=== PATIENT | female | born 1945 | race Caucasian/White ===

== ENCOUNTER 2024-04-15 13:39 | Inpatient (IN) ==
[2024-04-15] MEDS: OPTIRAY 320 125ml IV ONE (13:54)
--- NOTE | 2024-04-15 14:00 | Emergency Department Note ---
Impression & Plan Expressive aphasia, Anemia, High serum chloride ED Provider Note NAME: SALLY PHILIP AGE: 78 SEX: F : 1945 ARRIVES VIA: Walk-In INFORMANT: Patient ED PROVIDER(S): Alf Reis DO CHIEF COMPLAINT: Trouble talking HPI: Patient is an 78-year-old female who presents ER for trouble getting her words out. She was brought in for confusion. Daughter who is present at bedside provides the majority of the history and notes that she was normal this morning when she woke up and the father saw her. She became confused somewhere around 11:00 today. She was found sitting on the toilet confused for a protracted period of time. It was noted at that time that she was talking not making sense.. She denies any headache or chest pain. No belly pain. No nausea, vomiting, or diarrhea. No dysuria, urgency, or frequency. ADDITIONAL HISTORY OBTAINED: Per HPI Chronic Medical/Social Conditions Affecting Care: Per HPI PAST MEDICAL HISTORY:See Below PAST SURGICAL HISTORY:See Below FAMILY HISTORY:See Below SOCIAL HISTORY:See Below HOME MEDICATIONS:See Below ALLERGIES:See Below VITALS:See Below PHYSICAL EXAMINATION: GENERAL: Sitting up in bed, alert, well appearing, well nourished, no distress, non-toxic EYE EXAM: normal conjunctiva. PERRL and EOM's grossly intact. OROPHARYNX: no exudate, no erythema, lips, buccal mucosa, and tongue normal and mucous membranes are moist NECK: supple, no nuchal rigidity, no adenopathy, non-tender LUNGS: Clear to auscultation. Normal chest wall mechanics HEART: no murmurs, S1 normal and S2 normal ABDOMEN: abdomen soft, non-tender, normo-active bowel sounds, no masses, no rebound or guarding. BACK: Back is symmetrical on inspection and there is no deformity, no midline tenderness, no CVA tenderness. SKIN: no rashes and no bruising UPPER EXTREMITIES: upper extremities are grossly normal. LOWER EXTREMITIES: No pitting edema. NEURO EXAM: Oriented to person but not place or time, cranial nerves II-XII intact, normal speech, no weakness of arms, no weakness of legs. No drift. Finger to nose intact. Gross sensation intact. MEDICAL DECISION MAKING: Patient is an 78-year-old female who presents ER for above-stated complaint. IV was established and blood work was obtained. Labs show no significant leukocytosis. Mild anemia 10.8. INR unremarkable. BMP with a creatinine 1.27. LFTs bilirubin were unremarkable. Mag 2.0. Troponin negative. CT angios of the head and neck were obtained and showed no acute pathology. Patient has been taking her Eliquis. Not a TNK candidate. Discussed the presentation and workup with neurology and they did evaluate her via telestroke. No additional changes and they recommended admission. They will place a note. Patient was given IV Rocephin as I favor that this was likely a UTI but UA was pending and eventually resulted and was unremarkable. Discussed the case with the hospitalist for further evaluation management treatment. Consults/Care Managements Discussions: Per [facility] Triage Nursing notes reviewed. Limited review of prior medical records performed Vital Signs: reviewed and remarkable for HTN Differential diagnosis: Differential Diagnosis includes but is not limited to ischemic Stroke, hemorrhagic stroke, bells palsy, mass, neoplasm, migraine headache, seizure, subarachnoid hemorrhage, TIA, and transient global amnesia. ER treatment provided: See below Diagnostics interpreted by me include EKG and cardiac monitoring as listed below: -Cardiac Monitoring: An order was placed for continuous cardiac monitoring. The monitor shows a rate of 92 with sinus rhythm. -ECG: Sinus rhythm rate 82 Normal axis No PVCs Poor baseline in the lateral leads QTc 450 -Laboratory studies:Interpreted by me as stated above in MDM and shown below. Imaging studies: Xrays: As interpreted by me: Portable AP upright 1 view of the chest shows no focal infiltrate CTs show: CT angios of the head and neck showed no acute pathology Procedures:none Critical Care: None Past Med/Surg History Problem List (Updated 04/15/24 @ 19:47 by Alf Reis DO) High serum chloride (Acute) Anemia (Acute) Expressive aphasia (Acute) Medical History (Updated 04/15/24 @ 19:47 by Alf Reis DO) Benign essential tremor Chronic anemia CKD (chronic kidney disease) stage 3, GFR 30-59 ml/min IBS (irritable bowel syndrome) Barretts esophagus Chronic heart failure with preserved ejection fraction (HFpEF) Hx TIA/stroke 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 Noted on MRI Chronic seasonal allergic rhinitis Hypothyroidism HLD (hyperlipidemia) HTN (hypertension) Surgical History (Updated 04/15/24 @ 16:11 by Destini Bailey PA-C) Hx of tonsillectomy Hx of cholecystectomy Hx of tubal ligation S/P repair of paraesophageal hernia Family History (Updated 04/15/24 @ 16:11 by Destini Bailey PA-C) Other Cancer Coronary heart disease Social History (Updated 04/15/24 @ 16:11 by Destini Bailey PA-C) Smoking Status: Never smoker Second Hand Exposure: No; Do You Dip or Chew Tobacco: No; Tobacco Cessation Education Requested by Patient: No Hx Alcohol Use: No Hx Substance Use: No Preferred Language: Armenian Communication Ability: Effective Fight Manager Required: No Beliefs That Will Affect Care: None marital status: Current Living Situation: Spouse Other Information That Helps Us Care for You: No Feels Safe at Home: Yes Safety Concerns: Feels Safe At This Time Assistive Devices: Walker Allergies Allergies Allergy/AdvReac Type Severity Reaction Status Date / Time latex Allergy Severe RASH,SWELLING,EDEMA Verified 04/15/24 16:08 TO FACE/LIPS/TONGUE NSAIDS (Non-Steroidal Allergy Severe Swelling Verified 04/15/24 16:08 Anti-Inflamma of Lip/Tongue/Throat oxybutynin Allergy Severe Swelling Verified 04/15/24 16:08 of Lip/Tongue/Throat soy Allergy Severe Swelling Verified 04/15/24 16:08 of Lip/Tongue/Throat tolmetin Allergy Severe Swelling Verified 04/15/24 16:08 of Lip/Tongue/Throat cefuroxime Allergy Intermediate Anaphylaxis Verified 04/15/24 16:08 azithromycin Allergy NUMBNESS Verified 04/15/24 16:08 IN MOUTH Cephalosporins Allergy Unknown Verified 04/15/24 16:09 ibuprofen Allergy Swelling Verified 04/15/24 16:08 of Lip/Tongue/Throat naproxen Allergy Swelling Verified 04/15/24 16:08 of the Eye Penicillins Allergy Hives Verified 04/15/24 16:09 Sulfa (Sulfonamide Allergy Unknown Verified 04/15/24 16:09 Antibiotics) atorvastatin AdvReac Intermediate MUSCLE Verified 04/15/24 16:08 PAIN,MIALGIA erythromycin base AdvReac Gastrointestinal Verified 04/15/24 16:08 Upset meperidine [From Demerol] AdvReac GI UPSET Verified 04/15/24 16:08 AND DIZZINESS AVACADO Allergy Severe Swelling Uncoded 04/15/24 16:08 of Lip/Tongue/Throat Home Meds Home Medications Medication Instructions Recorded Confirmed acetaminophen 325 mg tablet 325 mg PO HS PRN Pain 04/15/24 04/15/24 apixaban 2.5 mg tablet (Eliquis) 2.5 mg PO AMHS 04/15/24 04/15/24 cholecalciferol (vitamin D3) 50 50 mcg PO DAILY 04/15/24 04/15/24 mcg (2,000 unit) capsule (Vitamin D3) conjugated estrogens 0.625 mg/gram 1 applic vaginal 2XWK 04/15/24 04/15/24 vaginal cream (Premarin) fluticasone propionate 50 2 spray intranasal DAILY 04/15/24 04/15/24 mcg/actuation nasal spray,suspension levothyroxine 50 mcg tablet 50 mcg PO QAM 04/15/24 04/15/24 pantoprazole 40 mg tablet,delayed 40 mg PO DAILYBB 04/15/24 04/15/24 release rosuvastatin 20 mg tablet 20 mg PO HS 04/15/24 04/15/24 spironolactone 25 mg tablet 25 mg PO QAM 04/15/24 04/15/24 Results & Data (ED) Vital Signs Vital Signs - 24 hr 04/15/24 13:40 04/15/24 13:43 04/15/24 14:48 Temperature 36.0 C L Temperature Source Temporal Artery Scan Pulse Rate 90 74 Pulse Rate [Apical] Respiratory Rate 18 Respiratory Effort / Characteristics Non-Labored Spontaneous Respiratory Depth Normal Respiratory Pattern Regular Blood Pressure 184/81 H Blood Pressure [Right Arm] Blood Pressure Mean 115 Blood Pressure Mean [Right Arm] Pulse Oximetry 97 Oxygen Delivery Method Room Air Sepsis Recent Fever Within 48 Hours No Sepsis New/Unexplained Change in Mental Status N/A Sepsis Action Taken by Nursing No Action Required 04/15/24 14:56 Temperature Temperature Source Pulse Rate Pulse Rate [Apical] 69 Respiratory Rate 19 Respiratory Effort / Characteristics Non-Labored Spontaneous Respiratory Depth Normal Respiratory Pattern Regular Blood Pressure Blood Pressure [Right Arm] 166/86 H Blood Pressure Mean Blood Pressure Mean [Right Arm] 112 Pulse Oximetry 97 Oxygen Delivery Method Room Air Sepsis Recent Fever Within 48 Hours Sepsis New/Unexplained Change in Mental Status Sepsis Action Taken by Nursing Laboratory Data 04/15/24 13:55 04/15/24 13:55 Lab Results 12/12/24 12/12/24 12/12/24 Range/Units 13:55 14:04 14:50 WBC 5.57 (4.8-10.8) K/ul RBC 3.59 L (4.20-5.40) M/uL Hgb 10.8 L (12.0-16.0) g/dl POC Hgb 10.5 L (12.0-16.0) g/dl Hct 33.1 L (37.0-47.0) % POC Hct 31 L (37-47) % MCV 92.2 (80.0-100.0) fL MCH 30.1 (25.0-34.0) pg MCHC 32.6 (32.0-36.0) g/dL RDW Std Deviation 45.7 (36.4-46.3) fL RDW Coeff of Kelly 13.5 (11.5-14.5) % Plt Count 185 (130-400) K/uL MPV 11.1 (9.4-12.4) fL PT 10.9 (9.0-12.0) Seconds INR 1.0 (0.9-1.1) APTT 28 (21-31) Seconds PTT Ratio 1.0 POC Sodium 140 (135-144) mmol/L Sodium 141 (136-145) mmol/L POC Potassium 4.5 (3.3-5.0) mmol/L Potassium 4.6 (3.5-5.1) mmol/L POC Chloride 107 (101-112) mmol/L Chloride 108 H (98-107) mmol/L Carbon Dioxide 27 (21-32) mmol/L POC Total CO2 23 L (24-31) mmol/L Anion Gap 6 (3-11) POC Anion Gap 16.0 (16-25) mmol/L POC BUN 24 H (7-18) mg/dl BUN 24 H (6-23) mg/dl Creatinine 1.27 H (0.6-1.2) mg/dl POC Creatinine 1.4 H (0.6-1.3) mg/dl Est Cr Clr Drug Dosing 34.2 ml/min eGFR 42.75 BUN/Creatinine Ratio 18.9 (10-20) Glucose 101 H (70-99(Fasting)) mg/dl POC Glucose (other) 99 (70-99) mg/dl Calcium 9.7 (8.6-10.3) mg/dl POC Ioniz Calcium Eduarda 1.28 (1.12-1.32) mmol/l Magnesium 2.0 (1.7-2.4) mg/dl Total Bilirubin 0.5 (0.2-1.0) mg/dl AST 15 (13-39) U/L ALT 7 (7-52) U/L Alkaline Phosphatase 84 (34-104) U/L Troponin I High Sens 8.0 (0-14) pg/ml Total Protein 7.0 (6.0-8.3) gm/dl Albumin 4.3 (3.4-5.0) gm/dl Globulin 2.7 (2.5-4.0) gm/dl Albumin/Globulin Ratio 1.6 (0.9-2) Urine Color Yellow Urine Appearance Clear (Clear) Urine pH 6.5 (4.5-7.5) Ur Specific [place] 1.019 (1.000-1.030) Urine Protein Negative (Negative) Urine Glucose (UA) Negative (Negative) Urine Ketones Negative (Negative) Urine Blood Negative (Negative) Urine Nitrite Negative (Negative) Urine Bilirubin Negative (Negative) Urine Urobilinogen Negative (Negative) Ur Leukocyte Esterase Negative (Negative) Administered Medications Acetaminophen (Acetaminophen 325 Mg Tab) 650 mg PO Q4H PRN PRN Reason: Pain or Fever Stop: 05/15/24 17:49 Last Admin: 04/15/24 18:19 Dose: 650 mg Documented By: CLINTON Discontinued Medications Ceftriaxone Sodium (Rocephin) 2,000 mg in 50 mls @ 100 mls/hr IV NOW STA Stop: 04/15/24 15:12 Last Admin: 04/15/24 16:20 Dose: Not Given Documented By: CLAUDETTE Sodium Chloride (Nss) 500 mls @ 80 mls/hr IV .Q6H15M MEME Stop: 04/15/24 22:59 Last Admin: 04/15/24 18:19 Dose: 80 mls/hr Documented By: DENISE Ioversol (Optiray 320 125ml) 120 ml IV ONCE ONE Stop: 04/15/24 14:01 Last Admin: 04/15/24 13:54 Dose: 120 ml Documented By: RED Imaging Data Radiologist's Impression: Chest X-Ray 04/15/24 13:49 XR chest 1V portable HISTORY: 78 years-old Female stroke alert COMPARISON: CTA neck of same day TECHNIQUE: AP view the chest FINDINGS: Cardiomediastinal and hilar silhouettes are within normal limits. Atherosclerosis of the aorta. No pneumothorax or pleural effusion. Bones appear grossly intact. IMPRESSION: No acute process. ACT 112: Negative or not required by law. The above report was generated using voice recognition software. It may contain grammatical, syntax or spelling errors. Electronically signed by: Deven Rivas M.D. 04/15/2024 2:[address] 04/15/24 13:49 CT head/brain wo con CLINICAL HISTORY: 78 years-old Female with Neuro deficit, acute, stroke suspected. Acute stroke like symptoms TECHNIQUE: Multiple axial CT images of the head were obtained without contrast. A dose lowering technique was utilized adhering to the principles of ALARA. CT DOSE: 919.61 mGy.cm COMPARISON: CTA head and neck of same day FINDINGS: No acute intracranial hemorrhage, midline shift, intracranial mass, hydrocephalus, territorial ischemia or abnormal extra-axial collection. Involutional changes with white matter hypodensities suggestive of chronic microvascular ischemic disease. Ventriculomegaly, likely on an ex vacuo basis. Focus of encephalomalacia within the right frontal lobe on image 19 series 2. Chronic appearing lacunar infarcts of the left cerebellum. The calvarium is intact. The paranasal sinuses, mastoid air cells, and middle ear cavities are clear. IMPRESSION: 1. No acute intracranial abnormality identified. 2. Involutional changes with chronic microvascular ischemic disease. 3. Ventriculomegaly is likely on an ex vacuo basis. Normal pressure hydrocephalus could appear similarly. 4. Encephalomalacia of the right frontal lobe, likely from a chronic infarct. ACT 112: Negative or not required by law. The above report was generated using voice recognition software. It may contain grammatical, syntax or spelling errors. Electronically signed by: Deven Rivas M.D. 04/15/2024 2:17 PM Head CTA 04/15/24 13:51 CT angio head w con CLINICAL HISTORY: stroke alert TECHNIQUE: CT angiography of the head was performed following intravenous administration of iodinated contrast. Coronal and sagittal MIPS were obtained from the axial data set and were submitted for review. Automated dose lowering techniques and/or adjustment according to patient size were utilized for this examination. All measurements were calculated based on NASCET criteria. Comparison: None available at the time of this dictation. FINDINGS: CTA Head: The anterior and posterior cerebral circulations are patent. origin of the right posterior cerebral artery is seen. IMPRESSION: No occlusion, hemodynamically significant stenosis, aneurysm, dissection, or arteriovenous malformation in the major intracranial arteries. Assessment of stenosis of the internal carotid arteries is based on NASCET criteria. ACT 112: Negative or not required by law. Electronically signed by: Noel Malin M.D. 04/15/2024 2:11 PM Neck CTA 04/15/24 13:51 CT angio neck with con CLINICAL HISTORY: 78 years-old Female with stroke alert. Acute stroke like symptoms COMPARISON STUDY: CTA head of same day TECHNIQUE: Following the IV administration of 120 mL of Optiray, CT angiogram of the neck was performed from the aortic arch to the skull base. Images are reviewed in the axial, sagittal, and coronal planes. 3-D MIPS images are created and assessed. IV contrast was administered without complication. All measurements were calculated based on NASCET criteria. A dose lowering technique was utilized adhering to the principles of ALARA. FINDINGS: Three-vessel morphology of the thoracic aortic arch. Common and internal carotid arteries are patent. Atherosclerosis of the right carotid bulb without high- grade stenosis. There is mild fusiform dilation of the ophthalmic branch left ICA measuring 5 mm compared to a normal 4 mm on the right. Dominant right vertebral artery. The bilateral vertebral arteries are patent. Patent basilar artery. origin of the right posterior cerebral artery. Lung apices are clear without pneumothorax. Unremarkable soft tissues. Degenerative changes of the cervical spine. No acute fracture identified. IMPRESSION: 1. Atherosclerosis without dissection, high-grade stenosis or arterial occlusion. 2. Mild fusiform dilation of the ophthalmic segment left ICA measuring 5 mm. ACT 112: Negative or not required by law. The above report was generated using voice recognition software. It may contain grammatical, syntax or spelling errors. Electronically signed by: Deven Rivas M.D. 04/15/2024 2:17 PM Discharge Plan Visit Data Chief Complaint: TIA Symptoms Stated Complaint: TIA SYMPTOMS, CONFUSED, WEAK ED Provider: Alf Reis Discharge Problem: Expressive aphasia, Anemia, High serum chloride Patient Disposition: Admitted As Inpatient Discharge Instructions Interventions: ED Discharge Assessment Last Done: 04/15/24 17:00
--- NOTE | 2024-04-15 14:13 | CT Scan Report ---
CT angio head w con CLINICAL HISTORY: stroke alert TECHNIQUE: CT angiography of the head was performed following intravenous administration of iodinate d contrast. Coronal and sagittal MIPS were obtained from the axial data set and were submitted for re view. Automated dose lowering techniques and/or adjustment according to patient size were utilized f or this examination. All measurements were calculated based on NASCET criteria. Comparison: None available at the time of this dictation. FINDINGS: CTA Head: The anterior and posterior cerebral circulations are patent. origin of the right pos terior cerebral artery is seen. IMPRESSION: No occlusion, hemodynamically significant stenosis, aneurysm, dissection, or arteriovenous malformati on in the major intracranial arteries. Assessment of stenosis of the internal carotid arteries is based on NASCET criteria. ACT 112: Negative or not required by law. Electronically signed by: Noel Malin M.D. 04/15/2024 2:11 PM
[2024-04-15 14:16] LABS: iSTAT Creatinine 1.4 mg/dl (0.6-1.3); iSTAT Hemoglobin 10.5 g/dl (12.0-16.0); iSTAT Ionized Calcium 1.28 mmol/l (1.12-1.32); iSTAT Potassium 4.5 mmol/L (3.3-5.0)
[2024-04-15 14:18] LABS: Hematocrit (blood only) 33.1 % (37.0-47.0); Hemoglobin 10.8 g/dl (12.0-16.0); Mean Corpuscular Hemoglobin 30.1 pg (25.0-34.0); Mean Corpuscular Hgb Conc 32.6 g/dL (32.0-36.0); Mean Corpuscular Volume 92.2 fL (80.0-100.0); Mean Platelet Volume 11.1 fL (9.4-12.4); Platelet Count 185 K/uL (130-400); RDW Coefficient of Variation 13.5 % (11.5-14.5); RDW Standard Deviation 45.7 fL (36.4-46.3); Red Blood Count 3.59 M/uL (4.20-5.40); White Blood Count 5.57 K/ul (4.8-10.8)
--- NOTE | 2024-04-15 14:18 | CT Scan Report ---
CT angio neck with con CLINICAL HISTORY: 78 years-old Female with stroke alert. Acute stroke like symptoms COMPARISON STUDY: CTA head of same day TECHNIQUE: Following the IV administration of 120 mL of Optiray, CT angiogram of the neck was perform ed from the aortic arch to the skull base. Images are reviewed in the axial, sagittal, and coronal pl anes. 3-D MIPS images are created and assessed. IV contrast was administered without complication. Al l measurements were calculated based on NASCET criteria. A dose lowering technique was utilized adhe ring to the principles of ALARA. FINDINGS: Three-vessel morphology of the thoracic aortic arch. Common and internal carotid arteries are patent. Atherosclerosis of the right carotid bulb without high-grade stenosis. There is mild fusiform dilati on of the ophthalmic branch left ICA measuring 5 mm compared to a normal 4 mm on the right. Dominant right vertebral artery. The bilateral vertebral arteries are patent. Patent basilar artery. grace gin of the right posterior cerebral artery. Lung apices are clear without pneumothorax. Unremarkable soft tissues. Degenerative changes of the ce rvical spine. No acute fracture identified. IMPRESSION: 1. Atherosclerosis without dissection, high-grade stenosis or arterial occlusion. 2. Mild fusiform dilation of the ophthalmic segment left ICA measuring 5 mm. ACT 112: Negative or not required by law. The above report was generated using voice recognition software. It may contain grammatical, syntax o r spelling errors. Electronically signed by: Deven Rivas M.D. 04/15/2024 2:17 PM
--- NOTE | 2024-04-15 14:18 | CT Scan Report ---
CT head/brain wo con CLINICAL HISTORY: 78 years-old Female with Neuro deficit, acute, stroke suspected. Acute stroke like symptoms TECHNIQUE: Multiple axial CT images of the head were obtained without contrast. A dose lowering tech nique was utilized adhering to the principles of ALARA. CT DOSE: 919.61 mGy.cm COMPARISON: CTA head and neck of same day FINDINGS: No acute intracranial hemorrhage, midline shift, intracranial mass, hydrocephalus, territorial ischem ia or abnormal extra-axial collection. Involutional changes with white matter hypodensities suggestiv e of chronic microvascular ischemic disease. Ventriculomegaly, likely on an ex vacuo basis. Focus of encephalomalacia within the right frontal lobe on image 19 series 2. Chronic appearing lacunar infarc ts of the left cerebellum. The calvarium is intact. The paranasal sinuses, mastoid air cells, and middle ear cavities are clear . IMPRESSION: 1. No acute intracranial abnormality identified. 2. Involutional changes with chronic microvascular ischemic disease. 3. Ventriculomegaly is likely on an ex vacuo basis. Normal pressure hydrocephalus could appear simila rly. 4. Encephalomalacia of the right frontal lobe, likely from a chronic infarct. ACT 112: Negative or not required by law. The above report was generated using voice recognition software. It may contain grammatical, syntax o r spelling errors. Electronically signed by: Deven Rivas M.D. 04/15/2024 2:17 PM
[2024-04-15 14:41] LABS: Albumin Globulin Ratio 1.6 (0.9-2); Albumin Level 4.3 gm/dl (3.4-5.0); BUN Creatinine Ratio 18.9 (10-20); Bilirubin,Total 0.5 mg/dl (0.2-1.0); Calcium 9.7 mg/dl (8.6-10.3); Creatinine Clr Calc Pharmacy 34.2 ml/min; Globulin 2.7 gm/dl (2.5-4.0); Potassium 4.6 mmol/L (3.5-5.1)
[2024-04-15 14:42] LABS: Partial Thromboplastin Time 28 Seconds (21-31); Prothrombin Time 10.9 Seconds (9.0-12.0)
--- NOTE | 2024-04-15 14:58 | XRay Report ---
XR chest 1V portable HISTORY: 78 years-old Female stroke alert COMPARISON: CTA neck of same day TECHNIQUE: AP view the chest FINDINGS: Cardiomediastinal and hilar silhouettes are within normal limits. Atherosclerosis of the aorta. No pn eumothorax or pleural effusion. Bones appear grossly intact. IMPRESSION: No acute process. ACT 112: Negative or not required by law. The above report was generated using voice recognition software. It may contain grammatical, syntax o r spelling errors. Electronically signed by: Deven Rivas M.D. 04/15/2024 2:57 PM
--- NOTE | 2024-04-15 15:07 | Electrocardiogram Report ---
Test Reason : Blood Pressure : */* mmHG Vent. Rate : 82 BPM Atrial Rate : 82 BPM P-R Int : 142 ms QRS Dur : 70 ms QT Int : 386 ms P-R-T Axes : 57 20 58 degrees QTcB Int : 450 ms Poor data quality, interpretation may be adversely affected Sinus rhythm with Premature supraventricular complexes Abnormal ECG No previous ECGs available Confirmed by Adryan Herndon ([id number]) on 04/15/2024 3:07:44 PM Referred By: REFERRED SELF Confirmed By: Adryan Herndon
--- NOTE | 2024-04-15 15:09 | History & Physical Report ---
Date of Service April 15, 2024 Assessment & Plan (1) Expressive aphasia: (2) Chronic heart failure with preserved ejection fraction (HFpEF): (3) HTN (hypertension): (4) HLD (hyperlipidemia): (5) Hypothyroidism: (6) CKD (chronic kidney disease) stage 3, GFR 30-59 ml/min: (7) Chronic anemia: Plan This is an 78-year-old female who has significant past medical history of HTN, HLD, hypothyroidism, chronic diastolic CHF, GERD with esophagitis, history of Espinoza's, IBS, CKD stage III, anemia of chronic disease with a baseline hemoglobin of 10, osteoarthritis, osteopenia, benign essential tremor, chronic fatigue syndrome, peripheral polyneuropathy, history of TIA, history of paraesophageal hernia repair who presents to ED after experiencing aphasia since 1145a.m. Expressive Aphasia Admit to PCU for stroke work up --Head CT Involutional changes with chronic microvascular ischemic disease.3. Ventriculomegaly is likely on an ex vacuo basis. Normal pressure hydrocephalus could appear similarly.4. Encephalomalacia of the right frontal lobe, likely from a chronic infarct. --Head CTA: unremarkable --Neck CTA: Mild fusiform dilation of the ophthalmic segment left ICA measuring 5 mm. seen by [facility] Tele neurology - recommend admission for stroke work up infectious w/u unremarkable, UA WNL MRI Brain, Echo, PT/OT/ST, A1C, lipid panel in a.m. continue high intensity statin and eliquis for now, will give ASA 81mg x 1 now consult [facility] neuro hold aldactone, allow for permissive HTN Chronic HFpEF/HTN/HLD: continue statin, hold aldactone for 24hrs, daily weights, I and OS, heart healthy diet Gerd with esophagitis/Barretts: PPI Chronic Anemia: follows hematology, baseline 10.0 CKD-3 - baseline cr 1.3, will given 500ml of IVF given dye load, chronic and stable Hx of DVT: july 2023, now on low dose apixaban due to venous insuff, severity of clot and immobility due to recent Parkinson dx - per last hematology note DVT ppx: eliquis FULL CODE PCP: Madalyn Pandya Dispo: admit to tele, lives at home with walker, ambulates with a walker at baseline Pt was seen and examined in collaboration with Dr. Pierre, please see addendum I spent a total of 76 minutes reviewing notes, outpatient records, labs, medication, coordinating, documenting and providing care for this patient excluding time spent in the performance of separately billed services. History of Present Illness Chief Complaint: Difficulty speaking starting at 1145 a.m. Primary Care Provider: Madalyn Pandya MD This is an 78-year-old female who has significant past medical history of HTN, HLD, hypothyroidism, chronic diastolic CHF, GERD with esophagitis, history of Espinoza's, IBS, CKD stage III, anemia of chronic disease with a baseline hemoglobin of 10, osteoarthritis, osteopenia, benign essential tremor, chronic fatigue syndrome, peripheral polyneuropathy, history of TIA, history of paraesophageal hernia repair who presents to ED after experiencing aphasia since 1145a.m. Patient lives with her . At baseline she ambulates with a walker. Daughter is at bedside who also helps elicit history. Reports new onset difficulty speaking. Currently daughter feels her speech is significantly improved from this morning, but still not back to normal. Daughter states that she sent a text message out at approximately 10 AM saying "hello and that the sun was shining." This is a normal greeting she receives from her mother on a daily basis. She received a phone call from her father at approximately 11:45 AM asking her to come to the house as he felt there was something wrong with his . Daughter reports at the house she noticed patient had significant difficulty speaking. She also was not making any sense. Pt denies any focal weakness or facial droop. Daughter reports L eye being, "droopy," but this was chronic her her. Pt denies any f/c/s, chest pain, sob, n/v/d, abd pain, dysuria, hematuria, increased urg/freq with urination. Pt has hx of freq UTIs. She previously had a pessary in place, but was taken out in January. Since then she hasn't had a UTI since January. She is R hand dominant. Allergies Allergy/AdvReac Type Severity Reaction Status Date / Time latex Allergy Severe RASH,SWELLING,EDEMA Verified 04/15/24 16:08 TO FACE/LIPS/TONGUE NSAIDS (Non-Steroidal Allergy Severe Swelling Verified 04/15/24 16:08 Anti-Inflamma of Lip/Tongue/Throat oxybutynin Allergy Severe Swelling Verified 04/15/24 16:08 of Lip/Tongue/Throat soy Allergy Severe Swelling Verified 04/15/24 16:08 of Lip/Tongue/Throat tolmetin Allergy Severe Swelling Verified 04/15/24 16:08 of Lip/Tongue/Throat cefuroxime Allergy Intermediate Anaphylaxis Verified 04/15/24 16:08 azithromycin Allergy NUMBNESS Verified 04/15/24 16:08 IN MOUTH Cephalosporins Allergy Unknown Verified 04/15/24 16:09 ibuprofen Allergy Swelling Verified 04/15/24 16:08 of Lip/Tongue/Throat naproxen Allergy Swelling Verified 04/15/24 16:08 of the Eye Penicillins Allergy Hives Verified 04/15/24 16:09 Sulfa (Sulfonamide Allergy Unknown Verified 04/15/24 16:09 Antibiotics) atorvastatin AdvReac Intermediate MUSCLE Verified 04/15/24 16:08 PAIN,MIALGIA erythromycin base AdvReac Gastrointestinal Verified 04/15/24 16:08 Upset meperidine [From Demerol] AdvReac GI UPSET Verified 04/15/24 16:08 AND DIZZINESS AVACADO Allergy Severe Swelling Uncoded 04/15/24 16:08 of Lip/Tongue/Throat Home Medications Medication Instructions Recorded Confirmed Type acetaminophen 325 mg tablet 325 mg PO HS PRN Pain 04/15/24 04/15/24 History apixaban 2.5 mg tablet (Eliquis) 2.5 mg PO AMHS 04/15/24 04/15/24 History cholecalciferol (vitamin D3) 50 50 mcg PO DAILY 04/15/24 04/15/24 History mcg (2,000 unit) capsule (Vitamin D3) conjugated estrogens 0.625 mg/gram 1 applic vaginal 2XWK 04/15/24 04/15/24 History vaginal cream (Premarin) fluticasone propionate 50 2 spray intranasal DAILY 04/15/24 04/15/24 History mcg/actuation nasal spray,suspension levothyroxine 50 mcg tablet 50 mcg PO QAM 04/15/24 04/15/24 History pantoprazole 40 mg tablet,delayed 40 mg PO DAILYBB 04/15/24 04/15/24 History release rosuvastatin 20 mg tablet 20 mg PO HS 04/15/24 04/15/24 History spironolactone 25 mg tablet 25 mg PO QAM 04/15/24 04/15/24 History Past Med/Surg History Problem List (Updated 04/15/24 @ 19:23 by Alf Reis DO) Anemia (Acute) Expressive aphasia (Acute) Medical History (Updated 04/15/24 @ 19:23 by Alf Reis DO) Benign essential tremor Chronic anemia CKD (chronic kidney disease) stage 3, GFR 30-59 ml/min IBS (irritable bowel syndrome) Barretts esophagus Chronic heart failure with preserved ejection fraction (HFpEF) Hx TIA/stroke w/o resid Noted on MRI Chronic seasonal allergic rhinitis Hypothyroidism HLD (hyperlipidemia) HTN (hypertension) Surgical History (Updated 04/15/24 @ 16:11 by Destini Bailey PA-C) Hx of tonsillectomy Hx of cholecystectomy Hx of tubal ligation S/P repair of paraesophageal hernia Family History (Updated 04/15/24 @ 16:11 by Destini Bailey PA-C) Other Cancer Coronary heart disease Social History (Updated 04/15/24 @ 16:11 by Destini Bailey PA-C) Smoking Status: Never smoker Second Hand Exposure: No; Do You Dip or Chew Tobacco: No; Tobacco Cessation Education Requested by Patient: No Hx Alcohol Use: No Hx Substance Use: No Preferred Language: Pakistani Communication Ability: Effective Bench Carpenter Required: No Beliefs That Will Affect Care: None marital status: Current Living Situation: Spouse Other Information That Helps Us Care for You: No Feels Safe at Home: Yes Safety Concerns: Feels Safe At This Time Assistive Devices: Neville Review of Systems Review of Systems: All systems reviewed & are unremarkable except as noted in HPI & below Physical Exam Physical Exam: please refer to DR. pierre addendum for physical exam findings. Results & Data Results & Data Vital Signs (Past 12 Hours) Vital Signs Temp Pulse Resp BP Pulse Ox O2 Del Method 04/15/24 14:48 74 04/15/24 13:43 36.0 C L 90 18 184/81 H 97 04/15/24 13:40 Room Air Laboratory Results I have independently reviewed and interpreted patient's admitting labs including CBC, CMP, UA Diagnostic Findings Chest X-Ray 04/15/24 13:49 XR chest 1V portable HISTORY: 78 years-old Female stroke alert COMPARISON: CTA neck of same day TECHNIQUE: AP view the chest FINDINGS: Cardiomediastinal and hilar silhouettes are within normal limits. Atherosclerosis of the aorta. No pneumothorax or pleural effusion. Bones appear grossly intact. IMPRESSION: No acute process. ACT 112: Negative or not required by law. The above report was generated using voice recognition software. It may contain grammatical, syntax or spelling errors. Electronically signed by: Deven Rivas M.D. 04/15/2024 2:[address] 04/15/24 13:49 CT head/brain wo con CLINICAL HISTORY: 78 years-old Female with Neuro deficit, acute, stroke suspected. Acute stroke like symptoms TECHNIQUE: Multiple axial CT images of the head were obtained without contrast. A dose lowering technique was utilized adhering to the principles of ALARA. CT DOSE: 919.61 mGy.cm COMPARISON: CTA head and neck of same day FINDINGS: No acute intracranial hemorrhage, midline shift, intracranial mass, hydrocephalus, territorial ischemia or abnormal extra-axial collection. Involutional changes with white matter hypodensities suggestive of chronic microvascular ischemic disease. Ventriculomegaly, likely on an ex vacuo basis. Focus of encephalomalacia within the right frontal lobe on image 19 series 2. Chronic appearing lacunar infarcts of the left cerebellum. The calvarium is intact. The paranasal sinuses, mastoid air cells, and middle ear cavities are clear. IMPRESSION: 1. No acute intracranial abnormality identified. 2. Involutional changes with chronic microvascular ischemic disease. 3. Ventriculomegaly is likely on an ex vacuo basis. Normal pressure hydrocephalus could appear similarly. 4. Encephalomalacia of the right frontal lobe, likely from a chronic infarct. ACT 112: Negative or not required by law. The above report was generated using voice recognition software. It may contain grammatical, syntax or spelling errors. Electronically signed by: Deven Rivas M.D. 04/15/2024 2:17 PM Head CTA 04/15/24 13:51 CT angio head w con CLINICAL HISTORY: stroke alert TECHNIQUE: CT angiography of the head was performed following intravenous administration of iodinated contrast. Coronal and sagittal MIPS were obtained from the axial data set and were submitted for review. Automated dose lowering techniques and/or adjustment according to patient size were utilized for this ex amination. All measurements were calculated based on NASCET criteria. Comparison: None available at the time of this dictation. FINDINGS: CTA Head: The anterior and posterior cerebral circulations are patent. origin of the right posterior cerebral artery is seen. IMPRESSION: No occlusion, hemodynamically significant stenosis, aneurysm, dissection, or arteriovenous malformation in the major intracranial arteries. Assessment of stenosis of the internal carotid arteries is based on NASCET criteria. ACT 112: Negative or not required by law. Electronically signed by: Noel Malin M.D. 04/15/2024 2:11 PM Neck CTA 04/15/24 13:51 CT angio neck with con CLINICAL HISTORY: 78 years-old Female with stroke alert. Acute stroke like symptoms COMPARISON STUDY: CTA head of same day TECHNIQUE: Following the IV administration of 120 mL of Optiray, CT angiogram of the neck was performed from the aortic arch to the skull base. Images are r eviewed in the axial, sagittal, and coronal planes. 3-D MIPS images are created and assessed. IV contrast was administered without complication. All measurements were calculated based on NASCET criteria. A dose lowering technique was utilized adhering to the principles of ALARA. FINDINGS: Three-vessel morphology of the thoracic aortic arch. Common and internal carotid arteries are patent. Atherosclerosis of the right carotid bulb without high- grade stenosis. There is mild fusiform dilation of the ophthalmic branch left ICA measuring 5 mm compared to a normal 4 mm on the right. Dominant right vertebral artery. The bilateral vertebral arteries are patent. Patent basilar artery. origin of the right posterior cerebral artery. Lung apices are clear without pneumothorax. Unremarkable soft tissues. Degenerative changes of the cervical spine. No acute fracture identified. IMPRESSION: 1. Atherosclerosis without dissection, high-grade stenosis or arterial occlusion. 2. Mild fusiform dilation of the ophthalmic segment left ICA measuring 5 mm. ACT 112: Negative or not required by law. The above report was generated using voice recognition software. It may contain grammatical, syntax or spelling errors. Electronically signed by: Deven Rivas M.D. 04/15/2024 2:17 PM Medications Administered Medication List Discontinued Medications Ioversol (Optiray 320 125ml) 120 ml IV ONCE ONE Stop: 04/15/24 14:01 Last Admin: 04/15/24 13:54 Dose: 120 ml Documented By: RED ECG Additional Comments: I have independently reviewed and interpreted patient's admitting EKG which revealed: 82 bpm, NSR COVID-19 Results Results COVID-19 Adm Lab Results: RBC 3.59 M/uL (4.20-5.40) L 04/15/24 WBC 5.57 K/ul (4.8-10.8) 04/15/24 Hgb 10.8 g/dl (12.0-16.0) L 04/15/24 Hct 33.1 % (37.0-47.0) L 04/15/24 Plt Count 185 K/uL (130-400) 04/15/24 Na 141 mmol/L (136-145) 04/15/24 K 4.6 mmol/L (3.5-5.1) 04/15/24 Cl 108 mmol/L (98-107) H 04/15/24 CO2 27 mmol/L (21-32) 04/15/24 Anion Gap 6 (3-11) 04/15/24 BUN 24 mg/dl (6-23) H 04/15/24 Creatinine 1.27 mg/dl (0.6-1.2) H 04/15/24 BUN/Creatinine Ratio 18.9 (10-20) 04/15/24 Glucose Level 101 mg/dl (70-99(Fasting)) H 04/15/24 Ca 9.7 mg/dl (8.6-10.3) 04/15/24 Total Bilirubin 0.5 mg/dl (0.2-1.0) 04/15/24 AST/SGOT 15 U/L (13-39) 04/15/24 ALT/SGPT 7 U/L (7-52) 04/15/24 Alkaline Phosphatase 84 U/L (34-104) 04/15/24 Total Protein 7.0 gm/dl (6.0-8.3) 04/15/24 Albumin 4.3 gm/dl (3.4-5.0) 04/15/24 Globulin 2.7 gm/dl (2.5-4.0) 04/15/24 Albumin/Globulin Ratio 1.6 (0.9-2) 04/15/24 PTT 28 Seconds (21-31) 04/15/24 INR 1.0 (0.9-1.1) 04/15/24 Chest X-Ray 04/15/24 Code Status & VTE Plan Code Status FULL CODE VTE Prophylaxis Plan VTE Prophylaxis will be ordered: No Reason for no VTE drug order: Treatment not indicated Supervising Physician Co-Signing Physician Notes Patient is an 78-year-old female with history of hypertension, hyperlipidemia, diastolic heart failure, GERD, TIA, DVT on Eliquis and other medical problems presents with history of expressive aphasia which started at around 11:45 AM this morning. Most of the history is obtained from patient's daughter at bedside. As per the family, patient's speech is significantly improved but not back to baseline while in ED. Patient denies any chest pain, shortness of breath, dizziness, nausea, vomiting, abdominal pain, focal weakness. Daughter believes that she had difficulty moving her lower extremities during the episode this morning. Also states left eye chronically droopy. Patient also denies any change in vision, dysuria, hematuria, fever, chills. Please review HPI for co mplete details of presentation. I personally reviewed blood work and imaging studies. Urinalysis within normal limits.CT head suggestive of encephalomalacia of the right lower lobe likely chronic infarct, ventriculomegaly and involutional changes with chronic microvascular ischemic disease. CTA neck showed mild fusiform dilatation of the ophthalmic segment of left internal carotid artery measuring 5 mm. MRI brain currently pending. EKG showed sinus rhythm with premature ventricular complexes. Physical Exam: Vitals signs as noted above General Appearance:Moderately built and nourished, no apparent distress Head: normocephalic, Atraumatic Eyes: normal inspection, EOMI Neck: supple, Trachea midline Respiratory/Chest: Normal breath sounds, CTA, No accessory muscle use Cardiovascular: S1, S2, No murmur Abdomen/GI:Soft, Non tender, Bowel sounds present Extremities/Musculoskeletal:normal inspection, 1+ edema Neurologic/Psych:AAOX2, grossly no focal neurological deficits, + expressive aphasia Skin: normal color, warm Expressive aphasia Rule out CVA Not a candidate for tPA on Eliquis Admit in Tele Stroke work up including lipid panel, A1C, MRI Brain, ECHO Speech and swallow eval Start aspirin--- history of NSAID allergy. If tolerates, will start aspirin 81 mg daily tomorrow Continue rosuvastatin Neuro checks, Neurology consult PT/OT Allow permissive HTN in setting of acute CVA I personally interviewed and examined at bedside. Patient's care is coordinated with Destini Bailey PA-C. I have reviewed the advanced practitioner's documentation, and I agree with plan of care. Please refer to the documentation above for details of patient's presentation and for discussion of other issues. I spent a total [id number] coordinating, documenting, and providing care for this patient excluding time spent in the performance of separately billed services.
[2024-04-15 15:22] LABS: Appearance Urine Clear (Clear); Bilirubin Urine Negative (Negative); Blood Urine Negative (Negative); Color Urine Yellow; Glucose Urine UA Negative (Negative); Ketones Urine Negative (Negative); Leukocyte Esterase Urine Negative (Negative); Nitrite Urine Negative (Negative); Protein Urine Negative (Negative); Specific Gravity Urine 1.019 (1.000-1.030); Urobilinogen Urine Negative (Negative); pH Urine 6.5 (4.5-7.5)
[2024-04-15] MEDS: cefTRIAXone SODIUM 2,000 MG/50 ML BAG IV STA (16:20)
[2024-04-15] MEDS ORDERED: PHARMACIST DISCHARGE MED REC CONSULT PRN (17:50)
[2024-04-15] MEDS ORDERED: ONDANSETRON INJ 2 MG/ML 2 ML VIAL IV PRN (17:50)
[2024-04-15] MEDS ORDERED: POLYETHYLENE (MIRALAX) 17 GM PACK PO PRN (17:50)
[2024-04-15] MEDS: SODIUM CHLORIDE 0.9% 500 ML IV SCH (18:19)
[2024-04-15] MEDS: ACETAMINOPHEN 325 MG TAB PO PRN (18:19)
[2024-04-15] MEDS ORDERED: MELATONIN 3 MG TAB PO PRN (21:00)
[2024-04-15] MEDS: ASPIRIN 81 MG ECTAB PO ONE (21:04)
[2024-04-15] MEDS: APIXABAN 2.5 MG TAB PO SCH (21:04)
[2024-04-15] MEDS: ROSUVASTATIN CALCIUM 20 MG TAB PO SCH (21:05)
[2024-04-16] MEDS: PANTOprazole 40 MG TAB PO SCH (05:43)
[2024-04-16] MEDS: LEVOTHYROXINE SODIUM 50 MCG TABLET PO SCH (05:44)
[2024-04-16 07:01] VITALS: RESP 19
[2024-04-16 08:05] LABS: Basophils # (auto) 0.02 K/uL (0.00-0.20); Basophils % (auto) 0.5 %; Eosinophils # (auto) 0.07 K/uL (0.00-0.50); Eosinophils % (auto) 1.8 %; Hematocrit (blood only) 30.3 % (37.0-47.0); Immature Granulocytes # (auto) 0.01 K/uL (0.01-0.20); Immature Granulocytes % (auto) 0.3 %; Lymphocytes % (auto) 25.5 %; Mean Corpuscular Hemoglobin 29.9 pg (25.0-34.0); Mean Corpuscular Volume 90.7 fL (80.0-100.0); Mean Platelet Volume 10.8 fL (9.4-12.4); Monocytes # (auto) 0.36 K/uL (0.11-0.59); Monocytes % (auto) 9.2 %; Neutrophils # (auto) 2.46 K/uL (1.40-6.50); Neutrophils % (auto) 62.7 %; Platelet Count 151 K/uL (130-400); RDW Coefficient of Variation 13.5 % (11.5-14.5); RDW Standard Deviation 44.6 fL (36.4-46.3); Red Blood Count 3.34 M/uL (4.20-5.40); White Blood Count 3.92 K/ul (4.8-10.8)
[2024-04-16 08:47] LABS: Estimated Average Glucose 111 mg/dl; Hemoglobin A1C 5.5 % (4.5-5.6)
[2024-04-16] MEDS: CHOLECALCIFEROL 25 MCG (1000 UNITS) TAB PO SCH (08:47)
[2024-04-16 08:53] LABS: Albumin Globulin Ratio 1.5 (0.9-2); Albumin Level 3.7 gm/dl (3.4-5.0); Bilirubin,Total 0.5 mg/dl (0.2-1.0); Calcium 9.3 mg/dl (8.6-10.3); Chol HDL Ratio 2.8 (0-5); Creatinine Clr Calc Pharmacy 31.2 ml/min; Globulin 2.4 gm/dl (2.5-4.0); Potassium 4.1 mmol/L (3.5-5.1); Total Protein 6.1 gm/dl (6.0-8.3)
[2024-04-16 10:51] VITALS: BP 144/78; PULSE 66; TEMP 97.9; O2SAT 97
--- NOTE | 2024-04-16 11:22 | Neurology Consultation ---
Date of Consultation April 16, 2024 Assessment & Plan (1) Stroke-like symptoms: Reported symptoms of aphasia now resolved -suspect IA vs Stroke Recommend continued work up to include the following: MRI brain without contrast Echocardiogram as part of complete stroke workup Continue frequent neurological assessments Obtain stat CT brain without contrast for any acute neurological decline Continue to monitor/control blood pressure & blood glucose Continue to monitor telemetry closely Recommend ZioPatch at DC if no evidence of arrhythmia during inpatient monitoring Continue to monitor renal and hepatic function, keep euvolemic Metabolic workup should include hgbA1c, fasting lipids, homocysteine, TSH, D Dimer, RPR, urinalysis Recommend continue Eliquis May benefit from addition of antiplatelet noting calcified ICAD as well as extracranial atherosclerosis Recommend high dose statin therapy indefinitely if tolerated Ok from neurology perspective for VTE prophylaxis PT/OT/SLT to eval and treat Recommend eval for RIGO and consider outpatient polysomnography Recommend continued outpatient follow up with neurology Telehealth Consultation Telehealth Information Telehealth Information: I performed this visit using a real-time telehealth connection between my location and the patients location ([facility]). After connecting through interactive tele-video, patient was identified by name and date of and/or wristband check.Patient (or authorized healthcare patient services representative) was informed that this was a telemedicine visit and it was being conducted confidentially over secure lines. My office door was closed and no one else was present in the room with me.Patient (or authorized healthcare patient services representative) provided consent to proceed with the visit, expressed an under standing of privacy and security of the telemedicine visit, and gave permission to have a hospital patient services representative in the room in order to assist with the visit and to conduct portions of the visit, as needed. I informed the patient (or authorized healthcare patient services representative) that I reviewed their record and presented the opportunity for them to ask any questions regarding the visit today. The patient agreed to participate. History of Present Illness Reason for Consultation: Aphasia concern for Stroke Requesting Physician: Dr. Silva Attending Physician: Jose A Silva DO History of Present Illness 78yo right handed female with significant past medical hx of HTN, hyperlipidemia, HF, CKD hypothyroid presented with reported symptoms of aphasia. Per documentation review, found her having difficulty speaking and not making sense. He called Daughter and when daughter arrived she found the same but noted improvement upon arrival to ER. She has undergone stroke imaging including CT brain without contrast, personally reviewed, revealing no overt evidence of hemorrhage. CT angiographic studies of head and neck, also personally reviewed, reveal no overt evidence of large vessel occlusion or significant/flow limiting stenosis. Noted fusiform dilation of left ICA ophthalmic segment. She is pending MRI brain. I have performed televideo consultation. She is alert & oriented; able to answer all questions appropriately, name objects on televideo monitor, repeat phrases and perform complex/embedded commands without deficit. Neurological exam is non later alizing/nonfocal in terms of motor strength and coordination. Patient reports difficulty remembering events but denies loss of consciousness. She states she thinks she had a stroke. She is able to say she was also slurring her speech for most of yesterday and feels her speech is back to baseline at this time. She is fully anticoagulated with twice daily apixaban. Allergies Allergy/AdvReac Type Severity Reaction Status Date / Time latex Allergy Severe RASH,SWELLING,EDEMA Verified 04/15/24 16:08 TO FACE/LIPS/TONGUE NSAIDS (Non-Steroidal Allergy Severe Swelling Verified 04/15/24 16:08 Anti-Inflamma of Lip/Tongue/Throat oxybutynin Allergy Severe Swelling Verified 04/15/24 16:08 of Lip/Tongue/Throat soy Allergy Severe Swelling Verified 04/15/24 16:08 of Lip/Tongue/Throat tolmetin Allergy Severe Swelling Verified 04/15/24 16:08 of Lip/Tongue/Throat cefuroxime Allergy Intermediate Anaphylaxis Verified 04/15/24 16:08 azithromycin Allergy NUMBNESS Verified 04/15/24 16:08 IN MOUTH Cephalosporins Allergy Unknown Verified 04/15/24 16:09 ibuprofen Allergy Swelling Verified 04/15/24 16:08 of Lip/Tongue/Throat naproxen Allergy Swelling Verified 04/15/24 16:08 of the Eye Penicillins Allergy Hives Verified 04/15/24 16:09 Sulfa (Sulfonamide Allergy Unknown Verified 04/15/24 16:09 Antibiotics) atorvastatin AdvReac Intermediate MUSCLE Verified 04/15/24 16:08 PAIN,MIALGIA erythromycin base AdvReac Gastrointestinal Verified 04/15/24 16:08 Upset meperidine [From Demerol] AdvReac GI UPSET Verified 04/15/24 16:08 AND DIZZINESS AVACADO Allergy Severe Swelling Uncoded 04/15/24 16:08 of Lip/Tongue/Throat Home Medications Medication Instructions Recorded Confirmed Type acetaminophen 325 mg tablet 325 mg PO HS PRN Pain 04/15/24 04/15/24 History apixaban 2.5 mg tablet (Eliquis) 2.5 mg PO AMHS 04/15/24 04/15/24 History cholecalciferol (vitamin D3) 50 50 mcg PO DAILY 04/15/24 04/15/24 History mcg (2,000 unit) capsule (Vitamin D3) conjugated estrogens 0.625 mg/gram 1 applic vaginal 2XWK 04/15/24 04/15/24 History vaginal cream (Premarin) fluticasone propionate 50 2 spray intranasal DAILY 04/15/24 04/15/24 History mcg/actuation nasal spray,suspension levothyroxine 50 mcg tablet 50 mcg PO QAM 04/15/24 04/15/24 History pantoprazole 40 mg tablet,delayed 40 mg PO DAILYBB 04/15/24 04/15/24 History release rosuvastatin 20 mg tablet 20 mg PO HS 04/15/24 04/15/24 History spironolactone 25 mg tablet 25 mg PO QAM 04/15/24 04/15/24 History Patient History Medical History (Updated 04/16/24 @ 11:25 by Adryan Kyle DO) Benign essential tremor Chronic anemia CKD (chronic kidney disease) stage 3, GFR 30-59 ml/min IBS (irritable bowel syndrome) Barretts esophagus Chronic heart failure with preserved ejection fraction (HFpEF) Hx TIA/stroke w/o resid Noted on MRI Chronic seasonal allergic rhinitis Hypothyroidism HLD (hyperlipidemia) HTN (hypertension) Surgical History (Updated 04/15/24 @ 16:11 by Destini Bailey PA-C) Hx of tonsillectomy Hx of cholecystectomy Hx of tubal ligation S/P repair of paraesophageal hernia Family History (Updated 04/15/24 @ 16:11 by Destini Bailey PA-C) Other Cancer Coronary heart disease Social History (Updated 04/15/24 @ 16:11 by Destini Bailey PA-C) Smoking Status: Never smoker Second Hand Exposure: No; Do You Dip or Chew Tobacco: No; Tobacco Cessation Education Requested by Patient: No Hx Alcohol Use: No Hx Substance Use: No Preferred Language: Grenadian Communication Ability: Effective Post Manager Required: No Beliefs That Will Affect Care: None marital status: Current Living Situation: Spouse Other Information That Helps Us Care for You: No Feels Safe at Home: Yes Safety Concerns: Feels Safe At This Time Assistive Devices: Walker Physical Exam Neurological Examination: Mental Status: Awake and alert. Oriented to person, place, and time. Fluency naming repetition and comprehension appear grossly intact. Affect remains appropriate. CN testing: I: Denies changes in ability to smell II:Reports no changes in visual acuity III/IV/: No evidence of gaze preference, hippus, nystagmus or roving eye movements V: Facial sensation reportedly grossly intact to light touch bilaterally VII: Facial movements appear without evidence of asymmetry VIII: Hearing appears grossly intact to loud voice bilaterally IX/X: Palate appears to elevate symmetrically XI: Shoulder shrug appears symmetric/ grossly intact bilaterally XII: Tongue protrudes midline without evidence of biting Motor exam: Strength appears grossly intact/symmetric in all extremities Sensory: Sensation is reportedly grossly intact throughout Coordination: Finger to nose and heel to aguilar were intact. No apparent evidence of dysmetria or dysdiadochokinesia Reflexes: Deferred Gait: Deferred Results & Data Vital Signs (Past 12 Hours) Vital Signs Temp Pulse Pulse Resp BP Pulse Ox O2 Del Method 04/16/24 10:50 36.6 C 66 19 144/78 H 97 Room Air 04/16/24 07:15 70 04/16/24 07:01 36.3 C L 60 19 151/83 H 96 Room Air 04/16/24 02:35 36.8 C 60 16 130/81 97 Room Air Laboratory Results Abnormal lab results 04/15/24 04/15/24 04/16/24 Range/Units 13:55 14:04 07:50 WBC 3.92 L (4.8-10.8) K/ul RBC 3.59 L 3.34 L (4.20-5.40) M/uL Hgb 10.8 L 10.0 L (12.0-16.0) g/dl POC Hgb 10.5 L (12.0-16.0) g/dl Hct 33.1 L 30.3 L (37.0-47.0) % POC Hct 31 L (37-47) % Lymph # (Auto) 1.00 L (1.20-3.40) K/uL Chloride 108 H (98-107) mmol/L POC Total CO2 23 L (24-31) mmol/L POC BUN 24 H (7-18) mg/dl BUN 24 H (6-23) mg/dl Creatinine 1.27 H 1.31 H (0.6-1.2) mg/dl POC Creatinine 1.4 H (0.6-1.3) mg/dl Glucose 101 H (70-99(Fasting)) mg/dl ALT 6 L (7-52) U/L Globulin 2.4 L (2.5-4.0) gm/dl Diagnostic Findings Chest X-Ray 04/15/24 13:49 XR chest 1V portable HISTORY: 78 years-old Female stroke alert COMPARISON: CTA neck of same day TECHNIQUE: AP view the chest FINDINGS: Cardiomediastinal and hilar silhouettes are within normal limits. Atherosclerosis of the aorta. No pneumothorax or pleural effusion. Bones appear grossly intact. IMPRESSION: No acute process. ACT 112: Negative or not required by law. The above report was generated using voice recognition software. It may contain grammatical, syntax or spelling errors. Electronically signed by: Deven Rivas M.D. 04/15/2024 2:[address] 04/15/24 13:49 CT head/brain wo con CLINICAL HISTORY: 78 years-old Female with Neuro deficit, acute, stroke suspected. Acute stroke like symptoms TECHNIQUE: Multiple axial CT images of the head were obtained without contrast. A dose lowering technique was utilized adhering to the principles of ALARA. CT DOSE: 919.61 mGy.cm COMPARISON: CTA head and neck of same day FINDINGS: No acute intracranial hemorrhage, midline shift, intracranial mass, hydrocephalus, territorial ischemia or abnormal extra-axial collection. Involutional changes with white matter hypodensities suggestive of chronic microvascular ischemic disease. Ventriculomegaly, likely on an ex vacuo basis. Focus of encephalomalacia within the right frontal lobe on image 19 series 2. Chronic appearing lacunar infarcts of the left cerebellum. The calvarium is intact. The paranasal sinuses, mastoid air cells, and middle ear cavities are clear. IMPRESSION: 1. No acute intracranial abnormality identified. 2. Involutional changes with chronic microvascular ischemic disease. 3. Ventriculomegaly is likely on an ex vacuo basis. Normal pressure hydrocephalus could appear similarly. 4. Encephalomalacia of the right frontal lobe, likely from a chronic infarct. ACT 112: Negative or not required by law. The above report was generated using voice recognition software. It may contain grammatical, syntax or spelling errors. Electronically signed by: Deven Rivas M.D. 04/15/2024 2:17 PM Head CTA 04/15/24 13:51 CT angio head w con CLINICAL HISTORY: stroke alert TECHNIQUE: CT angiography of the head was performed following intravenous administration of iodinated contrast. Coronal and sagittal MIPS were obtained from the axial data set and were submitted for review. Automated dose lowering techniques and/or adjustment according to patient size were utilized for this examination. All measurements were calculated based on NASCET criteria. Comparison: None available at the time of this dictation. FINDINGS: CTA Head: The anterior and posterior cerebral circulations are patent. origin of the right posterior cerebral artery is seen. IMPRESSION: No occlusion, hemodynamically significant stenosis, aneurysm, dissection, or arteriovenous malformation in the major intracranial arteries. Assessment of stenosis of the internal carotid arteries is based on NASCET criteria. ACT 112: Negative or not required by law. Electronically signed by: Noel Malin M.D. 04/15/2024 2:11 PM Neck CTA 04/15/24 13:51 CT angio neck with con CLINICAL HISTORY: 78 years-old Female with stroke alert. Acute stroke like symptoms COMPARISON STUDY: CTA head of same day TECHNIQUE: Following the IV administration of 120 mL of Optiray, CT angiogram of the neck was performed from the aortic arch to the skull base. Images are reviewed in the axial, sagittal, and coronal planes. 3-D MIPS images are created and assessed. IV contrast was administered without complication. All measurements were calculated based on NASCET criteria. A dose lowering technique was utilized adhering to the principles of ALARA. FINDINGS: Three-vessel morphology of the thoracic aortic arch. Common and internal carotid arteries are patent. Atherosclerosis of the right carotid bulb without high- grade stenosis. There is mild fusiform dilation of the ophthalmic branch left ICA measuring 5 mm compared to a normal 4 mm on the right. Dominant right verteb ral artery. The bilateral vertebral arteries are patent. Patent basilar artery. origin of the right posterior cerebral artery. Lung apices are clear without pneumothorax. Unremarkable soft tissues. Degenerative changes of the cervical spine. No acute fracture identified. IMPRESSION: 1. Atherosclerosis without dissection, high-grade stenosis or arterial occlusion. 2. Mild fusiform dilation of the ophthalmic segment left ICA measuring 5 mm. ACT 112: Negative or not required by law. The above report was generated using voice recognition software. It may contain grammatical, syntax or spelling errors. Electronically signed by: Deven Rivas M.D. 04/15/2024 2:17 PM Medications Administered Home Medications Medication Instructions Recorded Confirmed Last Taken acetaminophen 325 mg tablet 325 mg PO HS PRN Pain 04/15/24 04/15/24 Unknown apixaban 2.5 mg tablet (Eliquis) 2.5 mg PO AMHS 04/15/24 04/15/24 Unknown cholecalciferol (vitamin D3) 50 50 mcg PO DAILY 04/15/24 04/15/24 Unknown mcg (2,000 unit) capsule (Vitamin D3) conjugated estrogens 0.625 mg/gram 1 applic vaginal 2XWK 04/15/24 04/15/24 Unknown vaginal cream (Premarin) fluticasone propionate 50 2 spray intranasal DAILY 04/15/24 04/15/24 Unknown mcg/actuation nasal spray,suspension levothyroxine 50 mcg tablet 50 mcg PO QAM 04/15/24 04/15/24 Unknown pantoprazole 40 mg tablet,delayed 40 mg PO DAILYBB 04/15/24 04/15/24 Unknown release rosuvastatin 20 mg tablet 20 mg PO HS 04/15/24 04/15/24 Unknown spironolactone 25 mg tablet 25 mg PO QAM 04/15/24 04/15/24 04/15/24 Active Medications Generic Name Dose Route Start Last Admin Trade Name Freq PRN Reason Stop Dose Admin Acetaminophen 650 mg 04/15/24 17:50 04/15/24 18:19 Acetaminophen 325 Mg Tab PO 05/15/24 17:49 650 mg Q4H PRN Administration Pain or Fever Apixaban 2.5 mg 04/15/24 21:00 04/16/24 08:48 Apixaban 2.5 Mg Tab PO 05/15/24 20:59 2.5 mg AMHS MEME Administration Levothyroxine Sodium 50 mcg 04/16/24 06:30 04/16/24 05:44 Levothyroxine Sodium 50 Mcg Tablet PO 05/16/24 06:29 50 mcg DAILYBB MEME Administration Pantoprazole Sodium 40 mg 04/16/24 06:30 04/16/24 05:43 Pantoprazole 40 Mg Tab PO 05/16/24 06:29 40 mg DAILYBB MEME Administration Rosuvastatin Calcium 20 mg 04/15/24 21:00 04/15/24 21:05 Rosuvastatin Calcium 20 Mg Tab PO 05/15/24 20:59 20 mg HS MEME Administration Vitamin D 50 mcg 04/16/24 09:00 04/16/24 08:47 Cholecalciferol 25 Mcg (1000 Units) Tab PO 05/16/24 08:59 50 mcg DAILY MEME Administration
--- NOTE | 2024-04-16 12:03 | Magnetic Resonance Report ---
EXAM: MR brain wo con CLINICAL HISTORY: Stroke alert in ED today, difficulty speaking this morning, Hx TIA, takes Eliquis, propellers ran to help with motion. TECHNIQUE: Multiplanar and multiecho MRI of the brain was performed without contrast administration. COMPARISON: if available. No previous studies are available for comparison. FINDINGS: Brain Parenchyma: Evidence of old insult in the right frontal lobe (encephalomalacia focus with gliosis). Periventricular hyperintensity on T2W and FLAIR images; differential diagnosis includes small vessel disease or minimal transependymal edema. There is no evidence of acute infarction or hemorrhage. Normal tran-white matter differentiation. Thinning of the corpus callosum. Ventricles and Sulci: Capacious cerebrospinal fluid spaces appearance with ventriculomegaly causing corpus callosum thinning. No sulcal effacement or acute callosal angle. Posterior Fossa: Cerebellum and brainstem appear normal without evidence of mass lesions or signal abnormalities. Vessels: Preserved signal voids of the major blood vessels. Orbits and Skull Base: Orbits and skull base structures are normal without evidence of abnormalities. IMPRESSION: 1. No acute intracranial abnormality identified. 2. Evidence of old ischemic insult in the right frontal lobe (encephalomalacia focus with gliosis). 3. Periventricular hyperintensity on T2W and FLAIR images; differential diagnosis includes small vessel disease or minimal transependymal edema. 4. Capacious cerebrospinal fluid spaces appearance with ventriculomegaly causing corpus callosum thinning. No sulcal effacement or acute callosal angle. Electronically signed by Yudy Larsen 04-16-2024 12:03 PM
[2024-04-16] MEDS ORDERED: STROKE PATIENT DISCHARGE STA (12:46)
--- NOTE | 2024-04-16 12:53 | Discharge Summary ---
Discharge Summary Date of Service April 16, 2024 Principal Dx & Hospital Course #1 = Principal Diagnosis (1) TIA (transient ischemic attack): (2) Cerebrovascular disease, arteriosclerotic, post-stroke: (3) History of stroke: (4) Expressive aphasia: (5) Chronic heart failure with preserved ejection fraction (HFpEF): (6) HTN (hypertension): (7) HLD (hyperlipidemia): (8) Hypothyroidism: (9) CKD (chronic kidney disease) stage 3, GFR 30-59 ml/min: (10) Chronic anemia: Plan Patient is an 78-year-old female who presented to the emergency room with acute expressive aphasia. Telestroke consultation current in the emergency room. Not a candidate for thrombolytics. Patient was referred for further monitoring. Patient was cared for in the hospital. There was no significant arrhythmias noted on telemetry monitoring. Her expressive aphasia completely resolved within 24 hours. Echocardiogram showed normal ejection fraction, no significant valvular dysfunction. MRI of the brain did not show any evidence of acute infarction, however did show evidence of old infarctions and encephalomalacia. Also shows some significant white matter disease as well as some cortical atrophy with subsequent enlargement of the ventricles. Patient is on chronic anticoagulation due to a history of VTE. That will be continued. However should not been on any antiplatelets. Neurology consultation was performed on the day of discharge recommended antiplatelet therapy in the setting of her cerebrovascular disease in addition to the Eliquis. Blood pressure here in the hospital overall has been increased. Will start amlodipine for some better blood pressure control. Otherwise her vital signs are stable. Her speech is back to her baseline. Daughters at the bedside understands plan for discharge and outpatient follow-up did discuss ongoing blood pressure control with her PCP. Consider outpatient sleep study as well as outpatient Zio patch monitoring which she will discuss with her outpatient providers. Notes For Next Care Provider Consider outpatient sleep study Consider outpatient ZIO monitor Continue to monitor blood pressure and adjust meds as needed Medication Changes From Visit Plavix added to medical regimen Amlodipine added to medical regimen Admission HPI Per Admitting Provider This is an 78-year-old female who has significant past medical history of HTN, HLD, hypothyroidism, chronic diastolic CHF, GERD with esophagitis, history of Sepinoza's, IBS, CKD stage III, anemia of chronic disease with a baseline hemoglobin of 10, osteoarthritis, osteopenia, benign essential tremor, chronic fatigue syndrome, peripheral polyneuropathy, history of TIA, history of paraesophageal hernia repair who presents to ED after experiencing aphasia since 1145a.m. Patient lives with her . At baseline she ambulates with a walker. Daughter is at bedside who also helps elicit history. Reports new onset difficulty speaking. Currently daughter feels her speech is significantly improved from this morning, but still not back to normal. Daughter states that she sent a text message out at approximately 10 AM saying "hello and that the sun was shining." This is a normal greeting she receives from her mother on a daily basis. She received a phone call from her father at approximately 11:45 AM asking her to come to the house as he felt there was something wrong with his . Daughter reports at the house she noticed patient had significant difficulty speaking. She also was not making any sense. Pt denies any focal weakness or facial droop. Daughter reports L eye being, "droopy," but this was chronic her her. Pt denies any f/c/s, chest pain, sob, n/v/d, abd pain, dysuria, hematuria, increased urg/freq with urination. Pt has hx of freq UTIs. She previously had a pessary in place, but was taken out in January. Since then she hasn't had a UTI since January. She is R hand dominant. Admission Exam Per Admitting Provider See H&P Discharge Exam Constitutional: Alert HEENT: Mucous membranes moist. Lungs: Clear to auscultation, decreased, no wheezes rales or rhonchi CV: S1-S2, regular Abdomen: Soft, nontender, nondistended Extremities: No significant edema Neuro: No focal deficits, NIH stroke score equals 0 Psych: Cooperative, normal mood Updated Medication List Medication Instructions Recorded Confirmed Type acetaminophen 325 mg tablet 325 mg PO HS PRN Pain 04/15/24 04/15/24 History apixaban 2.5 mg tablet (Eliquis) 2.5 mg PO AMHS 04/15/24 04/15/24 History cholecalciferol (vitamin D3) 50 50 mcg PO DAILY 04/15/24 04/15/24 History mcg (2,000 unit) capsule (Vitamin D3) conjugated estrogens 0.625 mg/gram 1 applic vaginal 2XWK 04/15/24 04/15/24 History vaginal cream (Premarin) fluticasone propionate 50 2 spray intranasal DAILY 04/15/24 04/15/24 History mcg/actuation nasal spray,suspension levothyroxine 50 mcg tablet 50 mcg PO QAM 04/15/24 04/15/24 History pantoprazole 40 mg tablet,delayed 40 mg PO DAILYBB 04/15/24 04/15/24 History release rosuvastatin 20 mg tablet 20 mg PO HS 04/15/24 04/15/24 History spironolactone 25 mg tablet 25 mg PO QAM 04/15/24 04/15/24 History amlodipine 5 mg tablet (Norvasc) 5 mg PO DAILY #30 tabs 04/16/24 Rx clopidogrel 75 mg tablet (Plavix) 75 mg PO DAILY #30 tabs 04/16/24 Rx Hospital Stay Data Consultations 04/15/24 14:57 ED Decision to Admit Stat 04/15/24 17:50 Consult Neurology Routine Diagnostic Imagining Performed 04/15/24 13:49 CT head/brain wo con Stat 04/15/24 13:51 CT angio head w con Stat CT angio neck with con Stat 04/15/24 15:43 MR brain wo con Routine Reviewed imaging, laboratory and diagnostic studies. Pertinent findings as below. MRI of the brain shows no acute abnormalities. Evidence of old ischemic injury in the right frontal lobe with encephalomalacia. Significant cerebral white matter disease. CTA of the head and neck showed no large vessel occlusion Echocardiogram shows ejection fraction of 55 to 60%, no significant wall motion abnormalities, no significant valvular dysfunction, no evidence of ASD or PFO. I refer to the full report for details Urinalysis negative BMP electrolytes stable Creatinine 1.31 CBC stable with hemoglobin 10.0, WBCs 3.9, platelets 151 Pending Results Patient Have Any Pending Studies at Discharge: No Discharge Instructions Given to Patient (Per Discharging Provider) Discuss with your PCP possible outpatient sleep studies Discuss with your PCP outpatient Zio patch monitoring Your blood pressure was a little elevated here in the hospital. I added amlodipine to your medical regimen to better control your blood pressure. Follow-up with your PCP for ongoing blood pressure management. This is important to control risk factors for recurrent TIA Total Time Total Time Spent Total Time Spent (In Minutes): 40
--- NOTE | 2024-04-17 11:24 | Coding Query ---
CODING QUERY To promote full compliance with coding requirements relating to patient care, provider participation is requested in all cases of marketing support assistant uncertainty. Please assist us with the question(s) below: Coding Question(s): Documentation in the medical record indicated that the patient admitted for Expressive aphasia, MRI of the brain did not show any evidence of acute infarction, however did show evidence of old infarctions and encephalomalacia. Also shows some significant white matter disease as well as some cortical atrophy with subsequent enlargement of the ventricles. Neurology consultation was performed on the day of discharge recommended antiplatelet therapy in the setting of her cerebrovascular disease in addition to the Eliquis. Physician's Response(s): ___Expressive Aphasia d/t previous stroke ___Aphasia __x_Aphasia due to TIA ___Unable to determine Thank you Vonda JUSTICE
--- OUTSIDE RECORDS SUMMARY | 2024-04-17 12:42 | External Medical Summary | Summary of Care ---
Author Name Unknown Organization [facility] Address [address] [place] [address] Phone [phone] Care Team Providers Care Work Measurement Engineer Name Role Phone Vikas Rhodes MD Primary Care Provider [phone] Reason for Visit * Reason Onset Date Comments Medication Refill 03/11/2024 Encounter Details Date Type Department Care Team (Late st Contact Info) Description 03/11/2024 Refill [facility] [address] [place] [address] Vikas Rhodes MD [address] [place] [address] Encounter for long-term (current) use of medications*; Stage 3a chronic kidney disease (HCC); Hypothyroidism, unspecified type; Cerebrovascular disease, arteriosclerotic, post-stroke; Anemia in stage 3a chronic kidney disease (HCC) Allergies Active Allergy Reactions Criticality Noted Date Comments Atorvastatin Muscle pain Medium 05/19/2015 Other reaction(s): Myalgia Other reaction(s): Muscle pain Other reaction(s): Muscle pain Azithromycin 09/15/2009 Other reaction(s): Other: See Comments Numbness in mouth Numbness in mouth Cefuroxime Anaphylaxis High 06/18/2011 Other reaction(s): Edema face/lips/tongue Other reaction(s): Edema face/lips/tongue Cefuroxime Axetil Edema face/lips/tongue High 06/18/2011 Demerol 09/15/2009 "sick" Erythromycin 01/25/2014 Other reaction(s): GI Upset Other reaction(s): GI upset Food (See Comments) Edema face/lips/tongue High 07/02/2012 AVACADO, Soy Ibuprofen 01/25/2014 Other reaction(s): Swelling Other reaction(s): Mouth and tongue swelling Latex Edema face/lips/tongue High 09/15/2009 Rash Latex Rash High 09/15/2009 Other reaction(s): Swelling Rash Other reaction(s): rash Other reaction(s): Edema face/lips/tongue Rash Rash Meperidine 09/15/2009 Other reaction(s): GI Upset "sick" Other reaction(s): Dizzy "sick" "sick" Naproxen 01/25/2014 Other reaction(s): Swelling Other reaction(s): Tongue swelling Nsaids Edema face/lips/tongue High 09/21/2012 Oxybutynin Edema face/lips/tongue High 04/15/2017 Other reaction(s): Swelling Other reaction(s): Edema face/lips/tongue Other reaction(s): Edema face/lips/tongue Penicillins Rash,Hives 06/14/2011 Other reaction(s): unknown Sulfacetamide Sodium 09/15/2009 Nausea Tolmetin High 09/21/2012 Other reaction(s): Swelling Other reaction(s): Edema face/lips/tongue Azithromycin Dihydrate 09/15/2009 Numbness in mouth documented as of this encounter (statuses as of 03/12/2024) Medications VITAMIN D 2000 UNIT PO TABS one tablet by mouth daily Active Acetaminophen 325 MG Oral Capsule Take 1 Cap by mouth at bedtime as needed for Pain. Active Fluticasone Propionate 50 MCG/ACT Nasal Suspension (Flonase)Indica tions:Seasonal allergic rhinitis due to pollen instill 2 sprays into each nostril once daily 16 g 11 3 Active Pantoprazole Sodium 40 MG Oral Tablet Delayed Release (Protonix)Indic ations:Espinoza esophagus take 1 tablet by mouth 30 MINUTES PRIOR TO THE FIRST MEAL OF THE DAY. 90 Tablet 5 3 Active Estradiol 0.1 MG/GM Vaginal Cream (Estrace) Apply a pea sized amount (0.5g) vaginally twice a week as directed 42.5 g 3 4 Active Apixaban 2.5 MG Oral Tablet (Eliquis)Indica tions:Chronic deep vein thrombosis (DVT) of proximal vein of lower extremity, unspecified laterality ([facility]) Take 1 Tablet by mouth in the morning and 1 Tablet before bedtime. 180 Tablet 1 4 Active Rosuvastatin Calcium 20 MG Oral Tablet (Crestor)Indica tions:Kidney disease, chronic, stage III (GFR 30-59 ml/min) ([facility]),Cerebrova scular disease, arterioscleroti c, post-stroke,Dys lipidemia, goal LDL below 70,Cerebellar infarct ([facility]) take 1 tablet by mouth at bedtime 90 Tablet 3 4 Active Spironolactone 25 MG Oral Tablet (Aldactone) take 1 tablet by mouth every morning 30 Tablet 5 4 Active Levothyroxine Sodium 50 MCG Oral Tablet (Levoxyl)Indica tions:Stage 3a chronic kidney disease (HCC),Hypothyro idism, unspecified type,Cerebrovas cular disease, arterioscleroti c, post-stroke,Ane juan in stage 3a chronic kidney disease (HCC) Take 1 Tablet by mouth in the morning. 90 Tablet 4 Active Levothyroxine Sodium 50 MCG Oral Tablet (Levoxyl)Indica tions:Stage 3a chronic kidney disease (HCC),Hypothyro idism, unspecified type,Cerebrovas cular disease, arterioscleroti c, post-stroke,Ane juan in stage 3a chronic kidney disease (HCC) Take 1 Tablet by mouth in the morning. 90 Tablet 3 3 03/11/20 24 Discontinu ed(Refill) documented as of this encounter (statuses as of 03/12/2024) Active Problems Problem Noted Date Diagnosed Date Diastolic congestive heart failure 09/01/2023 Intracervical pessary 05/20/2023 Urinary urgency 01/21/2023 Hypothyroidism 03/19/2021 Benign hypertension with CKD (chronic kidney disease) stage III 09/27/2020 Hypertension goal BP (blood pressure) < 140/90 0 05/25/2019 S/P repair of paraesophageal hernia 05/25/2019 Overview (05/25/2019): 06/03/18 Personal history of transient ischemic attack Osteopenia of multiple sites 04/15/2017 Anemia in stage 3 chronic kidney disease 017 Chronic seasonal allergic rhinitis due to pollen 04/15/2017 Peripheral polyneuropathy 04/15/2017 Generalized osteoarthritis 10/14/2016 Espinoza's esophagus without dysplasia 09/18/2015 Irritable bowel syndrome without diarrhea 2015 Intrinsic eczema 09/18/2015 Gastroesophageal reflux disease with esophagitis 01/17/2015 Cerebrovascular disease, arteriosclerotic, post- stroke 01/17/2015 Dyslipidemia, goal LDL below 70 01/17/2015 Kidney disease, chronic, stage III (GFR 30-59 ml /min) 07/18/2014 Overview (11/17/2018): Per CKD protocol #1 Chronic fatigue syndrome 11/18/2013 Benign essential tremor 01/20/2013 Vitamin D deficiency 04/16/2011 documented as of this encounter (statuses as of 03/12/2024) Resolved Problems Problem Noted Date Diagnosed Date Resolved Date MDD (major depressive disord er), recurrent episode, mild 05/20/2023 05/20/2023 Edema of lower extremity 01/21/2023 Seborrheic dermatitis 08/23/20212023 Overview (08/23/2021): Of ear canals. Superficial phlebitis 05/17/20212021 Overview (05/17/2021): Left ankle area Generalized edema 05/07/2021 05/20/2023 Trochanteric bursitis of left hip 09/27/2020 05/20/2023 Encounter for screening mamm ogram for breast cancer 11/25/2019 11/25/2019 Cerebellar infarct 05/25/2019 3 Contusion of foot or heel 11/17/2018 Cerebellar infarct 09/15/2018 9 Paraesophageal hernia 05/12/20182018 Hiatal hernia 03/10/2018 05/12/2018 Dyslipidemia 10/31/2017 05/12/2018 Post herpetic neuralgia 08/14/201712/2018 Overview (08/14/2017): C8 nerve root on left. Herpes zoster without complication 08/14/2017 10/31/2017 Overview (08/14/2017): C8 nerve root on left. 07/20 Seasonal allergic rhinitis due to pollen 04/24/2016 04/15/2017 Cerebellar infarct 01/22/2016 8 Overview (01/22/2016): Noted on MRI Gait disorder 01/22/2016 05/20/2023 Carotid artery disease 11/27/201505/20 Acute otitis externa of left ear 10/27/2015 01/22/2016 Urge incontinence of urine 10/11/2015 0 09/15/2018 Balance problem 10/11/2015 10/31/2017 Otogenic vertigo 09/18/2015 10/11/2015 Anemia in chronic renal disease 01/17/2015 04/15/2017 Allergic rhinitis due to pollen 01/17/2015 04/24/2016 Dyslipidemia, goal LDL below 70 01/17/2015 10/31/2017 Kidney disease, chronic, sta ge III (GFR 30-59 ml/min) 07/18/2014 08/15/2017 Overview: Per CKD protocol #1 Fatigue 10/11/2013 02/22/2014 Dyslipidemia, goal LDL below 130 05/21/2013 01/17/2015 Overview (05/21/2013): Good HDL Trigger finger 05/21/2013 04/15/2017 Overview (05/21/2013): Left thumb Dyslipidemia, goal LDL below 100 01/20/2013 10/11/2013 Allergic rhinitis 01/20/2013 01/17/2015 Eczema 01/20/2013 09/18/2015 Osteopenia 09/18/2012 04/15/2017 History of abnormal cervical Pap smear 07/02/2012 01/20/2013 Diffuse cystic mastopathy 07/02/2012 Espinoza esophagus 06/07/2011 09/18/2015 TSH elevation 04/16/2011 01/20/2013 Dizziness 04/16/2011 01/20/2013 Essential and other specified forms of tremor 04/16/20 11 01/20/2013 Esophageal reflux 04/16/2011 01/17/2015 Overview (04/16/2011): Espinoza's, hiatal hernia FAMILY HX, ISCHEMIC HEART [id number] 12/04/2010 01/20/2013 Dyslipidemia, goal LDL below 130 08/24/2010 01/20/2013 Anxiety state 11/14/2009 01/20/2013 Irritable bowel syndrome 11/14/2009 Esophageal reflux 11/14/2009 04/16/2011 Overview (11/14/2009): hiatal hernia, EGD 03/13 Barretts Palpitations 11/14/2009 01/20/2013 Overview (11/14/2009): 10/05 ANEMIA NOS-neg eval 11/11 Overview (11/14/2009): neg. follow-up 1989 Other allergic rhinitis 01/03 Overview (02/25/2017): ICD-10 update of inactive term documented as of this encounter (statuses as of 03/12/2024) Immunizations Name Administration Dates Next Due COVID-19 mRNA, LNP-s, No Pre serve, 2-Dose Series ([employer]) 03/20/2021,07/22/2020,07/01/2020 PPD 10/05/1992 Pneumococcal Conjugate Vacc, 13 Valent (Prevnar) 01/17/2015 Pneumococcal Polysaccharide PPV23 (Pneumovax) 04/07/2013 Season Influenza, Quad, PF, Adjuvanted, 65+ Yrs, IM (FLUAD) 02/25/2020 Seasonal Influenza Vac., MDV , IM, 0.5 mL (Fluzone) 01/17/2015,01/20/2014,04/07/2013 Seasonal Influenza, High Dos e, Trivalent, PF, IM (Fluzone HD) 02/18/2024,03/11/2017 Seasonal Influenza, PF, 6 M & above, IM , (FluLaval or Fluzone) 04/23/2018 Seasonal Influenza, Quadriva lent Hd (Fluzone Hd) 04/11/2023,03/21/2022,04/05/2021 Seasonal Influenza, Quadriva lent, No Preserve, IM 01/22/2016 Seasonal Influenza, Trivalen t, Adjuvanted, 65+ YRS, PF, (Fluad) 02/23/2019 TDAP (age 10 and older)(Boostrix) 01/20/2014 Varicella Zoster Vaccine (Adult) 12/18/2014 documented as of this encounter Social History Tobacco Use Types Packs/Day Years Used Date Smoking Tobacco: Never Passive Smoke Exposure: Past Smokeless Tobacco: Never Alcohol Use Standard Drinks/Week Comments Not Currently 0 (1 standard drink = 0.6 oz pur e alcohol) rarely- couple times a year PHQ-2 Answer Date Recorded PHQ Adult Total Score 1 05/20/2023 Hunger Vital Sign Answer Date Recorded Within the past 12 months, y ou worried that your food would run out before you got the money to buy more. Never true 08/17/19 24 Within the past 12 months, t he food you bought just didn't last and you didn't have money to get more. Never true 08/17/2023 Childcare Answer Date Recorded Do you feel overwhelmed with taking care of a child, family member or friend? No 08/17/2023 Does your family need help f inding childcare? (Household - for ages 0-17 years) Not on file 08/17/2023 Clothing Answer Date Recorded Have you been unable to get clothing when it was really needed? No 08/17/2023 Is your family able to get c lothes or diapers when needed? (Household - for ages 0-17 years) Not on file 08/17/2023 Personal Safety Answer Date Recorded Do you feel unsafe or have concerns for your saf ety? No 08/17/2023 Do you have concerns for you r family's safety? (Household - for ages 0-17 years) Not on file 08/17/2023 Utilities Answer Date Recorded Do you have trouble paying y our heating, water, or electric bill? No 08/17/2023 Is your family able to pay t he heat, water, or electric bill? (Household - for ages 0-17 years) Not on file 08/17/2023 Does your family have access to good internet? (Household - for ages 0-17 years) Not on file 08/17/2023 Employment Status Answer Date Recorded Are you unemployed or without regular income? No 08/17/2023 Does the household have a re gular source of income? (Household - for ages 0-17 years) Not on file 08/17/2023 Social Connections Answer Date Recorded How often do you feel lonely or isolated from those around you? Sometimes 08/17/2023 Financial Resource Strain Answer Date R ecorded Do you have any trouble payi ng for your medications, or do you think you might in the future? No 08/17/2023 Does your family have troubl e paying for medicine? (Household - for ages 0-17 years) Not on file 08/17/2023 Transportation Needs Answer Date Record ed READ ONLY Do you have troubl e getting a ride to medical visits or work? Never True 08/17/2023 Does your family have a hard time getting a ride to doctors visits? (Household - for ages 0-17 years) Not on file 08/17/2023 Has lack of transportation k ept you from medical appointments, meetings, work, or from getting things needed for daily living? Check all that apply. (Adult - for ages 18 years and over) Not on file 08/17/2023 Do you (or your family) have trouble finding or paying for a ride (transportation)? (Household - for ages 0-17 years) Not on file 08/17/2023 Housing Stability Answer Date Recorded Do you currently live in a s helter or have no steady place to sleep at night? No 08/17/2023 READ ONLY Do you think you a re at risk of becoming homeless? No 08/17/2023 Does your family worry about paying for your home or becoming homeless? (Household - for ages 0-17 years) Not on file 0 08/17/2023 Are you homeless or worried that you might be in the future? (Adult - for ages 18 years and over) Not on file Are you (or your family) roldan eless or worried that you might be in the future? (Household - for ages 0-17 years) Not on file Food Insecurity Answer Date Recorded Do you need food for this week? No 08/17/2023 Are you able to get enough f ood for your family? (Household - for ages 0-17 years) Not on file 08/17/2023 Does your family need food t his week? (Household - for ages 0-17 years) Not on file 08/17/2023 Do you always have enough fo od for your family? (Household - for ages 0-17 years) Not on file 08/17/2023 Comments No Sex and Gender Information Value Date Recorded Sex Assigned at Female 04/12/2023 4:54 PM EST Legal Sex Female 6:46 AM EST Gender Identity Female 04/12/2023 4:54 PM EST Sexual Orientation Straight 08/17/2023 6: 14 PM EDT documented as of this encounter Functional Status * Are you deaf or do you have serious difficulty hearing? Answer Date of Assessment Author No 06/03/2018 6:44 PM Salma Bradley RN * Are you blind or do you have serious difficulty seeing, even when wearing glasses? Answer Date of Assessment Author No 06/03/2018 6:44 PM Salma Bradley RN * Do you have serious difficulty walking or climbing stairs? (5 years old or older) Answer Date of Assessment Author No 06/03/2018 6:44 PM Salma Bradley RN * Do you have difficulty dressing or bathing? (5 years old or older) Answer Date of Assessment Author No 06/03/2018 6:44 PM Salma Bradley RN * Because of a physical, mental, or emotional condition, do you have difficulty doing errands alone such as visiting a doctors office or shopping? (15 years old or older) Answer Date of Assessment Author No 06/03/2018 6:44 PM Salma Bradley RN documented as of this encounter Mental Status * Because of a physical, mental, or emotional condition, do you have serious difficulty concentrating, remembering, or making decisions? (5 years old or older) Answer Entry Date Author No 06/03/2018 6:44 PM Salma Bradley RN documented in this encounter Miscellaneous Notes * Telephone Encounter - Gianni Wan RPh - 03/12/2024 3:33 PM ESTSigned Prescriptions: Disp Refills Levothyroxine Sodium 50 MCG Oral Tablet (L*90 Tab*0 Sig: Take 1 Tablet by mouth in the morning.Authorizing Provider: VIKAS RHODES User: GINANI WAN---- * Telephone Encounter - Gianni Wan RPh - 03/12/2024 3:32 PM EST RX authorized. Zero refills given until upcoming lab appt 04/26. Gianni Beal PharmD Clinical Pharmacist [facility] [phone] 03/12/2024, 3:32 PM documented in this encounter Plan of Treatment Upcoming Encounters Date Type Department Care Team (Late st Contact Info) Description 04/26/2024 10:00 AM EST Laboratory Laboratory [facility] [place] [address] [place] [id number] [facility] [address] [place] [address] 06/01/2024 2:55 PM EST Office Visit Urogynecology Elis Santos [address] [place] [address] Bala Knox MD [address] [place] [address] Nurse Shawn Santos [address] [place] [address] 07/07/2024 2:00 PM EST Office Visit [facility] [address] [place] [address] Vikas Rhodes MD [address] [place] [address] 07/26/2024 2:00 PM EDT [facility] [place] [address] [facility] [place] [address] Constanza Castañeda [facility]NP [address] [facility] [facility] [place] [address] Scheduled Orders Name Type Priority Associated Diagnoses Orde r Schedule TSH WITH FREE T4 IF INDICATED Lab Routine Hypothyroidism, unspecified type Encounter for long-term (current) use of medications Expected: 03/19/2024 (Approximate), Expires: 03/12/2025 Health Maintenance Due Date Last Done Comments Espinoza's Esophagus Surveilance 1945 Zoster Vaccines (2 of 3) 02/12/2015 12/18/2014 Adult Wellness Visit 12/21/2021 12/21/2020 COVID-19 Vaccine ( season) 2024 03/20/2021, 07/22/2020, 07/01/2020 DTap/Tdap Vaccines (2 - Td or Tdap) 01/21/2024 01/20/2014 CKD PHOS USE SMARTSET 37315 04/02/202403/06, 09/14/2021, 03/12/2021, Additional history exists Depression Screening 05/20/2024 05/20/2023 TSH 05/20/2024 05/20/2023, 05/05, 04/02/2023, Additional history exists GFR 07/05/2024 01/06/2024, 06/0 07/2023, 10/06/2023, Additional history exists CKD HGB USE SMARTSET 77225 01/05/202501/05, 01/06/2024, 05/20/2023, Additional history exists Albumin/Creatinine Ratio 01/18/2025 024, 04/04/2023, 03/13/2022, Additional history exists DXA Scan 01/21/2030 01/21/2023, 0510/2020, 11/27/2015, Additional history exists Pneumococcal Vaccine: 65+ Years Completed 01/17/2015, 04/07/2013 Influenza Vaccine (FLU shot) Completed , 04/11/2023, 03/21/2022, Additional history exists HPV (Gardasil) Vaccine Aged Out No lo nger eligible based on patient's age to complete this topic Hepatitis B Vaccine Aged Out No longe r eligible based on patient's age to complete this topic MENINGOCOCCAL (MENACTRA/MENVEO) Aged Out No longer eligible based on patient's age to complete this topic documented as of this encounter Medical Devices Implanted Type Area Data Analytics Specialist Device Identifier Shelf Expiration Date Model / Serial / Lot [place] Ptfe 1x1 [id number] - [id number] Implanted:Qty: 5 on 06/03/2018 by Jaxon Vega MD at OR [facility] N/A: Abdomen CR BARD : PERIPHERAL VASCULAR 11/29/2021 [id number] / / [id number] Description:para-esophageal hernia Allomax Mesh 5 X 8 [id number] - [id number] - [id number] Implanted:Qty: 1 on 06/03/2018 by Jaxon Vega MD at OR [facility] N/A: Abdomen CR BARD : DAVOL 05/04/2020 [id number] / [id number] / [id number] Description:PARA ESOPHAGEAL HERNIA documented as of this encounter Visit Diagnoses Diagnosis Encounter for long-term (current) use of medications- Primary Encounter for long-term (current) use of other medications Stage 3a chronic kidney disease (HCC) Hypothyroidism, unspecified type Cerebrovascular disease, arteriosclerotic, post-stroke Cerebral atherosclerosis Anemia in stage 3a chronic kidney disease (HCC) documented in this encounter Advance Directives * Full Code (Latest Code Status on File) Date Activated Date Inactivated Comments 06/03/2018 4:58 PM 06/05/2018 7:48 PM Question Answer Comments Discussion of Advance Directives occurred with: Not Discussed Does the patient have a Living Will? No Does the patient have Health Care Power of Attor jose luis? No Care Teams Work Measurement Engineer Relationship Specialty Start Date End Date Vikas Rhdoes MD [address] [place] [address] PCP - General Family Medicine 06/11/23 documented as of this encounter
--- OUTSIDE RECORDS SUMMARY | 2024-04-17 12:42 | External Medical Summary | Summary of Care ---
Author Name Unknown Organization [facility] Address [address] [address] Phone [phone] Care Team Providers Care Dental Treatment Coordinator Name Role Phone Madalyn Pandya MD Primary Care Provider Encounter Details Date Type Department Care Team (Late st Contact Info) Description 03/29/[address] [facility] [address] [place] [address] Benjy Pruett DO [address] [place] [address] Allergies Active Allergy Reactions Criticality Noted Date [...] as of this encounter (statuses as of 04/06/2024) Medications VITAMIN D 2000 UNIT PO TABS one tablet by mouth daily Active Acetaminophen 325 MG Oral Capsule Take 1 Cap by mouth at bedtime as needed for Pain. Active Fluticasone Propionate 50 MCG/ACT Nasal Suspension (Flonase)Indicat ions:Seasonal allergic rhinitis due to pollen instill 2 sprays into each nostril once daily 16 g 11 3 Active Pantoprazole Sodium 40 MG Oral Tablet Delayed Release (Protonix)Indica tions:Espinoza esophagus take 1 tablet by mouth 30 MINUTES PRIOR TO THE FIRST MEAL OF THE DAY. 90 Tablet 5 3 Active Estradiol 0.1 MG/GM Vaginal Cream (Estrace) Apply a pea sized amount (0.5g) vaginally twice a week as directed 42.5 g 3 4 Active Apixaban 2.5 MG Oral Tablet (Eliquis)Indicat ions:Chronic deep vein thrombosis (DVT) of proximal vein of lower extremity, unspecified laterality (HCC) Take 1 Tablet by mouth in the morning and 1 Tablet before bedtime. 180 Tablet 1 4 Active Rosuvastatin Calcium 20 MG Oral Tablet (Crestor)Indicat ions:Kidney disease, chronic, stage III (GFR 30-59 ml/min) (HCC),Cerebrovas cular disease, arteriosclerotic , post-stroke,Dysl ipidemia, goal LDL below 70,Cerebellar infarct (HCC) take 1 tablet by mouth at bedtime 90 Tablet 3 4 Active Spironolactone 25 MG Oral Tablet (Aldactone) take 1 tablet by mouth every morning 30 Tablet 5 4 Active Levothyroxine Sodium 50 MCG Oral Tablet (Levoxyl)Indicat ions:Stage 3a chronic kidney disease (HCC),Hypothyroi dism, unspecified type,Cerebrovasc ular disease, arteriosclerotic , post-stroke,Anem ia in stage 3a chronic kidney disease (HCC) Take 1 Tablet by mouth in the morning. 90 Tablet 4 Active documented as of this encounter (statuses as of 04/06/2024) Active Problems Problem Noted Date Diagnosed Date [...] as of this encounter (statuses as of 04/06/2024) Resolved Problems Problem Noted Date Diagnosed Date [...] Espinoza's, hiatal hernia FAMILY HX, ISCHEMIC HEART [id number] 12/04/2010 01/20/2013 Dyslipidemia, goal LDL below 130 08/24/2010 01/20/2013 Anxiety state 11/14/2009 01/20/2013 Irritable bowel syndrome 11/14/2009 Esophageal reflux 11/14/2009 04/16/2011 Overview (11/14/2009): hiatal hernia, EGD 03/13 Barretts Palpitations 11/14/2009 01/20/2013 Overview (11/14/2009): 10/05 ANEMIA NOS-neg eval 11/11 Overview (11/14/2009): neg. follow-up 1989 Other allergic rhinitis 01/03 Overview (02/25/2017): ICD-10 update of inactive term documented as of this encounter (statuses as of 04/06/2024) Immunizations Name Administration Dates Next Due COVID-19 mRNA, LNP-s, No Pre serve, 2-Dose Series (Pfizer) 03/20/2021,07/22/2020,07/01/2020 PPD 10/05/1992 Pneumococcal Conjugate Vacc, 13 [...] of Assessment Author No 06/03/2018 6:44 PM EST Salma Knight RN * Are you blind or do [...] encounter Miscellaneous Notes * Telephone Encounter - Vannessa Larson CCMA - 03/29/2024 3:23 PM EST T/C to fay pt daughter - relayed below message. Fay verbalizes understandings. States pt does notseem to be having any symptoms at this time. * Telephone Encounter - Benjy Pruett DO - 03/29/2024 3:00 PM EST Covering for PCP. UA did not have nitrites or blood, does not suggest UTI. Please inform the patient. documented in this encounter Plan of Treatment Upcoming Encounters Date Type Department Care Team (Late st Contact Info) Description 04/26/2024 10:00 AM EST Laboratory Laboratory [facility] [address] [place] [phone] Violeta Mcdonald [facility] [address] [facility] [place] [address] 06/01/2024 2:55 PM EST Office Visit Urogynecology Elsi Santos [address] [facility] [place] [address] Bala Knox MD [address] [place] [address] Nurse Shawn Santos [address] [place] [address] 07/07/2024 2:00 PM EST Office Visit Family [facility] [address] [place] [address] Madalyn Pandya MD [address] [place] [phone] 07/26/2024 2:00 PM EDT Office Visit Hematology/Oncology [facility] [address] [place] [phone] Constanza Castañeda CRNP [address] [facility] [place] [phone] Health Maintenance Due Date Last Done Comments Espinoza's Esophagus Surveilance 1943 Zoster Vaccines (2 of 3) 02/12/2015 12/18/2014 Adult Wellness Visit 12/21/2021 12/21/2020 COVID-19 Vaccine ( season) 2024 03/20/2021, 07/22/2020, 07/01/2020 DTap/Tdap Vaccines (2 - Td or Tdap) 01/21/2024 01/20/2014 CKD PHOS USE SMARTSET 94999 04/02/202403/06, 09/14/2021, 03/12/2021, Additional history exists Depression Screening 05/20/2024 05/20/2023 TSH 05/20/2024 05/20/2023, 05/05, 04/02/2023, Additional history exists GFR 07/05/2024 01/06/2024, 06/0 07/2023, 10/06/2023, Additional history exists CKD HGB USE SMARTSET 47901 01/05/202501/05, 01/06/2024, 05/20/2023, Additional history exists Albumin/Creatinine Ratio 01/18/2025 024, 04/04/2023, 03/13/2022, Additional history exists DXA Scan 01/21/2030 01/21/2023, 09/03, 11/27/2015, Additional history exists Pneumococcal Vaccine: 65+ [...] this encounter Medical Devices Implanted Type Area Thermodynamics Teacher Device Identifier Shelf Expiration Date Model / Serial / Lot [place] Ptfe 1x1 [id number] - [id number] Implanted:Qty: 5 on 06/03/2018 by Jaxon Vega MD at OR [facility] N/A: Abdomen CR BARD : PERIPHERAL VASCULAR 11/29/2021 [id number] / / [id number] Description:para-esophageal hernia Allomax Mesh 5 X 8 [id number] - [id number] - [id number] Implanted:Qty: 1 on 06/03/2018 by Jaxon Vega MD at OR [facility] N/A: Abdomen CR BARD : DAVOL 05/04/2020 [id number] / [id number] / [id number] Description:PARA ESOPHAGEAL HERNIA documented as of this encounter Advance Directives * Full Code (Latest Code Status on File) Date Activated Date Inactivated Comments 06/03/2018 4:58 PM 06/05/2018 7:48 PM Question Answer Comments Discussion of Advance Directives occurred with: Not Discussed Does the patient have a Living Will? No Does the patient have Health Care Power of Attor jose luis? No Care Teams Dental Treatment Coordinator Relationship Specialty Start Date End Date Madalyn Pandya MD [address] [place] [phone] PCP - General Family Medicine 06/11/23 documented as of this encounter
--- OUTSIDE RECORDS SUMMARY | 2024-04-17 12:42 | External Medical Summary | Summary of Care ---
Author Name Unknown Organization [facility] Address [address] [facility] [place] [address] Phone [phone] Care Team Providers Care Medical Sales Associate Name Role Phone Madalyn Pandya MD Primary Care Provider Encounter Details Date Type Department Care Team (Late st Contact Info) Description 03/16/2024 Orders Only PATIENT PORTAL DO NOT DELETE THIS DEPT USED BY [place] [phone] Allergies Active Allergy Reactions Criticality Noted Date [...] as of this encounter (statuses as of 03/16/2024) Medications VITAMIN D 2000 UNIT PO TABS [...] as of this encounter (statuses as of 03/16/2024) Active Problems Problem Noted Date Diagnosed Date [...] as of this encounter (statuses as of 03/16/2024) Resolved Problems Problem Noted Date Diagnosed Date [...] Espinoza's, hiatal hernia FAMILY HX, ISCHEMIC HEART [id number] 12/04/2010 01/20/2013 Dyslipidemia, goal LDL below 130 08/24/2010 01/20/2013 Anxiety state 11/14/2009 01/20/2013 Irritable bowel syndrome 11/14/2009 Esophageal reflux 11/14/2009 04/16/2011 Overview (11/14/2009): hiatal hernia, EGD 03/13 Barretts Palpitations 11/14/2009 01/20/2013 Overview (11/14/2009): 10/05 ANEMIA NOS-neg eval 11/11 Overview (11/14/2009): neg. follow-up 1989 Other allergic rhinitis 01/03 Overview (02/25/2017): ICD-10 update of inactive term documented as of this encounter (statuses as of 03/16/2024) Immunizations Name Administration Dates Next Due COVID-19 [...] 08/17/2023 Does the household have a re lar source of income? (Household - for ages [...] Salma Bradley RN documented in this encounter Plan of Treatment Upcoming Encounters Date Type Department Care Team (Late st Contact Info) Description 04/26/2024 10:00 AM EST Laboratory Laboratory [facility] [address] [place] [phone] [facility] [address] [place] [address] 06/01/2024 2:55 PM EST Office Visit Urogynecology Elsi Santos [address] [place] [address] Bala Knox MD [address] [place] [address] Nurse Shawn Santos [address] [place] [address] 07/07/2024 2:00 PM EST Office Visit [facility] [address] [place] [address] Madalyn Pandya MD [address] [place] [address] 07/26/2024 2:00 PM EDT Office [facility] [place] [address] [facility] [place] [address] Constanza Castañeda CRNP [address] [facility] [place] [address] Health Maintenance Due Date Last Done Comments Espinoza's Esophagus Surveilance 1945 Zoster Vaccines (2 of 3) 02/12/2015 12/18/2014 Adult Wellness Visit 12/21/2021 12/21/2020 COVID-19 Vaccine ( season) 2024 03/20/2021, 07/22/2020, 07/01/2020 DTap/Tdap Vaccines (2 - Td or Tdap) 01/21/2024 01/20/2014 CKD PHOS USE SMARTSET 04023 04/02/202403/06, 09/14/2021, 03/12/2021, Additional history exists Depression Screening 05/20/2024 05/20/2023 TSH 05/20/2024 05/20/2023, 05/05, 04/02/2023, Additional history exists GFR 07/05/2024 01/06/2024, 06/0 07/2023, 10/06/2023, Additional history exists CKD HGB USE SMARTSET 81128 01/05/202501/05, 01/06/2024, 05/20/2023, Additional history exists Albumin/Creatinine [...] this encounter Medical Devices Implanted Type Area Baggage Handler Device Identifier Shelf Expiration Date Model / Serial / Lot [place] Ptfe 1x1 [id number] - [id number] Implanted:Qty: 5 on 06/03/2018 by Jaxon Vega MD at OR [facility] N/A: Abdomen CR BARD : PERIPHERAL VASCULAR 11/29/2021 [id number] / / [id number] Description:para-esophageal hernia Allomax Mesh 5 X 8 [id number] - [id number] - [id number] Implanted:Qty: 1 on 06/03/2018 by Jaxon Vega MD at OR [facility] N/A: Abdomen CR BARD : DAVOL 05/04/2020 [id number] / [id number] / [id number] Description:PARA ESOPHAGEAL HERNIA documented as of this encounter Advance Directives * Full Code (Latest Code Status on File) Date Activated Date Inactivated Comments 06/03/2018 4:58 PM 06/05/2018 7:48 PM Question Answer Comments Discussion of Advance Directives occurred with: Not Discussed Does the patient have a Living Will? No Does the patient have Health Care Power of Attor jose luis? No Care Teams Medical Sales Associate Relationship Specialty Start Date End Date Madalyn Pandya MD [address] [place] [address] PCP - General Family Medicine 06/11/23 documented as of this encounter
--- OUTSIDE RECORDS SUMMARY | 2024-04-17 12:42 | External Medical Summary | Summary of Care ---
Author Name Unknown Organization [facility] Address [address] [place] [address] Phone [phone] Care Team Providers Care Washing Machine Repairer Name Role Phone Madalyn Pandya MD Primary Care Provider Reason for Visit * Reason Comments Outpatient Testing Encounter Details Date Type Department Care Team (Late st Contact Info) Description 03/26/2024 2:40 PM EST Laboratory Laboratory [address], [place] [address] [facility] [place] [phone] Aleksandra Lab [facility] [address] [place] [address] Urinary urgency Allergies Active Allergy Reactions Criticality Noted Date [...] as of this encounter (statuses as of 03/26/2024) Medications VITAMIN D 2000 UNIT PO TABS [...] disease, chronic, stage III (GFR 30-59 ml/min) ([facility]),Cerebrovas cular disease, arteriosclerotic , post-stroke,Dysl ipidemia, goal [...] as of this encounter (statuses as of 03/26/2024) Active Problems Problem Noted Date Diagnosed Date [...] as of this encounter (statuses as of 03/26/2024) Resolved Problems Problem Noted Date Diagnosed Date [...] Espinoza's, hiatal hernia FAMILY HX, ISCHEMIC HEART [id number] 12/04/2010 01/20/2013 Dyslipidemia, goal LDL below 130 08/24/2010 01/20/2013 Anxiety state 11/14/2009 01/20/2013 Irritable bowel syndrome 11/14/2009 Esophageal reflux 11/14/2009 04/16/2011 Overview (11/14/2009): hiatal hernia, EGD 03/13 Barretts Palpitations 11/14/2009 01/20/2013 Overview (11/14/2009): 10/05 ANEMIA NOS-neg eval 11/11 Overview (11/14/2009): neg. follow-up 1988 Other allergic rhinitis 01/03 Overview (02/25/2017): ICD-10 update of inactive term documented as of this encounter (statuses as of 03/26/2024) Immunizations Name Administration Dates Next Due COVID-19 [...] Assessment Author No 06/03/2018 6:44 PM Salma Braldey RN * Do you have serious difficulty [...] Description 04/26/2024 10:00 AM EST Laboratory Laboratory [address] [place] [address] [place] [address] [address] [place] [address] 06/01/2024 2:55 PM EST Office Visit Urogynecology [facility] [address] [place] [address] Bala Knox MD [address] [place] [address] Nurse Shawn Santos [address] [place] [address] 07/07/2024 2:00 PM EST Office Visit [facility] [address] [place] [phone] Madalyn Pandya MD [address] [place] [phone] 07/26/2024 2:00 PM EDT Office Visit Hematology/Oncology [facility] [address] [facility] [address] Constanza Castañeda CRNP [address] [facility] [place] [phone] Pending Results Name Type Priority Associated Diagnoses Date /Time URINALYSIS, REFLEX TO CULTURE (NOT FOR NEUTROPENIC PATIENTS) Lab Routine Urinary urgency 03/26/2024 2:44 PM EST URINALYSIS, REFLEX TO CULTURE (CUP ONLY) Lab Routine Urinary urgency 03/26/2024 2:44 PM EST URINALYSIS, REFLEX TO CULTURE Lab Routine Urinary urgency 03/26/2024 2:44 PM EST Health Maintenance Due Date Last Done Comments Espinoza's Esophagus Surveilance 1945 Zoster Vaccines (2 of 3) 02/12/2015 12/18/2014 Adult Wellness Visit 12/21/2021 12/21/2020 COVID-19 Vaccine ( season) 2024 03/20/2021, 07/22/2020, 07/01/2020 DTap/Tdap Vaccines (2 - Td or Tdap) 01/21/2024 01/20/2014 CKD PHOS USE SMARTSET 33358 04/02/202403/06, 09/14/2021, 03/12/2021, Additional history exists Depression Screening 05/20/2024 05/20/2023 TSH 05/20/2024 05/20/2023, 05/05, 04/02/2023, Additional history exists GFR 07/05/2024 01/06/2024, 06/0 07/2023, 10/06/2023, Additional history exists CKD HGB USE SMARTSET 62028 01/05/202501/05, 01/06/2024, 05/20/2023, Additional history exists Albumin/Creatinine [...] this encounter Medical Devices Implanted Type Area Microsoft Office Instructor Device Identifier Shelf Expiration Date Model / Serial / Lot [place] Ptfe 1x1 [id number] - [id number] Implanted:Qty: 5 on 06/03/2018 by Jaxon Vega MD at OR [facility] N/A: Abdomen CR BARD : PERIPHERAL VASCULAR 11/29/2021 [id number] / / [id number] Description:para-esophageal hernia Allomax Mesh 5 X 8 [id number] - [id number] - [id number] Implanted:Qty: 1 on 06/03/2018 by Jaxon Vega MD at OR [facility] N/A: Abdomen CR BARD : DAVOL 05/04/2020 [id number] / [id number] / [id number] Description:PARA ESOPHAGEAL HERNIA documented as of this encounter Visit Diagnoses Diagnosis Urinary urgency Urgency of urination documented in this encounter Advance Directives * Full Code (Latest Code Status on File) Date Activated Date Inactivated Comments 06/03/2018 4:58 PM 06/05/2018 7:48 PM Question Answer Comments Discussion of Advance Directives occurred with: Not Discussed Does the patient have a Living Will? No Does the patient have Health Care Power of Attor jose luis? No Care Teams Washing Machine Repairer Relationship Specialty Start Date End Date Madalyn Pandya MD [address] [place] [address] PCP - General Family Medicine 06/11/23 documented as of this encounter
--- OUTSIDE RECORDS SUMMARY | 2024-04-17 12:42 | External Medical Summary ---
Author Name Unknown Address Unknown Organization K01:[facility] - [address] [facility] [place] [address] Laboratory Report Ordering Provider Test Date Status CARMELO BEAN 03/26/2024 14:44:00 Final Observation Date Value Abnormality Reference (Units ) Status Color of Urine by Auto 03/26/2024 14:44:00 Light Yellow Colorless, Light Yellow, Yellow, Dark Yellow Final Clarity, Urine 03/26/2024 14:44:00 Clear Clear Final Glucose [Mass/volume] in Urine by Automated test strip 03/26/2024 14:44:00 Negative Negative (mg/dL) Final Bilirubin.total [Presence] in Urine by Automated test strip 03/26/2024 14:44:00 Negative Negative Final Ketones [Mass/volume] in Urine by Automated test strip 03/26/2024 14:44:00 Negative Negative (mg/dL) Final Specific gravity, Urine 03/26/2024 14:44:00 1.018 1.003-1.030 Final Hemoglobin [Presence] in Urine by Automated test strip 03/26/2024 14:44:00 Negative Negative Final pH, Urine 03/26/2024 14:44:00 6.0 5.0-7.5 (Units) Final Protein [Mass/volume] in Urine by Automated test strip 03/26/2024 14:44:00 Negative Negative (mg/dL) Final Urobilinogen [Mass/volume] in Urine by Automated test strip 03/26/2024 14:44:00 Normal Normal (mg/dL) Final Nitrite [Presence] in Urine by Automated test strip 03/26/2024 14:44:00 Negative Negative Final Leukocyte esterase [Presence] in Urine by Automated test strip 03/26/2024 14:44:00 Moderate Abnormal Negative Final RBC, Urine 03/26/2024 14:44:00 0-2 0-2 (/HPF) Final WBC, Urine 03/26/2024 14:44:00 6-9 Abnormal 0-2 (/HPF) Final Bacteria [#/area] in Urine sediment by Microscopy high power field 03/26/2024 14:44:00 0-25 0-25 (/HPF) Final CULTURE, URINE - [facility] 03/26/2024 14:44:00 Final Culture not indicated by uri nalysis results\[id number]\ Performing Location [facility] - [facility] [address] [facility] [place] [address]
--- OUTSIDE RECORDS SUMMARY | 2024-04-17 12:43 | External Medical Summary | Summary of Care ---
Author Name Unknown Organization [facility] Address [address] [place] [facility] [place] [address] Phone [phone] Care Team Providers Care Solution Developer Name Role Phone Vikas Pandya MD Primary Care Provider Reason for Visit * Reason Comments eRx-Medication Refill Encounter Details Date Type Department Care Team (Late st Contact Info) Description 02/10/2024 Refill [facility] [place] Aleksandra Trimble [address] [place] [address] Vikas Pandya MD [address] [place] [phone] Kidney disease, chronic, stage III (GFR 30-59 ml/min) ([facility]); Cerebrovascular disease, arteriosclerotic, post-stroke; Dyslipidemia, goal LDL below 70; Cerebellar infarct ([facility]) Allergies Active Allergy Reactions Criticality Noted Date [...] as of this encounter (statuses as of 02/12/2024) Medications Medication Sig Dispensed Refills Start Date End Date Status VITAMIN D 2000 UNIT PO TABS one tablet by mouth daily Active Acetaminophen 325 MG Oral Capsule Take 1 Cap by mouth at bedtime as needed for Pain. Active Fluticasone Propionate 50 MCG/ACT Nasal Suspension (Flonase)Indicat ions:Seasonal allergic rhinitis due to pollen instill 2 sprays into each nostril once daily 16 g 11 05/30/2022 Active Levothyroxine Sodium 50 MCG Oral Tablet (Levoxyl)Indicat ions:Stage 3a chronic kidney disease (HCC),Hypothyroi dism, unspecified type,Cerebrovasc ular disease, arteriosclerotic , post-stroke,Anem ia in stage 3a chronic kidney disease (HCC) Take 1 Tablet by mouth in the morning. 90 Tablet 3 04/11/2023 Active Pantoprazole Sodium 40 MG Oral Tablet Delayed Release (Protonix)Indica tions:Espinoza esophagus take 1 tablet by mouth 30 MINUTES PRIOR TO THE FIRST MEAL OF THE DAY. 90 Tablet 5 04/11/2023 Active Estradiol 0.1 MG/GM Vaginal Cream (Estrace) Apply a pea sized amount (0.5g) vaginally twice a week as directed 42.5 g 3 09/26/2023 Active Methenamine Hippurate 1 GM Oral Tablet (Hiprex) Take 1 Tablet by mouth in the morning and 1 Tablet before bedtime. 30 Tablet 1 12/10/2023 Active Additional Information Patient not taking.Reported on 01/22/2024 Apixaban 2.5 MG Oral Tablet (Eliquis)Indicat ions:Chronic deep vein thrombosis (DVT) of proximal vein of lower extremity, unspecified laterality (HCC) Take 1 Tablet by mouth in the morning and 1 Tablet before bedtime. 180 Tablet 1 12/29/2023 Active Spironolactone 25 MG Oral Tablet (Aldactone) Take 1 Tablet by mouth in the morning. In the morning.. 30 Tablet 1 01/01/2024 Active Rosuvastatin Calcium 20 MG Oral Tablet (Crestor)Indicat ions:Kidney disease, chronic, stage III (GFR 30-59 ml/min) (HCC),Cerebrovas cular disease, arteriosclerotic , post-stroke,Dysl ipidemia, goal LDL below 70,Cerebellar infarct (HCC) take 1 tablet by mouth at bedtime 90 Tablet 3 02/12/2024 Active Rosuvastatin Calcium 20 MG Oral Tablet (Crestor)Indicat ions:Kidney disease, chronic, stage III (GFR 30-59 ml/min) (HCC),Cerebrovas cular disease, arteriosclerotic , post-stroke,Dysl ipidemia, goal LDL below 70,Cerebellar infarct (HCC) take 1 tablet by mouth at bedtime 90 Tablet 1 08/18/2023 4 Discontinued documented as of this encounter (statuses as of 02/12/2024) Active Problems Problem Noted Date Diagnosed Date Diastolic congestive heart failure 09/01/2023 Intracervical pessary 05/20/2023 Urinary urgency 01/21/2023 Hypothyroidism 03/19/2021 Benign hypertension with CKD (chronic kidney disease) stage III 09/27/2020 Hypertension goal BP (blood pressure) < 140/90 0 05/25/2019 S/P repair of paraesophageal hernia 05/25/2019 Overview: 06/03/18 Personal history of transient ischemic attack [...] stage III (GFR 30-59 ml /min) 07/18/2014 Overview: Per CKD protocol #1 Chronic fatigue syndrome 11/18/2013 Benign essential tremor 01/20/2013 Vitamin D deficiency 04/16/2011 documented as of this encounter (statuses as of 02/12/2024) Resolved Problems Problem Noted Date Diagnosed Date Resolved Date MDD (major depressive disord er), recurrent episode, mild 05/20/2023 05/20/2023 Edema of lower extremity 01/21/2023 Seborrheic dermatitis 08/23/20212023 Overview: Of ear canals. Superficial phlebitis 05/17/20212021 Overview: Left ankle area Generalized edema 05/07/2021 05/20/2023 Trochanteric bursitis of left hip 09/27/2020 05/20/2023 Encounter for screening mamm ogram for breast cancer 11/25/2019 11/25/2019 Cerebellar infarct 05/25/2019 3 Contusion of foot or heel 11/17/2018 Cerebellar infarct 09/15/2018 9 Paraesophageal hernia 05/12/20182018 Hiatal hernia 03/10/2018 05/12/2018 Dyslipidemia 10/31/2017 05/12/2018 Post herpetic neuralgia 08/14/2017 01/0 12/2018 Overview: C8 nerve root on left. Herpes zoster without complication 08/14/2017 10/31/2017 Overview: C8 nerve root on left. 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 follow-up 1989 Other allergic rhinitis 01/03 Overview: ICD-10 update of inactive term documented as of this encounter (statuses as of 02/12/2024) Immunizations Name Administration Dates Next Due COVID-19 mRNA, LNP-s, No Pre serve, 2-Dose Series ([employer]) 03/20/2021,07/22/2020,07/01/2020 PPD 10/05/1992 Pneumococcal Conjugate Vacc, 13 Valent (Prevnar) 01/17/2015 Pneumococcal Polysaccharide PPV23 (Pneumovax) 04/07/2013 Season Influenza, Quad, PF, Adjuvanted, 65+ Yrs, IM (FLUAD) 02/25/2020 Seasonal Influenza Vac., MDV , IM, 0.5 mL (Fluzone) 01/17/2015,01/20/2014,04/07/2013 Seasonal Influenza, High Dos e, Trivalent, PF, IM (Fluzone HD) 03/11/2017 Seasonal Influenza, PF, 6 M & above, [...] ages 0-17 years) Not on file 08/17/2023 Sex and Gender Information Value Date Recorded Sex Assigned at Female 04/12/2023 4:54 PM EST Gender Identity Female 04/12/2023 4:54 PM EST Sexual Orientation Straight 08/17/2023 6: 14 PM EDT Job Start Date Occupation Industry Not on file Not on file Not on file documented as of this encounter Functional Status Functional Status Response Date of Assess ment Are you deaf or do you have serious difficulty h earing? No 06/03/2018 Are you blind or do you have serious difficulty seeing, even when wearing glasses? No 06/03/2018 Do you have serious difficul ty walking or climbing stairs? (5 years old or older) No 06/03/2018 Do you have difficulty dress ing or bathing? (5 years old or older) No 06/03/2018 Because of a physical, menta l, or emotional condition, do you have difficulty doing errands alone such as visiting a doctor s office or shopping? (15 years old or older) No 06/03/19 19 Cognitive Status Response Date of Assessm ent Because of a physical, menta l, or emotional condition, do you have serious difficulty concentrating, remembering, or making decisions? (5 years old or older) No 06/03/2018 documented as of this encounter Miscellaneous Notes * Telephone Encounter - Bala Quick RPh - 02/12/2024 8:26 AM EDT Signed Prescriptions: Disp Refills Rosuvastatin Calcium 20 MG Oral Tablet (Cr*90 Tab*3 Sig: take 1 tablet by mouth at bedtimeAuthorizing Provider: VIKAS PANDYA User: BALA QUICK documented in this encounter Plan of Treatment Upcoming Encounters Date Type Department Care Team (Late st Contact Info) Description 02/12/2024 12:00 PM EDT Office Visit [facility] [place] [address] [place] [address] Vikas Pandya MD [address] [place] [address] 03/01/2024 12:30 PM EDT Office Visit Uro[facility]cology [facility] [address] [place] [address] Bala Knox MD [address] [place] [address] [facility] [address] [place] [address] 03/29/2024 10:20 AM EST Office Visit [facility] [address] [place] [address] Bala Knox MD [address] [place] [address] [facility] [address] [place] [address] 04/26/2024 10:00 AM EST Laboratory Laboratory [facility] [address] [place] [phone] [facility] [address] [place] [address] 07/07/2024 2:00 PM EST Office Visit [facility] [place] [address] [place] [address] Vikas Pandya MD [address] [place] [address] 07/26/2024 2:00 PM EDT Office Visit Hematology/Oncology [facility] [place] [address] [place] [phone] Constanza Castañeda CRNP [address] [place] [address] [place] [address] Health Maintenance Due Date Last Done Comments Espinoza's Esophagus Surveilance 1943 Zoster Vaccines (2 of 3) 02/12/2015 12/18/2014 Adult Wellness Visit 12/21/2021 12/21/2020 COVID-19 Vaccine ( season) 2024 03/20/2021, 07/22/2020, 07/01/2020 Influenza Vaccine (FLU shot) (#1) 2024 04/11/2023, 03/21/2022, 04/05/2021, Additional history exists DTap/Tdap Vaccines (2 - Td or Tdap) 01/21/2024 01/20/2014 CKD PHOS USE SMARTSET 94904 04/02/202403/06, 09/14/2021, 03/12/2021, Additional history exists Depression Screening 05/20/2024 05/20/2023 TSH 05/20/2024 05/20/2023, 05/05, 04/02/2023, Additional history exists GFR 07/05/2024 01/06/2024, 06/0 07/2023, 10/06/2023, Additional history exists CKD HGB USE SMARTSET 75664 01/05/202501/05, 01/06/2024, 05/20/2023, Additional history exists Albumin/Creatinine Ratio 01/18/2025 024, 04/04/2023, 03/13/2022, Additional history exists DXA Scan 01/21/2030 01/21/2023, 09/03, 11/27/2015, Additional history exists Pneumococcal Vaccine: 65+ Years Completed 01/17/2015, 04/07/2013 HPV (Gardasil) Vaccine Aged Out No lo nger eligible based on patient's age to complete this topic Hepatitis B Vaccine Aged Out No longe r eligible based on patient's age to complete this topic MENINGOCOCCAL (MENACTRA/MENVEO) Aged Out No longer eligible based on patient's age to complete this topic documented as of this encounter Medical Devices Implanted Type Area Salesperson Sheet Music Device Identifier Shelf Expiration Date Model / Serial / Lot [place] Ptfe 1x1 [id number] - [id number] Implanted:Qty: 5 on 06/03/2018 by Jaxon Vega MD at OR [facility] N/A: Abdomen CR BARD : PERIPHERAL VASCULAR 11/29/2021 [id number] / / [id number] Description:para-esophageal hernia Allomax Mesh 5 X 8 [id number] - [id number] - [id number] Implanted:Qty: 1 on 06/03/2018 by Jaxon Vega MD at OR [facility] N/A: Abdomen CR BARD : DAVOL 05/04/2020 [id number] / [id number] / [id number] Description:PARA ESOPHAGEAL HERNIA documented as of this encounter Visit Diagnoses Diagnosis Kidney disease, chronic, stage III (GFR 30-59 ml/min) (HCC) Chronic kidney disease, Stage III (moderate) Cerebrovascular disease, arteriosclerotic, post-stroke Cerebral atherosclerosis Dyslipidemia, goal LDL below 70 Other and unspecified hyperlipidemia Cerebellar infarct (HCC) Unspecified cerebral artery occlusion with cerebral infarction documented in this encounter Advance Directives * Full Code (Latest Code Status on File) Date Activated Date Inactivated Comments 06/03/2018 4:58 PM 06/05/2018 7:48 PM Question Answer Comments Discussion of Advance Directives occurred with: Not Discussed Does the patient have a Living Will? No Does the patient have Health Care Power of Attor jose luis? No Care Teams Solution Developer Relationship Specialty Start Date End Date Vikas Pandya MD [address] [place] [address] PCP - General Family Medicine 06/11/23 documented as of this encounter
--- OUTSIDE RECORDS SUMMARY | 2024-04-17 12:43 | External Medical Summary | Summary of Care ---
Author Name Unknown Organization [facility] Address [address] [place] [address] Phone [phone] Care Team Providers Care Furniture Assembly Supervisor Name Role Phone Madalyn Pandya MD Primary Care Provider Reason for Visit * Reason Comments Outpatient Testing Encounter Details Date Type Department Care Team (Late st Contact Info) Description 02/11/2024 2:10 PM EDT Laboratory Laboratory [address], [place] [address] [place] [phone], Specimen Drop Off [facility] [address] [place] [address] Allergies Active Allergy Reactions Criticality Noted Date [...] Active Fluticasone Propionate 50 MCG/ACT Nasal Suspension (Flonase)Indication s:Seasonal allergic rhinitis due to pollen instill 2 sprays into each nostril once daily 16 g 11 05/30/2022 Active Levothyroxine Sodium 50 MCG Oral Tablet (Levoxyl)Indication s:Stage 3a chronic kidney disease (HCC),Hypothyroidis m, unspecified type,Cerebrovascula r disease, arteriosclerotic, post-stroke,Anemia in stage 3a chronic kidney disease (HCC) Take 1 Tablet by mouth in the morning. 90 Tablet 3 04/11/2023 Active Pantoprazole Sodium 40 MG Oral Tablet Delayed Release (Protonix)Indicatio ns:Espinoza esophagus take 1 tablet by mouth 30 MINUTES PRIOR TO THE FIRST MEAL OF THE DAY. 90 Tablet 5 04/11/2023 Active Rosuvastatin Calcium 20 MG Oral Tablet (Crestor)Indication s:Kidney disease, chronic, stage III (GFR 30-59 ml/min) ([facility]),Cerebrovascul ar disease, arteriosclerotic, post-stroke,Dyslipi demia, goal LDL below 70,Cerebellar infarct ([facility]) take 1 tablet by mouth at bedtime 90 Tablet 1 08/18/2023 Active Estradiol 0.1 MG/GM Vaginal Cream (Estrace) Apply a pea sized amount (0.5g) vaginally twice a week as directed 42.5 g 3 09/26/2023 Active Methenamine Hippurate 1 GM Oral Tablet (Hiprex) Take 1 Tablet by mouth in the morning and 1 Tablet before bedtime. 30 Tablet 1 12/10/2023 Active Additional Information Patient not taking.Reported on 01/22/2024 Apixaban 2.5 MG Oral Tablet (Eliquis)Indication s:Chronic deep vein thrombosis (DVT) of proximal vein of lower extremity, unspecified laterality ([facility]) Take 1 Tablet by mouth in the morning and 1 Tablet before bedtime. 180 Tablet 1 12/29/2023 Active Spironolactone 25 MG Oral Tablet (Aldactone) Take 1 Tablet by mouth in the morning. In the morning.. 30 Tablet 1 01/01/2024 Active documented as of this encounter (statuses [...] Dyslipidemia 10/31/2017 05/12/2018 Post herpetic neuralgia 08/14/201712/2018 Overview: C8 nerve root on left. Herpes [...] Espinoza's, hiatal hernia FAMILY HX, ISCHEMIC HEART [id number] 12/04/2010 01/20/2013 Dyslipidemia, goal LDL below 130 [...] No 06/03/2018 documented as of this encounter Plan of Treatment Upcoming Encounters Date Type Department Care Team (Late st Contact Info) Description 02/12/2024 12:00 PM EDT Office Visit [facility] [address] [place] [address] Madalyn Pandya MD [address] [place] [address] 03/01/2024 12:30 PM EDT Office Visit Urogynecology [facility] [address] [place] [address] Bala Knox MD [address] [place] [address] [facility] [address] [place] [address] 03/29/2024 10:20 AM EST Office Visit Urogynecology [facility] [address] [place] [address] Bala Knox MD [address] [place] [address] [facility] [address] [place] [address] 04/26/2024 10:00 AM EST Laboratory Laboratory [facility] [address] [place] [phone] [place] [address] [facility] [place] [address] 07/07/2024 2:00 PM EST Office Visit [facility] [address] [place] [phone] Madalyn Pandya MD [address] [place] [phone] 07/26/2024 2:00 PM EDT Office Visit Hematology/Oncology [facility] [address] [place] [phone] Constanza Castañeda CRNP [address] [facility] [place] [address] Health Maintenance Due Date Last Done Comments Espinoza's Esophagus Surveilance 1945 Zoster Vaccines (2 of 3) 02/12/2015 12/18/2014 Adult Wellness Visit 12/21/2021 12/21/2020 COVID-19 Vaccine ( - season) 2024 03/20/2021, 07/22/2020, 07/01/2020 Influenza Vaccine (FLU shot) (#1) 2024 04/11/2023, 03/21/2022, 04/05/2021, Additional history exists DTap/Tdap Vaccines (2 - Td or Tdap) 01/21/2024 01/20/2014 CKD PHOS USE SMARTSET 36704 04/02/202403/06, 09/14/2021, 03/12/2021, Additional history exists Depression Screening 05/20/2024 05/20/2023 TSH 05/20/2024 05/20/2023, 05/05, 04/02/2023, Additional history exists GFR 07/05/2024 01/06/2024, 06/0 07/2023, 10/06/2023, Additional history exists CKD HGB USE SMARTSET 67664 01/05/202501/05, 01/06/2024, 05/20/2023, Additional history exists Albumin/Creatinine [...] this encounter Medical Devices Implanted Type Area Pigment Pusher Device Identifier Shelf Expiration Date Model / Serial / Lot [place] Ptfe 1x1 [id number] - [id number] Implanted:Qty: 5 on 06/03/2018 by Jaxon Vega MD at OR [facility] N/A: Abdomen CR BARD : PERIPHERAL VASCULAR 11/29/2021 [id number] / / [id number] Description:para-esophageal hernia Allomax Mesh 5 X 8 [id number] - [id number] - [id number] Implanted:Qty: 1 on 06/03/2018 by Jaxon Vega MD at OR [facility] N/A: Abdomen CR BARD : DAVOL 05/04/2020 [id number] / [id number] / [id number] Description:PARA ESOPHAGEAL HERNIA documented as of this encounter Advance Directives * Full Code (Latest Code Status on File) Date Activated Date Inactivated Comments 06/03/2018 4:58 PM 06/05/2018 7:48 PM Question Answer Comments Discussion of Advance Directives occurred with: Not Discussed Does the patient have a Living Will? No Does the patient have Health Care Power of Attor jose luis? No Care Teams Furniture Assembly Supervisor Relationship Specialty Start Date End Date Madalyn Pandya MD [address] [place] [address] PCP - General Family Medicine 06/11/23 documented as of this encounter
--- OUTSIDE RECORDS SUMMARY | 2024-04-17 12:43 | External Medical Summary | Summary of Care ---
Author Name Unknown Organization [facility] Address [address] [facility] [place] [address] Phone [phone] Care Team Providers Care Melt Room Operator Name Role Phone Madalyn Pandya MD Primary Care Provider [phone] Reason for Visit * Reason Comments eRx-Medication Refill Encounter Details Date Type Department Care Team (Late st Contact Info) Description 02/24/[address] [facility] [address] [place] [address] Madalyn Pandya MD [address] [place] [phone] Allergies Active Allergy Reactions Criticality Noted Date [...] as of this encounter (statuses as of 02/26/2024) Medications Medication Sig Dispensed Refills Start Date End Date Status VITAMIN D 2000 UNIT PO TABS one tablet by mouth daily Active Acetaminophen 325 MG Oral Capsule Take 1 Cap by mouth at bedtime as needed for Pain. Active Fluticasone Propionate 50 MCG/ACT Nasal Suspension (Flonase)Indicati ons:Seasonal allergic rhinitis due to pollen instill 2 sprays into each nostril once daily 16 g 11 05/30/2022 Active Levothyroxine Sodium 50 MCG Oral Tablet (Levoxyl)Indicati ons:Stage 3a chronic kidney disease (HCC),Hypothyroid ism, unspecified type,Cerebrovascu lar disease, arteriosclerotic, post-stroke,Anemi a in stage 3a chronic kidney disease (HCC) Take 1 Tablet by mouth in the morning. 90 Tablet 3 04/11/2023 Active Pantoprazole Sodium 40 MG Oral Tablet Delayed Release (Protonix)Indicat ions:Espinoza esophagus take 1 tablet by mouth 30 MINUTES PRIOR TO THE FIRST MEAL OF THE DAY. 90 Tablet 5 04/11/2023 Active Estradiol 0.1 MG/GM Vaginal Cream (Estrace) Apply a pea sized amount (0.5g) vaginally twice a week as directed 42.5 g 3 09/26/2023 Active Apixaban 2.5 MG Oral Tablet (Eliquis)Indicati ons:Chronic deep vein thrombosis (DVT) of proximal vein of lower extremity, unspecified laterality ([facility]) Take 1 Tablet by mouth in the morning and 1 Tablet before bedtime. 180 Tablet 1 12/29/2023 Active Rosuvastatin Calcium 20 MG Oral Tablet (Crestor)Indicati ons:Kidney disease, chronic, stage III (GFR 30-59 ml/min) ([facility]),Cerebrovasc ular disease, arteriosclerotic, post-stroke,Dysli pidemia, goal LDL below 70,Cerebellar infarct ([facility]) take 1 tablet by mouth at bedtime 90 Tablet 3 02/12/2024 Active Spironolactone 25 MG Oral Tablet (Aldactone) take 1 tablet by mouth every morning 30 Tablet 5 02/26/2024 Active Spironolactone 25 MG Oral Tablet (Aldactone) Take 1 Tablet by mouth in the morning. In the morning.. 30 Tablet 1 01/01/2024 4 Discontinued documented as of this encounter (statuses as of 02/26/2024) Active Problems Problem Noted Date Diagnosed Date [...] as of this encounter (statuses as of 02/26/2024) Resolved Problems Problem Noted Date Diagnosed Date [...] Espinoza's, hiatal hernia FAMILY HX, ISCHEMIC HEART [id number] 12/04/2010 01/20/2013 Dyslipidemia, goal LDL below 130 08/24/2010 01/20/2013 Anxiety state 11/14/2009 01/20/2013 Irritable bowel syndrome 11/14/2009 Esophageal reflux 11/14/2009 04/16/2011 Overview: hiatal hernia, EGD 03/13 Barretts Palpitations 11/14/2009 01/20/2013 Overview: 10/05 ANEMIA NOS-neg eval 11/11 Overview: neg. follow-up 1989 Other allergic rhinitis 01/03 Overview: ICD-10 update of inactive term documented as of this encounter (statuses as of 02/26/2024) Immunizations Name Administration Dates Next Due COVID-19 [...] encounter Miscellaneous Notes * Telephone Encounter - Ana Lyles PA-C - 02/26/2024 9:30 AM EDT Signed Prescriptions: Disp Refills Spironolactone 25 MG Oral Tablet ([place]act[place]*30 Tab*5 Sig: take 1 tablet by mouth every morning Authorizing Provider: ANA LYLES * Telephone Encounter - Bala Quick RP - 02/26/2024 9:20 AM EDT Pending Prescriptions: Disp Refills Spironolactone 25 MG Oral Tablet ([place]acton*30 Tab*5 Sig: take 1 tablet by mouth every morning * Telephone Encounter - Bala Quick RPh - 02/26/2024 9:20 AM EDT Pending Prescriptions: Disp Refills Spironolactone 25 MG Oral Tablet ([place]acton*30 Tab*5 Sig: take 1 tablet by mouth every morning 02/12/2024 (in office), Visit date not found (telemedicine) 07/07/2024 If no future appointments scheduled, and last appointment is greater than a year ago, please schedule patient for a follow-up appointment Last date the medication was ordered: 01/01/24 Pharmacy: [id number] [facility] Is this request for a controlled substance?No Urine Drug Screen:No results found for this or any previous visit. Patient Phone Numbers Labs: Lab Results Component Value Date/Time CREAT 1.3 (H) 01/06/2024 11:46 AM CREAT 1.03 08/09/2023 02:28 AM CREAT 1.0 03/21/2020 09:02 AM POTASSIUM 4.8 01/06/2024 11:46 AM POTASSIUM 3.4 (L) 08/09/2023 02:28 AM POTASSIUM 5.1 03/21/2020 09:02 AM TSH 2.05 05/20/2023 01:48 PM TSH 2.12 05/20/2023 01:48 PM TSH 5.390 (A) 03/11/2023 12:00 AM TSH 2.56 03/21/2020 09:02 AM LDL 81 01/06/2024 11:46 AM LDL 73 03/21/2020 09:02 AM LDL NOT APPLICABLE 03/21/2020 09:02 AM LDLCALC 75 08/14/2015 12:00 AM ALT 11 01/06/2024 11:46 AM ALT 14 03/21/2020 09:02 AM HGBA1C 5.5 01/21/2023 10:16 AM HGBA1C 5.5 05/18/2019 08:33 AM documented in this encounter Plan of Treatment Upcoming Encounters Date Type Department Care Team ([facility] st Contact Info) Description 03/01/2024 12:30 PM EDT Office Visit Urogynecology [facility] [address] [place] [address] Bala Knox MD [address] [place] [address] [place], Nurse Urodynamics [address] [place] [address] 03/22/2024 10:20 AM EST Office Visit Urogynecology [facility] [address] [place] [address] Bala Knox MD [address] [place] [address] Howard Nurse Urodynamics [address] [place] [address] 04/26/2024 10:00 AM EST Laboratory Laboratory [facility] [address] [place] [phone] [place] [facility] [address] [facility] [place] [address] 07/07/2024 2:00 PM EST Office Visit [facility] [address] [place] [address] Madalyn Pandya MD [address] [place] [address] 07/26/2024 2:00 PM EDT Office Visit Hematology/Oncology [facility] [address] [place] [phone] Constanza Castañeda CRNP [address] [place] [address] [place] [id number] Health Maintenance Due Date Last Done Comments Espinoza's Esophagus Surveilance 1943 Zoster Vaccines (2 of 3) 02/12/2015 12/18/2014 Adult Wellness Visit 12/21/2021 12/21/2020 COVID-19 Vaccine ( season) 2024 03/20/2021, 07/22/2020, 07/01/2020 DTap/Tdap Vaccines (2 - Td or Tdap) 01/21/2024 01/20/2014 CKD PHOS USE SMARTSET 76279 04/02/202403/06, 09/14/2021, 03/12/2021, Additional history exists Depression Screening 05/20/2024 05/20/2023 TSH 05/20/2024 05/20/2023, 05/05, 04/02/2023, Additional history exists GFR 07/05/2024 01/06/2024, 06/0 07/2023, 10/06/2023, Additional history exists CKD HGB USE SMARTSET 56065 01/05/202501/05, 01/06/2024, 05/20/2023, Additional history exists Albumin/Creatinine [...] this encounter Medical Devices Implanted Type Area Geothermal Installer Device Identifier Shelf Expiration Date Model / Serial / Lot [place] Ptfe 1x1 [id number] - [id number] Implanted:Qty: 5 on 06/03/2018 by Jaxon Vega MD at OR [facility] N/A: Abdomen CR BARD : PERIPHERAL VASCULAR 11/29/2021 [id number] / / [id number] Description:para-esophageal hernia Allomax Mesh 5 X 8 [id number] - [id number] - [id number] Implanted:Qty: 1 on 06/03/2018 by Jaxon Vega MD at OR [facility] N/A: Abdomen CR BARD : DAVOL 05/04/2020 [id number] / [id number] / [id number] Description:PARA ESOPHAGEAL HERNIA documented as of this encounter Advance Directives * Full Code (Latest Code Status on File) Date Activated Date Inactivated Comments 06/03/2018 4:58 PM 06/05/2018 7:48 PM Question Answer Comments Discussion of Advance Directives occurred with: Not Discussed Does the patient have a Living Will? No Does the patient have Health Care Power of Attor jose luis? No Care Teams Melt Room Operator Relationship Specialty Start Date End Date Madalyn Pandya MD [address] [place] [address] PCP - General Family Medicine 06/11/23 documented as of this encounter
--- OUTSIDE RECORDS SUMMARY | 2024-04-17 12:43 | External Medical Summary | Summary of Care ---
Author Name Unknown Organization [facility] Address [address] [facility] [address] Phone [phone] Care Team Providers Care Freight Caller Name Role Phone Madalyn Pandya MD Primary Care Provider Reason for Visit * Reason Comments Cystoscopy Encounter Details Date Type Department Care Team (Late st Contact Info) Description 03/01/2024 12:30 PM EDT Office Visit Urogynecology [facility] [address] [place] [address] Bala Knox MD [address] [place] [address] Howard Nurse Urodynamics [address] [place] [address] OAB (overactive bladder)*; Urge incontinence Allergies Active Allergy Reactions Criticality Noted Date [...] as of this encounter (statuses as of 03/01/2024) Medications Medication Sig Dispensed Refills Start Date End Date Status VITAMIN D 2000 UNIT PO TABS one tablet by mouth daily Active Acetaminophen 325 MG Oral Capsule Take 1 Cap by mouth at bedtime as needed for Pain. Active Fluticasone Propionate 50 MCG/ACT Nasal Suspension (Flonase)Indications :Seasonal allergic rhinitis due to pollen instill 2 sprays into each nostril once daily 16 g 11 05/30/2022 Active Levothyroxine Sodium 50 MCG Oral Tablet (Levoxyl)Indications :Stage 3a chronic kidney disease (HCC),Hypothyroidism , unspecified type,Cerebrovascular disease, arteriosclerotic, post-stroke,Anemia in stage 3a chronic kidney disease (HCC) Take 1 Tablet by mouth in the morning. 90 Tablet 3 04/11/2023 Active Pantoprazole Sodium 40 MG Oral Tablet Delayed Release (Protonix)Indication s:Espinoza esophagus take 1 tablet by mouth 30 MINUTES PRIOR TO THE FIRST MEAL OF THE DAY. 90 Tablet 5 04/11/2023 Active Estradiol 0.1 MG/GM Vaginal Cream (Estrace) Apply a pea sized amount (0.5g) vaginally twice a week as directed 42.5 g 3 09/26/2023 Active Apixaban 2.5 MG Oral Tablet (Eliquis)Indications :Chronic deep vein thrombosis (DVT) of proximal vein of lower extremity, unspecified laterality ([facility]) Take 1 Tablet by mouth in the morning and 1 Tablet before bedtime. 180 Tablet 1 12/29/2023 Active Rosuvastatin Calcium 20 MG Oral Tablet (Crestor)Indications :Kidney disease, chronic, stage III (GFR 30-59 ml/min) ([facility]),Cerebrovascula r disease, arteriosclerotic, post-stroke,Dyslipid emia, goal LDL below 70,Cerebellar infarct ([facility]) take 1 tablet by mouth at bedtime 90 Tablet 3 02/12/2024 Active Spironolactone 25 MG Oral Tablet (Aldactone) take 1 tablet by mouth every morning 30 Tablet 5 02/26/2024 Active documented as of this encounter (statuses as of 03/01/2024) Active Problems Problem Noted Date Diagnosed Date [...] as of this encounter (statuses as of 03/01/2024) Resolved Problems Problem Noted Date Diagnosed Date [...] Espinoza's, hiatal hernia FAMILY HX, ISCHEMIC HEART [id number] 12/04/2010 01/20/2013 Dyslipidemia, goal LDL below 130 08/24/2010 01/20/2013 Anxiety state 11/14/2009 01/20/2013 Irritable bowel syndrome 11/14/2009 Esophageal reflux 11/14/2009 04/16/2011 Overview: hiatal hernia, EGD 03/13 Barretts Palpitations 11/14/2009 01/20/2013 Overview: 10/05 ANEMIA NOS-neg eval 11/11 Overview: neg. follow-up 1988 Other allergic rhinitis 01/03 Overview: ICD-10 update of inactive term documented as of this encounter (statuses as of 03/01/2024) Immunizations Name Administration Dates Next Due COVID-19 [...] Passive Smoke Exposure: Past Smokeless Tobacco: Never Tobacco Cessation:Counseling Given: Not Answered Alcohol Use Standard Drinks/Week Comments Not Currently [...] No 06/03/2018 documented as of this encounter Progress Notes * Bala Knox MD - 03/01/2024 12:59 PM EDT Nancy Ayala presents for a follow up visit at [facility]. She was previously seen for (N32.81) OAB (overactive bladder) (primary encounter diagnosis) (N39.41) Urge incontinence Since last seen , she stopped using the pessary In January. She denies feeling a vaginal bulge. She feels that she is emptying her bladder. In the daytime, she denies urinary frequency or urgency. Having much less incontinence. In the evening, she is still getting up 3-4 times a night.. Last UTI was December 2023 Allergies: Review of patient's allergies indicates: Allergen Reactions Cefuroxime Anaphylaxis Other reaction(s): Edema face/lips/tongue Other reaction(s): Edema face/lips/tongue Cefuroxime Axetil Edema face/lips/tongue Food (See Comments) Edema face/lips/tongue AVACADO, Soy Latex Edema face/lips/tongue Rash Latex Rash Other reaction(s): Swelling Rash Other reaction(s): rash Other reaction(s): Edema face/lips/tongue Rash Rash Nsaids Edema face/lips/tongue Oxybutynin Edema face/lips/tongue Other reaction(s): Swelling Other reaction(s): Edema face/lips/tongue Other reaction(s): Edema face/lips/tongue Tolmetin Other reaction(s): Swelling Other reaction(s): Edema face/lips/tongue Atorvastatin Muscle pain Other reaction(s): Myalgia Other reaction(s): Muscle pain Other reaction(s): Muscle pain Azithromycin Other reaction(s): Other: See Comments Numbness in mouth Numbness in mouth Demerol "sick" Erythromycin Other reaction(s): GI Upset Other reaction(s): GI upset Ibuprofen Other reaction(s): Swelling Other reaction(s): Mouth and tongue swelling Meperidine Other reaction(s): GI Upset "sick" Other reaction(s): Dizzy "sick" "sick" Naproxen Other reaction(s): Swelling Other reaction(s): Tongue swelling Penicillins Rash and Hives Other reaction(s): unknown Sulfa [Sulfacetamide Sodium] Nausea Zithromax [Azithromycin Dihydrate] Numbness in mouth Active Medications: Current Outpatient Medications Medication Sig Dispense Refill VITAMIN D 2000 UNIT PO TABS one tablet by mouth daily Acetaminophen 325 MG Oral Capsule Take 1 Cap by mouth at bedtime as needed for Pain. Fluticasone Propionate 50 MCG/ACT Nasal Suspension (Flonase) instill 2 sprays into each nostril once daily 16 g 11 Levothyroxine Sodium 50 MCG Oral Tablet (Levoxyl) Take 1 Tablet by mouth in the morning. 90 Tablet 3 Pantoprazole Sodium 40 MG Oral Tablet Delayed Release (Protonix) take 1 tablet by mouth 30 MINUTES PRIOR TO THE FIRST MEAL OF THE DAY. 90 Tablet 5 Estradiol 0.1 MG/GM Vaginal Cream (Estrace) Apply a pea sized amount (0.5g) vaginally twice a week as directed 42.5 g 3 Apixaban 2.5 MG Oral Tablet (Eliquis) Take 1 Tablet by mouth in the morning and 1 Tablet before bedtime. 180 Tablet 1 Rosuvastatin Calcium 20 MG Oral Tablet (Crestor) take 1 tablet by mouth at bedtime 90 Tablet 3 Spironolactone 25 MG Oral Tablet (Aldactone) take 1 tablet by mouth every morning 30 Tablet 5 No current facility-administered medications for this visit. ROS: No Change since previous visit Impression: This is a 78 year old with OAB (overactive bladder) (Primary) Urge incontinence Improving. Will cancel Botox. Continue topical estrogen cream to help prevent UTI's. All questions answered. Follow up in 4-6 months. I spent a total of 20 minutes on the date of service in preparation, delivery, and documentation ofthe care provided to Nancy Ayala excluding any time spent in the performance of separately billedservices. Bala Knox MD 03/01/2024 12:59 PM documented in this encounter Nursing Notes * Janae Valle LPN - 03/01/2024 12:45 PM EDT Pt presents to clinic for a Cystoscopy PT states pessary was removed and incontinence has improved documented in this encounter Plan of Treatment Upcoming Encounters Date Type Department Care Team (Late st Contact Info) Description 04/26/2024 10:00 AM EST Laboratory Laboratory [facility] [address] [facility] [place] [phone] [facility] [address] [facility] [place] [address] 06/01/2024 2:55 PM EST Office Visit Urogynecology Elsi Santos [address] [place] [facility] [place] [address] Bala Knox MD [address] [facility] [place] [address] Nurse Shawn [place] [address] [place] [address] 07/07/2024 2:00 PM EST Office Visit [facility] [address] [place] [phone] Madalyn Pandya MD [address] [place] [address] 07/26/2024 2:00 PM EDT Office Visit Hematology/Oncology [facility] [address] [place] [phone] Constanza Castañeda, HIREN [address] [place] [address] Health Maintenance Due Date Last Done Comments Espinoza's Esophagus Surveilance 1943 Zoster Vaccines (2 of 3) 02/12/2015 12/18/2014 Adult Wellness Visit 12/21/2021 12/21/2020 COVID-19 Vaccine (4 - season) 2024 03/20/2021, 07/22/2020, 07/01/2020 DTap/Tdap Vaccines (2 - Td or Tdap) 01/21/2024 01/20/2014 CKD PHOS USE SMARTSET 32423 04/02/202403/06, 09/14/2021, 03/12/2021, Additional history exists Depression Screening 05/20/2024 05/20/2023 TSH 05/20/2024 05/20/2023, 05/05, 04/02/2023, Additional history exists GFR 07/05/2024 01/06/2024, 06/0 07/2023, 10/06/2023, Additional history exists CKD HGB USE SMARTSET 14937 01/05/202501/05, 01/06/2024, 05/20/2023, Additional history exists Albumin/Creatinine [...] this encounter Medical Devices Implanted Type Area Product Marketing Consultant Device Identifier Shelf Expiration Date Model / Serial / Lot [place] Ptfe 1x1 [id number] - [id number] Implanted:Qty: 5 on 06/03/2018 by Jaxon Vega MD at OR [facility] N/A: Abdomen CR BARD : PERIPHERAL VASCULAR 11/29/2021 [id number] / / [id number] Description:para-esophageal hernia Allomax Mesh 5 X 8 [id number] - [id number] - [id number] Implanted:Qty: 1 on 06/03/2018 by Jaxon Vega MD at OR [facility] N/A: Abdomen CR BARD : DAVOL 05/04/2020 [id number] / [id number] / [id number] Description:PARA ESOPHAGEAL HERNIA documented as of this encounter Visit Diagnoses Diagnosis OAB (overactive bladder)- Primary Hypertonicity of bladder Urge incontinence documented in this encounter Advance Directives * Full Code (Latest Code Status on File) Date Activated Date Inactivated Comments 06/03/2018 4:58 PM 06/05/2018 7:48 PM Question Answer Comments Discussion of Advance Directives occurred with: Not Discussed Does the patient have a Living Will? No Does the patient have Health Care Power of Attor jose luis? No Care Teams Freight Caller Relationship Specialty Start Date End Date Madalyn Pandya MD [address] [place] [address] PCP - General Family Medicine 06/11/23 documented as of this encounter
--- OUTSIDE RECORDS SUMMARY | 2024-04-17 12:43 | External Medical Summary | Summary of Care ---
Author Name Unknown Organization [facility] Address [address] [place] [address] Phone [phone] Care Team Providers Care Corn Press Operator Name Role Phone Madalyn Pandya MD Primary Care Provider [phone] Reason for Visit * Reason Onset Date Comments Procedure 01/29/2024 Advice 01/29/2024 Encounter Details Date Type Department Care Team (Late st Contact Info) Description 01/29/2024 Telephone Urogynecology [facility] [address] [place] [address] Bala Knox MD [address] [place] [id number] Procedure; Advice Allergies Active Allergy Reactions Criticality Noted Date [...] as of this encounter (statuses as of 02/19/2024) Medications Medication Sig Dispensed Refills Start Date [...] 09/26/2023 Active Apixaban 2.5 MG Oral Tablet (Eliquis)Indicat [...] disease, chronic, stage III (GFR 30-59 ml/min) ([facility]),Cerebrovas cular disease, arteriosclerotic , post-stroke,Dysl ipidemia, goal LDL below 70,Cerebellar infarct ([facility]) take 1 tablet by mouth at bedtime 90 Tablet 1 08/18/2023 02/12/20 24 Discontinued Methenamine Hippurate 1 GM Oral Tablet (Hiprex) Take 1 Tablet by mouth in the morning and 1 Tablet before bedtime. 30 Tablet 1 12/10/2023 02/12/20 24 Discontinued(Pat ient preference/disco ntinuation) documented as of this encounter (statuses as of 02/19/2024) Active Problems Problem Noted Date Diagnosed Date [...] as of this encounter (statuses as of 02/19/2024) Resolved Problems Problem Noted Date Diagnosed Date [...] Espinoza's, hiatal hernia FAMILY HX, ISCHEMIC HEART [id number] 12/04/2010 01/20/2013 Dyslipidemia, goal LDL below 130 08/24/2010 01/20/2013 Anxiety state 11/14/2009 01/20/2013 Irritable bowel syndrome 11/14/2009 Esophageal reflux 11/14/2009 04/16/2011 Overview: hiatal hernia, EGD 03/13 Barretts Palpitations 11/14/2009 01/20/2013 Overview: 10/05 ANEMIA NOS-neg eval 11/11 Overview: neg. follow-up 1989 Other allergic rhinitis 01/03 Overview: ICD-10 update of inactive term documented as of this encounter (statuses as of 02/19/2024) Immunizations Name Administration Dates Next Due COVID-19 [...] encounter Miscellaneous Notes * Telephone Encounter - Lashon Jaquez RN - 02/16/2024 3:42 PM EDT Patient has two dates scheduled. * Telephone Encounter - Catherine Weaver OSA - 02/09/2024 4:28 PM EDT Will reach out to nurse supervisor blast furnace auxiliaries to see if have anything to offer sooner * Telephone Encounter - Catherine Weaver OSA - 01/29/2024 5:30 PM EDT Called pt - spoke with daughter - have to postpone Cysto on 02/08 due to equipment/staffing Daughter Fay disappointed but accommodating - pt was hospitalized and has two more UTIs since lastseen 11/10/2023 Rescheduled to 03/01/2024 Told daughter would let provider know the challenges pt has been having in the last three months documented in this encounter Plan of Treatment Upcoming Encounters Date Type Department Care Team (Late st Contact Info) Description 03/01/2024 12:30 PM EDT Office Visit [facility]cology [facility] [address] [facility] [place] [address] Bala Knox MD [address] [place] [address] [place] [facility] [address] [facility] [place] [address] 03/22/2024 10:20 AM EST Office Visit Urogynecology [facility] [address] [facility] [place] [address] Bala Knox MD [address] [place] [address] [place] [facility] [place] [address] 04/26/2024 10:00 AM EST Laboratory Laboratory [facility] [place] [address] [facility] [place] [phone] [place], Lab [facility] [address] [facility] [place] [address] 07/07/2024 2:00 PM EST Office Visit [facility] [address] [place] [address] Madalyn Pandya MD [address] [place] [address] 07/26/2024 2:00 PM EDT Office Visit Hematology/Oncology [facility] [place] [address] [place] [phone] Constanza Castañeda CRNP [address] [place] [id number] Health Maintenance Due Date Last Done Comments Espinoza's Esophagus Surveilance 1943 Zoster Vaccines (2 of 3) 02/12/2015 12/18/2014 Adult Wellness Visit 12/21/2021 12/21/2020 COVID-19 Vaccine (4 - season) 2024 03/20/2021, 07/22/2020, 07/01/2020 DTap/Tdap Vaccines (2 - Td or Tdap) 01/21/2024 01/20/2014 CKD PHOS USE SMARTSET 77828 04/02/202403/06, 09/14/2021, 03/12/2021, Additional history exists Depression Screening 05/20/2024 05/20/2023 TSH 05/20/2024 05/20/2023, 05/05, 04/02/2023, Additional history exists GFR 07/05/2024 01/06/2024, 06/0 07/2023, 10/06/2023, Additional history exists CKD HGB USE SMARTSET 97742 01/05/202501/05, 01/06/2024, 05/20/2023, Additional history exists Albumin/Creatinine [...] this encounter Medical Devices Implanted Type Area President/Gm Production [employer] Live Experiences Device Identifier Shelf Expiration Date Model / Serial / Lot [place] Ptfe 1x1 [id number] - [id number] Implanted:Qty: 5 on 06/03/2018 by Jaxon Vega MD at OR [facility] N/A: Abdomen CR BARD : PERIPHERAL VASCULAR 11/29/2021 [id number] / / [id number] Description:para-esophageal hernia Allomax Mesh 5 X 8 [id number] - [id number] - [id number] Implanted:Qty: 1 on 06/03/2018 by Jaxon Vega MD at OR [facility] N/A: Abdomen CR BARD : DAVOL 05/04/2020 [id number] / [id number] / [id number] Description:PARA ESOPHAGEAL HERNIA documented as of this encounter Advance Directives * Full Code (Latest Code Status on File) Date Activated Date Inactivated Comments 06/03/2018 4:58 PM 06/05/2018 7:48 PM Question Answer Comments Discussion of Advance Directives occurred with: Not Discussed Does the patient have a Living Will? No Does the patient have Health Care Power of Attor jose luis? No Care Teams Corn Press Operator Relationship Specialty Start Date End Date Madalyn Pandya MD [address] [place] [address] PCP - General Family Medicine 06/11/23 documented as of this encounter
--- OUTSIDE RECORDS SUMMARY | 2024-04-17 12:43 | External Medical Summary | Summary of Care ---
Author Name Unknown Organization [facility] Address [address] [place] [address] Phone [phone] Care Team Providers Care Blood Bank Technologist Name Role Phone Madalyn Pandya MD Primary Care Provider [phone] Reason for Visit * Reason Onset Date Comments Medication Administration 02/18/2024 Flu an d/or Pneumo Inj Encounter Details Date Type Department Care Team (Late st Contact Info) Description 02/18/2024 3:20 PM EDT Immunization Ancillary [facility], [place] [address] [place] [address] [place], Flu Shot [facility] [address] [facility] [place] [address] Need for prophylactic vaccination and inoculation against influenza* Allergies Active Allergy Reactions Criticality Noted Date [...] as of this encounter (statuses as of 02/18/2024) Medications Medication Sig Dispensed Refills Start Date [...] of lower extremity, unspecified laterality ([facility]) Take 1 Tablet by mouth in the morning and 1 Tablet before bedtime. 180 Tablet 1 12/29/2023 Active Spironolactone 25 MG Oral Tablet (Aldactone) Take 1 Tablet by mouth in the morning. In the morning.. 30 Tablet 1 01/01/2024 Active Rosuvastatin Calcium 20 MG Oral Tablet (Crestor)Indications :Kidney disease, chronic, stage III (GFR 30-59 ml/min) ([facility]),Cerebrovascula r disease, arteriosclerotic, post-stroke,Dyslipid emia, goal LDL below 70,Cerebellar infarct ([facility]) take 1 tablet by mouth at bedtime 90 Tablet 3 02/12/2024 Active documented as of this encounter (statuses as of 02/18/2024) Active Problems Problem Noted Date Diagnosed Date [...] as of this encounter (statuses as of 02/18/2024) Resolved Problems Problem Noted Date Diagnosed Date [...] Espinoza's, hiatal hernia FAMILY HX, ISCHEMIC HEART [id number] 12/04/2010 01/20/2013 Dyslipidemia, goal LDL below 130 08/24/2010 01/20/2013 Anxiety state 11/14/2009 01/20/2013 Irritable bowel syndrome 11/14/2009 Esophageal reflux 11/14/2009 04/16/2011 Overview: hiatal hernia, EGD 03/13 Barretts Palpitations 11/14/2009 01/20/2013 Overview: 6/03 ANEMIA NOS-neg eval 11/11 Overview: neg. follow-up 1989 Other allergic rhinitis 01/03 Overview: ICD-10 update of inactive term documented as of this encounter (statuses as of 02/18/2024) Immunizations Name Administration Dates Next Due COVID-19 [...] as of this encounter Progress Notes * Elizabeth Malin LPN - 02/18/2024 4:23 PM EDT Immunization Administration Documentation Time Out Procedure Performed: Yes Patient Identified (Ask Name/Date of ): Yes Does the patient have a fever greater than 101 degrees today? No Patient allergic to latex? No VFC Stock: No Immunization(s) verified: Yes, Immunization Name: Flu, VIS Sheet(s) given: Yes Verified Side and Site: Yes Verified Shot(s) with Parent(s)/Patient: Yes documented in this encounter Plan of Treatment Upcoming Encounters Date Type Department Care Team (Late st Contact Info) Description 03/01/2024 12:30 PM EDT Office Visit Urogynecology [facility] [place] [address] [place] [address] Bala Knox MD [address] [place] [address] [place], Nurse Urodynamics [address] [place] [address] 03/22/2024 10:20 AM EST Office Visit Urogynecology [place] [place] [address] [place] [address] Bala Knox MD [address] [place] [address] [place], Nurse [facility] [address] [place] [address] 04/26/2024 10:00 AM EST Laboratory Laboratory [facility] [address] [place] [phone] [place], Lab [facility] [address] [place] [address] 07/07/2024 2:00 PM EST Office Visit [facility] [address] [place] [address] Madalyn Pandya MD [address] [place] [address] 07/26/2024 2:00 PM EDT Office Visit Hematology/Oncology [facility] [address] [place] [address] Constanza Castañeda CRNP [address] [facility] [place] [address] Health Maintenance Due Date Last Done Comments Espinoza's Esophagus Surveilance 1943 Zoster Vaccines (2 of 3) 02/12/2015 12/18/2014 Adult Wellness Visit 12/21/2021 12/21/2020 COVID-19 Vaccine ( - season) 2024 03/20/2021, 07/22/2020, 07/01/2020 DTap/Tdap Vaccines (2 - Td or Tdap) 01/21/2024 01/20/2014 CKD PHOS USE SMARTSET 82804 04/02/202403/06, 09/14/2021, 03/12/2021, Additional history exists Depression Screening 05/20/2024 05/20/2023 TSH 05/20/2024 05/20/2023, 05/05, 04/02/2023, Additional history exists GFR 07/05/2024 01/06/2024, 06/0 07/2023, 10/06/2023, Additional history exists CKD HGB USE SMARTSET 87738 01/05/202501/05, 01/06/2024, 05/20/2023, Additional history exists Albumin/Creatinine [...] this encounter Medical Devices Implanted Type Area Weed Cooking Operator Device Identifier Shelf Expiration Date Model / Serial / Lot [place] Ptfe 1x1 [id number] - [id number] Implanted:Qty: 5 on 06/03/2018 by Jaxon Vega MD at OR [facility] N/A: Abdomen CR BARD : PERIPHERAL VASCULAR 11/29/2021 [id number] / / [id number] Description:para-esophageal hernia Allomax Mesh 5 X 8 [id number] - [id number] - [id number] Implanted:Qty: 1 on 06/03/2018 by Jaxon Vega MD at OR [facility] N/A: Abdomen CR BARD : DAVOL 05/04/2020 [id number] / [id number] / [id number] Description:PARA ESOPHAGEAL HERNIA documented as of this encounter Visit Diagnoses Diagnosis Need for prophylactic vaccination and inoculation against influenza- Primary documented in this encounter Advance Directives * Full Code (Latest Code Status on File) Date Activated Date Inactivated Comments 06/03/2018 4:58 PM 06/05/2018 7:48 PM Question Answer Comments Discussion of Advance Directives occurred with: Not Discussed Does the patient have a Living Will? No Does the patient have Health Care Power of Attor jose luis? No Care Teams Blood Bank Technologist Relationship Specialty Start Date End Date Madalyn Pandya MD [address] [place] [address] PCP - General Family Medicine 06/11/23 documented as of this encounter
--- OUTSIDE RECORDS SUMMARY | 2024-04-17 12:43 | External Medical Summary | Summary of Care ---
Author Name Unknown Organization [facility] Address [address] [place] [address] Phone [phone] Care Team Providers Care Fund Accounting Manager Name Role Phone Madalyn Pandya MD Primary Care Provider [phone] Reason for Visit * Reason Comments Acute Family reporting inc reased confusion, recent UTI, would like rechecked. Encounter Details Date Type Department Care Team (Late st Contact Info) Description 01/22/2024 2:40 PM EDT Office Visit Family Practice Tobias Aleksandra Trimble [phone] [place] [address] [phone] Alban Garcia PA-C [id number] [phone] Acute cystitis with hematuria*; UTI symptoms; Dysuria Allergies Active Allergy Reactions Criticality Noted Date [...] stage III (GFR 30-59 ml/min) ([facility]),Cerebrovasc ular disease, arteriosclerotic, post-stroke,Dysli pidemia, goal LDL below 70,Cerebellar infarct ([facility]) take 1 tablet by mouth [...] on 01/22/2024 Apixaban 2.5 MG Oral Tablet (Eliquis)Indicati ons:Chronic deep vein thrombosis (DVT) of proximal vein of lower extremity, unspecified laterality ([facility]) Take 1 Tablet by mouth in the morning and 1 Tablet before bedtime. 180 Tablet 1 12/29/2023 Active Spironolactone 25 MG Oral Tablet (Aldactone) Take 1 Tablet by mouth in the morning. In the morning.. 30 Tablet 1 01/01/2024 Active RA Aspirin EC 81 MG Oral Tablet Delayed Release Take 1 Tablet by mouth in the morning. 11/27/2023 4 Discontinued (End of Procedure) Ciprofloxacin HCl 250 MG Oral Tablet (Cipro)Indication s:Acute cystitis with hematuria Take 1 Tablet by mouth in the morning and 1 Tablet before bedtime. Do all this for 7 days. 14 Tablet 01/22/2024 4 documented as of this encounter (statuses as [...] and other specified forms of tremor 04/16/20 01/20/2013 Esophageal reflux 04/16/2011 01/17/2015 Overview: Espinoza's, hiatal hernia FAMILY HX, ISCHEMIC HEART [id number] 12/04/2010 01/20/2013 Dyslipidemia, goal LDL below 130 [...] mRNA, LNP-s, No Pre serve, 2-Dose Series (Decision Lens) 03/20/2021,07/22/2020,07/01/2020 PPD 10/05/1992 Pneumococcal Conjugate Vacc, 13 [...] on file documented as of this encounter Last Filed Vital Signs Vital Sign Reading Time Taken Comments Blood Pressure 118/66 01/22/2024 2:54 PM EDT Pulse 71 01/22/2024 2:54 PM EDT Temperature 36.8 C (98.2 F) 01/22/2024 2:54 PM ED T Respiratory Rate 18 01/22/2024 2:54 PM EDT Oxygen Saturation 98% 01/22/2024 2:54 PM EDT Inhaled Oxygen Concentration - - Weight 68.5 kg (151 lb) 01/22/2024 2:54 PM EDT Height - - Body Mass Index 28.53 09/23/2023 2:17 PM EDT documented in this encounter Functional Status Functional Status Response [...] (15 years old or older) No 06/03/19 Cognitive Status Response Date of Assessm ent Because of a physical, menta l, or emotional condition, do you have serious difficulty concentrating, remembering, or making decisions? (5 years old or older) No 06/03/2018 documented as of this encounter Progress Notes * Alban Garcia PA-C - 01/22/2024 3:02 PM EDT Images from the original note were not included. History of Present Illness Nancy Ayala is a 78 year old female that presents for acute visit. Presents with daughter. Familyreporting increased confusion, recent UTI, would like rechecked. Recurrent UTI's about once/month, was hospitalized in 11/2023 due to resistant infection. Dtr present. States pt has been more fatigued/confused over past few days. Describes sx's as mild. Dtr states that pt's condition can change very rapidly with UTIs, so she wanted the pt evaluated right away. Ptis otherwise seeing urologist in the near future for this issue. Pt herself denies any dysuria, hematuria, flank pain, fevers, chills, nausea/vomiting. Last abx was macrodantin in early 12/2023. She has a host of abx allergies. 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 Irritable bowel syndrome without diarrhea Intrinsic eczema Generalized osteoarthritis Osteopenia of multiple sites Anemia in stage 3 chronic kidney disease (HCC) Chronic seasonal allergic rhinitis due to pollen Peripheral polyneuropathy Dyslipidemia, goal LDL below 70 Personal history of transient ischemic attack Kidney disease, chronic, stage III (GFR 30-59 ml/min) ([facility]) Hypertension goal BP (blood pressure) < 140/90 S/P repair of paraesophageal hernia Benign hypertension with CKD (chronic kidney disease) stage III ([facility]) Hypothyroidism Urinary urgency Intracervical pessary Diastolic congestive heart failure ([facility]) Review of patient's allergies indicates: Allergen Reactions [...] Nausea Zithromax [Azithromycin Dihydrate] Numbness in mouth Current Outpatient Medications Medication Sig Dispense Refill [...] mouth in the morning. 90 Tablet 3 Rosuvastatin Calcium 20 MG Oral Tablet (Crestor) take 1 tablet by mouth at bedtime 90 Tablet 1 Estradiol 0.1 MG/GM Vaginal Cream (Estrace) Apply a pea sized amount (0.5g) vaginally twice a week as directed 42.5 g 3 Apixaban 2.5 MG Oral Tablet (Eliquis) Take 1 Tablet by mouth in the morning and 1 Tablet before bedtime. 180 Tablet 1 Spironolactone 25 MG Oral Tablet (Aldactone) Take 1 Tablet by mouth in the morning. In the morning.. 30 Tablet 1 Ciprofloxacin HCl 250 MG Oral Tablet (Cipro) Take 1 Tablet by mouth in the morning and 1 Tablet before bedtime. Do all this for 7 days. 14 Tablet 0 Pantoprazole Sodium 40 MG Oral Tablet Delayed Release (Protonix) take 1 tablet by mouth 30 MINUTES PRIOR TO THE FIRST MEAL OF THE DAY. 90 Tablet 5 Methenamine Hippurate 1 GM Oral Tablet (Hiprex) Take 1 Tablet by mouth in the morning and 1 Tablet before bedtime. (Patient not taking: Reported on 01/22/2024) 30 Tablet 1 No current facility-administered medications for this visit. Past Medical History: Diagnosis Date Allergic rhinitis due to pollen 01/17/2015 Anemia neg. 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 09/18/2015 Benign essential tremor 01/20/2013 Cerebellar infarct (HCC) 01/22/2016 Noted on MRI Cerebrovascular disease, arteriosclerotic, post-stroke 01/17/2015 Chronic fatigue syndrome 11/18/2013 Diffuse cystic mastopathy left breast tenderness Dyslipidemia, goal LDL below 70 01/17/2015 Eczema 01/20/2013 Esophageal reflux 04/16/2011 Espinoza's, hiatal hernia FAMILY HX, ISCHEMIC HEART [id number] 12/04/2010 Fracture of foot, closed left 01/04 Gait disorder 01/22/2016 Gastroesophageal reflux disease with esophagitis 01/17/2015 Generalized osteoarthritis Hepatitis as a child "yellow jaundice" Herpes zoster without complication 08/14/2017 C8 nerve root on left. 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 thumb ' Paraesophageal hernia 05/12/2018 Post herpetic neuralgia 08/14/2017 C8 nerve root on left. Rheumatic fever as a child S/P repair of paraesophageal hernia 05/25/2019 06/03/18 Trigger finger 05/21/2013 Left thumb TSH elevation 04/16/2011 Urge incontinence of urine 10/11/2015 Vitamin D deficiency 04/16/2011 Past Surgical History: Procedure Laterality Date COLONOSCOPY neg. hyperplastic polyp 08/06 neg. '09 DENTAL SURGERY PROCEDURE NEC ESOPHAGOGASTRIC FUNDOPLASTY 06/03/2018 LAPAROSCOPIC ESOPHAGOGASTRIC FUNDOPLASTY STACEY performed by Jaxon Vega MD at OR [facility] LIGATE/CUT OVIDUCT(S) PARAESOPHAGEAL HERNIA REPAIR, LAP W/ MESH N/A 06/03/2018 LAPAROSCOPIC PARAESOPHAGEAL HERNIA REPAIR W/MESH performed by Jaxon Vega MD at OR [facility] REMOVE GALLBLADDER REMOVE TONSILS & ADENOIDS, UNDER 12 1950 Family History Problem Relation Name Age of Onset Allergies Mother Cancer Mother lung Heart Disorder Father heart attack Hypertension Brother Allergies Brother Lactose Intolerant Heart Disorder Daughter Arlene Orellana Other (Lupus [Other]) Daughter Fay Heart Disorder Grandfather (Maternal) Other (Stomach problems [Other]) Grandmother (Maternal) Heart Disorder Grandfather (Paternal) Family Status Relation Status Fa at age 59 heart attack, angela of arteries, hypertension Mo at age 69 lung cancer Bro Alive hypertension Jamshid Alive Jamshid Alive Jamshid Alive Jamshid Alive MGMA MGFA PGMA PGFA Bro (Not Specified) Bro (Not Specified) Jamshid (Not Specified) Jamshid (Not Specified) Social History Socioeconomic History Marital status: Tobacco Use Smoking status: Never Passive exposure: Past Smokeless tobacco: Never Vaping Use Vaping status: Never Used Substance and Sexual Activity Alcohol use: Not Currently Comment: rarely- couple times a year Drug use: No Sexual activity: Yes Partners: Male Other Topics Concern Seat Belt Yes Social Determinants of Health Financial Resource Strain: Low Risk (08/17/2023) Financial Resource Strain Do you have any trouble paying for your medications, or do you think you might in the future? (Adult - for ages 18 years and over): No Food Insecurity: No Food Insecurity (08/17/2023) Food Insecurity Do you need food for this week? (Adult - for ages 18 years and over): No Transportation Needs: No Transportation Needs (08/17/2023) Transportation Needs Do you have trouble getting a ride to medical visits or work? (Adult - for ages 18 years and over):Never True Social Connections: Socially Integrated (08/17/2023) Social Connections How often do you feel lonely or isolated from those around you? (Adult - for ages 18 years and over): Sometimes Housing Stability: Low Risk (08/17/2023) Housing Stability Do you currently live in a skilled nursing or have no steady place to sleep at night? (Adult - for ages 18 years and over): No Do you think you are at risk of becoming homeless? (Adult - for ages 18 years and over): No Review of Systems Constitutional: Positive for fatigue. Negative for chills and fever. Gastrointestinal: Negative. Negative for abdominal pain, blood in stool, constipation, diarrhea, nausea and vomiting. Genitourinary: Negative. Negative for difficulty urinating, dysuria, flank pain, frequency, hematuria and urgency. Neurological: Negative. Negative for syncope and light-headedness. Psychiatric/Behavioral: Positive for confusion. Physical Exam BP 118/66 | Pulse 71 | Temp 36.8 C (98.2 F) | Resp 18 | Wt 68.5 kg (151 lb) | SpO2 98% | BMI 28.53 kg/m | BSA 1.72 m Physical Exam Vitals and nursing note reviewed. Constitutional: Appearance: Normal appearance. Cardiovascular: Rate and Rhythm: Normal rate and regular rhythm. Pulses: Normal pulses. Heart sounds: Normal heart sounds. Pulmonary: Effort: Pulmonary effort is normal. Breath sounds: Normal breath sounds. No wheezing, rhonchi or rales. Abdominal: General: Abdomen is flat. Bowel sounds are normal. Tenderness: There is no abdominal tenderness. There is no right CVA tenderness, left CVA tenderness, guarding or rebound. Skin: General: Skin is warm. Neurological: General: No focal deficit present. Mental Status: She is alert and oriented to person, place, and time. Psychiatric: Mood and Affect: Mood normal. Behavior: Behavior normal. I have reviewed most recent labs BMP results Recent Labs Units 01/06/24 1146 08/09/23 0228 05/20/23 1348 SODIUM - [facility] mmol/L 140 140 140 POTASSIUM - [facility] mmol/L 4.8 3.4* 5.2* CHLORIDE - [facility] mmol/L 106 109* 105 CO2 - [facility] mmol/L 25 25 25 CREATININE - [facility] mg/dL 1.3* 1.03 1.3* BUN - [facility] mg/dL 24* 23 16 CBC results Recent Labs Units 01/06/24 1146 05/20/23 1348 03/21/23 0000 03/11/23 0000 11/12/22 1140 WBC K/uL 4.77 6.86 -- -- 4.18 HGB g/dL 10.1* 10.5* 9.9* < > 10.5* HCT % 33.0* 32.7* -- -- 33.1* PLT K/uL 209 202 -- -- 193 < > = values in this interval not displayed. Assessment and Plan Acute cystitis with hematuria Urinalysis showed trace blood and esterase. Advised push hydration, as patient is currently completely asymptomatic. I will prescribe antibiotic for the patient to have since we are going into the weekend in case her symptoms do worsen rapidly. Daughter voiced understanding of this plan. - Ciprofloxacin HCl 250 MG Oral Tablet (Cipro); Take 1 Tablet by mouth in the morning and 1 Tablet before bedtime. Do all this for 7 days. UTI symptoms - URINALYSIS, POINT OF CARE (ENTER/EDIT) - CULTURE, URINE, QUANTITATIVE Wrap-Up Follow Up: Return if symptoms worsen or fail to improve, for with PCP. | For: with PCP Time: I spent a total of 10-19 minutes (exact time 16 mins) on the date of service in preparation, delivery, and documentation of the care provided to Nancy Ayala excluding any time spent in the performance of separately billed services. documented in this encounter Nursing Notes * Dianelys Corneilus LPN - 01/22/2024 2:55 PM EDT Chief Complaint Patient presents with Acute Family reporting increased confusion, recent UTI, would like rechecked. documented in this encounter Miscellaneous Notes * Addendum Note - Lou Albarran TECH - 02/12/2024 12:49 AM EDTAddended by: LOU ALBARRAN on: 02/12/2024 12:49 AM Modules accepted: Orders documented in this encounter Plan of Treatment Upcoming Encounters Date Type Department Care Team (Late st Contact Info) Description 02/12/2024 12:00 PM EDT Office Visit [facility] [address] [place] [address] Madalyn Pandya MD [address] [place] [place] [address] 03/01/2024 12:30 PM EDT Office Visit Urogynecology [facility] [address] [facility] [address] Bala Knox MD [address] [place] [address] Howard, Nurse Urodynamics [address] [place] [address] 03/29/2024 10:20 AM EST Office Visit Urogynecology [facility] [address] [facility] [place] [address] Bala Knox MD [address] [place] [address] Howard Nurse Urodynamics [address] [place] [address] 04/26/2024 10:00 AM EST Laboratory Laboratory [facility] [place] [address] [facility] [place] [phone] Violeta Mcdonald [facility] [address] [facility] [place] [address] 07/07/2024 2:00 PM EST Office Visit [facility] [address] [place] [address] Madalyn Pandya MD [address] [place] [address] 07/26/2024 2:00 PM EDT Office Visit Hematology/Oncology [facility] [place] [address] [place] [phone] Constanza Castañeda CRNP [address] [facility] [place] [phone] Pending Results Name Type Priority Associated Diagnoses Date /Time URINALYSIS, REFLEX TO CULTURE (NOT FOR NEUTROPENIC PATIENTS) Lab Routine Dysuria 02/11/2024 2:07 PM EDT URINALYSIS, REFLEX TO CULTURE Lab Routine Dysuria 02/11/2024 2:07 PM EDT CULTURE, URINE, QUANTITATIVE Lab Routine Acute cystitis with hematuria 02/11/2024 2:07 PM EDT Health Maintenance Due Date Last Done Comments Espinoza's Esophagus Surveilance 1945 Zoster Vaccines (2 of 3) 02/12/2015 12/18/2014 Adult Wellness Visit 12/21/2021 12/21/2020 COVID-19 Vaccine ( season) 2024 03/20/2021, 07/22/2020, 07/01/2020 Influenza Vaccine (FLU shot) (#1) 2024 04/11/2023, 03/21/2022, 04/05/2021, Additional history exists DTap/Tdap Vaccines (2 - Td or Tdap) 01/21/2024 01/20/2014 CKD PHOS USE SMARTSET 11382 04/02/202403/06, 09/14/2021, 03/12/2021, Additional history exists Depression Screening 05/20/2024 05/20/2023 TSH 05/20/2024 05/20/2023, 05/05, 04/02/2023, Additional history exists GFR 07/05/2024 01/06/2024, 06/0 07/2023, 10/06/2023, Additional history exists CKD HGB USE SMARTSET 17058 01/05/202501/05, 01/06/2024, 05/20/2023, Additional history exists Albumin/Creatinine [...] this encounter Medical Devices Implanted Type Area Wellness Guide Device Identifier Shelf Expiration Date Model / Serial / Lot [employer] Ptfe 1x1 [id number] - [id number] Implanted:Qty: 5 on 06/03/2018 by Jaxon Vega MD at OR [facility] N/A: Abdomen CR BARD : PERIPHERAL VASCULAR 11/29/2021 [id number] / / [id number] Description:para-esophageal hernia Allomax Mesh 5 X 8 [id number] - [id number] - [id number] Implanted:Qty: 1 on 06/03/2018 by Jaxon Vega MD at OR [facility] N/A: Abdomen CR BARD : DAVOL 05/04/2020 [id number] / [id number] / [id number] Description:PARA ESOPHAGEAL HERNIA documented as of this encounter Procedures Procedure Name Priority Date/Time Associated Diagnosis Comments URINALYSIS, REFLEX TO CULTURE (CUP ONLY) Routine 02/11/2024 2:07 PM EDT Dysuria CULTURE, URINE, QUANTITATIVE Routine 01/22/2024 3:02 PM EDT UTI symptoms URINALYSIS, POINT OF CARE (ENTER/EDIT) Routine 01/22/2024 UTI symptoms documented in this encounter Results * URINALYSIS, REFLEX TO CULTURE (CUP ONLY) (02/11/2024 2:07 PM EDT) Urinalysis, Reflex to Culture Specimen Specimen collected and received 02/11/2024 4:01 PM EDT [facility] Urine Urine specimen obtained by clean catch procedure / Unknown Non-blood Collection / Unknown 02/11/2024 2:07 PM EDT 02/11/2024 2:07 PM EDT Madalyn Pandya MD LAB URINE ORDERABLES [facility] [address] [place] [address] * CULTURE, URINE, QUANTITATIVE (01/22/2024 3:02 PM EDT) Culture Growth No significant growth 01/23/2024 5:07 PM EDT [facility] Urine Urine specimen obtained by clean catch procedure / Unknown Non-blood Collection / Unknown 01/22/2024 3:02 PM EDT 01/22/2024 3:02 PM EDT Alban Garcia PA-C LAB MICRO - G ENERAL ORDERABLES [facility] [address] [place] [address] * (ABNORMAL) URINALYSIS, POINT OF CARE (ENTER/EDIT) (01/22/2024) Color, Urine Yellow Yellow or Light Yellow Clarity, Urine Slightly Cloudy Clear Glucose, Urine Negative Negative mg/dL Bilirubin, Urine Negative Negative Ketone, Urine Negative Negative mg/dL Specific [place], Urine 1.020 1.003 - 1.030 Blood, Urine Trace-intact Negative pH, Urine 6.0 5.0 - 7.5 units Protein, Urine Negative Negative mg/dL Urobilinogen, Urine 0.2 0.2 - 1.0 mg/dL Nitrite, Urine Negative Negative Esterase, Urine Small Negative Urine 01/22/2024 Alban Garcia PA-C LAB POINT OF CARE TEST ENTER/EDIT ORDERABLES documented in this encounter Visit Diagnoses Diagnosis Acute cystitis with hematuria- Primary Acute cystitis UTI symptoms Other symptoms involving urinary system Dysuria documented in this encounter Advance Directives * Full Code (Latest Code Status on File) Date Activated Date Inactivated Comments 06/03/2018 4:58 PM 06/05/2018 7:48 PM Question Answer Comments Discussion of Advance Directives occurred with: Not Discussed Does the patient have a Living Will? No Does the patient have Health Care Power of Attor jose luis? No Care Teams Fund Accounting Manager Relationship Specialty Start Date End Date Madalyn Pandya MD [address] [place] [address] PCP - General Family Medicine 06/11/23 documented as of this encounter
--- OUTSIDE RECORDS SUMMARY | 2024-04-17 12:43 | External Medical Summary | Summary of Care ---
Author Name Unknown Organization [facility] Address [address] [place] [address] Phone [phone] Care Team Providers Care Dog Groomer Name Role Phone Madalyn Pandya MD Primary Care Provider [phone] Reason for Visit * Reason Onset Date Comments Procedure 01/29/2024 Advice 01/29/2024 Encounter Details Date Type Department Care Team (Late st Contact Info) Description 01/29/2024 Telephone Urogynecology [facility] [address] [place] [address] Bala Knox MD [address] [place] [id number] Procedure; Advice Allergies Active Allergy Reactions Criticality [...] as of this encounter (statuses as of 02/16/2024) Medications Medication Sig Dispensed Refills Start Date [...] disease, chronic, stage III (GFR 30-59 ml/min) ([facility]),Cerebrovas cular disease, arteriosclerotic , post-stroke,Dysl ipidemia, goal LDL below 70,Cerebellar infarct ([facility]) take 1 tablet by mouth at bedtime 90 Tablet 1 08/18/2023 02/12/20 24 Discontinued Methenamine Hippurate 1 GM Oral Tablet (Hiprex) Take 1 Tablet by mouth in the morning and 1 Tablet before bedtime. 30 Tablet 1 12/10/2023 02/12/20 24 Discontinued(Pat ient preference/disco ntinuation) documented as of this encounter (statuses as of 02/16/2024) Active Problems Problem Noted Date Diagnosed Date [...] as of this encounter (statuses as of 02/16/2024) Resolved Problems Problem Noted Date Diagnosed Date [...] Espinoza's, hiatal hernia FAMILY HX, ISCHEMIC HEART [id number] 12/04/2010 01/20/2013 Dyslipidemia, goal LDL below 130 08/24/2010 01/20/2013 Anxiety state 11/14/2009 01/20/2013 Irritable bowel syndrome 11/14/2009 Esophageal reflux 11/14/2009 04/16/2011 Overview: hiatal hernia, EGD 03/13 Barretts Palpitations 11/14/2009 01/20/2013 Overview: 10/05 ANEMIA NOS-neg eval 11/11 Overview: neg. follow-up 1989 Other allergic rhinitis 01/03 Overview: ICD-10 update of inactive term documented as of this encounter (statuses as of 02/16/2024) Immunizations Name Administration Dates Next Due COVID-19 [...] two dates scheduled. * Telephone Encounter - aCtherine Weaver OSA - 02/09/2024 4:28 PM EDT Will reach out to nurse telephone solicitor supervisor to see if have anything to offer [...] PM EDT Office Visit [facility] [address] [facility] [place] [address] Bala Knox MD [address] [place] [id number] [facility] [address] [facility] [place] [id number] 03/22/2024 10:20 AM EST Office Visit Urogynecology [facility] [address] [facility] [place] [address] Bala Knox MD [address] [place] [address] [facility] [place] [address] 04/26/2024 10:00 AM EST Laboratory Laboratory [facility] [address] [facility] [place] [phone] [place], Lab [facility] [address] [facility] [place] [address] 07/07/2024 2:00 PM EST Office Visit [facility] [address] [place] [address] Madalny Pandya MD [address] [place] [address] 07/26/2024 2:00 PM EDT Office Visit Hematology/Oncology [facility] [address] [place] [phone] Constanza Castañeda CRNP [address] [place] [phone] Health Maintenance Due Date Last Done Comments Espinoza's Esophagus Surveilance 1945 Zoster Vaccines (2 of 3) 02/12/2015 12/18/2014 Adult Wellness Visit 12/21/2021 12/21/2020 COVID-19 Vaccine (4 - season) 2024 03/20/2021, 07/22/2020, 07/01/2020 Influenza Vaccine (FLU shot) (#1) 2024 04/11/2023, 03/21/2022, 04/05/2021, Additional history exists DTap/Tdap Vaccines (2 - Td or Tdap) 01/21/2024 01/20/2014 CKD PHOS USE SMARTSET 41721 04/02/202403/06, 09/14/2021, 03/12/2021, Additional history exists Depression Screening 05/20/2024 05/20/2023 TSH 05/20/2024 05/20/2023, 05/05, 04/02/2023, Additional history exists GFR 07/05/2024 01/06/2024, 06/0 07/2023, 10/06/2023, Additional history exists CKD HGB USE SMARTSET 87473 01/05/202501/05, 01/06/2024, 05/20/2023, Additional history exists Albumin/Creatinine [...] this encounter Medical Devices Implanted Type Area Station Worker Device Identifier Shelf Expiration Date Model / Serial / Lot [place] Ptfe 1x1 [id number] - [id number] Implanted:Qty: 5 on 06/03/2018 by Jaxon Vega MD at OR [facility] N/A: Abdomen CR BARD : PERIPHERAL VASCULAR 11/29/2021 [id number] / / [id number] Description:para-esophageal hernia Allomax Mesh 5 X 8 [id number] - [id number] - [id number] Implanted:Qty: 1 on 06/03/2018 by Jaxon Vega MD at OR [facility] N/A: Abdomen CR BARD : DAVOL 05/04/2020 [id number] / [id number] / [id number] Description:PARA ESOPHAGEAL HERNIA documented as of this encounter Advance Directives * Full Code (Latest Code Status on File) Date Activated Date Inactivated Comments 06/03/2018 4:58 PM 06/05/2018 7:48 PM Question Answer Comments Discussion of Advance Directives occurred with: Not Discussed Does the patient have a Living Will? No Does the patient have Health Care Power of Attor jose luis? No Care Teams Dog Groomer Relationship Specialty Start Date End Date Madalyn Pandya MD [address] [place] [address] PCP - General Family Medicine 06/11/23 documented as of this encounter
--- OUTSIDE RECORDS SUMMARY | 2024-04-17 12:43 | External Medical Summary | Summary of Care ---
Author Name Unknown Organization [facility] Address [address] [place] [address] Phone [phone] Care Team Providers Care Tour Bus Driver Name Role Phone Madalyn Pandya MD Primary Care Provider Reason for Visit * Reason Comments Fall Injury Fell on to R elbow ~ 2 weeks ago Order Request Requesting standing order for urine testing Encounter Details Date Type Department Care Team (Late st Contact Info) Description 02/12/2024 12:00 PM EDT Office Visit [facility] [address] [place] [phone] Madalyn Pandya MD [address] [place] [address] Urinary urgency*; Risk and functional assessment; Pain of right upper arm Allergies Active Allergy Reactions Criticality Noted Date [...] disease, chronic, stage III (GFR 30-59 ml/min) (HCC),Cerebrovasc ular disease, arteriosclerotic, post-stroke,Dysli pidemia, goal LDL below 70,Cerebellar infarct (HCC) take 1 tablet by mouth at bedtime 90 Tablet 3 02/12/2024 Active Methenamine Hippurate 1 GM Oral Tablet (Hiprex) Take 1 Tablet by mouth in the morning and 1 Tablet before bedtime. 30 Tablet 1 12/10/2023 02/12/2024 Discontinue d(Patient preference/ discontinua tion) documented as of this encounter (statuses as [...] Espinoza's, hiatal hernia FAMILY HX, ISCHEMIC HEART [id number] 12/04/2010 01/20/2013 Dyslipidemia, goal LDL below 130 [...] mRNA, LNP-s, No Pre serve, 2-Dose Series ([email or web address]) 03/20/2021,07/22/2020,07/01/2020 PPD 10/05/1992 Pneumococcal Conjugate Vacc, 13 [...] Sign Reading Time Taken Comments Blood Pressure 124/68 02/12/2024 12:19 PM EDT Pulse 76 02/12/2024 12:19 PM EDT Temperature 36.7 C (98 F) 02/12/2024 12:19 PM EDT Respiratory Rate 18 02/12/2024 12:19 PM EDT Oxygen Saturation 96% 02/12/2024 12:19 PM EDT Inhaled Oxygen Concentration - - Weight 68.6 kg (151 lb 4.8 oz) 02/12/2024 12:19 PM EDT Height - - Body Mass Index 28.59 09/23/2023 2:17 PM EDT documented in this [...] No 06/03/2018 documented as of this encounter Patient Instructions * Patient Instructions* Miracle Abdi LPN - 02/12/2024 12:17 PM EDT Patient Instructions - Fall Prevention (This education is for all patients over 65 regardless of symptoms) Remember to take your current medications as prescribed. In order to prevent falls, you are encouraged to: Exercise Utilize assistive/adaptive devices Avoid multifocal lenses when walking Avoid hazards in home Maintain a regular toileting schedule Any questions please contact our office. Preventing Falls in the Home (This education is for all patients over 65 regardless of symptoms) As you get older, falls are more likely. Thats because your reaction time slows. Your muscles and joints may also get stiffer, making them less flexible. Illness, medications, and vision changes can also affect your balance. A fall could leave you unable to live on your own. To make your home safer, follow these tips: Floors Put nonskid pads under area rugs Remove throw rugs Replace worn floor coverings Tack carpets firmly to each step on carpeted stairs. Put nonskid strips on the edges of uncarpeted stairs Keep floors and stairs free of clutter and cords Arrange furniture so there are clear pathways Clean up any spills right away Bathrooms Install grab bars in the tub or shower Apply nonskid strips or put a nonskid rubber mat in the tub or shower Sit on a bath chair to bathe Use bathmats with nonskid backing Lighting Keep a flashlight in each room Put a nightlight along the pathway between the bedroom and the bathroom Ha Patient Education Copyright 2008 - 2010 Ha except where otherwise noted Preventing Falls: Exercises to Improve Balance, Flexibility, Strength, and Staying Power (This education is for all patients over 65 regardless of symptoms) Certain types of exercises may help make you less likely to fall. Try the ones below. Or do other exercises that your healthcare provider suggests. Depending on your health, you may need to start slowly. Dont let that stop you. Even small amounts of exercise can help you. Be sure to talk to yourhealthcare provider before starting any exercise program. Improve Balance Many types of exercise can help improve balance. Edwin chi and yoga are good examples. Heres another one to try. You can do it anytime and almost anywhere. Stand next to a counter or solid support. Push yourself up onto your tiptoes. Hold for 5 seconds. If you start to lose your balance, hold on to the counter. Rest and repeat 5 times. Work up to holding for 20 to 30 seconds, if you can. Increase Flexibility Being more flexible makes it easier for you to move around safely. Try exercises like the seated hamstring stretch. Sit in a chair and put one foot on a stool. Straighten your leg and reach with both hands down either side of your leg. Reach as far down your leg as you can. Hold for about 20 seconds. Go back to the starting position. Then repeat 5 times. Switch legs. Build Strength Resistance exercises help build strength. You can do them without equipment. Or you can use weights, elastic bands, or special machines. One such exercise is called the biceps curl. You can hold a 1 pound weight or even a can of soup. Do this exercise at least 3 times a week. Strive for everyday. Sit up straight in a chair. Keep your elbow close to your body and your wrist straight. Bend your arm, moving your hand up to your shoulder. Then slowly lower your arm. Repeat 5 times. Switch to the other arm. Build Your Staying Power Aerobic exercises make your heart and lungs stronger so you can keep moving longer. Walking and swimming are two of the best types of exercises you can do. Using a stationary bike is great, too. Find an aerobic exercise that you enjoy. Start slowly and build up. Even 5 minutes is helpful. Aimfor a goal of 30 minutes, at least 3 times a week. You dont have to do 30 minutes in one session. Break it up and walk a little throughout the day. More Helpful Tips Start easy. Slowly work up to doing more. Talk with your healthcare provider about the best exercises for you. Call senior centers or health clubs about exercise programs. If needed, have a family member watch you walk every so often to check your stability. Exercise with a friend. Choose an activity you both enjoy. Try exercises that you can do anytime, anywhere. Here are two examples. Have someone with you when you first try these: Practice walking by placing one foot right in front of the other. Stand up and sit down 10 times. Repeat this throughout the day. Ha Patient Education Copyright 2008 - 2010 Ha except where otherwise noted. Preventing Falls: Moving Safely Using a Cane or Walker (This education is for all patients over 65 regardless of symptoms) Keep the cane away from your feet so you dont trip. A walking aid, such as a cane or walker, can help you stay more independent and avoid falls. Remember to keep your walking aid within easy reach when youre in a chair or in bed. And learn how to use it safely so you dont injure yourself. Using a Cane If you have a stronger side, hold the cane on that side. Get your balance. Move the cane and your weaker leg forward. Support your weight on both the cane and your weaker side. Step with your stronger leg. Start again from step 1. If youre using a folding walker, be sure you know how to lock it open. Check that its locked open before each use. Using a Walker Roll the walker (or lift it, if youre using one without wheels) forward about 12 inches. Step forward with your weaker leg first. Use the walker to help keep your balance. Bring your other foot forward to the center of the walker. Start again from step 1. Helpful Tips Check with your healthcare provider about the right walking aid to use. Ask about a walker with a seat attached. Check the tips of your cane or walker to make sure they have nonskid covers. Move slowly from room to room. Dont al. Sit down to get dressed. Use a meghana pack or backpack to keep your hands free. Get help for jobs that mean climbing, even on a stepstool. Ha Patient Education Copyright 2008 - 2010 Ha except where otherwise noted. Urinary Incontinence Plan of Care Documentation: (This education is for all patients over 65 regardless of symptoms) Current medications reconciled. Patient encouraged to: Practice kegal exercises Provide education materials Use the restroom every 2 hours throughout the day Limit caffeine, alcohol, spicy foods and acidic foods Keep a bladder diary Limit fluid intake 3-4 hours before bed Lose weight Prevent constipation Take fluid pills at a time when you can get to the bathroom quickly Control sugar better if diabetic Limit fluid intake to 60 oz. per day Wear support stockings (TEDs)if you have edema Miracle Abdi LPN 02/12/2024 Kegel Exercises Kegel exercises dont require special clothing or equipment. Theyre easy to learn and simple to do. And if you do them right, no one can tell youre doing them, so they can be done almost anywhere. Your doctor, nurse, or physical therapist can answer any questions you have and help you get started. A Weak Pelvic Floor The pelvic floor muscles may weaken due to aging, and vaginal childbirth, injury, surgery, chronic cough, or lack of exercise. If the pelvic floor is weak, your bladder and other pelvic organs may sag out of place. The urethra may also open too easily and allow urine to leak out. Kegel exercises can help you strengthen your pelvic floor muscles so they can better support the pelvic organs and control urine flow. How Kegel Exercises Are Done Try each of the Kegel exercises described below. When youre doing them, try not to move your leg, buttock, or stomach muscles. While youre urinating, try to stop the flow of urine. Start and stop it as often as you can. Contract as if you were stopping your urine stream, but do it when youre not urinating. Tighten your rectum as if trying not to pass gas. Contract your anus, but dont move your buttocks. Helpful Hints Do your Kegels as often as you can. The more you do them, the faster youll feel the results. Pick an activity you do often as a reminder. For instance, do your Kegels every time you sit down. Tighten your pelvic floor before you sneeze, get up from a chair, cough, laugh, or lift. This protects your pelvic floor from injury and can help prevent urine leakage. Try to hold each Kegel for a slow count to five. You probably wont be able to hold them for thatlong at first, but keep practicing. It will get easier as your pelvic floor gets stronger. Eventually, special weights that you place in your vagina may be recommended to help make your Kegels even more effective. Ha Patient Education Copyright 2008 - 2010 Ha except where otherwise noted. Here are some helpful tips for your urinary incontinence: (This education is for all patients over 65 regardless of symptoms) Practice Kegel exercises Use the restroom every 2 hours throughout the day Limit caffeine, alcohol, spicy foods, and acidic foods Keep a bladder diary Limit fluid intake 3-4 hours before bed Lose weight Prevent constipation Take fluid pills at a time when can get to the bathroom quickly Control sugar better if diabetic Limit fluid intake to 60 oz. per day Any questions, please feel free to contact our office. documented in this encounter Progress Notes * Madalyn Pandya MD - 02/12/2024 12:33 PM EDT Images from the original note were not included. Subjective Nancy Ayala is a 78 year old female that presents for Fall, Injury (Fell on to R elbow ~ 2 weeks ago ), and Order Request (Requesting standing order for urine testing ) History of Present Illness The patient, with a history of mobility issues requiring a walker, presents after a fall in a hotelroom. She slipped on a hardwood floor and landed on her elbow. She was unable to get up for approximately an hour until her returned. She denies loss of consciousness or head trauma. She reports pain at the 'peak' of her elbow and muscle soreness in her arm, possibly related to weight lifting at the gym. She has full range of motion in her elbow and shoulder. She also reports a chronic swollen knee after a previous injury from kicking a tennis ball. The patient also has a history of recurrent UTIs. She recently had a urine sample sent for culture due to increased fatigue. She denies dysuria. Objective Vitals: 02/12/24 1219 Temp: 36.7 C (98 F) Pulse: 76 Resp: 18 SpO2: 96% BP: 124/68 BP Readings from Last 3 Encounters: 02/12/24 124/68 01/22/24 118/66 12/09/23 120/62 Physical Exam NECK: Full range of motion without tenderness. EXTREMITIES: Right elbow with good range of motion. BP 124/68 | Pulse 76 | Temp 36.7 C (98 F) (Tympanic) | Resp 18 | Wt 68.6 kg (151 lb 4.8 oz) | SpO2 96% | BMI 28.59 kg/m | BSA 1.72 m General: alert, healthy, and no distress Extremities: less than 2 second capillary refill, no joint deformities, effusion, or inflammation, Full ROM, Pulses Intact, Strength equal bilaterally, point tenderness of the olecranon process I have reviewed the following results: Results LABS Urinalysis: Leukocytes present (02/11/2024) Assessment and Plan Assessment & Plan Elbow Injury Fall on hardwood floor with direct impact to the elbow. No loss of consciousness or other injuries reported. Full range of motion with pain at the elbow and associated muscle soreness. -Order elbow and arm X-rays. -Advise consistent use of Tylenol 1000mg three times a day until Friday for pain management. -Hold off on physical therapy until X-ray results are available. Recurrent UTIs Urine sample currently being cultured. No current symptoms reported. -Wait for culture results before starting treatment. -If culture is negative, no treatment necessary. Chronic Knee Pain History of injury from kicking a tennis ball, with persistent swelling. -No change in management at this time. Scheduled Bladder Test Rescheduled due to equipment failure at the testing facility. -Continue with rescheduled test on 03/01/2024. Follow-up Routine appointment scheduled for July. Urinary urgency (Primary) - URINALYSIS, REFLEX TO CULTURE (NOT FOR NEUTROPENIC PATIENTS); Standing Risk and functional assessment Pain of right upper arm - XR ELBOW 3 OR MORE VIEWS - XR HUMERUS 2 OR MORE VIEWS Check-out note: Needs awv with pcnc Time: I spent a total of 20-29 minutes (exact time 21 mins) on the date of service in preparation, delivery, and documentation of the care provided to Nancy Ayala excluding any time spent in the performance of separately billed services. Text in this note was generated using an [employer] documentation service. I discussed the use of a device to record and summarize our discussion today. All persons present during the encounter consented to its use. * Miracle Abdi LPN - 02/12/2024 12:17 PM EDT Urinary Incontinence Plan of Care Documentation: (This education is for all patients over 65 regardless of symptoms) Current medications reconciled. Patient encouraged to: Practice kegal exercises Provide education materials Use the restroom every 2 hours throughout the day Limit caffeine, alcohol, spicy foods and acidic foods Keep a bladder diary Limit fluid intake 3-4 hours before bed Lose weight Prevent constipation Take fluid pills at a time when you can get to the bathroom quickly Control sugar better if diabetic Limit fluid intake to 60 oz. per day Wear support stockings (TEDs)if you have edema Miracle Abdi LPN 02/12/2024 documented in this encounter Nursing Notes * Miracle Abid LPN - 02/12/2024 12:23 PM EDT Chief Complaint Patient presents with Fall Injury Fell on to R elbow ~ 2 weeks ago Order Request Requesting standing order for urine testing Declines vaccines documented in this encounter Plan of Treatment Upcoming Encounters Date Type Department Care Team (Late st Contact Info) Description 02/12/2024 1:30 PM EDT Imaging Radiology, [place] [address] [place] [place] [id number] Arrived 03/01/2024 12:30 PM EDT Office Visit Urogynecology [facility] [address] [place] [address] Bala Knox MD [address] [place] [address] [facility] [address] [place] [address] 03/29/2024 10:20 AM EST Office Visit Urogynecology [facility] [address] [place] [address] Bala Knox MD [address] [place] [address] [facility] [address] [place] [address] 04/26/2024 10:00 AM EST Laboratory Laboratory [facility] [address] [place] [id number] Tamara, Lab [facility] [address] [place] [address] 07/07/2024 2:00 PM EST Office Visit [facility] [place] [address] [place] [address] Madalyn Pandya MD [address] [place] [address] 07/26/2024 2:00 PM EDT Office Visit Hematology/Oncology [facility] [address] [place] [phone] Constanza Castañeda CRNP [address] [place], [place] [address], [place] [address] Pending Results Name Type Priority Associated Diagnoses Date /Time XR ELBOW 3 OR MORE VIEWS Medical Imaging Routine Pain of right upper arm 02/12/2024 12:52 PM EDT XR HUMERUS 2 OR MORE VIEWS Medical Imaging Routine Pain of right upper arm 02/12/2024 12:52 PM EDT Scheduled Orders Name Type Priority Associated Diagnoses Orde r Schedule URINALYSIS, REFLEX TO CULTURE (NOT FOR NEUTROPENIC PATIENTS) Lab Routine Urinary urgency 12 Occurrences starting 02/12/2024 until 02/11/2025 Health Maintenance Due Date Last Done Comments Espinoza's Esophagus Surveilance 1943 Zoster Vaccines (2 of 3) 02/12/2015 12/18/2014 Adult Wellness Visit 12/21/2021 12/21/2020 COVID-19 Vaccine ( season) 2024 03/20/2021, 07/22/2020, 07/01/2020 Influenza Vaccine (FLU shot) (#1) 2024 04/11/2023, 03/21/2022, 04/05/2021, Additional history exists DTap/Tdap Vaccines (2 - Td or Tdap) 01/21/2024 01/20/2014 CKD PHOS USE SMARTSET 98432 04/02/202403/06, 09/14/2021, 03/12/2021, Additional history exists Depression Screening 05/20/2024 05/20/2023 TSH 05/20/2024 05/20/2023, 05/05, 04/02/2023, Additional history exists GFR 07/05/2024 01/06/2024, 06/0 07/2023, 10/06/2023, Additional history exists CKD HGB USE SMARTSET 75890 01/05/202501/05, 01/06/2024, 05/20/2023, Additional history exists Albumin/Creatinine [...] this encounter Medical Devices Implanted Type Area Shank Taper Device Identifier Shelf Expiration Date Model / Serial / Lot Standish Ptfe 1x1 [id number] - [id number] Implanted:Qty: 5 on 06/03/2018 by Jaxon Vega MD at [facility] N/A: Abdomen CR BARD : PERIPHERAL VASCULAR 11/29/2021 [id number] / / [id number] Description:para-esophageal hernia Allomax Mesh 5 X 8 [id number] - [id number] - [id number] Implanted:Qty: 1 on 06/03/2018 by Jaxon Vega MD at [facility] N/A: Abdomen CR BARD : DAVOL 05/04/2020 [id number] / [id number] / [id number] Description:PARA ESOPHAGEAL HERNIA documented as of this encounter Visit Diagnoses Diagnosis Urinary urgency- Primary Urgency of urination Risk and functional assessment Screening for unspecified condition Pain of right upper arm Pain in limb documented in this encounter Advance Directives * Full Code (Latest Code Status on File) Date Activated Date Inactivated Comments 06/03/2018 4:58 PM 06/05/2018 7:48 PM Question Answer Comments Discussion of Advance Directives occurred with: Not Discussed Does the patient have a Living Will? No Does the patient have Health Care Power of Attor jose luis? No Care Teams Tour Bus Driver Relationship Specialty Start Date End Date Madalyn Pandya MD [address] [place] [address] PCP - General Family Medicine 06/11/23 documented as of this encounter
--- OUTSIDE RECORDS SUMMARY | 2024-04-17 12:44 | External Medical Summary | Summary of Care ---
Author Name Unknown Organization [facility] Address [address] [place] [address] Phone [phone] Care Team Providers Care Wood Box Maker Name Role Phone Madalyn Pandya MD Primary Care Provider [phone] Reason for Visit * Reason Comments Outpatient Testing Encounter Details Date Type Department Care Team (Late st Contact Info) Description 02/11/2024 2:10 PM EDT Laboratory Laboratory [address], [place] [address] [place] [phone] Rd, Specimen Drop Off [facility] [address] [place] [address] Arrived Allergies Active Allergy Reactions Criticality Noted Date [...] as of this encounter (statuses as of 02/11/2024) Medications Medication Sig Dispensed Refills Start Date [...] disease, chronic, stage III (GFR 30-59 ml/min) ([facility]),Cerebrovascul ar disease, arteriosclerotic, post-stroke,Dyslipi demia, goal LDL below 70,Cerebellar infarct ([facility]) take 1 tablet by mouth at bedtime [...] proximal vein of lower extremity, unspecified laterality ([facility]) Take 1 Tablet by mouth in the morning and 1 Tablet before bedtime. 180 Tablet 1 12/29/2023 Active Spironolactone 25 MG Oral Tablet (Aldactone) Take 1 Tablet by mouth in the morning. In the morning.. 30 Tablet 1 01/01/2024 Active documented as of this encounter (statuses as of 02/11/2024) Active Problems Problem Noted Date Diagnosed Date [...] as of this encounter (statuses as of 02/11/2024) Resolved Problems Problem Noted Date Diagnosed Date [...] Espinoza's, hiatal hernia FAMILY HX, ISCHEMIC HEART [id number] 12/04/2010 01/20/2013 Dyslipidemia, goal LDL below 130 08/24/2010 01/20/2013 Anxiety state 11/14/2009 01/20/2013 Irritable bowel syndrome 11/14/2009 Esophageal reflux 11/14/2009 04/16/2011 Overview: hiatal hernia, EGD 03/13 Barretts Palpitations 11/14/2009 01/20/2013 Overview: 10/05 ANEMIA NOS-neg eval 11/11 Overview: neg. follow-up 1989 Other allergic rhinitis 01/03 Overview: ICD-10 update of inactive term documented as of this encounter (statuses as of 02/11/2024) Immunizations Name Administration Dates Next Due COVID-19 [...] 4:54 PM EST Sexual Orientation Straight 08/17/2023 6 :14 PM EDT Job Start Date Occupation Industry [...] Description 02/12/2024 12:00 PM EDT Office Visit [facility] [address] [place] [address] Madalyn Pandya MD [address] [place] [address] 03/01/2024 12:30 PM EDT Office Visit Urogynecology [facility] [address] [place] [address] Bala Knox MD [address] [place] [address] [place] Nurse Urodynamics [address] [place] [address] 03/29/2024 10:20 AM EST Office Visit Urogynecology [facility] [address] [place] [address] Bala Knox MD [address] [place] [address] [place] Nurse Urodynamics [address] [place] [address] 04/26/2024 10:00 AM EST Laboratory Laboratory [facility] [address] [place] [phone] [place], Lab [address]en[address] [facility] [place] [address] 07/07/2024 2:00 PM EST Office Visit [facility] [address] [place] [phone] Madalyn Pandya MD [address] [place] [phone] 07/26/2024 2:00 PM EDT Office Visit Hematology/Oncology [facility] [address] [place] [address] Constanza Castañeda CRNP [address] [facility] [id number] Health Maintenance Due Date Last Done Comments Espinoza's Esophagus Surveilance 1945 Zoster Vaccines (2 of 3) 02/12/2015 12/18/2014 Adult Wellness Visit 12/21/2021 12/21/2020 COVID-19 Vaccine ( - season) 2024 03/20/2021, 07/22/2020, 07/01/2020 Influenza Vaccine (FLU shot) (#1) 2024 04/11/2023, 03/21/2022, 04/05/2021, Additional history exists DTap/Tdap Vaccines (2 - Td or Tdap) 01/21/2024 01/20/2014 CKD PHOS USE SMARTSET 63360 04/02/202403/06, 09/14/2021, 03/12/2021, Additional history exists Depression Screening 05/20/2024 05/20/2023 TSH 05/20/2024 05/20/2023, 05/05, 04/02/2023, Additional history exists GFR 07/05/2024 01/06/2024, 06/0 07/2023, 10/06/2023, Additional history exists CKD HGB USE SMARTSET 07399 01/05/202501/05, 01/06/2024, 05/20/2023, Additional history exists Albumin/Creatinine [...] this encounter Medical Devices Implanted Type Area Bi Consultant Device Identifier Shelf Expiration Date Model / Serial / Lot [place] Ptfe 1x1 [id number] - [id number] Implanted:Qty: 5 on 06/03/2018 by Jaxon Vega MD at OR [facility] N/A: Abdomen CR BARD : PERIPHERAL VASCULAR 11/29/2021 [id number] / / [id number] Description:para-esophageal hernia Allomax Mesh 5 X 8 [id number] - [id number] - [id number] Implanted:Qty: 1 on 06/03/2018 by Jaxon Vega MD at OR [facility] N/A: Abdomen CR BARD : DAVOL 05/04/2020 [id number] / [id number] / [id number] Description:PARA ESOPHAGEAL HERNIA documented as of this encounter Advance Directives * Full Code (Latest Code Status on File) Date Activated Date Inactivated Comments 06/03/2018 4:58 PM 06/05/2018 7:48 PM Question Answer Comments Discussion of Advance Directives occurred with: Not Discussed Does the patient have a Living Will? No Does the patient have Health Care Power of Attor jose luis? No Care Teams Wood Box Maker Relationship Specialty Start Date End Date Madalyn Pandya MD [address] [place] [address] PCP - General Family Medicine 06/11/23 documented as of this encounter
--- OUTSIDE RECORDS SUMMARY | 2024-04-17 12:44 | External Medical Summary | Summary of Care ---
Author Name Unknown Organization [facility] Address [address] [place] [address] Phone [phone] Care Team Providers Care Transit Police Officer Name Role Phone Madalyn Pandya MD Primary Care Provider Reason for Visit * Reason Comments Outpatient Testing Encounter Details Date Type Department Care Team (Late st Contact Info) Description 02/06/2024 2:20 PM EDT Laboratory Laboratory [place] Aleksandra Trimble [address] [place] [phone] [facility] [address] [place] [address] Arrived Allergies Active Allergy Reactions Criticality Noted [...] as of this encounter (statuses as of 02/06/2024) Medications Medication Sig Dispensed Refills Start Date [...] chronic, stage III (GFR 30-59 ml/min) ([facility]),Cerebrovascul ar disease, arteriosclerotic, post-stroke,Dyslipi demia, goal LDL below 70,Cerebellar infarct ([facility]) take 1 tablet by mouth at bedtime [...] proximal vein of lower extremity, unspecified laterality ([facility]) Take 1 Tablet by mouth in the morning and 1 Tablet before bedtime. 180 Tablet 1 12/29/2023 Active Spironolactone 25 MG Oral Tablet (Aldactone) Take 1 Tablet by mouth in the morning. In the morning.. 30 Tablet 1 01/01/2024 Active documented as of this encounter (statuses as of 02/06/2024) Active Problems Problem Noted Date Diagnosed Date [...] as of this encounter (statuses as of 02/06/2024) Resolved Problems Problem Noted Date Diagnosed Date [...] Espinoza's, hiatal hernia FAMILY HX, ISCHEMIC HEART [id number] 12/04/2010 01/20/2013 Dyslipidemia, goal LDL below 130 08/24/2010 01/20/2013 Anxiety state 11/14/2009 01/20/2013 Irritable bowel syndrome 11/14/2009 Esophageal reflux 11/14/2009 04/16/2011 Overview: hiatal hernia, EGD 03/13 Barretts Palpitations 11/14/2009 01/20/2013 Overview: 10/05 ANEMIA NOS-neg eval 11/11 Overview: neg. follow-up 1989 Other allergic rhinitis 01/03 Overview: ICD-10 update of inactive term documented as of this encounter (statuses as of 02/06/2024) Immunizations Name Administration Dates Next Due COVID-19 [...] 03/01/2024 12:30 PM EDT [facility] [address] [place] [address] Bala Knox MD [address] [place] [address] [place] Nurse Urodynamics [address] [place] [address] 03/29/2024 10:20 AM EST [facility] [address] [place] [address] Bala Knox MD [address] [place] [address] [place] Nurse Urodynamics [address] [place] [address] 04/26/2024 10:00 AM EST Laboratory Laboratory [facility] Mcd[place] [address] [place] [phone] Violeta Mcdonald [address] [place] [address] 07/07/2024 2:00 PM EST Office Visit [facility] [address] [place] [address] Madalyn Pandya MD [address] [place] [address] 07/26/2024 2:00 PM EDT Office Visit Hematology/Oncology [facility] [place] [address] [place] [phone] Constanza Castañeda CRNP [address] [facility] [place] [address] Health Maintenance Due Date Last Done Comments Espinoza's Esophagus Surveilance 1945 Zoster Vaccines (2 of 3) 02/12/2015 12/18/2014 Adult Wellness Visit 12/21/2021 12/21/2020 COVID-19 Vaccine (4 - season) 2024 03/20/2021, 07/22/2020, 07/01/2020 Influenza Vaccine (FLU shot) (#1) 2024 04/11/2023, 03/21/2022, 04/05/2021, Additional history exists DTap/Tdap Vaccines (2 - Td or Tdap) 01/21/2024 01/20/2014 CKD PHOS USE SMARTSET 87835 04/02/202403/06, 09/14/2021, 03/12/2021, Additional history exists Depression Screening 05/20/2024 05/20/2023 TSH 05/20/2024 05/20/2023, 05/05, 04/02/2023, Additional history exists GFR 07/05/2024 01/06/2024, 06/07/2023, 10/06/2023, Additional history exists CKD HGB USE SMARTSET 29072 01/05/202501/05, 01/06/2024, 05/20/2023, Additional history exists Albumin/Creatinine [...] this encounter Medical Devices Implanted Type Area News Cameraman Device Identifier Shelf Expiration Date Model / Serial / Lot [place] Ptfe 1x1 [id number] - [id number] Implanted:Qty: 5 on 06/03/2018 by Jaxon Vega MD at OR [facility] N/A: Abdomen CR BARD : PERIPHERAL VASCULAR 11/29/2021 [id number] / / [id number] Description:para-esophageal hernia Allomax Mesh 5 X 8 [id number] - [id number] - [id number] Implanted:Qty: 1 on 06/03/2018 by Jaxon Vega MD at OR [facility] N/A: Abdomen CR BARD : DAVOL 05/04/2020 [id number] / [id number] / [id number] Description:PARA ESOPHAGEAL HERNIA documented as of this encounter Advance Directives * Full Code (Latest Code Status on File) Date Activated Date Inactivated Comments 06/03/2018 4:58 PM 06/05/2018 7:48 PM Question Answer Comments Discussion of Advance Directives occurred with: Not Discussed Does the patient have a Living Will? No Does the patient have Health Care Power of Attor jose luis? No Care Teams Transit Police Officer Relationship Specialty Start Date End Date Madalyn Pandya MD [address] [place] [address] PCP - General Family Medicine 06/11/23 documented as of this encounter
--- OUTSIDE RECORDS SUMMARY | 2024-04-17 12:44 | External Medical Summary ---
Author Name Unknown Address Unknown Organization K01:LAB[facility]ATORY [facility] [place] [place] - [address] [place] [address] Laboratory Report Ordering Provider Test Date Status CARMELO BEAN 02/11/2024 14:07:40 Final Observation Date Value Abnormality Reference (Units ) Status Color of Urine by Auto 02/11/2024 14:07:40 Yellow Colorless, Light Yellow, Yellow, Dark Yellow Final Clarity, Urine 02/11/2024 14:07:40 Clear Clear Final Glucose [Mass/volume] in Urine by Automated test strip 02/11/2024 14:07:40 Negative Negative (mg/dL) Final Bilirubin.total [Presence] in Urine by Automated test strip 02/11/2024 14:07:40 Negative Negative Final Ketones [Mass/volume] in Urine by Automated test strip 02/11/2024 14:07:40 Negative Negative (mg/dL) Final Specific gravity, Urine 02/11/2024 14:07:40 1.015 1.003-1.030 Final Hemoglobin [Presence] in Urine by Automated test strip 02/11/2024 14:07:40 Negative Negative Final pH, Urine 02/11/2024 14:07:40 6.5 5.0-7.5 (Units) Final Protein [Mass/volume] in Urine by Automated test strip 02/11/2024 14:07:40 Negative Negative (mg/dL) Final Urobilinogen [Mass/volume] in Urine by Automated test strip 02/11/2024 14:07:40 Normal Normal (mg/dL) Final Nitrite [Presence] in Urine by Automated test strip 02/11/2024 14:07:40 Negative Negative Final Leukocyte esterase [Presence] in Urine by Automated test strip 02/11/2024 14:07:40 Large Abnormal Negative Final RBC, Urine 02/11/2024 14:07:40 0-2 0-2 (/HPF) Final WBC, Urine 02/11/2024 14:07:40 6-9 Abnormal 0-2 (/HPF) Final Bacteria [#/area] in Urine sediment by Microscopy high power field 02/11/2024 14:07:40 0-25 0-25 (/HPF) Final CULTURE, URINE - [facility] 02/11/2024 14:07:40 Final Culture not indicated by uri nalysis results\X09\ Performing Location LAB[facility]ORY [facility] [place] [place] - [facility] [address] [facility] [address]
--- OUTSIDE RECORDS SUMMARY | 2024-04-17 12:44 | External Medical Summary | Summary of Care ---
Author Name Unknown Organization [facility] Address [address] [place] [address] Phone [phone] Care Team Providers Care Vibrator Operator Name Role Phone Madalyn Pandya MD Primary Care Provider Reason for Visit * Reason Comments Acute Family reporting inc reased confusion, recent UTI, would like rechecked. Encounter Details Date Type Department Care Team (Late st Contact Info) Description 01/22/2024 2:40 PM EDT Office Visit [facility] [place] Aleksandra Trimble [address] [place] [address] Alban Garcia PA-C [address] [place] [address] Acute cystitis with hematuria*; UTI symptoms; Dysuria [...] as of this encounter (statuses as of 02/09/2024) Medications Medication Sig Dispensed Refills Start Date [...] stage III (GFR 30-59 ml/min) ([facility]),Cerebrovasc ular disease, arteriosclerotic, post-stroke,Dysli pidemia, goal LDL below 70,Cerebellar infarct ([facility]) take 1 tablet by mouth [...] of lower extremity, unspecified laterality ([facility]) Take 1 Tablet by mouth [...] as of this encounter (statuses as of 02/09/2024) Active Problems Problem Noted Date Diagnosed Date [...] as of this encounter (statuses as of 02/09/2024) Resolved Problems Problem Noted Date Diagnosed Date [...] Espinoza's, hiatal hernia FAMILY HX, ISCHEMIC HEART [id number] 12/04/2010 01/20/2013 Dyslipidemia, goal LDL below 130 08/24/2010 01/20/2013 Anxiety state 11/14/2009 01/20/2013 Irritable bowel syndrome 11/14/2009 Esophageal reflux 11/14/2009 04/16/2011 Overview: hiatal hernia, EGD 03/13 Barretts Palpitations 11/14/2009 01/20/2013 Overview: 10/05 ANEMIA NOS-neg eval 11/11 Overview: neg. follow-up 1989 Other allergic rhinitis 01/03 Overview: ICD-10 update of inactive term documented as of this encounter (statuses as of 02/09/2024) Immunizations Name Administration Dates Next Due COVID-19 mRNA, LNP-s, No Pre serve, 2-Dose Series (virocyt) 03/20/2021,07/22/2020,07/01/2020 PPD 10/05/1992 Pneumococcal Conjugate Vacc, 13 [...] stage III (GFR 30-59 ml/min) ([facility]) Hypertension goal BP (blood pressure) < 140/90 S/P repair of paraesophageal hernia Benign hypertension with CKD (chronic kidney disease) stage III ([facility]) Hypothyroidism Urinary urgency Intracervical pessary Diastolic congestive heart failure ([facility]) Review of patient's allergies indicates: [...] Espinoza's, hiatal hernia FAMILY HX, ISCHEMIC HEART [id number] 12/04/2010 Fracture of foot, closed left 01/04 Gait disorder 01/22/2016 Gastroesophageal reflux disease with esophagitis 01/17/2015 Generalized osteoarthritis Hepatitis as a child "yellow jaundice" Herpes zoster without complication 08/14/2017 C8 nerve root on left. 07/20 History of abnormal cervical Pap smear atypical DINING SERVICES DIRECTOR eval. cryosurgery Hypertension goal BP (blood pressure) < 140/90 05/25/2019 Intrinsic eczema 09/18/2015 Irritable bowel syndrome without diarrhea 09/18/2015 Kidney disease, chronic, stage III (GFR 30-59 ml/min) ([facility]) 07/18/2014 Per CKD protocol #1 [...] performed by Jaxon Vega MD at OR [facility] LIGATE/CUT OVIDUCT(S) PARAESOPHAGEAL HERNIA REPAIR, LAP W/ MESH N/A 06/03/2018 LAPAROSCOPIC PARAESOPHAGEAL HERNIA REPAIR W/MESH performed by Jaxon Vega MD at OR [facility] REMOVE GALLBLADDER REMOVE TONSILS & ADENOIDS, UNDER [...] Stability Do you currently live in a intermediate or have no steady place to sleep [...] in this encounter Nursing Notes * Dianelys Cornelius LPN - 01/22/2024 2:55 PM EDT Chief Complaint Patient presents with Acute Family reporting increased confusion, recent UTI, would like rechecked. documented in this encounter Plan of Treatment Upcoming Encounters Date Type Department Care Team (Late st Contact Info) Description 03/01/2024 12:30 PM EDT Office Visit Urogynecology [facility] [address] [place] [address] Bala Knox MD [address] [place] [address] [place], Nurse Urodynamics [address] [place] [address] 03/29/2024 10:20 AM EST Office Visit Urogynecology [facility] [address] [place] [address] Bala Knox MD [address] [place] [address] [place], Nurse Urodynamics [address] [place] [address] 04/26/2024 10:00 AM EST Laboratory Laboratory [facility] [address] [place] [phone] [place], Lab [facility] [address] [place] [address] 07/07/2024 2:00 PM EST Office Visit [facility] [address] [place] [address] Madalyn Pandya MD [address] [place] [phone] 07/26/2024 2:00 PM EDT Office Visit Hematology/Oncology [facility] [address] [place] [address] Constanza Castañeda CRNP [address] [place] [address] Pending Results Name Type Priority Associated Diagnoses Date /Time URINALYSIS, REFLEX TO CULTURE (NOT FOR NEUTROPENIC PATIENTS) Lab Routine Dysuria 02/06/2024 2:25 PM EDT URINALYSIS, REFLEX TO CULTURE Lab Routine Dysuria 02/06/2024 2:25 PM EDT Scheduled Orders Name Type Priority Associated Diagnoses Orde r Schedule URINALYSIS, REFLEX TO CULTUR E (CUP ONLY) Lab Routine Dysuria Ordered: 02/09/2024 Health Maintenance Due Date Last Done Comments Espinoza's Esophagus Surveilance 1945 Zoster Vaccines (2 of 3) 02/12/2015 12/18/2014 Adult Wellness Visit 12/21/2021 12/21/2020 COVID-19 Vaccine ( season) 2024 03/20/2021, 07/22/2020, 07/01/2020 Influenza Vaccine (FLU shot) (#1) 2024 04/11/2023, 03/21/2022, 04/05/2021, Additional history exists DTap/Tdap Vaccines (2 - Td or Tdap) 01/21/2024 01/20/2014 CKD PHOS USE SMARTSET 84402 04/02/202403/06, 09/14/2021, 03/12/2021, Additional history exists Depression Screening 05/20/2024 05/20/2023 TSH 05/20/2024 05/20/2023, 05/05, 04/02/2023, Additional history exists GFR 07/05/2024 01/06/2024, 06/0 07/2023, 10/06/2023, Additional history exists CKD HGB USE SMARTSET 37055 01/05/202501/05, 01/06/2024, 05/20/2023, Additional history exists Albumin/Creatinine [...] this encounter Medical Devices Implanted Type Area Roulette Dealer Device Identifier Shelf Expiration Date Model / Serial / Lot [place] Ptfe 1x1 [id number] - [id number] Implanted:Qty: 5 on 06/03/2018 by Jaxon Vega MD at OR [facility] N/A: Abdomen CR BARD : PERIPHERAL VASCULAR 11/29/2021 [id number] / / [id number] Description:para-esophageal hernia Allomax Mesh 5 X 8 [id number] - [id number] - [id number] Implanted:Qty: 1 on 06/03/2018 by Jaxon Vega MD at OR [facility] N/A: Abdomen CR BARD : DAVOL 05/04/2020 [id number] / [id number] / [id number] Description:PARA ESOPHAGEAL HERNIA documented as of this encounter Procedures Procedure Name Priority Date/Time Associated Diagnosis Comments CULTURE, URINE, QUANTITATIVE Routine 01/22/2024 3:02 PM EDT UTI symptoms URINALYSIS, POINT OF CARE (ENTER/EDIT) Routine 01/22/2024 UTI symptoms documented in this encounter Results * CULTURE, URINE, QUANTITATIVE (01/22/2024 3:02 PM EDT) Culture Growth No significant growth 01/23/2024 5:07 PM EDT [facility] Urine Urine specimen obtained by clean catch procedure / Unknown Non-blood Collection / Unknown 01/22/2024 3:02 PM EDT 01/22/2024 3:02 PM EDT Alban Garcia PA-C LAB MICRO - G ENERAL ORDERABLES [facility] [address] [place] [address] * (ABNORMAL) URINALYSIS, POINT OF CARE (ENTER/EDIT) (01/22/2024) Color, Urine Yellow Yellow or Light Yellow Clarity, Urine Slightly Cloudy Clear Glucose, Urine Negative Negative mg/dL Bilirubin, Urine Negative Negative Ketone, Urine Negative Negative mg/dL Specific [place], Urine 1.020 1.003 - 1.030 Blood, Urine [...] of Attor jose luis? No Care Teams Vibrator Operator Relationship Specialty Start Date End Date Madalyn Pandya MD [address] [place] [address] PCP - General Family Medicine 06/11/23 documented as of this encounter
--- OUTSIDE RECORDS SUMMARY | 2024-04-17 12:44 | External Medical Summary | Summary of Care ---
Author Name Unknown Organization [facility] Address [address] [place] [address] Phone [phone] Care Team Providers Care Shipyard Painter Apprentice Name Role Phone Madalyn Pandya MD Primary Care Provider Reason for Visit * Reason Comments Acute Family reporting inc reased confusion, recent UTI, would like rechecked. Encounter Details Date Type Department Care Team (Late st Contact Info) Description 01/22/2024 2:40 PM EDT Office Visit Family Practice [place] Aleksandra Trimble [address] [place] [place] [address] [address] Alban Garcia PA-C [address] [place] [address] Acute cystitis with hematuria*; UTI symptoms; Dysuria [...] as of this encounter (statuses as of 02/10/2024) Medications Medication Sig Dispensed Refills Start Date [...] disease, chronic, stage III (GFR 30-59 ml/min) ([facility]),Cerebrovasc ular disease, arteriosclerotic, post-stroke,Dysli pidemia, goal LDL below 70,Cerebellar infarct ([facility]) take 1 tablet by mouth at [...] proximal vein of lower extremity, unspecified laterality ([facility]) Take 1 Tablet by mouth in [...] as of this encounter (statuses as of 02/10/2024) Active Problems Problem Noted Date Diagnosed Date [...] as of this encounter (statuses as of 02/10/2024) Resolved Problems Problem Noted Date Diagnosed Date [...] Espinoza's, hiatal hernia FAMILY HX, ISCHEMIC HEART [id number] 12/04/2010 01/20/2013 Dyslipidemia, goal LDL below 130 08/24/2010 01/20/2013 Anxiety state 11/14/2009 01/20/2013 Irritable bowel syndrome 11/14/2009 Esophageal reflux 11/14/2009 04/16/2011 Overview: hiatal hernia, EGD 03/13 Barretts Palpitations 11/14/2009 01/20/2013 Overview: 10/05 ANEMIA NOS-neg eval 11/11 Overview: neg. follow-up 1989 Other allergic rhinitis 01/03 Overview: ICD-10 update of inactive term documented as of this encounter (statuses as of 02/10/2024) Immunizations Name Administration Dates Next Due COVID-19 mRNA, LNP-s, No Pre serve, 2-Dose Series ([email or web address]) 03/20/2021,07/22/2020,07/01/2020 PPD 10/05/1992 Pneumococcal Conjugate Vacc, 13 [...] disease, chronic, stage III (GFR 30-59 ml/min) ([facility]) Hypertension goal BP (blood pressure) < 140/90 S/P repair of paraesophageal hernia Benign hypertension with CKD (chronic kidney disease) stage III ([facility]) Hypothyroidism Urinary urgency Intracervical pessary Diastolic congestive heart failure ([facility]) Review of patient's allergies indicates: Allergen Reactions [...] Espinoza's, hiatal hernia FAMILY HX, ISCHEMIC HEART [id number] 12/04/2010 Fracture of foot, closed left 01/04 Gait disorder 01/22/2016 Gastroesophageal reflux disease with esophagitis 01/17/2015 Generalized osteoarthritis Hepatitis as a child "yellow jaundice" Herpes zoster without complication 08/14/2017 C8 nerve root on left. 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) 07/18/2014 Per CKD protocol #1 Osteopenia 09/18/2012 [...] performed by Jaxon Vega MD at OR [facility] LIGATE/CUT OVIDUCT(S) PARAESOPHAGEAL HERNIA REPAIR, LAP W/ MESH N/A 06/03/2018 LAPAROSCOPIC PARAESOPHAGEAL HERNIA REPAIR W/MESH performed by Jaxon Vega MD at OR [facility] REMOVE GALLBLADDER REMOVE TONSILS & ADENOIDS, [...] Stability Do you currently live in a mcfp or have no steady place to sleep [...] Visit Urogynecology Elsi Santos [address] [address] Bala Knox MD [address] [address] [place], Nurse Urodynamics [address] [place] [address] 03/29/2024 10:20 AM EST Office Visit Urogynecology Elsi Santos [address] [place] [address] Bala Knox MD [address] [facility] [place] [address] [place], Nurse Urodynamics [address] [place] [place] [address] 04/26/2024 10:00 AM EST Laboratory Laboratory [facility] [address] [place] [phone] [place], Lab [facility] [address] [place] [address] 07/07/2024 2:00 PM EST Office Visit [facility] [address] [place] [place] [address] Madalyn Pandya MD [address] [place] [phone] 07/26/2024 2:00 PM EDT Office Visit Hematology/Oncology [facility] [address] [place] [phone] Constanza Castañeda CRNP [address] [place] [address] Scheduled Orders Name Type Priority Associated Diagnoses Orde r Schedule URINALYSIS, REFLEX TO CULTUR E (CUP ONLY) Lab Routine Dysuria Ordered: 02/09/2024 URINALYSIS, REFLEX TO CULTURE Lab Routine Dysuria Ordered: 02/09/2024 Health Maintenance Due Date Last Done Comments Espinoza's Esophagus Surveilance 1943 Zoster Vaccines (2 of 3) 02/12/2015 12/18/2014 Adult Wellness Visit 12/21/2021 12/21/2020 COVID-19 Vaccine ( season) 2024 03/20/2021, 07/22/2020, 07/01/2020 Influenza Vaccine (FLU shot) (#1) 2024 04/11/2023, 03/21/2022, 04/05/2021, Additional history exists DTap/Tdap Vaccines (2 - Td or Tdap) 01/21/2024 01/20/2014 CKD PHOS USE SMARTSET 79582 04/02/202403/06, 09/14/2021, 03/12/2021, Additional history exists Depression Screening 05/20/2024 05/20/2023 TSH 05/20/2024 05/20/2023, 05/05, 04/02/2023, Additional history exists GFR 07/05/2024 01/06/2024, 06/0 07/2023, 10/06/2023, Additional history exists CKD HGB USE SMARTSET 93735 01/05/202501/05, 01/06/2024, 05/20/2023, Additional history exists Albumin/Creatinine [...] this encounter Medical Devices Implanted Type Area Slitter And Rewinder Device Identifier Shelf Expiration Date Model / Serial / Lot [place] Ptfe 1x1 [id number] - [id number] Implanted:Qty: 5 on 06/03/2018 by Jaxon Vega MD at OR [facility] N/A: Abdomen CR BARD : PERIPHERAL VASCULAR 11/29/2021 [id number] / / [id number] Description:para-esophageal hernia Allomax Mesh 5 X 8 [id number] - [id number] - [id number] Implanted:Qty: 1 on 06/03/2018 by Jaxon Vega MD at OR [facility] N/A: Abdomen CR BARD : DAVOL 05/04/2020 [id number] / [id number] / [id number] Description:PARA ESOPHAGEAL HERNIA documented as of this encounter Procedures Procedure Name Priority Date/Time Associated Diagnosis Comments CULTURE, URINE, QUANTITATIVE Routine 01/22/2024 3:02 PM EDT UTI symptoms URINALYSIS, POINT OF CARE (ENTER/EDIT) Routine 01/22/2024 UTI symptoms documented in this encounter Results * CULTURE, URINE, QUANTITATIVE (01/22/2024 3:02 PM EDT) Culture Growth No significant growth 01/23/2024 5:07 PM EDT LAB[facility]ATORY [facility] Urine Urine specimen obtained by clean catch procedure / Unknown Non-blood Collection / Unknown 01/22/2024 3:02 PM EDT 01/22/2024 3:02 PM EDT Alban Garcia PA-C LAB MICRO - G ENERAL ORDERABLES Performing Organization Address City/State/[facility] Co de Phone Number LABORATORY [facility] [address] [place] [address] * (ABNORMAL) URINALYSIS, POINT OF CARE (ENTER/EDIT) (01/22/2024) Color, Urine Yellow Yellow or Light Yellow Clarity, Urine Slightly Cloudy Clear Glucose, Urine Negative Negative mg/dL Bilirubin, Urine Negative Negative Ketone, Urine Negative Negative mg/dL Specific [place], Urine 1.020 1.003 - 1.030 Blood, Urine Trace-intact Negative pH, Urine 6.0 5.0 - 7.5 units Protein, Urine Negative Negative mg/dL Urobilinogen, Urine 0.2 0.2 - 1.0 mg/dL Nitrite, Urine Negative Negative Esterase, Urine Small Negative Urine 01/22/2024 Alabn Garcia PA-C LAB POINT OF CARE TEST [...] of Attor jose luis? No Care Teams Shipyard Painter Apprentice Relationship Specialty Start Date End Date Madalyn Pandya MD [address] [place] [place] [address] PCP - General Family Medicine 06/11/23 documented as of this encounter
--- OUTSIDE RECORDS SUMMARY | 2024-04-17 12:44 | External Medical Summary | Summary of Care ---
Author Name Unknown Organization [facility] Address [address] [place] [address] Phone [phone] Care Team Providers Care Manager Programs Name Role Phone Madalyn Pandya MD Primary Care Provider [phone] Reason for Visit * Reason Comments Acute Family reporting inc reased confusion, recent UTI, would like rechecked. Encounter Details Date Type Department Care Team (Late st Contact Info) Description 01/22/2024 2:40 PM EDT Office Visit Family Practice [place] Aleksandra Trimble [address] [place] [address] [address] Alban Garcia PA-C [address] [place] [address] [address] Acute cystitis with hematuria*; UTI symptoms; Dysuria [...] stage III (GFR 30-59 ml/min) ([facility]),Cerebrovasc ular disease, arteriosclerotic, post-stroke,Dysli pidemia, goal LDL below 70,Cerebellar infarct ([facility]) take 1 tablet by mouth at [...] of lower extremity, unspecified laterality ([facility]) Take 1 Tablet by mouth in [...] Espinoza's, hiatal hernia FAMILY HX, ISCHEMIC HEART [id number] 12/04/2010 01/20/2013 Dyslipidemia, goal LDL below 130 [...] mRNA, LNP-s, No Pre serve, 2-Dose Series ([employer]) 03/20/2021,07/22/2020,07/01/2020 PPD 10/05/1992 Pneumococcal Conjugate Vacc, 13 [...] stage III (GFR 30-59 ml/min) ([facility]) Hypertension goal BP (blood pressure) < 140/90 S/P repair of paraesophageal hernia Benign hypertension with CKD (chronic kidney disease) stage III ([facility]) Hypothyroidism Urinary urgency Intracervical pessary Diastolic congestive heart failure ([facility]) Review of patient's allergies indicates: Allergen Reactions [...] Espinoza's, hiatal hernia FAMILY HX, ISCHEMIC HEART [id number] 12/04/2010 Fracture of foot, closed left 01/04 Gait disorder 01/22/2016 Gastroesophageal reflux disease with esophagitis 01/17/2015 Generalized osteoarthritis Hepatitis as a child "yellow jaundice" Herpes zoster without complication 08/14/2017 C8 nerve root on left. 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 Hypertension goal BP (blood pressure) < 140/90 05/25/2019 Intrinsic eczema 09/18/2015 Irritable bowel syndrome without diarrhea 09/18/2015 Kidney disease, chronic, stage III (GFR 30-59 ml/min) ([facility]) 07/18/2014 Per CKD protocol #1 Osteopenia 09/18/2012 [...] performed by Jaxon Vega MD at OR [facility] LIGATE/CUT OVIDUCT(S) PARAESOPHAGEAL HERNIA REPAIR, LAP W/ MESH N/A 06/03/2018 LAPAROSCOPIC PARAESOPHAGEAL HERNIA REPAIR W/MESH performed by Jaxon Vega MD at OR [facility] REMOVE GALLBLADDER REMOVE TONSILS & ADENOIDS, [...] Stability Do you currently live in a long-term or have no steady place to sleep [...] Visit Urogynecology Elsi Santos [address] [address] Bala Knox MD [address] [address] [place], Nurse Urodynamics [address] [place] [address] 03/29/2024 10:20 AM EST Office Visit Urogynecology Elsi Santos [address] [place] [address] Bala Knox MD [address] [place] [address] [place], Nurse Urodynamics [address] [place] [address] 04/26/2024 10:00 AM EST Laboratory Laboratory [facility] [address] [place] [phone] [place], Lab [facility] [address] [place] [address] 07/07/2024 2:00 PM EST Office Visit [facility] [address] [place] [address] Madalyn Pandya MD [address] [place] [phone] 07/26/2024 2:00 PM EDT Office Visit Hematology/Oncology [facility] [address] [place] [phone] Constanza Castañeda CRNP [address] [place] [address] Pending Results Name Type Priority Associated Diagnoses Date /Time URINALYSIS, REFLEX TO CULTURE (NOT FOR NEUTROPENIC PATIENTS) Lab Routine Dysuria 02/09/2024 3:22 PM EDT URINALYSIS, REFLEX TO CULTURE (CUP ONLY) Lab Routine Dysuria 02/09/2024 3:22 PM EDT URINALYSIS, REFLEX TO CULTURE Lab Routine Dysuria 02/09/2024 3:22 PM EDT Health Maintenance Due Date Last Done Comments Espinoza's Esophagus Surveilance 1945 Zoster Vaccines (2 of 3) 02/12/2015 12/18/2014 Adult Wellness Visit 12/21/2021 12/21/2020 COVID-19 Vaccine ( season) 2024 03/20/2021, 07/22/2020, 07/01/2020 Influenza Vaccine (FLU shot) (#1) 2024 04/11/2023, 03/21/2022, 04/05/2021, Additional history exists DTap/Tdap Vaccines (2 - Td or Tdap) 01/21/2024 01/20/2014 CKD PHOS USE SMARTSET 24915 04/02/202403/06, 09/14/2021, 03/12/2021, Additional history exists Depression Screening 05/20/2024 05/20/2023 TSH 05/20/2024 05/20/2023, 05/05, 04/02/2023, Additional history exists GFR 07/05/2024 01/06/2024, 06/07/2023, 10/06/2023, Additional history exists CKD HGB USE SMARTSET 41693 01/05/202501/05, 01/06/2024, 05/20/2023, Additional history exists Albumin/Creatinine [...] this encounter Medical Devices Implanted Type Area Statistical Technician Device Identifier Shelf Expiration Date Model / Serial / Lot [place] Ptfe 1x1 [id number] - [id number] Implanted:Qty: 5 on 06/03/2018 by Jaxon Vega MD at OR [facility] N/A: Abdomen CR BARD : PERIPHERAL VASCULAR 11/29/2021 [id number] / / [id number] Description:para-esophageal hernia Allomax Mesh 5 X 8 [id number] - [id number] - [id number] Implanted:Qty: 1 on 06/03/2018 by Jaxon Vega MD at OR [facility] N/A: Abdomen CR BARD : DAVOL 05/04/2020 [id number] / [id number] / [id number] Description:PARA ESOPHAGEAL HERNIA documented as of this encounter Procedures Procedure Name Priority Date/Time Associated Diagnosis Comments CULTURE, URINE, QUANTITATIVE Routine 01/22/2024 3:02 PM EDT UTI symptoms URINALYSIS, POINT OF CARE (ENTER/EDIT) Routine 01/22/2024 UTI symptoms documented in this encounter Results * CULTURE, URINE, QUANTITATIVE (01/22/2024 3:02 PM EDT) Culture Growth No significant growth 01/23/2024 5:07 PM EDT LAB[facility]ATORY [facility] Urine Urine specimen obtained by clean catch procedure / Unknown Non-blood Collection / Unknown 01/22/2024 3:02 PM EDT 01/22/2024 3:02 PM EDT Alban Garcia PA-C LAB MICRO - G ENERAL ORDERABLES [facility]ORY [facility] [address] [place] [address] * (ABNORMAL) URINALYSIS, POINT OF CARE (ENTER/EDIT) (01/22/2024) Color, Urine Yellow Yellow or Light Yellow Clarity, Urine Slightly Cloudy Clear Glucose, Urine Negative Negative mg/dL Bilirubin, Urine Negative Negative Ketone, Urine Negative Negative mg/dL Specific [place], Urine 1.020 1.003 - 1.030 Blood, Urine [...] of Attor jose luis? No Care Teams Manager Programs Relationship Specialty Start Date End Date Madalyn Pandya MD [address] [place] [address] PCP - General Family Medicine 06/11/23 documented as of this encounter
--- OUTSIDE RECORDS SUMMARY | 2024-04-17 12:44 | External Medical Summary | Summary of Care ---
Author Name Unknown Organization [facility] Address [address] [place] [address] Phone [phone] Care Team Providers Care Movie Shot Camera Operator Name Role Phone Madalyn Pandya MD Primary Care Provider [phone] Reason for Visit * Reason Comments Acute Family reporting inc reased confusion, recent UTI, would like rechecked. Encounter Details Date Type Department Care Team (Late st Contact Info) Description 01/22/2024 2:40 PM EDT Office Visit Family Practice [place] Aleksandra Trimble [address] [place] [address] [address] Alban Garcia PA-C [address] [place] [address] [address] Acute cystitis with hematuria*; UTI symptoms; Dysuria [...] chronic, stage III (GFR 30-59 ml/min) ([facility]),Cerebrovasc ular disease, arteriosclerotic, post-stroke,Dysli pidemia, goal LDL below 70,Cerebellar infarct ([facility]) take 1 tablet by mouth [...] vein of lower extremity, unspecified laterality ([facility]) Take 1 Tablet by mouth [...] Espinoza's, hiatal hernia FAMILY HX, ISCHEMIC HEART [id number] 12/04/2010 01/20/2013 Dyslipidemia, goal LDL below 130 [...] mRNA, LNP-s, No Pre serve, 2-Dose Series ([employer]) 03/20/2021,07/22/2020,07/01/2020 PPD 10/05/1992 Pneumococcal Conjugate Vacc, 13 [...] chronic, stage III (GFR 30-59 ml/min) ([facility]) Hypertension goal BP (blood pressure) < 140/90 S/P repair of paraesophageal hernia Benign hypertension with CKD (chronic kidney disease) stage III ([facility]) Hypothyroidism Urinary urgency Intracervical pessary Diastolic congestive heart failure ([facility]) Review of patient's allergies indicates: [...] Espinoza's, hiatal hernia FAMILY HX, ISCHEMIC HEART [id number] 12/04/2010 Fracture of foot, closed left 01/04 Gait disorder 01/22/2016 Gastroesophageal reflux disease with esophagitis 01/17/2015 Generalized osteoarthritis Hepatitis as a child "yellow jaundice" Herpes zoster without complication 08/14/2017 C8 nerve root on left. 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 Hypertension goal BP (blood pressure) < 140/90 05/25/2019 Intrinsic eczema 09/18/2015 Irritable bowel syndrome without diarrhea 09/18/2015 Kidney disease, chronic, stage III (GFR 30-59 ml/min) ([facility]) 07/18/2014 Per CKD protocol #1 [...] performed by Jaxon Vega MD at OR [facility] LIGATE/CUT OVIDUCT(S) PARAESOPHAGEAL HERNIA REPAIR, LAP W/ MESH N/A 06/03/2018 LAPAROSCOPIC PARAESOPHAGEAL HERNIA REPAIR W/MESH performed by Jaxon Vega MD at OR [facility] REMOVE GALLBLADDER REMOVE TONSILS & ADENOIDS, [...] Stability Do you currently live in a longterm or have no steady place to sleep [...] Visit Urogynecology Elsi Santos [address] [address] Bala Knox MD [address] [address] [place], Nurse Urodynamics [address] [place] [address] 03/29/2024 10:20 AM EST Office Visit Urogynecology Elsi Santos [address] [place] [address] Bala Knox MD [address] [place] [address] [place], Nurse Urodynamics [address] [facility] [place] [address] 04/26/2024 10:00 AM EST Laboratory Laboratory [facility] [address] [place] [phone] [place], Lab [facility] [address] [place] [address] 07/07/2024 2:00 PM EST [facility] [address] [place] [address] Madalyn Pandya MD [address] [place] [phone] 07/26/2024 2:00 PM EDT Office Visit Hematology/Oncology [facility] [address] [place] [phone] Constanza Castañeda CRNP [address] [place] [address] Pending Results Name Type Priority Associated Diagnoses Date /Time URINALYSIS, REFLEX TO CULTURE (NOT FOR NEUTROPENIC PATIENTS) Lab Routine Dysuria 02/06/2024 2:25 PM EDT URINALYSIS, REFLEX TO CULTURE (CUP ONLY) Lab Routine Dysuria 02/09/2024 3:22 PM EDT URINALYSIS, REFLEX TO CULTURE Lab Routine Dysuria 02/06/2024 2:25 PM EDT Health Maintenance Due Date Last Done Comments Espinoza's Esophagus Surveilance 1945 Zoster Vaccines (2 of 3) 02/12/2015 12/18/2014 Adult Wellness Visit 12/21/2021 12/21/2020 COVID-19 Vaccine ( season) 2024 03/20/2021, 07/22/2020, 07/01/2020 Influenza Vaccine (FLU shot) (#1) 2024 04/11/2023, 03/21/2022, 04/05/2021, Additional history exists DTap/Tdap Vaccines (2 - Td or Tdap) 01/21/2024 01/20/2014 CKD PHOS USE SMARTSET 23323 04/02/202403/06, 09/14/2021, 03/12/2021, Additional history exists Depression Screening 05/20/2024 05/20/2023 TSH 05/20/2024 05/20/2023, 05/05, 04/02/2023, Additional history exists GFR 07/05/2024 01/06/2024, 06/07/2023, 10/06/2023, Additional history exists CKD HGB USE SMARTSET 61613 01/05/202501/05, 01/06/2024, 05/20/2023, Additional history exists Albumin/Creatinine [...] this encounter Medical Devices Implanted Type Area Certified Medical Asst Device Identifier Shelf Expiration Date Model / Serial / Lot [place] Ptfe 1x1 [id number] - [id number] Implanted:Qty: 5 on 06/03/2018 by Jaxon Vega MD at OR [facility] N/A: Abdomen CR BARD : PERIPHERAL VASCULAR 11/29/2021 [id number] / / [id number] Description:para-esophageal hernia Allomax Mesh 5 X 8 [id number] - [id number] - [id number] Implanted:Qty: 1 on 06/03/2018 by Jaxon Vega MD at OR [facility] N/A: Abdomen CR BARD : DAVOL 05/04/2020 [id number] / [id number] / [id number] Description:PARA ESOPHAGEAL HERNIA documented as of this encounter Procedures Procedure Name Priority Date/Time Associated Diagnosis Comments CULTURE, URINE, QUANTITATIVE Routine 01/22/2024 3:02 PM EDT UTI symptoms URINALYSIS, POINT OF CARE (ENTER/EDIT) Routine 01/22/2024 UTI symptoms documented in this encounter Results * CULTURE, URINE, QUANTITATIVE (01/22/2024 3:02 PM EDT) Culture Growth No significant growth 01/23/2024 5:07 PM EDT LABORATORY [facility] Urine Urine specimen obtained by clean catch procedure / Unknown Non-blood Collection / Unknown 01/22/2024 3:02 PM EDT 01/22/2024 3:02 PM EDT Alban Gacria PA-C LAB MICRO - G ENERAL ORDERABLES LAB[facility]ATORY [facility] [address] [place] [address] * (ABNORMAL) URINALYSIS, POINT OF CARE (ENTER/EDIT) (01/22/2024) Color, Urine Yellow Yellow or Light Yellow Clarity, Urine Slightly Cloudy Clear Glucose, Urine Negative Negative mg/dL Bilirubin, Urine Negative Negative Ketone, Urine Negative Negative mg/dL Specific [place], Urine 1.020 1.003 - 1.030 Blood, Urine [...] of Attor jose luis? No Care Teams Movie Shot Camera Operator Relationship Specialty Start Date End Date Madalyn Pandya MD [address] [place] [address] PCP - General Family Medicine 06/11/23 documented as of this encounter
--- OUTSIDE RECORDS SUMMARY | 2024-04-17 12:44 | External Medical Summary ---
Author Name Unknown Address Unknown Organization [id number]:LABORATORY [facility] - [address] [place] [id number] Laboratory Report Ordering Provider Test Date Status KARIN HARRIS 02/11/2024 14:07:40 Final Observation Date Value Abnormality Reference (Units) Status Bacteria identified in Specimen by Culture 02/11/2024 14:07:40 No significant growth Final Test: Culture, Urine, Quanti tative
Specimen Source: Urine, Clean Catch
Specimen Type: Urine
Specimen Date: 02/11/2024 1407
Result Date: 02/13/2024 0809
Result Status: Final result
Resulting Lab: LABORATORY [facility]
[address]
[place] [id number]

CULTURE

No significant growth

null Performing Location LABORATORY [facility] - [address] [place] [id number]
--- OUTSIDE RECORDS SUMMARY | 2024-04-17 12:44 | External Medical Summary | Summary of Care ---
Author Name Unknown Organization [facility] Address [address] [facility] [address] Phone [phone] Care Team Providers Care Dry Goods Clerk Name Role Phone Madalyn Pandya MD Primary Care Provider Encounter Details Date Type Department Care Team (Late st Contact Info) Description 02/09/2024 Orders Only [facility] [address] [place] [phone] Madalyn Pandya MD [address] [place] [phone] Dysuria* Allergies Active Allergy Reactions Criticality Noted Date [...] disease, chronic, stage III (GFR 30-59 ml/min) ([facility]),Cerebrovascul ar disease, arteriosclerotic, post-stroke,Dyslipi demia, goal LDL below 70,Cerebellar infarct ([facility]) take 1 tablet by mouth at [...] proximal vein of lower extremity, unspecified laterality ([facility]) Take 1 Tablet by mouth in [...] Espinoza's, hiatal hernia FAMILY HX, ISCHEMIC HEART [id number] 12/04/2010 01/20/2013 Dyslipidemia, goal LDL below 130 [...] 03/01/2024 12:30 PM EDT Office Visit Urogynecology [facility] [address] [place] [address] Bala Knox MD [address] [place] [address] [facility] [address] [place] [address] 03/29/2024 10:20 AM EST Office Visit Urogynecology [facility] [address] [place] [address] Bala Knox MD [address] [place] [address] [facility] [address] [place] [address] 04/26/2024 10:00 AM EST Laboratory Laboratory [facility] [place] [address] [place], [place] [phone] [place], Lab Scenery [address] [place] [address] 07/07/2024 2:00 PM EST Office Visit [facility] [address] [place] [address] Madalyn Pandya MD [address] [place] [address] 07/26/2024 2:00 PM EDT Office Visit Hematology/Oncology [facility] [place] [address] [facility] [place] [address] Constanza Castañeda CRNP [address] [facility] [place] [address] Pending Results Name Type Priority Associated Diagnoses Date /Time URINALYSIS, REFLEX TO CULTURE (NOT FOR NEUTROPENIC PATIENTS) Lab Routine Dysuria 02/09/2024 3:22 PM EDT Scheduled Orders Name Type Priority Associated Diagnoses Orde r Schedule URINALYSIS, REFLEX TO CULTURE (NOT FOR NEUTROPENIC PATIENTS) Lab Routine Dysuria Expected: 02/09/2024, Expires: 02/08/2025 Health Maintenance Due Date Last Done Comments Espinoza's Esophagus Surveilance 1943 Zoster Vaccines (2 of 3) 02/12/2015 12/18/2014 Adult Wellness Visit 12/21/2021 12/21/2020 COVID-19 Vaccine ( season) 2024 03/20/2021, 07/22/2020, 07/01/2020 Influenza Vaccine (FLU shot) (#1) 2024 04/11/2023, 03/21/2022, 04/05/2021, Additional history exists DTap/Tdap Vaccines (2 - Td or Tdap) 01/21/2024 01/20/2014 CKD PHOS USE SMARTSET 21072 04/02/202403/06, 09/14/2021, 03/12/2021, Additional history exists Depression Screening 05/20/2024 05/20/2023 TSH 05/20/2024 05/20/2023, 05/05, 04/02/2023, Additional history exists GFR 07/05/2024 01/06/2024, 06/0 07/2023, 10/06/2023, Additional history exists CKD HGB USE SMARTSET 66984 01/05/202501/05, 01/06/2024, 05/20/2023, Additional history exists Albumin/Creatinine [...] this encounter Medical Devices Implanted Type Area Sand Technician Device Identifier Shelf Expiration Date Model / Serial / Lot [place] Ptfe 1x1 [id number] - [id number] Implanted:Qty: 5 on 06/03/2018 by Jaxon Vega MD at OR [facility] N/A: Abdomen CR BARD : PERIPHERAL VASCULAR 11/29/2021 [id number] / / [id number] Description:para-esophageal hernia Allomax Mesh 5 X 8 [id number] - [id number] - [id number] Implanted:Qty: 1 on 06/03/2018 by Jaxon Vega MD at OR [facility] N/A: Abdomen CR BARD : DAVOL 05/04/2020 [id number] / [id number] / [id number] Description:PARA ESOPHAGEAL HERNIA documented as of this encounter Visit Diagnoses Diagnosis Dysuria- Primary documented in this encounter Advance Directives * Full Code (Latest Code Status on File) Date Activated Date Inactivated Comments 06/03/2018 4:58 PM 06/05/2018 7:48 PM Question Answer Comments Discussion of Advance Directives occurred with: Not Discussed Does the patient have a Living Will? No Does the patient have Health Care Power of Attor jose luis? No Care Teams Dry Goods Clerk Relationship Specialty Start Date End Date Madalyn Pandya MD [address] [place] [address] PCP - General Family Medicine 06/11/23 documented as of this encounter
--- OUTSIDE RECORDS SUMMARY | 2024-04-17 12:44 | External Medical Summary | Summary of Care ---
Author Name Unknown Organization [facility] Address [address] [place] [facility] [place] [address] Phone [phone] Care Team Providers Care Director Traffic And Planning Name Role Phone Madalyn Pandya MD Primary Care Provider [phone] Encounter Details Date Type Department Care Team (Late st Contact Info) Description 02/09/2024 Orders Only [facility] [address] [place] [phone] Madalyn Pandya MD [address] [place] [phone] Dysuria* Allergies Active Allergy Reactions Criticality Noted [...] chronic, stage III (GFR 30-59 ml/min) ([facility]),Cerebrovascul ar disease, arteriosclerotic, post-stroke,Dyslipi demia, goal LDL below 70,Cerebellar infarct ([facility]) take 1 tablet by mouth at [...] proximal vein of lower extremity, unspecified laterality ([facility]) Take 1 Tablet by mouth in [...] Espinoza's, hiatal hernia FAMILY HX, ISCHEMIC HEART [id number] 12/04/2010 01/20/2013 Dyslipidemia, goal LDL below 130 [...] [facility] [address] [place] [address] Bala Knox MD [address] [place] [address] [facility] [address] [place] [address] 03/29/2024 10:20 AM EST Office Visit Urogynecology [facility] [address] [place] [address] Bala Knox MD [address] [place] [address] [facility] [address] [place] [address] 04/26/2024 10:00 AM EST Laboratory Laboratory [facility] [place] [address] [place], [place] [phone] [place], Lab Scenery [address] [place] [address] 07/07/2024 2:00 PM EST Office Visit [facility] [address] [place] [address] Madalyn Pandya MD [address] [place] [address] 07/26/2024 2:00 PM EDT Office Visit Hematology/Oncology [facility] [place] [address] [facility] [place] [address] Constanza Castañeda CRNP [address] [facility] [place] [address] Scheduled Orders Name Type [...] Tdap) 01/21/2024 01/20/2014 CKD PHOS USE SMARTSET 70048 04/02/202403/06, 09/14/2021, 03/12/2021, Additional history exists Depression Screening 05/20/2024 05/20/2023 TSH 05/20/2024 05/20/2023, 05/05, 04/02/2023, Additional history exists GFR 07/05/2024 01/06/2024, 06/0 07/2023, 10/06/2023, Additional history exists CKD HGB USE SMARTSET 17578 01/05/202501/05, 01/06/2024, 05/20/2023, Additional history exists Albumin/Creatinine [...] this encounter Medical Devices Implanted Type Area Counter Weigher Device Identifier Shelf Expiration Date Model / Serial / Lot [place] Ptfe 1x1 [id number] - [id number] Implanted:Qty: 5 on 06/03/2018 by Jaxon Vega MD at OR [facility] N/A: Abdomen CR BARD : PERIPHERAL VASCULAR 11/29/2021 [id number] / / [id number] Description:para-esophageal hernia Allomax Mesh 5 X 8 [id number] - [id number] - [id number] Implanted:Qty: 1 on 06/03/2018 by Jaxon Vega MD at OR [facility] N/A: Abdomen CR BARD : DAVOL 05/04/2020 [id number] / [id number] / [id number] Description:PARA ESOPHAGEAL HERNIA documented as of this [...] of Attor jose luis? No Care Teams Director Traffic And Planning Relationship Specialty Start Date End Date Madalyn Pandya MD [address] [place] [address] PCP - General Family Medicine 06/11/23 documented as of this encounter
--- OUTSIDE RECORDS SUMMARY | 2024-04-17 12:45 | External Medical Summary | Summary of Care ---
Author Name Unknown Organization [facility] Address [address] [place] [address] Phone [phone] Care Team Providers Care [place] Maori Name Role Phone Madalyn Pandya MD Primary Care Provider Reason for Visit * Reason Comments Outpatient Testing Encounter Details Date Type Department Care Team (Late st Contact Info) Description 02/06/2024 2:20 PM EDT Laboratory Laboratory [place]andra Trimble [address] [place] [phone] [facility] [address] [place] [address] Arrived Allergies Active Allergy Reactions Criticality Noted [...] disease, chronic, stage III (GFR 30-59 ml/min) ([facility]),Cerebrovascul ar disease, arteriosclerotic, post-stroke,Dyslipi demia, goal LDL below 70,Cerebellar infarct ([facility]) take 1 tablet by mouth at bedtime [...] proximal vein of lower extremity, unspecified laterality ([facility]) Take 1 Tablet by mouth in the [...] Espinoza's, hiatal hernia FAMILY HX, ISCHEMIC HEART [id number] 12/04/2010 01/20/2013 Dyslipidemia, goal LDL below 130 [...] 03/01/2024 12:30 PM EDT Office [facility] [address] [place] [address] Bala Knox MD [address] [place] [address] [place] [facility] [address] [place] [address] 03/29/2024 10:20 AM EST [facility] [address] [place] [address] Bala Knox MD [address] [place] [address] [facility] [address] [place] [address] 04/26/2024 10:00 AM EST Laboratory Laboratory [facility] [place] [address] [place] [phone] Violeta Mcdonald [address] [place] [address] 07/07/2024 2:00 PM EST Office Visit [facility] [address] [place] [address] Madalyn Pandya MD [address] [place] [address] 07/26/2024 2:00 PM EDT Office Visit Hematology/Oncology [facility] [place] [address] [place] [phone] Constanza Castañeda CRNP [address] [facility] [place] [address] Health Maintenance Due Date Last Done Comments Espinoza's Esophagus Surveilance 1945 Zoster Vaccines (2 of 3) 02/12/2015 12/18/2014 Adult Wellness Visit 12/21/2021 12/21/2020 COVID-19 Vaccine (4 - season) 2024 03/20/2021, 07/22/2020, 07/01/2020 Influenza Vaccine (FLU shot) (#1) 2024 04/11/2023, 03/21/2022, 04/05/2021, Additional history exists DTap/Tdap Vaccines (2 - Td or Tdap) 01/21/2024 01/20/2014 CKD PHOS USE SMARTSET 97498 04/02/202403/06, 09/14/2021, 03/12/2021, Additional history exists Depression Screening 05/20/2024 05/20/2023 TSH 05/20/2024 05/20/2023, 05/05, 04/02/2023, Additional history exists GFR 07/05/2024 01/06/2024, 06/07/2023, 10/06/2023, Additional history exists CKD HGB USE SMARTSET 91033 01/05/202501/05, 01/06/2024, 05/20/2023, Additional history exists Albumin/Creatinine [...] encounter Medical Devices Implanted Type Area Counter Installer Device Identifier Shelf Expiration Date Model / Serial / Lot [place] Ptfe 1x1 [id number] - [id number] Implanted:Qty: 5 on 06/03/2018 by Jaxon Vega MD at OR [facility] N/A: Abdomen CR BARD : PERIPHERAL VASCULAR 11/29/2021 [id number] / / [id number] Description:para-esophageal hernia Allomax Mesh 5 X 8 [id number] - [id number] - [id number] Implanted:Qty: 1 on 06/03/2018 by Jaxon Vega MD at OR [facility] N/A: Abdomen CR BARD : DAVOL 05/04/2020 [id number] / [id number] / [id number] Description:PARA ESOPHAGEAL HERNIA documented as of this encounter Advance Directives * Full Code (Latest Code Status on File) Date Activated Date Inactivated Comments 06/03/2018 4:58 PM 06/05/2018 7:48 PM Question Answer Comments Discussion of Advance Directives occurred with: Not Discussed Does the patient have a Living Will? No Does the patient have Health Care Power of Attor jose luis? No Care Teams [place] Maori Relationship Specialty Start Date End Date Madalyn Pandya MD [address] [place] [address] PCP - General Family Medicine 06/11/23 documented as of this encounter
--- OUTSIDE RECORDS SUMMARY | 2024-04-17 12:45 | External Medical Summary | Summary of Care ---
Author Name Unknown Organization [facility] Address [address] [place] [address] Phone [phone] Care Team Providers Care Lean Manufacturing Engineer Name Role Phone Madalyn Pandya MD Primary Care Provider [phone] Reason for Visit * Reason Onset Date Comments Urinary Tract Infection Symptoms 01/19/2024 Encounter Details Date Type Department Care Team (Late st Contact Info) Description 01/19/2024 Telephone [facility] [address] [place] [address] Madalyn Pandya MD [address] [place] [phone] Urinary Tract Infection Symptoms Allergies Active Allergy Reactions Criticality Noted Date [...] as of this encounter (statuses as of 01/22/2024) Medications Medication Sig Dispensed Refills Start Date [...] ml/min) ([facility]),Cerebrovascula r disease, arteriosclerotic, post-stroke,Dyslipid emia, goal LDL below 70,Cerebellar infarct ([facility]) take 1 tablet by mouth at bedtime 90 Tablet 1 08/18/2023 Active Estradiol 0.1 MG/GM Vaginal Cream (Estrace) Apply a pea sized amount (0.5g) vaginally twice a week as directed 42.5 g 3 09/26/2023 Active RA Aspirin EC 81 MG Oral Tablet Delayed Release Take 1 Tablet by mouth in the morning. 11/27/2023 Active Methenamine Hippurate 1 GM Oral Tablet (Hiprex) Take 1 Tablet by mouth in the morning and 1 Tablet before bedtime. 30 Tablet 1 12/10/2023 Active Apixaban 2.5 MG Oral Tablet (Eliquis)Indications :Chronic deep vein thrombosis (DVT) of proximal vein of lower extremity, unspecified laterality ([facility]) Take 1 Tablet by mouth in the morning and 1 Tablet before bedtime. 180 Tablet 1 12/29/2023 Active Spironolactone 25 MG Oral Tablet (Aldactone) Take 1 Tablet by mouth in the morning. In the morning.. 30 Tablet 1 01/01/2024 Active documented as of this encounter (statuses as of 01/22/2024) Active Problems Problem Noted Date Diagnosed Date [...] as of this encounter (statuses as of 01/22/2024) Resolved Problems Problem Noted Date Diagnosed Date [...] Espinoza's, hiatal hernia FAMILY HX, ISCHEMIC HEART [id number] 12/04/2010 01/20/2013 Dyslipidemia, goal LDL below 130 08/24/2010 01/20/2013 Anxiety state 11/14/2009 01/20/2013 Irritable bowel syndrome 11/14/2009 Esophageal reflux 11/14/2009 04/16/2011 Overview: hiatal hernia, EGD 03/13 Barretts Palpitations 11/14/2009 01/20/2013 Overview: 10/05 ANEMIA NOS-neg eval 11/11 Overview: neg. follow-up 1989 Other allergic rhinitis 01/03 Overview: ICD-10 update of inactive term documented as of this encounter (statuses as of 01/22/2024) Immunizations Name Administration Dates Next Due COVID-19 mRNA, LNP-s, No Pre serve, 2-Dose Series (ShoeSize.Me) 03/20/2021,07/22/2020,07/01/2020 PPD 10/05/1992 Pneumococcal Conjugate Vacc, 13 Valent (Prevnar) 01/17/2015 Pneumococcal Polysaccharide PPV23 (Pneumovax) 04/07/2013 Season Influenza, Quad, PF, Adjuvanted, 65+ Yrs, IM (FLUAD) 02/25/2020 Seasonal Influenza, High Dos e, Trivalent, PF, IM (Fluzone HD) 03/11/2017 Seasonal Influenza, PF, 6 M & above, IM , (FluLaval or Fluzone) 04/23/2018 Seasonal Influenza, Quadriva lent Hd (Fluzone Hd) 04/11/2023,03/21/2022,04/05/2021 Seasonal Influenza, Quadriva lent, No Preserve, IM 01/22/2016 Seasonal Influenza, Trivalen t, (IIV3), with Preserv, (Fluzone) 01/17/2015,01/20/2014,04/07/2013 Seasonal Influenza, Trivalen t, Adjuvanted, 65+ YRS, [...] encounter Miscellaneous Notes * Telephone Encounter - Susana Galvez LPN - 01/22/2024 8:24 AM EDT Daughter calling about UA results. Informed of letter indicate Multiple joycelyn suggests contamination or colonization She verbalized understanding. They noted pt having increased confusion, she was sending photos in text messages at 3 am today. * Telephone Encounter - Destini Rico OSA - 01/22/2024 8:22 AM EDT Reason for patient's call: pts daughter calling with questions regarding the letter that she received Caller was transferred to Soraida at the nurse line. * Telephone Encounter - Iliana Ordonez CMA - 01/19/2024 11:22 AM EDT Daughter informed of the below msg/order placed and verbalized understanding. * Telephone Encounter - Madalyn Pandya MD - 01/19/2024 10:03 AM EDT done * Telephone Encounter - Jessica Paul LPN - 01/19/2024 9:07 AM EDT Patients daughter Fay calling in today. She is requesting a standing UA C &S to be ordered. Daughter has noticed increase in confusion and fatigue over the weekend. Patient denies urinary issuesand fevers. Patient had appt with gynocology on 01/13 at [facility] for Pessary removal. Pessary not reinserted due to upcoming urogyn appts (see below). Denies bladder prolapse at this time. Patient is managed by Urogynecology: Last urogyn appt 11/09. Scheduled for cystoscopy 02/08 and Botox 03/29. Patient is using estrogen vaginal cream as ordered. Daughter refused to schedule appt. Standing UA C & S ordered. Pended if agreeable. Please review. Please call Fay (Daughter) when order signed. documented in this encounter Plan of Treatment Upcoming Encounters Date Type Department Care Team (Late st Contact Info) Description 02/09/2024 10:20 AM EDT Office [facility] [address] [place] [address] Bala Knox MD [address] [place] [address] [place] [facility] [address] [place] [address] 03/29/2024 10:20 AM EST Office Visit Urogynecology [facility] [address] [place] [address] Bala Knox MD [address] [place] [address] [place], Nurse Urodynamics [address] [place] [address] 07/07/2024 2:00 PM EST Office Visit Family [facility] [address] [place] [address] Madalyn Pandya MD [address] [place] [address] Health Maintenance Due Date Last Done Comments Espinoza's Esophagus Surveilance 1945 Zoster Vaccines (2 of 3) 02/12/2015 12/18/2014 Adult Wellness Visit 12/21/2021 12/21/2020 COVID-19 Vaccine (2023- season) 2024 03/20/2021, 07/22/2020, 07/01/2020 Influenza Vaccine (FLU shot) (#1) 2024 04/11/2023, 03/21/2022, 04/05/2021, Additional history exists DTap/Tdap Vaccines (2 - Td or Tdap) 01/21/2024 01/20/2014 CKD PHOS USE SMARTSET 07093 04/02/202403/06, 09/14/2021, 03/12/2021, Additional history exists Depression Screening 05/20/2024 05/20/2023 TSH 05/20/2024 05/20/2023, 05/05, 04/02/2023, Additional history exists GFR 07/05/2024 01/06/2024, 06/0 07/2023, 10/06/2023, Additional history exists CKD HGB USE SMARTSET 95042 01/05/202501/05, 01/06/2024, 05/20/2023, Additional history exists Albumin/Creatinine [...] this encounter Medical Devices Implanted Type Area Campaign Developer Device Identifier Shelf Expiration Date Model / Serial / Lot [place] Ptfe 1x1 [id number] - [id number] Implanted:Qty: 5 on 06/03/2018 by Jaxon Vega MD at OR [facility] N/A: Abdomen CR BARD : PERIPHERAL VASCULAR 11/29/2021 [id number] / / [id number] Description:para-esophageal hernia Allomax Mesh 5 X 8 [id number] - [id number] - [id number] Implanted:Qty: 1 on 06/03/2018 by Jaxon Vega MD at OR [facility] N/A: Abdomen CR BARD : DAVOL 05/04/2020 [id number] / [id number] / [id number] Description:PARA ESOPHAGEAL HERNIA documented as of this encounter Results * ALBUMIN / CREATININE RATIO, URINE (01/19/2024 1:38 PM EDT) Albumin, Random Urine <1.20 mg/dL 01/20/2024 2:12 AM EDT [facility] Creatinine, Random Urine 29 mg/dL 01/20/2024 2:12 AM EDT [facility] Albumin / Creatinine Ratio, Urine Uninterpretable Albumin/Creatinine ratio due to very low albumin and creatinine values. <30 mg/g Creat 01/20/2024 2:12 AM EDT [facility] Urine Urine specimen / Unknown Non-blood Collection / Unknown 01/19/2024 1:38 PM EDT 01/19/2024 1:38 PM EDT Narrative [facility] [place] 01/20/2024 2:12 AM EDT Normal: <30 mg/g creatinine High: 30-300 mg/g creatinine Very High: >300 mg/g creatinine Nephrotic: >2200 mg/g creatinine Madalyn Pandya MD LAB URINE ORDERABLES [facility] [address] [place] [address] * CULTURE, URINE, QUANTITATIVE (01/19/2024 1:38 PM EDT) Culture Growth Multiple joycelyn suggests contamination or colonization 01/20/2024 6:13 PM EDT LAB[facility]ATORY [facility] Urine Urine specimen obtained by clean catch procedure / Unknown Non-blood Collection / Unknown 01/19/2024 1:38 PM EDT 01/19/2024 1:38 PM EDT Madalyn Pandya MD LAB MICRO - GENERAL ORDERABLES [facility] [address] [place] [address] documented in this encounter Visit Diagnoses Diagnosis Recurrent UTI- Primary Urinary tract infection, site not specified Benign hypertension with CKD (chronic kidney disease) stage III (HCC) 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 No Does the patient have Health Care Power of Attor jose luis? No Care Teams Lean Manufacturing Engineer Relationship Specialty Start Date End Date Madalyn Pandya MD [address] [place] [phone] PCP - General Family Medicine 06/11/23 documented as of this encounter
--- OUTSIDE RECORDS SUMMARY | 2024-04-17 12:45 | External Medical Summary | Summary of Care ---
Author Name Unknown Organization [facility] Address [address] [place] [address] Phone [phone] Care Team Providers Care Au Pair Name Role Phone Madalyn Pandya MD Primary Care Provider [phone] Reason for Visit * Reason Comments Acute Family reporting inc reased confusion, recent UTI, would like rechecked. Encounter Details Date Type Department Care Team (Late st Contact Info) Description 01/22/2024 2:40 PM EDT Office Visit Family Practice [facility] Aleksandra Trimble [address] [facility] [address] [place] [address] Alban Garcia PA-C [address] [place] [address] Acute cystitis with hematuria*; UTI symptoms Allergies Active Allergy Reactions Criticality Noted Date [...] as of this encounter (statuses as of 01/26/2024) Medications Medication Sig Dispensed Refills Start Date [...] disease, chronic, stage III (GFR 30-59 ml/min) ([facility]),Cerebrovasc ular disease, arteriosclerotic, post-stroke,Dysli pidemia, goal LDL below 70,Cerebellar infarct ([facility]) take 1 tablet by mouth [...] proximal vein of lower extremity, unspecified laterality ([facility]) Take 1 Tablet by mouth in the morning and 1 Tablet before bedtime. 180 Tablet 1 12/29/2023 Active Spironolactone 25 MG Oral Tablet (Aldactone) Take 1 Tablet by mouth in the morning. In the morning.. 30 Tablet 1 01/01/2024 Active Ciprofloxacin HCl 250 MG Oral Tablet (Cipro)Indication s:Acute cystitis with hematuria Take 1 Tablet by mouth in the morning and 1 Tablet before bedtime. Do all this for 7 days. 14 Tablet 01/22/2024 4 Active RA Aspirin EC 81 MG Oral Tablet Delayed Release Take 1 Tablet by mouth in the morning. 11/27/2023 4 Discontinue d(End of Procedure) documented as of this encounter (statuses as of 01/26/2024) Active Problems Problem Noted Date Diagnosed Date [...] as of this encounter (statuses as of 01/26/2024) Resolved Problems Problem Noted Date Diagnosed Date [...] Espinoza's, hiatal hernia FAMILY HX, ISCHEMIC HEART [id number] 12/04/2010 01/20/2013 Dyslipidemia, goal LDL below 130 08/24/2010 01/20/2013 Anxiety state 11/14/2009 01/20/2013 Irritable bowel syndrome 11/14/2009 Esophageal reflux 11/14/2009 04/16/2011 Overview: hiatal hernia, EGD 03/13 Barretts Palpitations 11/14/2009 01/20/2013 Overview: 10/05 ANEMIA NOS-neg eval 11/11 Overview: neg. follow-up 1989 Other allergic rhinitis 01/03 Overview: ICD-10 update of inactive term documented as of this encounter (statuses as of 01/26/2024) Immunizations Name Administration Dates Next Due COVID-19 mRNA, LNP-s, No Pre serve, 2-Dose Series ([employer]) 03/20/2021,07/22/2020,07/01/2020 PPD 10/05/1992 Pneumococcal Conjugate Vacc, 13 [...] disease, chronic, stage III (GFR 30-59 ml/min) ([facility]) Hypertension goal BP (blood pressure) < 140/90 S/P repair of paraesophageal hernia Benign hypertension with CKD (chronic kidney disease) stage III ([facility]) Hypothyroidism Urinary urgency Intracervical pessary Diastolic congestive heart failure ([facility]) Review of patient's allergies indicates: [...] Espinoza's, hiatal hernia FAMILY HX, ISCHEMIC HEART [id number] 12/04/2010 Fracture of foot, closed left 01/04 Gait disorder 01/22/2016 Gastroesophageal reflux disease with esophagitis 01/17/2015 Generalized osteoarthritis Hepatitis as a child "yellow jaundice" Herpes zoster without complication 08/14/2017 C8 nerve root on left. 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 [place] LIGATE/CUT OVIDUCT(S) PARAESOPHAGEAL HERNIA REPAIR, LAP W/ MESH N/A 06/03/2018 LAPAROSCOPIC PARAESOPHAGEAL HERNIA REPAIR W/MESH performed by Jaxon Vega MD at OR [facility] [place] REMOVE GALLBLADDER REMOVE TONSILS & ADENOIDS, UNDER [...] Stability Do you currently live in a senior living or have no steady place to sleep [...] 02/09/2024 10:20 AM EDT Office Visit Urogynecology [facility] [address] [place] [address] Bala Knox MD [address] [place] [address] [place], Nurse Urodynamics [address] [place] [address] 03/29/2024 10:20 AM EST Office Visit Urogynecology [facility] [address] [place] [address] [facility] [address] [facility] [place] [address] [place], Nurse Urodynamics [address] [place] [address] 04/20/2024 2:30 PM EST Office Visit Hematology/Oncology [facility] [address] [place] [phone] Constanza Castañeda CRNP [address] [facility] [place] [phone] 04/26/2024 10:00 AM EST Laboratory Laboratory [facility] [address] [place] [phone] [place], Lab [facility] [address] [facility] [place] [address] 07/07/2024 2:00 PM EST Office Visit [facility] [address] [place] [phone] Madalyn Pandya MD [address] [place] [phone] Health Maintenance Due Date Last Done Comments Espinoza's Esophagus Surveilance 1943 Zoster Vaccines (2 of 3) 02/12/2015 12/18/2014 Adult Wellness Visit 12/21/2021 12/21/2020 COVID-19 Vaccine ( season) 2024 03/20/2021, 07/22/2020, 07/01/2020 Influenza Vaccine (FLU shot) (#1) 2024 04/11/2023, 03/21/2022, 04/05/2021, Additional history exists DTap/Tdap Vaccines (2 - Td or Tdap) 01/21/2024 01/20/2014 CKD PHOS USE SMARTSET 91933 04/02/202403/06, 09/14/2021, 03/12/2021, Additional history exists Depression Screening 05/20/2024 05/20/2023 TSH 05/20/2024 05/20/2023, 05/05, 04/02/2023, Additional history exists GFR 07/05/2024 01/06/2024, 06/0 07/2023, 10/06/2023, Additional history exists CKD HGB USE SMARTSET 50901 01/05/202501/05, 01/06/2024, 05/20/2023, Additional history exists Albumin/Creatinine [...] this encounter Medical Devices Implanted Type Area Adolescent Coordinator Device Identifier Shelf Expiration Date Model / Serial / Lot Sunset Ptfe 1x1 [id number] - [id number] Implanted:Qty: 5 on 06/03/2018 by Jaxon Vega MD at OR [facility] [place] N/A: Abdomen CR BARD : PERIPHERAL VASCULAR 11/29/2021 [id number] / / [id number] Description:para-esophageal hernia Allomax Mesh 5 X 8 [id number] - [id number] - [id number] Implanted:Qty: 1 on 06/03/2018 by Jaxon Vega MD at OR [facility] [place] N/A: Abdomen CR BARD : DAVOL 05/04/2020 [id number] / [id number] / [id number] Description:PARA ESOPHAGEAL HERNIA documented as of this encounter Procedures Procedure Name Priority Date/Time Associated Diagnosis Comments CULTURE, URINE, QUANTITATIVE Routine 01/22/2024 3:02 PM EDT UTI symptoms URINALYSIS, POINT OF CARE (ENTER/EDIT) Routine 01/22/2024 UTI symptoms documented in this encounter Results * CULTURE, URINE, QUANTITATIVE (01/22/2024 3:02 PM EDT) Culture Growth No significant growth 01/23/2024 5:07 PM EDT LAB[facility]ATORY [facility] Urine Urine specimen obtained by clean catch procedure / Unknown Non-blood Collection / Unknown 01/22/2024 3:02 PM EDT 01/22/2024 3:02 PM EDT Alban Garcia PA-C LAB MICRO - G ENERAL ORDERABLES LAB[facility]ATORY [facility] [address] [place] [address] * (ABNORMAL) URINALYSIS, POINT OF CARE (ENTER/EDIT) (01/22/2024) Color, Urine Yellow Yellow or Light Yellow Clarity, Urine Slightly Cloudy Clear Glucose, Urine Negative Negative mg/dL Bilirubin, Urine Negative Negative Ketone, Urine Negative Negative mg/dL Specific Mallory, Urine 1.020 1.003 - 1.030 Blood, Urine [...] UTI symptoms Other symptoms involving urinary system documented in this encounter Advance Directives * Full Code (Latest Code Status on File) Date Activated Date Inactivated Comments 06/03/2018 4:58 PM 06/05/2018 7:48 PM Question Answer Comments Discussion of Advance Directives occurred with: Not Discussed Does the patient have a Living Will? No Does the patient have Health Care Power of Attor jose luis? No Care Teams Au Pair Relationship Specialty Start Date End Date Madalyn Pandya MD [address] [place] [address] PCP - General Family Medicine 06/11/23 documented as of this encounter
--- OUTSIDE RECORDS SUMMARY | 2024-04-17 12:45 | External Medical Summary | Summary of Care ---
Author Name Unknown Organization [facility] Address [address] [facility] [address] Phone [phone] Care Team Providers Care Chart Picker Name Role Phone Madalyn Pandya MD Primary Care Provider Encounter Details Date Type Department Care Team (Late st Contact Info) Description 01/13/2024 4:00 PM EDT Telemedicine Hematology/Oncology [facility] [address] [place] [address] Constanza Castañeda CRNP [address] [facility] [place] [address] Anemia in stage 3a chronic kidney disease (HCC)*; Acute deep vein thrombosis (DVT) of femoral vein of right lower extremity (HCC) Allergies Active Allergy Reactions Criticality Noted [...] as of this encounter (statuses as of 01/25/2024) Medications Medication Sig Dispensed Refills Start Date [...] 40 MG Oral Tablet Delayed Release (Protonix)Indicatio ns:Cavanaugh esophagus take 1 tablet by mouth 30 MINUTES PRIOR TO THE FIRST MEAL OF THE DAY. 90 Tablet 5 04/11/2023 Active Rosuvastatin Calcium 20 MG Oral Tablet (Crestor)Indication s:Kidney disease, chronic, stage III (GFR 30-59 ml/min) ([facility]),Cerebrovascul ar disease, arteriosclerotic, post-stroke,Dyslipi demia, goal LDL below 70,Cerebellar infarct ([facility]) take 1 tablet by mouth at [...] vein of lower extremity, unspecified laterality ([facility]) Take 1 Tablet by mouth in the morning and 1 Tablet before bedtime. 180 Tablet 1 12/29/2023 Active Spironolactone 25 MG Oral Tablet (Aldactone) Take 1 Tablet by mouth in the morning. In the morning.. 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 Irritable bowel syndrome [...] as of this encounter (statuses as of 01/25/2024) Resolved Problems Problem Noted Date Diagnosed Date [...] smear 07/02/2012 01/20/2013 Diffuse cystic mastopathy 07/02/2012 Cavanaugh esophagus 06/07/2011 09/18/2015 TSH elevation 04/16/2011 01/20/2013 Dizziness 04/16/2011 01/20/2013 Essential and other specified forms of tremor 04/16/20 11 01/20/2013 Esophageal reflux 04/16/2011 01/17/2015 Overview: Cavanaugh's, hiatal hernia FAMILY HX, ISCHEMIC HEART [id number] 12/04/2010 01/20/2013 Dyslipidemia, goal LDL below 130 08/24/2010 01/20/2013 Anxiety state 11/14/2009 01/20/2013 Irritable bowel syndrome 11/14/2009 Esophageal reflux 11/14/2009 04/16/2011 Overview: hiatal hernia, EGD 03/13 Barretts Palpitations 11/14/2009 01/20/2013 Overview: 10/05 ANEMIA NOS-neg eval 11/11 Overview: neg. follow-up 1989 Other allergic rhinitis 01/03 Overview: ICD-10 update of inactive term documented as of this encounter (statuses as of 01/25/2024) Immunizations Name Administration Dates Next Due COVID-19 [...] as of this encounter Progress Notes * Constanza Castañeda CRNP - 01/13/2024 4:00 PM EDT Hematology/Oncology In-Home Telemedicine Note [facility] Name: Nancy Ayala Date: 01/13/2024 CHIEF COMPLAINT: Nancy Ayala is a 78 year old female patient of HIREN Anguiano completing an in-home telemedicine visit in lieu of scheduled follow-up visit due to Covid- 19 pandemic. Oncology history from patient chart, confirmed with patient. HEMATOLOGY/ONCOLOGY DIAGNOSIS: Anemia of CKD stage III History of RLE DVT - provoked in setting of long distance travel July 2023 CURRENT TREATMENT: Eliquis 2.5 mg BID Vitron C one tablet daily HISTORY OF PRESENT ILLNESS: PMH of cavanaugh's esophagus, CVA, DLD, OA, HTN. Chronic anemia since at least 2009. Baseline now 10 range. Normocytic. No abnormalities in other cell lines. Is currently taking an antibiotic for a UTI. Has been getting these frequently. Also currently being treated with Eliquis for a blood clot of her RLE. Had traveled to [place] in a car in July. Then from there traveled to [place] in a car a couple days after that and thenback to [place] after a week. Noticed her right leg kept getting more swollen. Went to urgent care and was diagnosed with an acute DVT of right superficial femoral and popliteal vein. Has issues with chronic swelling and venous insufficiency in the RLE for at least two years. Had also been in the hospital for a UTI in March. More sedentary since having frequent UTI. Has an upcoming appointment with Urology to address. Also more sedentary d/t recent diagnosis of Parkinson's disease. Amb ulates with a walker. Has a shuffling gait. Doing PT twice a week. Does have daytime fatigue. Sleep schedule is off d/t having difficulty sleeping. Patient also waking up a lot to pee. Did have chronic dizziness but this has improved on antibiotic. Denies any significant SOB, some with exertion. Denies CP. Daughter also had DVT while on control. No other family history of DVT. Interval History: Right Venous Duplex 11/04/23: IMPRESSION 1. Nonocclusive deep venous thrombosis within the right popliteal vein as described above. IMPRESSION: Anemia of CKD stage III History of RLE DVT - provoked in setting of long distance travel July 2023 PLAN: Lab results reviewed: Hgb stable at 10.1 Creatinine stable at 1.3 Ferritin improved to 71 Continue Vitron C one tablet daily Continue on Eliquis 2.5 mg BID. Plan for indefinite anticoagulation d/t venous insufficiency, extent of DVT and decreased mobility due to Parksinson's disease. Recommend compliance with compression stockings Repeat CBCd, iron screen and ferritin in three months RTC in six months with cbc/diff, cmp, iron screen and ferritin Patient location: HOME. I was in a hospital or clinic location. After connecting through [employer],patient was verified with two unique identifiers. Patient (or authorized legal self pay representative) was then informed that this was a Telemedicine visit and being conducted confidentially over secure lines. Methods to assure confidentiality were taken. Patient acknowledged consent and understanding of pr ivacy and security of the Telemedicine visit. The patient agreed to participate. The total time spent [id number] via in-home televideo with the patient/family was 15 minutes; 10 minutes were spent counseling regarding the plan of care, treatment and other issues; representing > 50% of the encounter. INTERVAL HISTORY: Nancy Ayala is a 78 year old female with a history as outlined above. Being contacted for an in-home telemedicine follow-up visit today. Patient doing well today. No complaints or concerns verbalized. Is now on lower dose of Eliquis and doing well. Swelling in RLE seems to be improving. Is not currently wearing compression stockings. Review of patient's allergies indicates: Allergen Reactions [...] MEAL OF THE DAY. 90 Tablet 5 Rosuvastatin Calcium 20 MG Oral Tablet (Crestor) take 1 tablet by mouth at bedtime 90 Tablet 1 Estradiol 0.1 MG/GM Vaginal Cream (Estrace) Apply a pea sized amount (0.5g) vaginally twice a week as directed 42.5 g 3 RA Aspirin EC 81 MG Oral Tablet Delayed Release Take 1 Tablet by mouth in the morning. Methenamine Hippurate 1 GM Oral Tablet (Hiprex) Take 1 Tablet by mouth in the morning and 1 Tablet before bedtime. 30 Tablet 1 Apixaban 2.5 MG Oral Tablet (Eliquis) Take 1 Tablet by mouth in the morning and 1 Tablet before bedtime. 180 Tablet 1 Spironolactone 25 MG Oral Tablet (Aldactone) Take 1 Tablet by mouth in the morning. In the morning.. 30 Tablet 1 No current facility-administered medications for this visit. Past Medical History: Diagnosis Date Allergic rhinitis due to pollen 01/17/2015 Anemia neg. 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 09/18/2015 Benign essential tremor 01/20/2013 Cerebellar infarct (HCC) 01/22/2016 Noted on MRI Cerebrovascular disease, arteriosclerotic, post-stroke 01/17/2015 Chronic fatigue syndrome 11/18/2013 Diffuse cystic mastopathy left breast tenderness Dyslipidemia, goal LDL below 70 01/17/2015 Eczema 01/20/2013 Esophageal reflux 04/16/2011 Cavanaugh's, hiatal hernia FAMILY HX, ISCHEMIC HEART [id number] 12/04/2010 Fracture of foot, closed left 01/04 Gait disorder 01/22/2016 Gastroesophageal reflux disease with esophagitis 01/17/2015 Generalized osteoarthritis Hepatitis as a child "yellow jaundice" Herpes zoster without complication 08/14/2017 C8 nerve root on left. 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) 07/18/2014 Per CKD protocol #1 Osteopenia 09/18/2012 multiple sites Other tenosynovitis of hand and wrist fingers,rt. thumb ' Paraesophageal hernia 05/12/2018 Post herpetic neuralgia 08/14/2017 C8 nerve root on left. Rheumatic fever as a child S/P repair of paraesophageal hernia 05/25/2019 06/03/18 Trigger finger 05/21/2013 Left thumb TSH elevation 04/16/2011 Urge incontinence of urine 10/11/2015 Vitamin D deficiency 04/16/2011 REVIEW OF SYSTEMS: See interval history, otherwise WNL OBJECTIVE: Vital signs not available for review at time of call Wt Readings from Last 5 Encounters: 12/09/23 67.6 kg (149 lb) 11/10/23 66.7 kg (147 lb) 09/23/23 64.4 kg (142 lb) 09/04/23 68.2 kg (150 lb 6.4 oz) 09/01/23 68.5 kg (151 lb) PHYSICAL EXAM: N/A, in-home telemedicine visit LABS: Results for orders placed or performed in visit on 01/06/24 LIPID PANEL WITH DIRECT LDL IF TG IS HIGH Result Value Ref Range Triglycerides 82 <=174 mg/dL Cholesterol 151 <200 mg/dL HDL Cholesterol 54 >49 mg/dL Non-HDL Cholesterol 97 <=159 mg/dL LDL Cholesterol 81 <=129 mg/dL MAGNESIUM Result Value Ref Range Magnesium 2.3 1.5 - 2.6 mg/dL COMPREHENSIVE METABOLIC PANEL Result Value Ref Range BUN 24 (H) 6 - 20 mg/dL Creatinine 1.3 (H) 0.5 - 1.0 mg/dL Estimated Glomerular Filtration Rate 43 (L) >=60 mL/min Sodium 140 135 - 146 mmol/L Potassium 4.8 3.5 - 5.1 mmol/L Chloride 106 98 - 107 mmol/L CO2 25 22 - 32 mmol/L Anion Gap 9 7 - 15 mmol/L Glucose 86 70 - 120 mg/dL Albumin 4.3 3.8 - 5.0 g/dL AST 15 10 - 35 U/L Alkaline Phosphatase 92 35 - 130 U/L Bilirubin, Total 0.4 <=1.2 mg/dL Calcium 9.7 8.4 - 10.2 mg/dL Protein 6.3 6.0 - 8.3 g/dL ALT 11 10 - 35 U/L IRON SCREEN, INCLUDING TIBC Result Value Ref Range Iron 44 33 - 151 ug/dL Iron Binding Capacity 297 250 - 425 ug/dL Transferrin Saturation Percent 15 15 - 55 % FERRITIN Result Value Ref Range Ferritin 71 13 - 150 ng/mL CBC Result Value Ref Range WBC 4.77 4.00 - 10.80 K/uL RBC 3.29 3.85 - 5.15 M/uL HGB 10.1 (L) 12.0 - 15.3 g/dL HCT 33.0 (L) 36.0 - 45.2 % MCV 100.3 81.5 - 97.5 fL MCH 30.7 27.0 - 34.0 pg MCHC 30.6 32.0 - 36.0 g/dL RDW 13.3 11.5 - 15.5 % PLT 209 140 - 400 K/uL MPV 11.4 6.6 - 11.1 fL nRBCs 0 <=0 /100 WBCs DIFFERENTIAL, AUTOMATED Result Value Ref Range WBC 4.77 4.00 - 10.80 K/uL Neutrophils % 70.7 40.0 - 75.0 % Lymphocytes % 18.9 18.0 - 42.0 % Monocytes % 9.0 1.0 - 11.0 % Eosinophils % 0.8 0.0 - 6.0 % Basophils % 0.2 0.0 - 2.0 % Immature Granulocytes % 0.4 0.0 - 2.0 % Absolute Neutrophils 3.37 1.80 - 7.70 K/uL Absolute Lymphocytes 0.90 (L) 1.00 - 4.80 K/ul Absolute Monocytes 0.43 0.00 - 1.10 K/uL Absolute Eosinophils 0.04 0.00 - 0.70 K/uL Absolute Basophils 0.01 0.00 - 0.20 K/uL Absolute Immature Granulocytes 0.02 0.00 - 0.20 K/uL Please, see top of note for IMPRESSION and PLAN. HIREN Mcclure documented in this encounter Plan of Treatment Upcoming Encounters Date Type Department Care Team (Late st Contact Info) Description 02/09/2024 10:20 AM EDT Office Visit Urogynecology [facility] [address] [place] [address] Bala Knox MD [address] [place] [address] [place] Nurse Urodynamics [address] [place] [address] 03/29/2024 10:20 AM EST Office Visit Urogynecology [facility] [address] [place] [address] Bala Knox MD [address] [place] [address] [place] Nurse Urodynamics [address] [place] [address] 07/07/2024 2:00 PM EST Office Visit [facility] [address] [place] [address] Madalyn Pandya MD [address] [place] [address] Scheduled Orders Name Type Priority Associated Diagnoses Orde r Schedule CBC WITH WBC DIFFERENTIAL Lab STAT Anemia in stage 3a chronic kidney disease (HCC) Every 3 Months for 4 Occurrences starting 01/25/2024 until 02/11/2025 IRON SCREEN, INCLUDING TIBC Lab STAT Anemia in stage 3a chronic kidney disease (HCC) Every 3 Months for 4 Occurrences starting 01/25/2024 until 02/11/2025 FERRITIN Lab STAT Anemia in stage 3a chronic kidney disease (HCC) Every 3 Months for 4 Occurrences starting 01/25/2024 until 02/11/2025 COMPREHENSIVE METABOLIC PANEL Lab STAT Anemia in stage 3a chronic kidney disease (HCC) Every 6 Months for 2 Occurrences starting 01/25/2024 until 02/23/2025 Health Maintenance Due Date Last Done Comments Cavanaugh's Esophagus Surveilance 1943 Zoster Vaccines (2 of 3) 02/12/2015 12/18/2014 Adult Wellness Visit 12/21/2021 12/21/2020 COVID-19 Vaccine ( season) 2024 03/20/2021, 07/22/2020, 07/01/2020 Influenza Vaccine (FLU shot) (#1) 2024 04/11/2023, 03/21/2022, 04/05/2021, Additional history exists DTap/Tdap Vaccines (2 - Td or Tdap) 01/21/2024 01/20/2014 CKD PHOS USE SMARTSET 58131 04/02/202403/06, 09/14/2021, 03/12/2021, Additional history exists Depression Screening 05/20/2024 05/20/2023 TSH 05/20/2024 05/20/2023, 05/05, 04/02/2023, Additional history exists GFR 07/05/2024 01/06/2024, 06/0 07/2023, 10/06/2023, Additional history exists CKD HGB USE SMARTSET 71429 01/05/202501/05, 01/06/2024, 05/20/2023, Additional history exists Albumin/Creatinine [...] this encounter Medical Devices Implanted Type Area Digital Sales Planner Device Identifier Shelf Expiration Date Model / Serial / Lot Kelayres Ptfe 1x1 [id number] - [id number] Implanted:Qty: 5 on 06/03/2018 by Jaxon Vega MD at OR [facility] N/A: Abdomen CR BARD : PERIPHERAL VASCULAR 11/29/2021 [id number] / / [id number] Description:para-esophageal hernia Allomax Mesh 5 X 8 [id number] - [id number] - [id number] Implanted:Qty: 1 on 06/03/2018 by Jaxon Vega MD at OR [facility] N/A: Abdomen CR BARD : DAVOL 05/04/2020 [id number] / [id number] / [id number] Description:PARA ESOPHAGEAL HERNIA documented as of this encounter Visit Diagnoses Diagnosis Anemia in stage 3a chronic kidney disease (HCC)- Primary Acute deep vein thrombosis (DVT) of femoral vein of right lower extremity (HCC) documented in this encounter Advance Directives * Full Code (Latest Code Status on File) Date Activated Date Inactivated Comments 06/03/2018 4:58 PM 06/05/2018 7:48 PM Question Answer Comments Discussion of Advance Directives occurred with: Not Discussed Does the patient have a Living Will? No Does the patient have Health Care Power of Attor jose luis? No Care Teams Chart Picker Relationship Specialty Start Date End Date Madalyn Pandya MD [address] [place] [phone] PCP - General Family Medicine 06/11/23 documented as of this encounter
--- OUTSIDE RECORDS SUMMARY | 2024-04-17 12:45 | External Medical Summary | Summary of Care ---
Author Name Unknown Organization [facility] Address [address] [place] [address] Phone [phone] Care Team Providers Care Automation Clerk Name Role Phone Madalyn Pandya MD Primary Care Provider [phone] Reason for Visit * Reason Onset Date Comments Urinary Tract Infection Symptoms 01/19/2024 Encounter Details Date Type Department Care Team (Late st Contact Info) Description 01/19/2024 Telephone [facility] [address] [place] [address] Madalyn Pandya MD [address] [place] [id number] Urinary Tract Infection Symptoms Allergies Active Allergy [...] as of this encounter (statuses as of 01/19/2024) Medications Medication Sig Dispensed Refills Start Date [...] disease, chronic, stage III (GFR 30-59 ml/min) ([facility]),Cerebrovascula r disease, arteriosclerotic, post-stroke,Dyslipid emia, goal LDL [...] proximal vein of lower extremity, unspecified laterality ([facility]) Take 1 Tablet by mouth in the morning and 1 Tablet before bedtime. 180 Tablet 1 12/29/2023 Active Spironolactone 25 MG Oral Tablet (Aldactone) Take 1 Tablet by mouth in the morning. In the morning.. 30 Tablet 1 01/01/2024 Active documented as of this encounter (statuses as of 01/19/2024) Active Problems Problem Noted Date Diagnosed Date [...] as of this encounter (statuses as of 01/19/2024) Resolved Problems Problem Noted Date Diagnosed Date [...] Espinoza's, hiatal hernia FAMILY HX, ISCHEMIC HEART [id number] 12/04/2010 01/20/2013 Dyslipidemia, goal LDL below 130 08/24/2010 01/20/2013 Anxiety state 11/14/2009 01/20/2013 Irritable bowel syndrome 11/14/2009 Esophageal reflux 11/14/2009 04/16/2011 Overview: hiatal hernia, EGD 03/13 Barretts Palpitations 11/14/2009 01/20/2013 Overview: 10/05 ANEMIA NOS-neg eval 11/11 Overview: neg. follow-up 1989 Other allergic rhinitis 01/03 Overview: ICD-10 update of inactive term documented as of this encounter (statuses as of 01/19/2024) Immunizations Name Administration Dates Next Due COVID-19 mRNA, LNP-s, No Pre serve, 2-Dose Series ([employer]vine) 03/20/2021,07/22/2020,07/01/2020 PPD 10/05/1992 Pneumococcal Conjugate Vacc, 13 [...] encounter Miscellaneous Notes * Telephone Encounter - Iliana Ordonez CMA [...] had appt with gynocology on 01/13 at [facility] for Pessary removal. Pessary not reinserted due [...] 02/09/2024 10:20 AM EDT Office Visit [facility] [address] [place] [address] Bala Knox MD [address] [place] [address] [facility] [address] [place] [address] 03/29/2024 10:20 AM EST Office Visit Urogynecology [facility] [address] [place] [address] Bala Knox MD [address] [place] [address] Nurse [facility] [address] [place] [address] 07/07/2024 2:00 PM EST Office Visit [facility] [address] [place] [address] Madalyn Pandya MD [address] [place] [address] Scheduled Orders Name Type Priority Associated Diagnoses Orde r Schedule CULTURE, URINE, QUANTITATIVE Lab Routine Recurrent UTI 1 Occurrences starting 01/19/2024 until 01/18/2025 ALBUMIN / CREATININE RATIO, URINE Lab Routine Benign hypertension with CKD (chronic kidney disease) stage III (HCC) Expected: 01/19/2024, Expires: 01/18/2025 Health Maintenance Due Date Last Done Comments Espinoza's Esophagus Surveilance 1943 Zoster Vaccines (2 of 3) 02/12/2015 12/18/2014 Adult Wellness Visit 12/21/2021 12/21/2020 COVID-19 Vaccine ( season) 2024 03/20/2021, 07/22/2020, 07/01/2020 Influenza Vaccine (FLU shot) (#1) 2024 04/11/2023, 03/21/2022, 04/05/2021, Additional history exists DTap/Tdap Vaccines (2 - Td or Tdap) 01/21/2024 01/20/2014 CKD PHOS USE SMARTSET 98230 04/02/202403/06, 09/14/2021, 03/12/2021, Additional history exists Albumin/Creatinine Ratio 04/04/2024 023, 03/13/2022, 09/14/2021, Additional history exists Depression Screening 05/20/2024 05/20/2023 TSH 05/20/2024 05/20/2023, 05/05, 04/02/2023, Additional history exists GFR 07/05/2024 01/06/2024, 06/0 07/2023, 10/06/2023, Additional history exists CKD HGB USE SMARTSET 48701 01/05/202501/05, 01/06/2024, 05/20/2023, Additional history exists DXA Scan 01/21/2030 01/21/2023, [...] Medical Devices Implanted Type Area Product Marketing Specialist Device Identifier Shelf Expiration Date Model / Serial / Lot [place] Ptfe 1x1 [id number] - [id number] Implanted:Qty: 5 on 06/03/2018 by Jaxon Vega MD at OR [facility] N/A: Abdomen CR BARD : PERIPHERAL VASCULAR 11/29/2021 [id number] / / [id number] Description:para-esophageal hernia Allomax Mesh 5 X 8 [id number] - [id number] - [id number] Implanted:Qty: 1 on 06/03/2018 by Jaxon Vega MD at OR [facility] N/A: Abdomen CR BARD : DAVOL 05/04/2020 [id number] / [id number] / [id number] Description:PARA ESOPHAGEAL HERNIA documented as of this encounter Visit Diagnoses Diagnosis Recurrent UTI- [...] of Attor jose luis? No Care Teams Automation Clerk Relationship Specialty Start Date End Date Madalyn Pandya MD [address] [place] [address] PCP - General Family Medicine 06/11/23 documented as of this encounter
--- OUTSIDE RECORDS SUMMARY | 2024-04-17 12:45 | External Medical Summary ---
Author Name Unknown Address Unknown Organization K01:[facility] - [address] [place] [id number] Laboratory Report Ordering Provider Test Date Status KARIN HARRIS 01/22/2024 15:02:35 Final Observation Date Value Abnormality Reference (Units) Status Bacteria identified in Specimen by Culture 01/22/2024 15:02:35 No significant growth Final Test: Culture, Urine, Quanti tative
Specimen Source: Urine, Clean Catch
Specimen Type: Urine
Specimen Date: 01/22/2024 1502
Result Date: 01/23/2024 1707
Result Status: Final result
Resulting Lab: [facility]
[address]
[place] [address]

CULTURE

No significant growth

null Performing Location [facility] - [address] [facility] [id number]
--- OUTSIDE RECORDS SUMMARY | 2024-04-17 12:45 | External Medical Summary | Summary of Care ---
Author Name Unknown Organization [facility] Address [address] [place] [address] Phone [phone] Care Team Providers Care Tipple Oiler Name Role Phone Madalyn Pandya MD Primary Care Provider [phone] Reason for Visit * Reason Onset Date Comments Urinary Tract Infection Symptoms 01/19/2024 Encounter Details Date Type Department Care Team (Late st Contact Info) Description 01/19/2024 Telephone [facility] [address] [place] [address] Madalyn Pandya MD [address] [place] [phone] Urinary Tract Infection Symptoms Allergies Active Allergy [...] disease, chronic, stage III (GFR 30-59 ml/min) ([facility]),Cerebrovascula r disease, arteriosclerotic, post-stroke,Dyslipid emia, [...] proximal vein of lower extremity, unspecified laterality ([facility]) Take 1 Tablet by mouth [...] Espinoza's, hiatal hernia FAMILY HX, ISCHEMIC HEART [id number] 12/04/2010 01/20/2013 Dyslipidemia, goal LDL below 130 [...] mRNA, LNP-s, No Pre serve, 2-Dose Series ([employer]) 03/20/2021,07/22/2020,07/01/2020 PPD 10/05/1992 Pneumococcal Conjugate Vacc, 13 [...] encounter Miscellaneous Notes * Telephone Encounter - Haritha Son CCMA - 01/22/2024 10:39 AM EDT Called pts daughter and scheduled pt with Edmund Garcia PA-C in [place]. Sending to provider fyi * Telephone Encounter - Madalyn Pandya MD - 01/22/2024 8:56 AM EDT Should have acute visit or ED * Telephone Encounter - Susana Galvez LPN [...] had appt with gynocology on 01/13 at [facility] for Pessary removal. Pessary not reinserted due [...] 01/22/2024 2:40 PM EDT Office Visit Family [facility] [address] [place] [address] Alban Garcia PA-C [address] [place] [address] 02/09/2024 10:20 AM EDT Office Visit Urogynecology [facility] [address] [place] [address] Bala Knox MD [address] [place] [address] [facility] [address] [place] [address] 03/29/2024 10:20 AM EST Office Visit Urogynecology [facility] [address] [place] [address] Bala Knox MD [address] [place] [address] [facility] [address] [place] [address] 07/07/2024 2:00 PM EST Office Visit [facility] [address] [place] [address] Madalyn Pandya MD [address] [place] [address] Health Maintenance Due Date Last Done Comments Espinoza's Esophagus Surveilance 1943 Zoster Vaccines (2 of 3) 02/12/2015 12/18/2014 Adult Wellness Visit 12/21/2021 12/21/2020 COVID-19 Vaccine ( season) 2024 03/20/2021, 07/22/2020, 07/01/2020 Influenza Vaccine (FLU shot) (#1) 2024 04/11/2023, 03/21/2022, 04/05/2021, Additional history exists DTap/Tdap Vaccines (2 - Td or Tdap) 01/21/2024 01/20/2014 CKD PHOS USE SMARTSET 95907 04/02/202403/06, 09/14/2021, 03/12/2021, Additional history exists Depression Screening 05/20/2024 05/20/2023 TSH 05/20/2024 05/20/2023, 05/05, 04/02/2023, Additional history exists GFR 07/05/2024 01/06/2024, 06/0 07/2023, 10/06/2023, Additional history exists CKD HGB USE SMARTSET 64408 01/05/202501/05, 01/06/2024, 05/20/2023, Additional history exists Albumin/Creatinine [...] this encounter Medical Devices Implanted Type Area Noc Engineer Device Identifier Shelf Expiration Date Model / Serial / Lot [place] Ptfe 1x1 [id number] - [id number] Implanted:Qty: 5 on 06/03/2018 by Jaxon Vega MD at OR [facility] N/A: Abdomen CR BARD : PERIPHERAL VASCULAR 11/29/2021 [id number] / / [id number] Description:para-esophageal hernia Allomax Mesh 5 X 8 [id number] - [id number] - [id number] Implanted:Qty: 1 on 06/03/2018 by Jaxon Vega MD at OR [facility] N/A: Abdomen CR BARD : DAVOL 05/04/2020 [id number] / [id number] / [id number] Description:PARA ESOPHAGEAL HERNIA documented as of this encounter Results * ALBUMIN / CREATININE RATIO, URINE (01/19/2024 1:38 PM EDT) Albumin, Random Urine <1.20 mg/dL 01/20/2024 2:12 AM EDT [facility] Creatinine, Random Urine 29 mg/dL 01/20/2024 2:12 AM EDT [facility] Albumin / Creatinine Ratio, Urine Uninterpretable Albumin/Creatinine ratio due to very low albumin and creatinine values. <30 mg/g Creat 01/20/2024 2:12 AM EDT [facility] Urine Urine specimen / Unknown Non-blood Collection / Unknown 01/19/2024 1:38 PM EDT 01/19/2024 1:38 PM EDT Narrative LABORATORY [facility] - 01/20/2024 2:12 AM EDT Normal: <30 mg/g creatinine High: 30-300 mg/g creatinine Very High: >300 mg/g creatinine Nephrotic: >2200 mg/g creatinine Madalyn Pandya MD LAB URINE ORDERABLES Performing Organization Address City/[facility] de Phone Number [facility] [address] [place] [address] * CULTURE, URINE, QUANTITATIVE (01/19/2024 1:38 PM EDT) Pathologist [facility] Culture Growth Multiple joycelyn suggests contamination or colonization 01/20/2024 6:13 PM EDT [facility] Urine Urine specimen obtained by clean catch procedure / Unknown Non-blood Collection / Unknown 01/19/2024 1:38 PM EDT 01/19/2024 1:38 PM EDT Madalyn Pandya MD LAB MICRO - GENERAL ORDERABLES Performing Organization Address City/[facility]/ZIP Co de Phone Number [facility] [address] [place] [address] documented in this encounter Visit Diagnoses Diagnosis [...] of Attor jose luis? No Care Teams Tipple Oiler Relationship Specialty Start Date End Date Madalyn Pandya MD [address] [place] [phone] PCP - General Family Medicine 06/11/23 documented as of this encounter
--- OUTSIDE RECORDS SUMMARY | 2024-04-17 12:45 | External Medical Summary | Summary of Care ---
Author Name Unknown Organization [facility] Address [address] [place] [address] Phone [phone] Care Team Providers Care Chief Operator Lock Tender Name Role Phone Madalyn Pandya MD Primary Care Provider [phone] Reason for Visit * Reason Onset Date Comments Urinary Tract Infection Symptoms 01/19/2024 Encounter Details Date Type Department Care Team (Late st Contact Info) Description 01/19/2024 Telephone [facility] [address] [place] [address] Madalyn Pandya MD [address] [place] [phone] Urinary Tract Infection Symptoms Allergies Active Allergy [...] chronic, stage III (GFR 30-59 ml/min) ([facility]),Cerebrovascula r disease, arteriosclerotic, post-stroke,Dyslipid emia, goal LDL [...] vein of lower extremity, unspecified laterality ([facility]) Take 1 Tablet by mouth in the [...] Espinoza's, hiatal hernia FAMILY HX, ISCHEMIC HEART [id number] 12/04/2010 01/20/2013 Dyslipidemia, goal LDL below 130 [...] mRNA, LNP-s, No Pre serve, 2-Dose Series ([employer]) 03/20/2021,07/22/2020,07/01/2020 PPD 10/05/1992 Pneumococcal Conjugate Vacc, 13 [...] encounter Miscellaneous Notes * Telephone Encounter - Destini Rico OSA [...] had appt with gynocology on 01/13 at [facility] for Pessary removal. Pessary not reinserted [...] 10:20 AM EDT Office Visit Urogynecology [facility] [address] [place] [address] Bala Knox MD [address] [place] [address] Howard, Nurse [facility] [address] [place] [address] 03/29/2024 10:20 AM EST Office Visit Urogynecology [facility] [address] [place] [address] Bala Knox MD [address] [place] [address] [facility] [address] [place] [address] 07/07/2024 2:00 PM EST Office Visit [facility] [address] [place] [address] Madalyn Pandya MD [address] [place] [address] Health Maintenance Due Date Last Done Comments Espinoza's Esophagus Surveilance 1943 Zoster Vaccines (2 of 3) 02/12/2015 12/18/2014 Adult Wellness Visit 12/21/2021 12/21/2020 COVID-19 Vaccine (4 - season) 2024 03/20/2021, 07/22/2020, 07/01/2020 Influenza Vaccine (FLU shot) (#1) 2024 04/11/2023, 03/21/2022, 04/05/2021, Additional history exists DTap/Tdap Vaccines (2 - Td or Tdap) 01/21/2024 01/20/2014 CKD PHOS USE SMARTSET 81593 04/02/202403/06, 09/14/2021, 03/12/2021, Additional history exists Depression Screening 05/20/2024 05/20/2023 TSH 05/20/2024 05/20/2023, 05/05, 04/02/2023, Additional history exists GFR 07/05/2024 01/06/2024, 06/0 07/2023, 10/06/2023, Additional history exists CKD HGB USE SMARTSET 39738 01/05/202501/05, 01/06/2024, 05/20/2023, Additional history exists Albumin/Creatinine [...] this encounter Medical Devices Implanted Type Area Finisher Accordion Device Identifier Shelf Expiration Date Model / Serial / Lot [place] Ptfe 1x1 [id number] - [id number] Implanted:Qty: 5 on 06/03/2018 by Jaxon Vega MD at OR [facility] N/A: Abdomen CR BARD : PERIPHERAL VASCULAR 11/29/2021 [id number] / / [id number] Description:para-esophageal hernia Allomax Mesh 5 X 8 [id number] - [id number] - [id number] Implanted:Qty: 1 on 06/03/2018 by Jaxon Vega MD at OR [facility] N/A: Abdomen CR BARD : DAVOL 05/04/2020 [id number] / [id number] / [id number] Description:PARA ESOPHAGEAL HERNIA documented as of this encounter Results * ALBUMIN / CREATININE RATIO, URINE (01/19/2024 1:38 PM EDT) Albumin, Random Urine <1.20 mg/dL 01/20/2024 2:12 AM EDT [facility] Creatinine, Random Urine 29 mg/dL 01/20/2024 2:12 AM EDT [facility] Albumin / Creatinine Ratio, Urine Uninterpretable Albumin/Creatinine ratio due to very low albumin and creatinine values. <30 mg/g Creat 01/20/2024 2:12 AM EDT [facility] Urine Urine specimen / Unknown Non-blood Collection / Unknown 01/19/2024 1:38 PM EDT 01/19/2024 1:38 PM EDT Narrative [facility] - 01/20/2024 2:12 AM EDT Normal: <30 mg/g creatinine High: 30-300 mg/g creatinine Very High: >300 mg/g creatinine Nephrotic: >2200 mg/g creatinine Madalyn Pandya MD LAB URINE ORDERABLES [facility] [address] [place] [address] * CULTURE, URINE, QUANTITATIVE (01/19/2024 1:38 PM EDT) Culture Growth Multiple joycelyn suggests contamination or colonization 01/20/2024 6:13 PM EDT [facility] Urine Urine specimen obtained by clean catch procedure / Unknown Non-blood Collection / Unknown 01/19/2024 1:38 PM EDT 01/19/2024 1:38 PM EDT Madalyn Pandya MD LAB MICRO - GENERAL ORDERABLES [facility] [address] [facility] [place] [address] documented in this encounter Visit Diagnoses Diagnosis [...] of Attor jose luis? No Care Teams Chief Operator Lock Tender Relationship Specialty Start Date End Date Madalyn Pandya MD [address] [place] [address] PCP - General Family Medicine 06/11/23 documented as of this encounter
--- OUTSIDE RECORDS SUMMARY | 2024-04-17 12:45 | External Medical Summary | Summary of Care ---
Author Name Unknown Organization [facility] Address [address] [place] [address] Phone [phone] Care Team Providers Care Tire Design Engineer Name Role Phone Madalyn Pandya MD Primary Care Provider Reason for Visit * Reason Comments Outpatient Testing Encounter Details Date Type Department Care Team (Late st Contact Info) Description 01/19/2024 1:40 PM EDT Laboratory Laboratory [facility] [facility] [address] [place] [phone] [address] [place] [address] Recurrent UTI; Benign hypertension with CKD (chronic kidney disease) stage III (HCC) Allergies Active Allergy Reactions Criticality Noted [...] chronic, stage III (GFR 30-59 ml/min) ([facility]),Cerebrovascula r disease, arteriosclerotic, post-stroke,Dyslipid emia, goal LDL below 70,Cerebellar infarct ([facility]) take 1 tablet by mouth at bedtime [...] vein of lower extremity, unspecified laterality ([facility]) Take 1 Tablet by mouth in the [...] Espinoza's, hiatal hernia FAMILY HX, ISCHEMIC HEART [id number] 12/04/2010 01/20/2013 Dyslipidemia, goal LDL below 130 [...] mRNA, LNP-s, No Pre serve, 2-Dose Series ([employer]) 03/20/2021,07/22/2020,07/01/2020 PPD 10/05/1992 Pneumococcal Conjugate Vacc, 13 [...] 02/09/2024 10:20 AM EDT [facility] [address] [place] [address] Bala Knox MD [address] [place] [address] Howard Nurse [facility] [address] [place] [address] 03/29/2024 10:20 AM EST [facility] [address] [place] [address] Bala Knox MD [address] [place] [address] Howard [facility] [address] [place] [address] 07/07/2024 2:00 PM EST Office Visit [facility] [address] [place] [address] Madalyn Pandya MD [address] [place] [address] Pending Results Name Type Priority Associated Diagnoses Date /Time CULTURE, URINE, QUANTITATIVE Lab Routine Recurrent UTI 01/19/2024 1:38 PM EDT ALBUMIN / CREATININE RATIO, URINE Lab Routine Benign hypertension with CKD (chronic kidney disease) stage III (HCC) 01/19/2024 1:38 PM EDT Health Maintenance Due Date Last Done Comments Espinoza's Esophagus Surveilance 1943 Zoster Vaccines (2 of 3) 02/12/2015 12/18/2014 Adult Wellness Visit 12/21/2021 12/21/2020 COVID-19 Vaccine ( season) 2024 03/20/2021, 07/22/2020, 07/01/2020 Influenza Vaccine (FLU shot) (#1) 2024 04/11/2023, 03/21/2022, 04/05/2021, Additional history exists DTap/Tdap Vaccines (2 - Td or Tdap) 01/21/2024 01/20/2014 CKD PHOS USE SMARTSET 01209 04/02/202403/06, 09/14/2021, 03/12/2021, Additional history exists Albumin/Creatinine Ratio 04/04/2024 023, 03/13/2022, 09/14/2021, Additional history exists Depression Screening 05/20/2024 05/20/2023 TSH 05/20/2024 05/20/2023, 05/05, 04/02/2023, Additional history exists GFR 07/05/2024 01/06/2024, 06/0 07/2023, 10/06/2023, Additional history exists CKD HGB USE SMARTSET 67659 01/05/202501/05, 01/06/2024, 05/20/2023, Additional history exists DXA [...] this encounter Medical Devices Implanted Type Area Amusement Ride Inspector Device Identifier Shelf Expiration Date Model / Serial / Lot [place] Ptfe 1x1 [id number] - [id number] Implanted:Qty: 5 on 06/03/2018 by Jaxon Vega MD at OR [facility] N/A: Abdomen CR BARD : PERIPHERAL VASCULAR 11/29/2021 [id number] / / [id number] Description:para-esophageal hernia Allomax Mesh 5 X 8 [id number] - [id number] - [id number] Implanted:Qty: 1 on 06/03/2018 by Jaxon Vega MD at OR [facility] N/A: Abdomen CR BARD : DAVOL 05/04/2020 [id number] / [id number] / [id number] Description:PARA ESOPHAGEAL HERNIA documented as of this encounter Visit Diagnoses Diagnosis Recurrent UTI Urinary tract infection, site not specified Benign [...] of Attor jose luis? No Care Teams Tire Design Engineer Relationship Specialty Start Date End Date Madalyn Pandya MD [address] [place] [address] PCP - General Family Medicine 06/11/23 documented as of this encounter
--- OUTSIDE RECORDS SUMMARY | 2024-04-17 12:45 | External Medical Summary | Summary of Care ---
Author Name Unknown Organization [facility] Address [address] [place] [address] Phone [phone] Care Team Providers Care Director Of Capital Giving Name Role Phone Madalyn Pandya MD Primary Care Provider [phone] Reason for Visit * Reason Onset Date Comments Urinary Tract Infection Symptoms 01/19/2024 Encounter Details Date Type Department Care Team (Late st Contact Info) Description 01/19/2024 Telephone [facility] [address] [place] [address] Madalyn Pandya MD [address] [place] [phone] Urinary Tract Infection Symptoms Allergies Active Allergy [...] chronic, stage III (GFR 30-59 ml/min) ([facility]),Cerebrovascula r disease, arteriosclerotic, post-stroke,Dyslipid emia, goal LDL [...] vein of lower extremity, unspecified laterality ([facility]) Take 1 Tablet by [...] Espinoza's, hiatal hernia FAMILY HX, ISCHEMIC HEART [id number] 12/04/2010 01/20/2013 Dyslipidemia, goal LDL below 130 [...] mRNA, LNP-s, No Pre serve, 2-Dose Series ([employer]) 03/20/2021,07/22/2020,07/01/2020 PPD 10/05/1992 Pneumococcal Conjugate Vacc, 13 [...] encounter Miscellaneous Notes * Telephone Encounter - Madalyn Pandya MD [...] had appt with gynocology on 01/13 at [facility] for Pessary removal. Pessary not reinserted due [...] Urogynecology [facility] [address] [place] [address] Bala Knox MD [address] [place] [address] Howard Nurse [facility] [address] [place] [address] 03/29/2024 10:20 AM EST Office Visit Urogynecology [facility] [address] [place] [address] Bala Knox MD [address] [place] [address] Nurse [facility] [address] [place] [address] 07/07/2024 2:00 PM EST Office Visit [facility] [address] [place] [address] Madalyn Pandya MD [address] [place] [address] Health Maintenance Due Date Last Done Comments Espinoza's Esophagus Surveilance 1943 Zoster Vaccines (2 of 3) 02/12/2015 12/18/2014 Adult Wellness Visit 12/21/2021 12/21/2020 COVID-19 Vaccine ( season) 2024 03/20/2021, 07/22/2020, 07/01/2020 Influenza Vaccine (FLU shot) (#1) 2024 04/11/2023, 03/21/2022, 04/05/2021, Additional history exists DTap/Tdap Vaccines (2 - Td or Tdap) 01/21/2024 01/20/2014 CKD PHOS USE SMARTSET 84443 04/02/202403/06, 09/14/2021, 03/12/2021, Additional history exists Depression Screening 05/20/2024 05/20/2023 TSH 05/20/2024 05/20/2023, 05/05, 04/02/2023, Additional history exists GFR 07/05/2024 01/06/2024, 06/07/2023, 10/06/2023, Additional history exists CKD HGB USE SMARTSET 57418 01/05/202501/05, 01/06/2024, 05/20/2023, Additional history exists Albumin/Creatinine [...] this encounter Medical Devices Implanted Type Area Submersible Pilot Device Identifier Shelf Expiration Date Model / Serial / Lot [place] Ptfe 1x1 [id number] - [id number] Implanted:Qty: 5 on 06/03/2018 by Jaxon Vega MD at OR [facility] N/A: Abdomen CR BARD : PERIPHERAL VASCULAR 11/29/2021 [id number] / / [id number] Description:para-esophageal hernia Allomax Mesh 5 X 8 [id number] - [id number] - [id number] Implanted:Qty: 1 on 06/03/2018 by Jaxon Vega MD at OR [facility] N/A: Abdomen CR BARD : DAVOL 05/04/2020 [id number] / [id number] / [id number] Description:PARA ESOPHAGEAL HERNIA documented as of this encounter Results * ALBUMIN / CREATININE RATIO, URINE (01/19/2024 1:38 PM EDT) Albumin, Random Urine <1.20 mg/dL 01/20/2024 2:12 AM EDT [facility] Creatinine, Random Urine 29 mg/dL 01/20/2024 2:12 AM EDT [facility] Albumin / Creatinine Ratio, Urine Uninterpretable Albumin/Creatinine ratio due to very low albumin and creatinine values. <30 mg/g Creat 01/20/2024 2:12 AM EDT [facility] Urine Urine specimen / Unknown Non-blood Collection / Unknown 01/19/2024 1:38 PM EDT 01/19/2024 1:38 PM EDT Narrative [facility] - 01/20/2024 2:12 AM EDT Normal: <30 mg/g creatinine High: 30-300 mg/g creatinine Very High: >300 mg/g creatinine Nephrotic: >2200 mg/g creatinine Madalyn Pandya MD LAB URINE ORDERABLES Performing Organization Address City/[facility]/ZIP Co de Phone Number [facility] [address] [place] [address] * CULTURE, URINE, QUANTITATIVE (01/19/2024 1:38 PM EDT) Culture Growth Multiple joycelyn suggests contamination or colonization 01/20/2024 6:13 PM EDT LABORATORY [facility] Urine Urine specimen obtained by clean catch procedure / Unknown Non-blood Collection / Unknown 01/19/2024 1:38 PM EDT 01/19/2024 1:38 PM EDT Madalyn Pandya MD LAB MICRO - GENERAL ORDERABLES Performing Organization Address [facility] Co de Phone Number [facility] [address] [place] [address] documented in this encounter Visit Diagnoses Diagnosis [...] Attor jose luis? No Care Teams Director Of Capital Giving Relationship Specialty Start Date End Date Madalyn Pandya MD [address] [place] [address] PCP - General Family Medicine 06/11/23 documented as of this encounter
--- OUTSIDE RECORDS SUMMARY | 2024-04-17 12:46 | External Medical Summary ---
Author Name Unknown Address Unknown Organization K01:[facility] [address] [facility] [address] [place] [address] Laboratory Report Ordering Provider Test Date Status CARMELO BEAN 01/19/2024 13:38:04 Final Normal: <30 mg/g creatinine< br/>High: 30-300 mg/g creatinine
Very High: >300 mg/g creatinine
Nephrotic: >2200 mg/g creatinine Observation Date Value Abnormality Reference (Units) Status Albumin, Urine 01/19/2024 13:38:04 <1.20 (mg/dL) Final Creatinine, Urine 01/19/2024 13:38:04 29 (mg/dL) Final ALBUMIN/CREATININE RATIO, HIDE 01/19/2024 13:38:04 Uninterpretable Albumin/Creatinine ratio due to very low albumin and creatinine values. <30 (mg/g Creat) Final Performing Location [facility] [address] [place] [address]
--- OUTSIDE RECORDS SUMMARY | 2024-04-17 12:46 | External Medical Summary | Summary of Care ---
Author Name Unknown Organization [facility] Address [address] [place] [address] Phone [phone] Care Team Providers Care Dye Can Operator Name Role Phone Madalyn Pandya MD Primary Care Provider Reason for Visit * Reason Onset Date Comments Medication Question 12/15/2023 LM 12/21 FYI 12/15/2023 Encounter Details Date Type Department Care Team (Late st Contact Info) Description 12/15/2023 Telephone [facility] [address] [place] [address] Madalyn Pandya MD [address] [place] [phone] Medication Question (LM 12/21/); FYI Allergies Active Allergy Reactions Criticality Noted Date [...] as of this encounter (statuses as of 12/22/2023) Medications Medication Sig Dispensed Refills Start Date [...] disease, chronic, stage III (GFR 30-59 ml/min) (HCC),Cerebrovascula r disease, arteriosclerotic, post-stroke,Dyslipid emia, goal LDL below 70,Cerebellar infarct (HCC) take 1 tablet by mouth at bedtime 90 Tablet 1 08/18/2023 Active Estradiol 0.1 MG/GM Vaginal Cream (Estrace) Apply a pea sized amount (0.5g) vaginally twice a week as directed 42.5 g 3 09/26/2023 Active Spironolactone 25 MG Oral Tablet (Aldactone) take 1 tablet by mouth every morning 30 Tablet 1 11/10/2023 Active Eliquis 5 MG Oral Tablet Take 1 Tablet by mouth in the morning and 1 Tablet before bedtime. 12/02/2023 Active RA Aspirin EC 81 MG Oral Tablet Delayed Release Take 1 Tablet by mouth in the morning. 11/27/2023 Active Methenamine Hippurate 1 GM Oral Tablet (Hiprex) Take 1 Tablet by mouth in the morning and 1 Tablet before bedtime. 30 Tablet 1 12/10/2023 Active documented as of this encounter (statuses as of 12/22/2023) Active Problems Problem Noted Date Diagnosed Date [...] as of this encounter (statuses as of 12/22/2023) Resolved Problems Problem Noted Date Diagnosed Date [...] Espinoza's, hiatal hernia FAMILY HX, ISCHEMIC HEART [id number] 12/04/2010 01/20/2013 Dyslipidemia, goal LDL below 130 08/24/2010 01/20/2013 Anxiety state 11/14/2009 01/20/2013 Irritable bowel syndrome 11/14/2009 Esophageal reflux 11/14/2009 04/16/2011 Overview: hiatal hernia, EGD 03/13 Barretts Palpitations 11/14/2009 01/20/2013 Overview: 10/05 ANEMIA NOS-neg eval 11/11 Overview: neg. follow-up 1989 Other allergic rhinitis 01/03 Overview: ICD-10 update of inactive term documented as of this encounter (statuses as of 12/22/2023) Immunizations Name Administration Dates Next Due COVID-19 mRNA, LNP-s, No Pre serve, 2-Dose Series ([employer]) 03/20/2021,07/22/2020,07/01/2020 PPD 10/05/1992 Pneumococcal Conjugate Vacc, 13 Valent (Prevnar) 01/17/2015 Pneumococcal Polysaccharide PPV23 (Pneumovax) 04/07/2013 Season Influenza, Quad, PF, Adjuvanted, 65+ Yrs, IM (FLUAD) 02/25/2020 Seasonal Influenza, PF, 6 M & above, IM , (FluLaval or Fluzone) 04/23/2018 Seasonal Influenza, Quadriva lent Hd (Fluzone Hd) 04/11/2023,03/21/2022,04/05/2021 Seasonal Influenza, Quadriva lent, No Preserve, IM 01/22/2016 Seasonal Influenza, Split, I IV3, With Preserve, Inj 01/17/2015,01/20/2014,04/07/2013 Seasonal Influenza, Trivalen t, Adjuvanted, 65+ yrs 02/23/2019 Seasonal Influenza, Trivalen t, High Dose, No Preserve, IM 03/11/2017 TDAP (age 10 and older)(Boostrix) 01/20/2014 Varicella [...] Telephone Encounter - Susana Galvez LPN - 12/22/2023 3:12 PM EDT Patient(s) Daughter returned call. Informed of message. Verbalized understanding. * Telephone Encounter - Madison Herrera LPN - 12/22/2023 1:45 PM EDT Left message for Fay to return call to [phone] regarding message below. * Telephone Encounter - Madalyn Pandya MD - 12/21/2023 9:11 AM EDT Unfortunately that would be a better question for urogyn * Telephone Encounter - Madison Herrera LPN - 12/18/2023 2:35 PM EDT Please advise: She was prescribed Methenamine Hippurate on 12/09. They have a problem with the medication being too large. The pill is huge, they tried cutting it in half but it is still rather larger to swallow which patient has never been able to swallow pills well. She also is complaining of a metallic taste in her throat when she takes the medication which is making her not want to take the medication. She has tried taking the med with juice, crackers, applesauce but has not helped. Daughter spoke with the pharmacy asking if it came in a liquid form but they told her no. She is asking if there is another medication that she could be placed on that would be easier to take and not have the terrible taste. * Telephone Encounter - Madalyn Pandya MD - 12/17/2023 10:04 AM EDT Try restarting the medication after abx course * Telephone Encounter - Miracle Abdi LPN - 12/16/2023 3:18 PM EDT Daughter Fay has been notified rx sent for UTI(see TE 12/15) Please see message below and address regarding methenamine Hippurate. * Telephone Encounter - Elo Becerra OSA - 12/16/2023 1:04 PM EDT Fay/daughter calling for an update on urinalysis. Please advise. * Telephone Encounter - Gayla Briceno OSA - 12/15/2023 6:16 PM EDT Daughter given status update on results. Informed her it was still preliminary. * Telephone Encounter - Elida Lyles PA-C - 12/15/2023 5:40 PM EDT Urine culture still in preliminary phase * Telephone Encounter - Yanely Ochoa LPN - 12/15/2023 3:48 PM EDT Patient's daughter calling back in as she has not heard anything about the urine results that was completed on 12/11. Prelim Culture does show Bacteria growth in chart. Asking if something can be sent in to the pharmacy today. Please advise. Please also see message below and address regarding methenamine Hippurate. * Telephone Encounter - Yanely Ochoa LPN - 12/15/2023 11:35 AM EDT Patient's daughter calling in , She was prescribed Methenamine Hippurate on 12/09. They have a problem with the medication being too large. The pill is huge, they tried cutting it in half but it is still rather larger to swallow which patient has never been able to swallow pills well. She also is complaining of a metallic taste in her throat when she takes the medication which is making her not want to take the medication. She has tried taking the med with juice, crackers, applesauce but has not helped. Daughter spoke with the pharmacy asking if it came in a liquid form but they told her no. She is asking if there is another medication that she could be placed on that would be easier to take and not have the terrible taste. Please advise. documented in this encounter Plan of Treatment Upcoming Encounters Date Type Department Care Team (Late st Contact Info) Description 01/06/2024 10:30 AM EDT Laboratory Laboratory [address] [place] [address] [place] [address] 01/13/2024 4:00 PM EDT Telemedicine Hematology/Oncology [facility] [place] [address] [place] [address] Constanza Castañeda CRNP [address] [place] [address] 02/09/2024 10:20 AM EDT Office Visit Urogynecology [facility] [address] [place] [address] Bala Knox MD [address] [place] [address] Howard, Nurse Urodynamics [address] [place] [address] 03/29/2024 10:20 AM EST Office Visit Urogynecology [facility] [address] [place] [address] Bala Knox MD [address] [place] [address] Howard Nurse [facility] [address] [place] [address] 07/07/2024 2:00 PM EST Office Visit [facility] [address] [place] [phone] Madalyn Pandya MD [address] [place] [phone] Health Maintenance Due Date Last Done Comments Espinoza's Esophagus Surveilance 1945 Zoster Vaccines (2 of 3) 02/12/2015 12/18/2014 Adult Wellness Visit 12/21/2021 12/21/2020 COVID-19 Vaccine ( - 2022- season) 2023 03/20/2021, 07/22/2020, 07/01/2020 Influenza Vaccine (FLU shot) (#1) 2024 04/11/2023, 03/21/2022, 04/05/2021, Additional history exists DTaP,Tdap,and Td Vaccines (2 - Td or Tdap) 01/21/2024 01/20/2014 CKD PHOS USE SMARTSET 53363 04/02/202403/06, 09/14/2021, 03/12/2021, Additional history exists Albumin/Creatinine Ratio 04/04/2024 023, 03/13/2022, 09/14/2021, Additional history exists GFR 04/06/2024 10/06/2023, 06/0 07/2023, 08/09/2023, Additional history exists CKD HGB USE SMARTSET 54830 05/20/202405/20, 05/20/2023, 03/21/2023, Additional history exists Depression Screening 05/20/2024 05/20/2023 TSH 05/20/2024 05/20/2023, 05/05, 04/02/2023, Additional history exists DXA Scan 01/21/2030 01/21/2023, [...] this encounter Medical Devices Implanted Type Area Manager Nicu Device Identifier Shelf Expiration Date Model / Serial / Lot [place] Ptfe 1x1 [id number] - [id number] Implanted:Qty: 5 on 06/03/2018 by Jaxon Vega MD at OR [facility] N/A: Abdomen CR BARD : PERIPHERAL VASCULAR 11/29/2021 [id number] / / [id number] Description:para-esophageal hernia Allomax Mesh 5 X 8 [id number] - [id number] - [id number] Implanted:Qty: 1 on 06/03/2018 by Jaxon Vega MD at OR [facility] N/A: Abdomen CR BARD : DAVOL 05/04/2020 [id number] / [id number] / [id number] Description:PARA ESOPHAGEAL HERNIA documented as of this encounter Advance Directives * Full Code (Latest Code Status on File) Date Activated Date Inactivated Comments 06/03/2018 4:58 PM 06/05/2018 7:48 PM Question Answer Comments Discussion of Advance Directives occurred with: Not Discussed Does the patient have a Living Will? No Does the patient have Health Care Power of Attor jose luis? No Care Teams Dye Can Operator Relationship Specialty Start Date End Date Madalyn Pandya MD [address] [place] [address] PCP - General Family Medicine 06/11/23 documented as of this encounter
--- OUTSIDE RECORDS SUMMARY | 2024-04-17 12:46 | External Medical Summary | Summary of Care ---
Author Name Unknown Organization [facility] Address [address] [place] [address] Phone [phone] Care Team Providers Care Patient Care Specialist Name Role Phone Madalyn Pandya MD Primary Care Provider Reason for Visit * Reason Comments Outpatient Testing Encounter Details Date Type Department Care Team (Late st Contact Info) Description 12/29/2023 2:40 PM EDT Laboratory Laboratory [place] Aleksandra Trimble [address] [place] [phone] [address] [place] [address] [place] [address] Dysuria Allergies Active Allergy Reactions Criticality Noted [...] as of this encounter (statuses as of 12/29/2023) Medications Medication Sig Dispensed Refills Start Date [...] post-stroke,Dyslipid emia, goal LDL below 70,Cerebellar infarct ([facility]) take 1 tablet by mouth at bedtime 90 Tablet 1 08/18/2023 Active Estradiol 0.1 MG/GM Vaginal Cream (Estrace) Apply a pea sized amount (0.5g) vaginally twice a week as directed 42.5 g 3 09/26/2023 Active Spironolactone 25 MG Oral Tablet (Aldactone) take 1 tablet by mouth every morning 30 Tablet 1 11/10/2023 Active RA Aspirin EC 81 MG Oral [...] before bedtime. 180 Tablet 1 12/29/2023 Active documented as of this encounter (statuses as of 12/29/2023) Active Problems Problem Noted Date Diagnosed Date [...] as of this encounter (statuses as of 12/29/2023) Resolved Problems Problem Noted Date Diagnosed Date [...] 05/12/2018 Dyslipidemia 10/31/2017 05/12/2018 Post herpetic neuralgia 08/14/2017/12/2018 Overview: C8 nerve root on left. Herpes [...] Espinoza's, hiatal hernia FAMILY HX, ISCHEMIC HEART [id number] 12/04/2010 01/20/2013 Dyslipidemia, goal LDL below 130 08/24/2010 01/20/2013 Anxiety state 11/14/2009 01/20/2013 Irritable bowel syndrome 11/14/2009 Esophageal reflux 11/14/2009 04/16/2011 Overview: hiatal hernia, EGD 03/13 Barretts Palpitations 11/14/2009 01/20/2013 Overview: 10/05 ANEMIA NOS-neg eval 11/11 Overview: neg. follow-up 1988 Other allergic rhinitis 01/03 Overview: ICD-10 update of inactive term documented as of this encounter (statuses as of 12/29/2023) Immunizations Name Administration Dates Next Due COVID-19 mRNA, LNP-s, No Pre serve, 2-Dose Series ([employer]) 03/20/2021,07/22/2020,07/01/2020 PPD 10/05/1992 Pneumococcal Conjugate Vacc, 13 [...] Description 01/06/2024 10:30 AM EDT Laboratory Laboratory [place] Atilio, Aleksandra [address] [place] [phone] [address] [place] [facility] [address] [place] [address] 01/13/2024 4:00 PM EDT Telemedicine Hematology/Oncology [facility] [place] [address] [facility] [address] Constanza Castañeda CRNP [address] [facility] [place] [address] 02/09/2024 10:20 AM EDT Office Visit Urogynecology [facility] [address] [place] [address] Bala Knox MD [address] [place] [address] Howard, Nurse Urodynamics [address] [place] [address] 03/29/2024 10:20 AM EST Office Visit Urogynecology Elsi Souzas [address] [place] [address] Bala Knox MD [address] [place] [address] Howard Nurse Urodynamics [address] [place] [address] 07/07/2024 2:00 PM EST [facility] [address] [place] [phone] Madalyn Pandya MD [address] [place] [phone] Pending Results Name Type Priority Associated Diagnoses Date /Time CULTURE, URINE, QUANTITATIVE Lab Routine Dysuria 12/29/2023 2:35 PM EDT Health Maintenance Due Date Last Done Comments Espinoza's Esophagus Surveilance 1945 Zoster Vaccines (2 of 3) 02/12/2015 12/18/2014 Adult Wellness Visit 12/21/2021 12/21/2020 COVID-19 Vaccine ( season) 2023 03/20/2021, 07/22/2020, 07/01/2020 Influenza Vaccine (FLU shot) (#1) 2024 04/11/2023, 03/21/2022, 04/05/2021, Additional history exists DTaP,Tdap,and Td Vaccines (2 - Td or Tdap) 01/21/2024 01/20/2014 CKD PHOS USE SMARTSET 90269 04/02/202403/06, 09/14/2021, 03/12/2021, Additional history exists Albumin/Creatinine Ratio 04/04/2024 023, 03/13/2022, 09/14/2021, Additional history exists GFR 04/06/2024 10/06/2023, 06/0 07/2023, 08/09/2023, Additional history exists CKD HGB USE SMARTSET 47327 05/20/202405/20, 05/20/2023, 03/21/2023, Additional history exists Depression [...] this encounter Medical Devices Implanted Type Area Picture Booker Device Identifier Shelf Expiration Date Model / Serial / Lot [place] Ptfe 1x1 [id number] - [id number] Implanted:Qty: 5 on 06/03/2018 by Jaxon Vega MD at OR [facility] N/A: Abdomen CR BARD : PERIPHERAL VASCULAR 11/29/2021 [id number] / / [id number] Description:para-esophageal hernia Allomax Mesh 5 X 8 [id number] - [id number] - [id number] Implanted:Qty: 1 on 06/03/2018 by Jaxon Vega MD at OR [facility] N/A: Abdomen CR BARD : DAVOL 05/04/2020 [id number] / [id number] / [id number] Description:PARA ESOPHAGEAL HERNIA documented as of this encounter Visit Diagnoses Diagnosis Dysuria documented in this encounter Advance Directives * Full Code (Latest Code Status on File) Date Activated Date Inactivated Comments 06/03/2018 4:58 PM 06/05/2018 7:48 PM Question Answer Comments Discussion of Advance Directives occurred with: Not Discussed Does the patient have a Living Will? No Does the patient have Health Care Power of Attor jose luis? No Care Teams Patient Care Specialist Relationship Specialty Start Date End Date Madalyn Pandya MD [address] [place] [address] PCP - General Family Medicine 06/11/23 documented as of this encounter
--- OUTSIDE RECORDS SUMMARY | 2024-04-17 12:46 | External Medical Summary | Summary of Care ---
Author Name Unknown Organization [facility] Address [address] [place] [address] Phone [phone] Care Team Providers Care Truck Hopper Name Role Phone Vikas Rhodes MD Primary Care Provider [phone] Reason for Visit * Reason Onset Date Comments Test Results 12/16/2023 Encounter Details Date Type Department Care Team (Late st Contact Info) Description 12/16/2023 Telephone [facility] [address] [place] [address] Vikas Rhodes MD [address] [place] [phone] Test Results Allergies Active Allergy Reactions Criticality Noted Date [...] disease, chronic, stage III (GFR 30-59 ml/min) (HCC),Cerebrovascul ar disease, arteriosclerotic, post-stroke,Dyslipi demia, goal LDL below 70,Cerebellar infarct (HCC) take [...] before bedtime. 30 Tablet 1 12/10/2023 Active Nitrofurantoin Macrocrystal 50 MG Oral Capsule (Macrodantin) Take 1 Capsule by mouth in the morning and 1 Capsule at noon and 1 Capsule in the evening and 1 Capsule before bedtime. Do all this for 7 days. Until gone. 28 Capsule 12/16/2023 12/23/2023 documented as of this encounter (statuses as [...] 04/15/2017 Peripheral polyneuropathy 04/15/2017 Generalized osteoarthritis 10/14/2016 Espnioza's esophagus without dysplasia 09/18/2015 Irritable bowel syndrome [...] Espinoza's, hiatal hernia FAMILY HX, ISCHEMIC HEART [id number] 12/04/2010 01/20/2013 Dyslipidemia, goal LDL below 130 [...] mRNA, LNP-s, No Pre serve, 2-Dose Series (Zilliant) 03/20/2021,07/22/2020,07/01/2020 PPD 10/05/1992 Pneumococcal Conjugate Vacc, 13 [...] Telephone Encounter - Haritha Son CCMA - 12/29/2023 12:13 PM EDT Called and informed pts daughter, * Addendum Note - Vikas Rhodes MD - 12/29/2023 12:03 PM EDTAddended by: VIKAS RHODES on: 12/29/2023 12:03 PM Modules accepted: Orders * Telephone Encounter - Vikas Rhodes MD - 12/29/2023 12:03 PM EDT Culture ordered * Telephone Encounter - Susana Galvez LPN - 12/29/2023 11:47 AM EDT Daughter Fay calling about UTI and abx. Pt finished the last ABX for UTI on Thursday 12/21 or Friday 12/22 Yesterday while emptying pt's purewick canister daughter notice the urine had a strong odor. This is the first time she noted odor since being off ABX. She had pt take a azo test today, that came back positive for UTI. Pt has no other sx. Daughter inquiring if pt could have another urine test to check if UTI has cleared or if she has another UTI. Please advise. * Telephone Encounter - Haritha Son CCMA - 12/16/2023 5:06 PM EDT Called and informed pts daughter * Telephone Encounter - Vikas Rhodes MD - 12/16/2023 1:11 PM EDT Meds sent to pharmacy [facility] #[id number] [facility] Medication Orders Placed This Encounter Medications Nitrofurantoin Macrocrystal 50 MG Oral Capsule (Macrodantin) Sig: Take 1 Capsule by mouth in the morning and 1 Capsule at noon and 1 Capsule in the evening and 1 Capsule before bedtime. Do all this for 7 days. Until gone. Dispense: 28 Capsule Refill: 0 Urine culture pos documented in this encounter Plan of Treatment Upcoming Encounters Date Type Department Care Team (Late st Contact Info) Description 01/06/2024 10:30 AM EDT Laboratory Laboratory [address] [place] [phone] [place] [address] [place] [address] 01/13/2024 4:00 PM EDT Telemedicine Hematology/Oncology [facility] Mcdonald [address] [facility] [address] Constanza Castañeda CRNP [address] [place] [address] [place] [address] 02/09/2024 10:20 AM EDT Office Visit Urogynecology [facility] [address] [place] [address] Bala Knox MD [address] [place] [address] [place], Nurse Urodynamics [address] [place] [address] 03/29/2024 10:20 AM EST Office Visit Urogynecology [facility] [address] [place] [address] Bala Knox MD [address] [place] [address] Howard Nurse Urodynamics [address] [place] [address] 07/07/2024 2:00 PM EST Office Visit [facility] [address] [place] [address] Vikas Rhodes MD [address] [place] [address] Scheduled Orders Name Type Priority Associated Diagnoses Orde r Schedule CULTURE, URINE, QUANTITATIVE Lab Routine Dysuria Expected: 12/29/2023, Expires: 12/28/2024 Health Maintenance Due Date Last Done Comments Espinoza's Esophagus Surveilance 1943 Zoster Vaccines (2 of 3) 02/12/2015 12/18/2014 Adult Wellness Visit 12/21/2021 12/21/2020 COVID-19 Vaccine ( season) 2023 03/20/2021, 07/22/2020, 07/01/2020 Influenza Vaccine (FLU shot) (#1) 2024 04/11/2023, 03/21/2022, 04/05/2021, Additional history exists DTaP,Tdap,and Td Vaccines (2 - Td or Tdap) 01/21/2024 01/20/2014 CKD PHOS USE SMARTSET 83473 04/02/202403/06, 09/14/2021, 03/12/2021, Additional history exists Albumin/Creatinine Ratio 04/04/2024 023, 03/13/2022, 09/14/2021, Additional history exists GFR 04/06/2024 10/06/2023, 06/0 07/2023, 08/09/2023, Additional history exists CKD HGB USE SMARTSET 81679 05/20/202405/20, 05/20/2023, 03/21/2023, Additional history exists Depression [...] this encounter Medical Devices Implanted Type Area Program Administrator Device Identifier Shelf Expiration Date Model / Serial / Lot [place] Ptfe 1x1 [id number] - [id number] Implanted:Qty: 5 on 06/03/2018 by Jaxon Vega MD at OR [facility] N/A: Abdomen CR BARD : PERIPHERAL VASCULAR 11/29/2021 [id number] / / [id number] Description:para-esophageal hernia Allomax Mesh 5 X 8 [id number] - [id number] - [id number] Implanted:Qty: 1 on 06/03/2018 by Jaxon Vega MD at OR [facility] N/A: Abdomen CR BARD : DAVOL 05/04/2020 [id number] / [id number] / [id number] Description:PARA ESOPHAGEAL HERNIA documented as of this [...] of Attor jose luis? No Care Teams Truck Hopper Relationship Specialty Start Date End Date Vikas Rhodes MD [address] [place] [address] PCP - General Family Medicine 06/11/23 documented as of this encounter
--- OUTSIDE RECORDS SUMMARY | 2024-04-17 12:46 | External Medical Summary | Summary of Care ---
Author Name Unknown Organization [facility] Address [address] [place] [address] Phone [phone] Care Team Providers Care Machinery Cleaner Name Role Phone Madalyn Pandya MD Primary Care Provider [phone] Reason for Visit * Reason Comments Outpatient Testing Encounter Details Date Type Department Care Team (Late st Contact Info) Description 01/06/2024 11:50 AM EDT Laboratory Laboratory [place] Ale[address] [place] [address] [place] [address] [place] [address] Dyslipidemia, goal LDL below 70; Encounter for long-term (current) use of other medications; Anemia in stage 3a chronic kidney disease [...] as of this encounter (statuses as of 01/06/2024) Medications Medication Sig Dispensed Refills Start Date [...] disease, chronic, stage III (GFR 30-59 ml/min) ([facility]),Cerebrovascula r disease, arteriosclerotic, post-stroke,Dyslipid emia, goal LDL below 70,Cerebellar infarct ([facility]) take 1 tablet by mouth at [...] proximal vein of lower extremity, unspecified laterality ([facility]) Take 1 Tablet by mouth in the morning and 1 Tablet before bedtime. 180 Tablet 1 12/29/2023 Active Spironolactone 25 MG Oral Tablet (Aldactone) Take 1 Tablet by mouth in the morning. In the morning.. 30 Tablet 1 01/01/2024 Active documented as of this encounter (statuses as of 01/06/2024) Active Problems Problem Noted Date Diagnosed Date [...] as of this encounter (statuses as of 01/06/2024) Resolved Problems Problem Noted Date Diagnosed Date [...] Espinoza's, hiatal hernia FAMILY HX, ISCHEMIC HEART [id number] 12/04/2010 01/20/2013 Dyslipidemia, goal LDL below 130 08/24/2010 01/20/2013 Anxiety state 11/14/2009 01/20/2013 Irritable bowel syndrome 11/14/2009 Esophageal reflux 11/14/2009 04/16/2011 Overview: hiatal hernia, EGD 03/13 Barretts Palpitations 11/14/2009 01/20/2013 Overview: 10/05 ANEMIA NOS-neg eval 11/11 Overview: neg. follow-up 1989 Other allergic rhinitis 01/03 Overview: ICD-10 update of inactive term documented as of this encounter (statuses as of 01/06/2024) Immunizations Name Administration Dates Next Due COVID-19 [...] Description 01/13/2024 4:00 PM EDT Telemedicine Hematology/Oncology [facility] [address] [facility] [address] Constanza Castañeda CRNP [address] [facility] [place] [address] 02/09/2024 10:20 AM EDT Office Visit Urogynecology [facility] [address] [place] [address] Bala Knox MD [address] [place] [address] Gw, Nurse Urodynamics [address] [place] [address] 03/29/2024 10:20 AM EST Office Visit Urogynecology Elsi [address] [place] [phone] Bala Knox MD [address] [place] [address] Gw, Nurse Urodynamics [address] [place] [address] 07/07/2024 2:00 PM EST Office Visit [facility] [address] [place] [address] Madalyn Pandya MD [address] [place] [phone] Pending Results Name Type Priority Associated Diagnoses Date /Time LIPID PANEL WITH DIRECT LDL IF TG IS HIGH Lab Routine Dyslipidemia, goal LDL below 70 01/06/2024 11:46 AM EDT MAGNESIUM Lab Routine Encounter for long-term (current) use of other medications 01/06/2024 11:46 AM EDT CBC WITH WBC DIFFERENTIAL Lab STAT Anemia in stage 3a chronic kidney disease (HCC) 01/06/2024 11:46 AM EDT COMPREHENSIVE METABOLIC PANEL Lab STAT Anemia in stage 3a chronic kidney disease (HCC) 01/06/2024 11:46 AM EDT IRON SCREEN, INCLUDING TIBC Lab STAT Anemia in stage 3a chronic kidney disease (HCC) 01/06/2024 11:46 AM EDT FERRITIN Lab STAT Anemia in stage 3a chronic kidney disease (HCC) 01/06/2024 11:46 AM EDT CBC Lab STAT Anemia in stage 3a chronic kidney disease (HCC) 01/06/2024 11:46 AM EDT DIFFERENTIAL, AUTOMATED Lab STAT Anemia in stage 3a chronic kidney disease (HCC) 01/06/2024 11:46 AM EDT Health Maintenance Due Date Last Done Comments Espinoza's Esophagus Surveilance 1943 Zoster Vaccines (2 of 3) 02/12/2015 12/18/2014 Adult Wellness Visit 12/21/2021 12/21/2020 COVID-19 Vaccine ( season) 2024 03/20/2021, 07/22/2020, 07/01/2020 Influenza Vaccine (FLU shot) (#1) 2024 04/11/2023, 03/21/2022, 04/05/2021, Additional history exists DTap/Tdap Vaccines (2 - Td or Tdap) 01/21/2024 01/20/2014 CKD PHOS USE SMARTSET 70761 04/02/202403/06, 09/14/2021, 03/12/2021, Additional history exists Albumin/Creatinine Ratio 04/04/2024 023, 03/13/2022, 09/14/2021, Additional history exists GFR 04/06/2024 10/06/2023, 06/0 07/2023, 08/09/2023, Additional history exists CKD HGB USE SMARTSET 50424 05/20/202405/20, 05/20/2023, 03/21/2023, Additional history exists Depression [...] this encounter Medical Devices Implanted Type Area Regrinder Operator Device Identifier Shelf Expiration Date Model / Serial / Lot [place] Ptfe 1x1 [id number] - [id number] Implanted:Qty: 5 on 06/03/2018 by Jaxon Vega MD at OR [facility] N/A: Abdomen CR BARD : PERIPHERAL VASCULAR 11/29/2021 [id number] / / [id number] Description:para-esophageal hernia Allomax Mesh 5 X 8 [id number] - [id number] - [id number] Implanted:Qty: 1 on 06/03/2018 by Jaxon Vega MD at OR [facility] N/A: Abdomen CR BARD : DAVOL 05/04/2020 [id number] / [id number] / [id number] Description:PARA ESOPHAGEAL HERNIA documented as of this encounter Visit Diagnoses Diagnosis Dyslipidemia, goal LDL below 70 Other and unspecified hyperlipidemia Encounter for long-term (current) use of other medications Anemia in stage 3a chronic kidney disease [...] of Attor jose luis? No Care Teams Machinery Cleaner Relationship Specialty Start Date End Date Madalyn Pandya MD [address] [place] [address] PCP - General Family Medicine 06/11/23 documented as of this encounter
--- OUTSIDE RECORDS SUMMARY | 2024-04-17 12:46 | External Medical Summary | Summary of Care ---
Author Name Unknown Organization [facility] Address [address] [facility] [place] [address] Phone [phone] Care Team Providers Care Concrete Pipe Machine Operator Name Role Phone Madalyn Pandya MD Primary Care Provider [phone] Reason for Visit * Reason Onset Date Comments Test Results 12/16/2023 Encounter Details Date Type Department Care Team (Late st Contact Info) Description 12/16/[address] [facility] [address] [place] [address] Madalyn Pandya MD [address] [place] [phone] Test Results Allergies Active Allergy Reactions Criticality [...] Espinoza's, hiatal hernia FAMILY HX, ISCHEMIC HEART [id number] 12/04/2010 01/20/2013 Dyslipidemia, goal LDL below 130 [...] mRNA, LNP-s, No Pre serve, 2-Dose Series ([employer]) 03/20/2021,07/22/2020,07/01/2020 PPD 10/05/1992 Pneumococcal Conjugate Vacc, 13 [...] informed pts daughter * Telephone Encounter - Madalyn Pandya MD - 12/16/2023 1:11 PM EDT Meds sent to pharmacy [facility]acy [facility] #[id number] [facility] Medication Orders Placed This Encounter Medications Nitrofurantoin [...] Description 01/06/2024 10:30 AM EDT Laboratory [place] [address] [place] [phone] Aleksandra, [facility] [address] [place] [address] [place] [address] 01/13/2024 4:00 PM EDT Telemedicine Hematology/Oncology [facility] [address] [place] [phone] Constanza Castañeda CRNP [address] [place] [address] 02/09/2024 10:20 AM EDT Office Visit Urogynecology [facility] [address] [place] [address] Bala Knox MD [address] [place] [address] Howard, Nurse Urodynamics [address] [place] [address] 03/29/2024 10:20 AM EST Office Visit Urogynecology [facility] [address] [place] [address] Bala Knox MD [address] [place] [address] Howard, Nurse Urodynamics [address] [place] [address] 07/07/2024 2:00 PM EST Office Visit [facility] [address] [place] [phone] Madalyn Pandya MD [address] [place] [phone] Health Maintenance Due Date Last Done Comments Espinoza's Esophagus Surveilance 1943 Zoster Vaccines (2 of 3) 02/12/2015 12/18/2014 Adult Wellness Visit 12/21/2021 12/21/2020 COVID-19 Vaccine (4 - 2022- season) 2023 03/20/2021, 07/22/2020, 07/01/2020 Influenza Vaccine (FLU shot) (#1) 2024 04/11/2023, 03/21/2022, 04/05/2021, Additional history exists DTaP,Tdap,and Td Vaccines (2 - Td or Tdap) 01/21/2024 01/20/2014 CKD PHOS USE SMARTSET 44705 04/02/202403/06, 09/14/2021, 03/12/2021, Additional history exists Albumin/Creatinine Ratio 04/04/2024 023, 03/13/2022, 09/14/2021, Additional history exists GFR 04/06/2024 10/06/2023, 06/0 07/2023, 08/09/2023, Additional history exists CKD HGB USE SMARTSET 09391 05/20/202405/20, 05/20/2023, 03/21/2023, Additional history exists Depression [...] this encounter Medical Devices Implanted Type Area Janitorial Supervisor Device Identifier Shelf Expiration Date Model / Serial / Lot [place] Ptfe 1x1 [id number] - [id number] Implanted:Qty: 5 on 06/03/2018 by Jaxon Vega MD at OR [facility] N/A: Abdomen CR BARD : PERIPHERAL VASCULAR 11/29/2021 [id number] / / [id number] Description:para-esophageal hernia Allomax Mesh 5 X 8 [id number] - [id number] - [id number] Implanted:Qty: 1 on 06/03/2018 by Jaxon Vega MD at OR [facility] N/A: Abdomen CR BARD : DAVOL 05/04/2020 [id number] / [id number] / [id number] Description:PARA ESOPHAGEAL HERNIA documented as of this encounter Advance Directives * Full Code (Latest Code Status on File) Date Activated Date Inactivated Comments 06/03/2018 4:58 PM 06/05/2018 7:48 PM Question Answer Comments Discussion of Advance Directives occurred with: Not Discussed Does the patient have a Living Will? No Does the patient have Health Care Power of Attor jose luis? No Care Teams Concrete Pipe Machine Operator Relationship Specialty Start Date End Date Madalyn Pandya MD [address] [place] [address] PCP - General Family Medicine 06/11/23 documented as of this encounter
--- OUTSIDE RECORDS SUMMARY | 2024-04-17 12:46 | External Medical Summary | Summary of Care ---
Author Name Unknown Organization [facility] Address [address] [facility] [place] [address] Phone [phone] Care Team Providers Care Court Magistrate Name Role Phone Vikas Rhodes MD Primary Care Provider [phone] Reason for Visit * Reason Onset Date Comments Test Results 12/16/2023 Encounter Details Date Type Department Care Team (Late st Contact Info) Description 12/16/2023 Telephone [facility] [address] [place] [address] Vikas Rhodes MD [address] [place] [phone] Test Results Allergies Active Allergy Reactions Criticality [...] Espinoza's, hiatal hernia FAMILY HX, ISCHEMIC HEART [id number] 12/04/2010 01/20/2013 Dyslipidemia, goal LDL below 130 [...] mRNA, LNP-s, No Pre serve, 2-Dose Series ([employer]) 03/20/2021,07/22/2020,07/01/2020 PPD 10/05/1992 Pneumococcal Conjugate Vacc, 13 [...] as of this encounter Miscellaneous Notes * Addendum Note - Vikas Rhodes MD [...] to pharmacy [facility]acy [facility] #[id number] [id number] [facility] Medication Orders Placed This Encounter [...] Description 01/06/2024 10:30 AM EDT [facility] [address] [place] [phone] Aleksandra [facility] [address] [facility] [place] [address] 01/13/2024 4:00 PM EDT Telemedicine Hematology/Oncology Rashawn Mcdonald [place] [address] [facility] [phone] Constanza Castañeda CRNP [address] [facility] [place] [phone] 02/09/2024 10:20 AM EDT Office Visit Urogynecology [facility] [address] [place] [address] Bala Knox MD [address] [place] [address] Howard Nurse Urodynamics [address] [place] [address] 03/29/2024 10:20 AM EST Office Visit Urogynecology [facility] [address] [address] Bala Knox MD [address] [place] [address] Howard Nurse Urodynamics [address] [place] [address] 07/07/2024 2:00 PM EST Office Visit [facility] [address] [place] [phone] Vikas Rhodes MD [address] [place] [address] Scheduled Orders Name Type Priority Associated Diagnoses [...] Tdap) 01/21/2024 01/20/2014 CKD PHOS USE SMARTSET 97599 04/02/202403/06, 09/14/2021, 03/12/2021, Additional history exists Albumin/Creatinine Ratio 04/04/2024 023, 03/13/2022, 09/14/2021, Additional history exists GFR 04/06/2024 10/06/2023, 06/0 07/2023, 08/09/2023, Additional history exists CKD HGB USE SMARTSET 70596 05/20/202405/20, 05/20/2023, 03/21/2023, Additional history exists Depression [...] this encounter Medical Devices Implanted Type Area Dean Of Faculty Device Identifier Shelf Expiration Date Model / Serial / Lot Cool Ptfe 1x1 [id number] - [id number] Implanted:Qty: 5 on 06/03/2018 by Jaxon Vega MD at OR [facility] N/A: Abdomen CR BARD : PERIPHERAL VASCULAR 11/29/2021 [id number] / / [id number] Description:para-esophageal hernia Allomax Mesh 5 X 8 [id number] - [id number] - [id number] Implanted:Qty: 1 on 06/03/2018 by Jaxon Vega MD at OR [facility] N/A: Abdomen CR BARD : DAVOL 05/04/2020 [id number] / [id number] / [id number] Description:PARA ESOPHAGEAL HERNIA documented as of this [...] of Attor jose luis? No Care Teams Court Magistrate Relationship Specialty Start Date End Date Vikas Rhodes MD [address] [place] [address] PCP - General Family Medicine 06/11/23 documented as of this encounter
--- OUTSIDE RECORDS SUMMARY | 2024-04-17 12:46 | External Medical Summary ---
Author Name Unknown Address Unknown Organization K01:LABORATORY [facility] - [address] [place] [address] Laboratory Report Ordering Provider Test Date Status BRI JOINER 01/06/2024 11:46:00 Final Observation Date Value Abnormality Reference (Units ) Status Ferritin 01/06/2024 11:46:00 71 13-150 (ng /mL) Final Postmenopausal women have hi gher ferritin levels than pre-menopausal women. The above reference interval is based on pre-menopausal women. Performing Location LABORATORY [facility] - [address] [place] [address]
--- OUTSIDE RECORDS SUMMARY | 2024-04-17 12:46 | External Medical Summary ---
Author Name Unknown Address Unknown Organization [id number]:LABORATORY [facility] [place] - [address] [place] [id number] Laboratory Report Ordering Provider Test Date Status CARMELO BEAN 12/29/2023 14:35:28 Final Observation Date Value Abnormality Reference (Units) Status Bacteria identified in Specimen by Culture 12/29/2023 14:35:28 No significant growth Final Test: Culture, Urine, Quanti tative
Specimen Source: Urine, Clean Catch
Specimen Type: Urine
Specimen Date: 12/29/2023 1435
Result Date: 12/31/2023 0909
Result Status: Final result
Resulting Lab: LABORATORY [facility]
[address]
[place] [address]

CULTURE

No significant growth

null Performing Location LABORATORY [facility] - [address] [facility] [address]
--- OUTSIDE RECORDS SUMMARY | 2024-04-17 12:46 | External Medical Summary ---
Author Name Unknown Address Unknown Organization K01:LABORATORY [facility] [place] - [address] [facility] [address] [place] [address] Laboratory Report Ordering Provider Test Date Status BRI JOINER 01/06/2024 11:46:00 Final Observation Date Value Abnormality Reference (Units ) Status WBC, Total 01/06/2024 11:46:00 4.77 4.00-10.80 (K/uL) Final RBC 01/06/2024 11:46:00 3.29 3.85-5.15 (M/uL) Final Hemoglobin 01/06/2024 11:46:00 10.1 Below low normal 12.0-15.3 (g/dL) Final HCT 01/06/2024 11:46:00 33.0 Below low normal 36.0-45.2 (%) Final MCV 01/06/2024 11:46:00 100.3 81.5-97.5 (fL) Final MCH 01/06/2024 11:46:00 30.7 27.0-34.0 (pg) Final MCHC 01/06/2024 11:46:00 30.6 32.0-36.0 (g/dL) Final RDW 01/06/2024 11:46:00 13.3 11.5-15.5 (%) Final Platelets 01/06/2024 11:46:00 209 140-400 (K/uL) Final MPV 01/06/2024 11:46:00 11.4 6.6-11.1 (fL) Final Nucleated erythrocytes/100 leukocytes [Ratio] in Blood by Automated count 01/06/2024 11:46:00 0 <=0 (/100 WBCs) Final Performing Location LABORATORY [facility] - [address] [place] [address]
--- OUTSIDE RECORDS SUMMARY | 2024-04-17 12:46 | External Medical Summary ---
Author Name Unknown Address Unknown Organization K01:[facility] [address] [place] [address] Laboratory Report Ordering Provider Test Date Status BRI JOINER 01/06/2024 11:46:00 Final Observation Date Value Abnormality Reference (Units ) Status Iron 01/06/2024 11:46:00 44 33-151 (ug /dL) Final Iron-binding capacity 01/06/2024 11:46:00 297 250-425 (ug/dL) Final Transferrin Sat % 01/06/2024 11:46:00 15 15 -55 (%) Final Performing Location LABORATORY C - [address] [place] [address]
--- OUTSIDE RECORDS SUMMARY | 2024-04-17 12:46 | External Medical Summary ---
Author Name Unknown Address Unknown Organization K01:LABORATORY [facility] [place] - [address] [facility] [place] [address] Laboratory Report Ordering Provider Test Date Status AZUCENA CHARLES 01/06/2024 11:46:00 Final Observation Date Value Abnormality Reference (Units ) Status Triglyceride 01/06/2024 11:46:00 82 <=174 ( mg/dL) Final Triglyceride Reference Range s (mg/dL):
<150 Acceptable
150-174 Borderline high
175-499 High
>=500 Very high Cholesterol 01/06/2024 11:46:00 151 <200 (mg /dL) Final Total Cholesterol Reference Ranges (mg/dL):
<200 Desirable
200-239 Borderline high
>=240 High HDL 01/06/2024 11:46:00 54 >49 (mg/dL ) Final HDL Cholesterol Reference Ra nges (mg/dL):
>=60 High (Desirable)
<50 Low (Undesirable) For Females
<40 Low (Undesirable) For Males NON-HDL CHOLESTEROL 01/06/2024 11:46:00 97 <=159 (mg/dL) Final Non-HDL Cholesterol Referenc e Range (mg/dL):
<100 Target level for high risk ASCVD patient
<130 Optimal for general population
130-159 Near optimal for general population
160-189 Borderline High
190-219 High
>=220 Very High LDL, (calculated) 01/06/2024 11:46:00 81 <= 129 (mg/dL) Final LDL Cholesterol Reference Ra nges (mg/dL):
<70 Target level for high risk ASCVD patient
<100 Optimal for general population
100-129 Near optimal for general population
130-159 Borderline high
160-189 High
>=190 Very high Performing Location LABORATORY [facility] [place] - [address] [facility] [address]
--- OUTSIDE RECORDS SUMMARY | 2024-04-17 12:46 | External Medical Summary ---
Author Name Unknown Address Unknown Organization K01:LAB[facility]ATORY [facility] [place] [address] [place] [address] Laboratory Report Ordering Provider Test Date Status BRI JOINER 01/06/2024 11:46:00 Final Observation Date Value Abnormality Reference (Units ) Status BUN 01/06/2024 11:46:00 24 Above high normal 6-20 (mg/dL) Final Creatinine 01/06/2024 11:46:00 1.3 Above high normal 0.5-1.0 (mg/dL) Final Glomerular filtration rate/1.73 sq M.predicted [Volume Rate/Area] in Serum, Plasma or Blood by Creatinine-based formula (CKD-EPI) 01/06/2024 11:46:00 43 Below low normal >=60 (mL/min) Final eGFR is calculated based on the CKD-EPI 2020 equation. Sodium 01/06/2024 11:46:00 140 135-146 (m mol/L) Final Potassium 01/06/2024 11:46:00 4.8 3.5-5.1 (m mol/L) Final Cl 01/06/2024 11:46:00 106 98-107 (mm ol/L) Final CO2 01/06/2024 11:46:00 25 22-32 (mmo l/L) Final Anion gap 01/06/2024 11:46:00 9 7-15 (mmol /L) Final Glucose 01/06/2024 11:46:00 86 70-120 (mg /dL) Final Albumin 01/06/2024 11:46:00 4.3 3.8-5.0 (g /dL) Final AST (Aspartate aminotransferase) 01/06/2024 11:46:00 15 10-35 (U/L) Final Alk Phos 01/06/2024 11:46:00 92 35-130 (U/ L) Final Bilirubin, Total 01/06/2024 11:46:00 0.4 <=1 .2 (mg/dL) Final Calcium 01/06/2024 11:46:00 9.7 8.4-10.2 ( mg/dL) Final Protein 01/06/2024 11:46:00 6.3 6.0-8.3 (g /dL) Final ALT (Alanine aminotransferase) 01/06/2024 11:46:00 11 10-35 (U/L) Final Performing Location LABORATORY [facility] [place] - [facility] [address] [facility] [address]
--- OUTSIDE RECORDS SUMMARY | 2024-04-17 12:46 | External Medical Summary | Summary of Care ---
Author Name Unknown Organization [facility] Address [address] [place] [address] Phone [phone] Care Team Providers Care Shale Miner Name Role Phone Vikas Pandya MD Primary Care Provider [phone] Reason for Visit * Reason Onset Date Comments Medication Refill 12/30/2023 Encounter Details Date Type Department Care Team (Late st Contact Info) Description 12/30/2023 Refill [facility] [address] [place] [address] Vikas Pandya MD [address] [place] [address] Allergies Active Allergy Reactions Criticality Noted Date [...] as of this encounter (statuses as of 01/01/2024) Medications Medication Sig Dispensed Refills Start Date [...] disease, chronic, stage III (GFR 30-59 ml/min) ([facility]),Cerebrovasc ular disease, arteriosclerotic, post-stroke,Dysli pidemia, goal LDL below 70,Cerebellar infarct ([facility]) take 1 tablet by mouth [...] 12/10/2023 Active Apixaban 2.5 MG Oral Tablet (Eliquis)Indicati ons:Chronic deep vein thrombosis (DVT) of proximal vein of lower extremity, unspecified laterality ([facility]) Take 1 Tablet by mouth in the morning and 1 Tablet before bedtime. 180 Tablet 1 12/29/2023 Active Spironolactone 25 MG Oral Tablet (Aldactone) Take 1 Tablet by mouth in the morning. In the morning.. 30 Tablet 1 01/01/2024 Active Spironolactone 25 MG Oral Tablet (Aldactone) take 1 tablet by mouth every morning 30 Tablet 1 11/10/2023 12/30/2023 Discontinue d(Refill) documented as of this encounter (statuses as of 01/01/2024) Active Problems Problem Noted Date Diagnosed Date [...] as of this encounter (statuses as of 01/01/2024) Resolved Problems Problem Noted Date Diagnosed Date [...] Espinoza's, hiatal hernia FAMILY HX, ISCHEMIC HEART [id number] 12/04/2010 01/20/2013 Dyslipidemia, goal LDL below 130 08/24/2010 01/20/2013 Anxiety state 11/14/2009 01/20/2013 Irritable bowel syndrome 11/14/2009 Esophageal reflux 11/14/2009 04/16/2011 Overview: hiatal hernia, EGD 03/13 Barretts Palpitations 11/14/2009 01/20/2013 Overview: 10/05 ANEMIA NOS-neg eval 11/11 Overview: neg. follow-up 1988 Other allergic rhinitis 01/03 Overview: ICD-10 update of inactive term documented as of this encounter (statuses as of 01/01/2024) Immunizations Name Administration Dates Next Due COVID-19 [...] encounter Miscellaneous Notes * Telephone Encounter - Vikas Pandya MD - 01/01/2024 11:50 AM EDTSigned Prescriptions: Disp Refills Spironolactone 25 MG Oral Tablet (Aldacton*30 Tab*1 Sig: Take 1 Tablet by mouth in the morning. In the morning.. Authorizing Provider: VIKAS PANDYA * Telephone Encounter - Arlette Ortega [facility] - 01/01/2024 11:46 AM EDT Pending Prescriptions: Disp Refills Spironolactone 25 MG Oral Tablet (Aldacton*30 Tab* Sig: Take 1 Tablet by mouth in the morning. In the morning.. Electronically signed by BridgetArltete huerta, [facility] at 01/01/2024 11:46 AM EDT * Telephone Encounter - Arlette Ortega, [facility] - 01/01/2024 11:45 AM EDT Did you pend patient's preferred pharmacy and medication before forwarding?yes Pharmacy: [id number] [facility] Pending Prescriptions: Disp Refills Spironolactone 25 MG Oral Tablet (Aldacto*30 Tab* Sig: Take 1 Tablet by mouth in the morning. In the morning.. Last Visit: 12/09/2023 (in office), Visit date not found (telemedicine) Next Visit: 07/07/2024 If no future appointments scheduled, and last appointment is greater than a year ago, please schedule patient for a follow-up appointment Last date the medication was ordered: 11/10/23 Is this request for a controlled substance?No Urine Drug Screen:No results found for this or any previous visit. Patient Phone Numbers Labs: Lab Results Component Value Date/Time CREAT 1.03 08/09/2023 02:28 AM CREAT 1.0 03/21/2020 09:02 AM POTASSIUM 3.4 (L) 08/09/2023 02:28 AM POTASSIUM 5.1 03/21/2020 09:02 AM TSH 2.05 05/20/2023 01:48 PM TSH 2.12 05/20/2023 01:48 PM TSH 5.390 (A) 03/11/2023 12:00 AM TSH 2.56 03/21/2020 09:02 AM LDL 60 09/14/2021 08:18 AM LDL 73 03/21/2020 09:02 AM LDL NOT APPLICABLE 03/21/2020 09:02 AM LDLCALC 75 08/14/2015 12:00 AM ALT 15 05/20/2023 01:48 PM ALT 14 03/21/2020 09:02 AM HGBA1C 5.5 01/21/2023 10:16 AM HGBA1C 5.5 05/18/2019 08:33 AM documented in this encounter Plan of Treatment Upcoming Encounters Date Type Department Care Team (Late st Contact Info) Description 01/06/2024 10:30 AM EDT Laboratory Laboratory [address], [place] [address] [place] [phone] [place] [address] 01/13/2024 4:00 PM EDT Telemedicine Hematology/Oncology [facility] [address] [facility] [phone] Constanza Castañeda CRNP [address] [facility] [place] [address] 02/09/2024 10:20 AM EDT Office Visit Urogynecology [facility] [address] [place] [address] Bala Knox MD [address] [place] [address] [place], Nurse Urodynamics [address] [place] [address] 03/29/2024 10:20 AM EST Office Visit Urogynecology [facility] [address] [place] [address] Bala Knox MD [address] [place] [address] [place], Nurse Urodynamics [address] [place] [address] 07/07/2024 2:00 PM EST Office Visit [facility] [address] [place] [address] Vikas Pandya MD [address] [place] [address] Health Maintenance Due Date Last Done Comments Espinoza's Esophagus Surveilance 1943 Zoster Vaccines (2 of 3) 02/12/2015 12/18/2014 Adult Wellness Visit 12/21/2021 12/21/2020 COVID-19 Vaccine (4 - season) 2023 03/20/2021, 07/22/2020, 07/01/2020 Influenza Vaccine (FLU shot) (#1) 2024 04/11/2023, 03/21/2022, 04/05/2021, Additional history exists DTap/Tdap Vaccines (2 - Td or Tdap) 01/21/2024 01/20/2014 CKD PHOS USE SMARTSET 14717 04/02/202403/06, 09/14/2021, 03/12/2021, Additional history exists Albumin/Creatinine Ratio 04/04/2024 023, 03/13/2022, 09/14/2021, Additional history exists GFR 04/06/2024 10/06/2023, 06/07/2023, 08/09/2023, Additional history exists CKD HGB USE SMARTSET 57618 05/20/202405/20, 05/20/2023, 03/21/2023, Additional history exists Depression [...] this encounter Medical Devices Implanted Type Area Blunger Loader Device Identifier Shelf Expiration Date Model / Serial / Lot Embarrass Ptfe 1x1 [id number] - [id number] Implanted:Qty: 5 on 06/03/2018 by Jaxon Vega MD at OR [facility] [place] N/A: Abdomen CR BARD : PERIPHERAL VASCULAR 11/29/2021 [id number] / / [id number] Description:para-esophageal hernia Allomax Mesh 5 X 8 [id number] - [id number] - [id number] Implanted:Qty: 1 on 06/03/2018 by Jaxon Vega MD at OR [facility] [place] N/A: Abdomen CR BARD : DAVOL 05/04/2020 [id number] / [id number] / [id number] Description:PARA ESOPHAGEAL HERNIA documented as of this encounter Advance Directives * Full Code (Latest Code Status on File) Date Activated Date Inactivated Comments 06/03/2018 4:58 PM 06/05/2018 7:48 PM Question Answer Comments Discussion of Advance Directives occurred with: Not Discussed Does the patient have a Living Will? No Does the patient have Health Care Power of Attor jose luis? No Care Teams Shale Miner Relationship Specialty Start Date End Date Vikas Pandya MD [address] [place] [address] PCP - General Family Medicine 06/11/23 documented as of this encounter
--- OUTSIDE RECORDS SUMMARY | 2024-04-17 12:46 | External Medical Summary ---
Author Name Unknown Address Unknown Organization K01:LABORATORY [facility] [place] - [address] [facility] [place] [address] Laboratory Report Ordering Provider Test Date Status BRI JOINER 01/06/2024 11:46:00 Final Observation Date Value Abnormality Reference (Units ) Status SYNC LEUKOCYTES IN BLOOD BY AUTOMATED COUNT 01/06/2024 11:46:00 4.77 4.00-10.80 (K/uL) Final Segs 01/06/2024 11:46:00 70.7 40.0-75.0 (%) Final Lymphs % 01/06/2024 11:46:00 18.9 18.0-42.0 (%) Final Monos 01/06/2024 11:46:00 9.0 1.0-11.0 (%) Final Eosinophils 01/06/2024 11:46:00 0.8 0.0-6.0 (%) Final Basos 01/06/2024 11:46:00 0.2 0.0-2.0 (%) Final Immature Granulocyte, Percent 01/06/2024 11:46:00 0.4 0.0-2.0 (%) Final Absolute Segs 01/06/2024 11:46:00 3.37 1.80-7.70 (K/uL) Final Lymphs, absolute 01/06/2024 11:46:00 0.90 Below low normal 1.00-4.80 (K/ul) Final Monos, Abs 01/06/2024 11:46:00 0.43 0.00-1.10 (K/uL) Final Eos, Abs 01/06/2024 11:46:00 0.04 0.00-0.70 (K/uL) Final Basos, Abs 01/06/2024 11:46:00 0.01 0.00-0.20 (K/uL) Final Immature Granulocytes, Number 01/06/2024 11:46:00 0.02 0.00-0.20 (K/uL) Final Performing Location LABORATORY [facility] [place] - [address] [facility] [address]
--- OUTSIDE RECORDS SUMMARY | 2024-04-17 12:47 | External Medical Summary | Summary of Care ---
Author Name Unknown Organization [facility] Address [address] [place] [address] Phone [phone] Care Team Providers Care Optical Store Manager Name Role Phone Madalyn Pandya MD Primary Care Provider Reason for Visit * Reason Onset Date Comments Medication Question 12/15/2023 FYI 12/15/2023 Encounter Details Date Type Department Care Team (Late st Contact Info) Description 12/15/2023 Telephone [facility] [address] [place] [address] Madalyn Pandya MD [address] [place] [phone] Medication Question (/); FYI Allergies Active Allergy Reactions Criticality Noted [...] stage III (GFR 30-59 ml/min) ([facility]),Cerebrovascula r disease, arteriosclerotic, post-stroke,Dyslipid emia, goal LDL below 70,Cerebellar infarct ([facility] [...] Espinoza's, hiatal hernia FAMILY HX, ISCHEMIC HEART [id number] 12/04/2010 01/20/2013 Dyslipidemia, goal LDL below 130 [...] Description 01/06/2024 10:30 AM EDT [facility] [address] [facility] [place] [phone] [place], [facility] [address] [facility] [place] [address] 01/13/2024 4:00 PM EDT Telemedicine Hematology/Oncology [facility] [address] [facility] [phone] Constanza Castañeda CRNP [address] [place] [address] [place] [address] 02/09/2024 10:20 AM EDT Office Visit Urogynecology [facility] [address] [place] [address] Bala Knox MD [address] [place] [address] [place], Nurse Urodynamics [address] [place] [phone] 03/29/2024 10:20 AM EST Office Visit Urogynecology [facility] [address] [place] [address] Bala Knox MD [address] [place] [address] [place] Nurse Urodynamics [address] [place] [address] 07/07/2024 2:00 PM EST Office Visit [facility] [address] [place] [address] Madalyn Pandya MD [address] [place] [address] Health Maintenance Due Date Last Done Comments Espinoza's Esophagus Surveilance 1945 Zoster Vaccines (2 of 3) 02/12/2015 12/18/2014 Adult Wellness Visit 12/21/2021 12/21/2020 COVID-19 Vaccine ( - season) 2023 03/20/2021, 07/22/2020, 07/01/2020 Influenza Vaccine (FLU shot) (#1) 2024 04/11/2023, 03/21/2022, 04/05/2021, Additional history exists DTaP,Tdap,and Td Vaccines (2 - Td or Tdap) 01/21/2024 01/20/2014 CKD PHOS USE SMARTSET 80196 04/02/202403/06, 09/14/2021, 03/12/2021, Additional history exists Albumin/Creatinine Ratio 04/04/2024 023, 03/13/2022, 09/14/2021, Additional history exists GFR 04/06/2024 10/06/2023, 06/0 07/2023, 08/09/2023, Additional history exists CKD HGB USE SMARTSET 85449 05/20/202405/20, 05/20/2023, 03/21/2023, Additional history exists Depression [...] this encounter Medical Devices Implanted Type Area Field Control Inspector Device Identifier Shelf Expiration Date Model / Serial / Lot [place] Ptfe 1x1 [id number] - [id number] Implanted:Qty: 5 on 06/03/2018 by Jaxon Vega MD at OR [facility] N/A: Abdomen CR BARD : PERIPHERAL VASCULAR 11/29/2021 [id number] / / [id number] Description:para-esophageal hernia Allomax Mesh 5 X 8 [id number] - [id number] - [id number] Implanted:Qty: 1 on 06/03/2018 by Jaxon Vega MD at OR [facility] N/A: Abdomen CR BARD : DAVOL 05/04/2020 [id number] / [id number] / [id number] Description:PARA ESOPHAGEAL HERNIA documented as of this encounter Advance Directives * Full Code (Latest Code Status on File) Date Activated Date Inactivated Comments 06/03/2018 4:58 PM 06/05/2018 7:48 PM Question Answer Comments Discussion of Advance Directives occurred with: Not Discussed Does the patient have a Living Will? No Does the patient have Health Care Power of Attor jose luis? No Care Teams Optical Store Manager Relationship Specialty Start Date End Date Madalyn Pandya MD [address] [place] [address] PCP - General Family Medicine 06/11/23 documented as of this encounter
--- OUTSIDE RECORDS SUMMARY | 2024-04-17 12:47 | External Medical Summary | Summary of Care ---
Author Name Unknown Organization [facility] Address [address] [place] [address] Phone [phone] Care Team Providers Care Roll Slicing Machine Tender Name Role Phone Madalyn Pandya MD Primary Care Provider Reason for Visit * Reason Onset Date Comments Medication Question 12/15/2023 FYI 12/15/2023 Encounter Details Date Type Department Care Team (Late st Contact Info) Description 12/15/2023 Telephone [facility] [address] [place] [address] Madalyn Pandya MD [address] [place] [phone] Medication Question (/); FYI Allergies Active Allergy [...] as of this encounter (statuses as of 12/16/2023) Medications Medication Sig Dispensed Refills Start Date [...] 30-59 ml/min) ([facility]),Cerebrovascula r disease, arteriosclerotic, post-stroke,Dyslipid emia, goal LDL below 70,Cerebellar infarct ([facility] [...] as of this encounter (statuses as of 12/16/2023) Active Problems Problem Noted Date Diagnosed Date [...] as of this encounter (statuses as of 12/16/2023) Resolved Problems Problem Noted Date Diagnosed Date [...] Espinoza's, hiatal hernia FAMILY HX, ISCHEMIC HEART [id number] 12/04/2010 01/20/2013 Dyslipidemia, goal LDL below 130 08/24/2010 01/20/2013 Anxiety state 11/14/2009 01/20/2013 Irritable bowel syndrome 11/14/2009 Esophageal reflux 11/14/2009 04/16/2011 Overview: hiatal hernia, EGD 03/13 Barretts Palpitations 11/14/2009 01/20/2013 Overview: 10/05 ANEMIA NOS-neg eval 11/11 Overview: neg. follow-up 1989 Other allergic rhinitis 01/03 Overview: ICD-10 update of inactive term documented as of this encounter (statuses as of 12/16/2023) Immunizations Name Administration Dates Next Due COVID-19 [...] encounter Miscellaneous Notes * Telephone Encounter - Elo Becerra OSA [...] Description 01/06/2024 10:30 AM EDT Laboratory Laboratory [facility], [place] [address] [place] [phone] [facility] [address] [facility] [place] [address] 01/13/2024 4:00 PM EDT Telemedicine Hematology/On[facility] [address] [facility] [phone] Constanza Castañeda CRNP [address] [facility] [place] [address] 02/09/2024 10:20 AM EDT [facility] [address] [place] [address] Bala Knox MD [address] [place] [address] [place], Nurse Urodynamics [address] [place] [address] 07/07/2024 2:00 PM EST Office Visit [facility] [address] [place] [address] Madalyn Pandya MD [address] [place] [address] Health Maintenance Due Date Last Done Comments Espinoza's Esophagus Surveilance 1945 Zoster Vaccines (2 of 3) 02/12/2015 12/18/2014 Adult Wellness Visit 12/21/2021 12/21/2020 COVID-19 Vaccine ( - season) 2023 03/20/2021, 07/22/2020, 07/01/2020 Influenza Vaccine (FLU shot) (#1) 2024 04/11/2023, 03/21/2022, 04/05/2021, Additional history exists DTaP,Tdap,and Td Vaccines (2 - Td or Tdap) 01/21/2024 01/20/2014 CKD PHOS USE SMARTSET 73743 04/02/202403/06, 09/14/2021, 03/12/2021, Additional history exists Albumin/Creatinine Ratio 04/04/2024 023, 03/13/2022, 09/14/2021, Additional history exists GFR 04/06/2024 10/06/2023, 06/0 07/2023, 08/09/2023, Additional history exists CKD HGB USE SMARTSET 33148 05/20/202405/20, 05/20/2023, 03/21/2023, Additional history exists Depression [...] this encounter Medical Devices Implanted Type Area Stroke Coordinator Device Identifier Shelf Expiration Date Model / Serial / Lot [place] Ptfe 1x1 [id number] - [id number] Implanted:Qty: 5 on 06/03/2018 by Jaxon Vega MD at OR [facility] N/A: Abdomen CR BARD : PERIPHERAL VASCULAR 11/29/2021 [id number] / / [id number] Description:para-esophageal hernia Allomax Mesh 5 X 8 [id number] - [id number] - [id number] Implanted:Qty: 1 on 06/03/2018 by Jaxon Vega MD at OR [facility] N/A: Abdomen CR BARD : DAVOL 05/04/2020 [id number] / [id number] / [id number] Description:PARA ESOPHAGEAL HERNIA documented as of this encounter Advance Directives * Full Code (Latest Code Status on File) Date Activated Date Inactivated Comments 06/03/2018 4:58 PM 06/05/2018 7:48 PM Question Answer Comments Discussion of Advance Directives occurred with: Not Discussed Does the patient have a Living Will? No Does the patient have Health Care Power of Attor jose luis? No Care Teams Roll Slicing Machine Tender Relationship Specialty Start Date End Date Madalyn Pandya MD [address] [place] [phone] PCP - General Family Medicine 06/11/23 documented as of this encounter
--- OUTSIDE RECORDS SUMMARY | 2024-04-17 12:47 | External Medical Summary | Summary of Care ---
Author Name Unknown Organization [facility] Address [address] [place] [address] Phone [phone] Care Team Providers Care Retail Product Demo Specialist Name Role Phone Madalyn Pandya MD Primary Care Provider [phone] Reason for Visit * Reason Onset Date Comments Medication Question 12/15/2023 FYI 12/15/2023 Encounter Details Date Type Department Care Team (Late st Contact Info) Description 12/15/2023 Telephone [facility] [address] [place] [address] Madalyn Pandya MD [address] [place] [phone] Medication Question (/); FYI Allergies Active Allergy [...] as of this encounter (statuses as of 12/18/2023) Medications Medication Sig Dispensed Refills Start Date [...] stage III (GFR 30-59 ml/min) ([facility]),Cerebrovascula r disease, arteriosclerotic, post-stroke,Dyslipid emia, goal LDL below 70,Cerebellar infarct ([facility]) take 1 tablet by mouth [...] as of this encounter (statuses as of 12/18/2023) Active Problems Problem Noted Date Diagnosed Date [...] as of this encounter (statuses as of 12/18/2023) Resolved Problems Problem Noted Date Diagnosed Date [...] Espinoza's, hiatal hernia FAMILY HX, ISCHEMIC HEART [id number] 12/04/2010 01/20/2013 Dyslipidemia, goal LDL below 130 08/24/2010 01/20/2013 Anxiety state 11/14/2009 01/20/2013 Irritable bowel syndrome 11/14/2009 Esophageal reflux 11/14/2009 04/16/2011 Overview: hiatal hernia, EGD 03/13 Barretts Palpitations 11/14/2009 01/20/2013 Overview: 10/05 ANEMIA NOS-neg eval 11/11 Overview: neg. follow-up 1989 Other allergic rhinitis 01/03 Overview: ICD-10 update of inactive term documented as of this encounter (statuses as of 12/18/2023) Immunizations Name Administration Dates Next Due COVID-19 [...] encounter Miscellaneous Notes * Telephone Encounter - Madison Herrera LPN [...] Description 01/06/2024 10:30 AM EDT [facility] [place] [address] [place] [phone] [facility] [address] [place] [address] 01/13/2024 4:00 PM EDT Telemedicine Hematology/Oncology [facility] [address] [facility] [address] Constanza Castañeda CRNP [address] [facility] [place] [address] 02/09/2024 10:20 AM EDT Office Visit Urogynecology [facility] [address] [place] [phone] Bala Knox MD [address] [place] [address] [place], Nurse Urodynamics [address] [place] [address] 03/29/2024 10:20 AM EST Office Visit Urogynecology [facility] [address] [place] [phone] Bala Knox MD [address] [place] [phone] [place], Nurse Urodynamics [address] [place] [address] 07/07/2024 2:00 PM EST Office Visit [facility] [address] [place] [address] Madalyn Pandya MD [address] [place] [address] Health Maintenance Due Date Last Done Comments Espinoza's Esophagus Surveilance 1943 Zoster Vaccines (2 of 3) 02/12/2015 12/18/2014 Adult Wellness Visit 12/21/2021 12/21/2020 COVID-19 Vaccine ( season) 2023 03/20/2021, 07/22/2020, 07/01/2020 Influenza Vaccine (FLU shot) (#1) 2024 04/11/2023, 03/21/2022, 04/05/2021, Additional history exists DTaP,Tdap,and Td Vaccines (2 - Td or Tdap) 01/21/2024 01/20/2014 CKD PHOS USE SMARTSET 86187 04/02/202403/06, 09/14/2021, 03/12/2021, Additional history exists Albumin/Creatinine Ratio 04/04/2024 023, 03/13/2022, 09/14/2021, Additional history exists GFR 04/06/2024 10/06/2023, 06/0 07/2023, 08/09/2023, Additional history exists CKD HGB USE SMARTSET 76197 05/20/202405/20, 05/20/2023, 03/21/2023, Additional history exists Depression [...] this encounter Medical Devices Implanted Type Area Economic History Teacher Device Identifier Shelf Expiration Date Model / Serial / Lot Greene Ptfe 1x1 [id number] - [id number] Implanted:Qty: 5 on 06/03/2018 by Jaxon Vega MD at OR [facility] N/A: Abdomen CR BARD : PERIPHERAL VASCULAR 11/29/2021 [id number] / / [id number] Description:para-esophageal hernia Allomax Mesh 5 X 8 [id number] - [id number] - [id number] Implanted:Qty: 1 on 06/03/2018 by Jaxon Vega MD at OR [facility] N/A: Abdomen CR BARD : DAVOL 05/04/2020 [id number] / [id number] / [id number] Description:PARA ESOPHAGEAL HERNIA documented as of this encounter Advance Directives * Full Code (Latest Code Status on File) Date Activated Date Inactivated Comments 06/03/2018 4:58 PM 06/05/2018 7:48 PM Question Answer Comments Discussion of Advance Directives occurred with: Not Discussed Does the patient have a Living Will? No Does the patient have Health Care Power of Attor jose luis? No Care Teams Retail Product Demo Specialist Relationship Specialty Start Date End Date Madalyn Pandya MD [address] [place] [phone] PCP - General Family Medicine 06/11/23 documented as of this encounter
--- OUTSIDE RECORDS SUMMARY | 2024-04-17 12:47 | External Medical Summary | Summary of Care ---
Author Name Unknown Organization [facility] Address [address] [place] [address] Phone [phone] Care Team Providers Care Map Mounter Name Role Phone Madalyn Pandya MD Primary Care Provider Reason for Visit * Reason Onset Date Comments Medication Question 12/15/2023 FYI 12/15/2023 Encounter Details Date Type Department Care Team (Late st Contact Info) Description 12/15/2023 Telephone [facility] [address] [place] [address] Madalyn Pandya MD [address] [place] [phone] Medication Question (/); FYI Allergies Active Allergy [...] 30-59 ml/min) ([facility]),Cerebrovascula r disease, arteriosclerotic, post-stroke,Dyslipid emia, goal LDL below 70,Cerebellar infarct ([facility] [...] Espinoza's, hiatal hernia FAMILY HX, ISCHEMIC HEART [id number] 12/04/2010 01/20/2013 Dyslipidemia, goal LDL below 130 [...] encounter Miscellaneous Notes * Telephone Encounter - Miracle Abdi LPN [...] Description 01/06/2024 10:30 AM EDT Laboratory [facility] [place] [address] [place] [phone] [place] [address] [place] [address] 01/13/2024 4:00 PM EDT Telemedicine Hematology/Oncology Rashawn Mcdonald [place] [address] [place] [address] Constanza Castañeda CRNP [address] [place] [phone] 02/09/2024 10:20 AM EDT Office Visit Urogynecology [facility] [place] [address] [place] [address] Bala Knox MD [address] [place] [address] [place], Nurse Urodynamics [address] [place] [address] 07/07/2024 2:00 PM EST Office Visit [facility] [address] [place] [phone] Madalyn Pandya MD [address] [place] [address] Health Maintenance Due Date Last Done Comments Espinoza's Esophagus Surveilance 1945 Zoster Vaccines (2 of 3) 02/12/2015 12/18/2014 Adult Wellness Visit 12/21/2021 12/21/2020 COVID-19 Vaccine ( season) 2023 03/20/2021, 07/22/2020, 07/01/2020 Influenza Vaccine (FLU shot) (#1) 2024 04/11/2023, 03/21/2022, 04/05/2021, Additional history exists DTaP,Tdap,and Td Vaccines (2 - Td or Tdap) 01/21/2024 01/20/2014 CKD PHOS USE SMARTSET 54944 04/02/202403/06, 09/14/2021, 03/12/2021, Additional history exists Albumin/Creatinine Ratio 04/04/2024 023, 03/13/2022, 09/14/2021, Additional history exists GFR 04/06/2024 10/06/2023, 06/0 07/2023, 08/09/2023, Additional history exists CKD HGB USE SMARTSET 86902 05/20/202405/20, 05/20/2023, 03/21/2023, Additional history exists Depression [...] this encounter Medical Devices Implanted Type Area Roughener Device Identifier Shelf Expiration Date Model / Serial / Lot Lugoff Ptfe 1x1 [id number] - [id number] Implanted:Qty: 5 on 06/03/2018 by Jaxon Vega MD at OR [facility] N/A: Abdomen CR BARD : PERIPHERAL VASCULAR 11/29/2021 [id number] / / [id number] Description:para-esophageal hernia Allomax Mesh 5 X 8 [id number] - [id number] - [id number] Implanted:Qty: 1 on 06/03/2018 by Jaxon Vega MD at OR [facility] N/A: Abdomen CR BARD : DAVOL 05/04/2020 [id number] / [id number] / [id number] Description:PARA ESOPHAGEAL HERNIA documented as of this encounter Advance Directives * Full Code (Latest Code Status on File) Date Activated Date Inactivated Comments 06/03/2018 4:58 PM 06/05/2018 7:48 PM Question Answer Comments Discussion of Advance Directives occurred with: Not Discussed Does the patient have a Living Will? No Does the patient have Health Care Power of Attor jose luis? No Care Teams Map Mounter Relationship Specialty Start Date End Date Madalyn Pandya MD [address] [place] [address] PCP - General Family Medicine 06/11/23 documented as of this encounter
--- OUTSIDE RECORDS SUMMARY | 2024-04-17 12:47 | External Medical Summary | Summary of Care ---
Author Name Unknown Organization [facility] Address [address] [place] [address] Phone [phone] Care Team Providers Care Care Support Representative Name Role Phone Madalyn Pandya MD Primary Care Provider [phone] Reason for Visit * Reason Onset Date Comments Medication Question 12/15/2023 FYI 12/15/2023 Encounter Details Date Type Department Care Team (Late st Contact Info) Description 12/15/2023 Telephone [facility] [address] [place] [address] Madalyn Pandya MD [address] [place] [phone] Medication Question (/); FY Allergies Active Allergy Reactions Criticality Noted Date [...] as of this encounter (statuses as of 12/17/2023) Medications Medication Sig Dispensed Refills Start Date [...] disease, chronic, stage III (GFR 30-59 ml/min) ([facility]),Cerebrovascula r disease, arteriosclerotic, post-stroke,Dyslipid emia, goal LDL below 70,Cerebellar infarct ([facility]) take 1 tablet by mouth [...] as of this encounter (statuses as of 12/17/2023) Active Problems Problem Noted Date Diagnosed Date [...] as of this encounter (statuses as of 12/17/2023) Resolved Problems Problem Noted Date Diagnosed Date [...] Espinoza's, hiatal hernia FAMILY HX, ISCHEMIC HEART [id number] 12/04/2010 01/20/2013 Dyslipidemia, goal LDL below 130 08/24/2010 01/20/2013 Anxiety state 11/14/2009 01/20/2013 Irritable bowel syndrome 11/14/2009 Esophageal reflux 11/14/2009 04/16/2011 Overview: hiatal hernia, EGD 03/13 Barretts Palpitations 11/14/2009 01/20/2013 Overview: 10/05 ANEMIA NOS-neg eval 11/11 Overview: neg. follow-up 1989 Other allergic rhinitis 01/03 Overview: ICD-10 update of inactive term documented as of this encounter (statuses as of 12/17/2023) Immunizations Name Administration Dates Next Due COVID-19 [...] Description 01/06/2024 10:30 AM EDT Laboratory [facility] [address] [place] [phone] [place] [address] 01/13/2024 4:00 PM EDT Telemedicine Hematology/Oncology Rashawn Mcdonald [place] [address] [facility] [place], [place] [address] Constanza Castañeda CRNP [address] [place] [address] 02/09/2024 10:20 AM EDT Office Visit Urogynecology [facility] [address] [place] [address] Bala Knox MD [address] [place] [address] [place], Nurse Urodynamics [address] [place] [address] 07/07/2024 2:00 PM EST Office Visit [facility] [address] [place] [address] Madalyn Pandya MD [address] [place] [address] Health Maintenance Due Date Last Done Comments Espinoza's Esophagus Surveilance 1943 Zoster Vaccines (2 of 3) 02/12/2015 12/18/2014 Adult Wellness Visit 12/21/2021 12/21/2020 COVID-19 Vaccine ( season) 2023 03/20/2021, 07/22/2020, 07/01/2020 Influenza Vaccine (FLU shot) (#1) 2024 04/11/2023, 03/21/2022, 04/05/2021, Additional history exists DTaP,Tdap,and Td Vaccines (2 - Td or Tdap) 01/21/2024 01/20/2014 CKD PHOS USE SMARTSET 83786 04/02/202403/06, 09/14/2021, 03/12/2021, Additional history exists Albumin/Creatinine Ratio 04/04/2024 023, 03/13/2022, 09/14/2021, Additional history exists GFR 04/06/2024 10/06/2023, 06/0 07/2023, 08/09/2023, Additional history exists CKD HGB USE SMARTSET 15072 05/20/202405/20, 05/20/2023, 03/21/2023, Additional history exists Depression [...] this encounter Medical Devices Implanted Type Area Radar Systems Engineer Device Identifier Shelf Expiration Date Model / Serial / Lot Regina Ptfe 1x1 [id number] - [id number] Implanted:Qty: 5 on 06/03/2018 by Jaxon Vega MD at OR [facility] N/A: Abdomen CR BARD : PERIPHERAL VASCULAR 11/29/2021 [id number] / / [id number] Description:para-esophageal hernia Allomax Mesh 5 X 8 [id number] - [id number] - [id number] Implanted:Qty: 1 on 06/03/2018 by Jaxon Vega MD at OR [facility] N/A: Abdomen CR BARD : DAVOL 05/04/2020 [id number] / [id number] / [id number] Description:PARA ESOPHAGEAL HERNIA documented as of this encounter Advance Directives * Full Code (Latest Code Status on File) Date Activated Date Inactivated Comments 06/03/2018 4:58 PM 06/05/2018 7:48 PM Question Answer Comments Discussion of Advance Directives occurred with: Not Discussed Does the patient have a Living Will? No Does the patient have Health Care Power of Attor jose luis? No Care Teams Care Support Representative Relationship Specialty Start Date End Date Madalyn Pandya MD [address] [place] [address] PCP - General Family Medicine 06/11/23 documented as of this encounter
--- OUTSIDE RECORDS SUMMARY | 2024-04-17 12:47 | External Medical Summary | Summary of Care ---
Author Name Unknown Organization [facility] Address [address] [facility] [place] [address] Phone [phone] Care Team Providers Care Review Trainer Name Role Phone Madalyn Pandya MD Primary Care Provider [phone] Reason for Visit * Reason Onset Date Comments Test Results 12/16/2023 Encounter Details Date Type Department Care Team (Late st Contact Info) Description 12/16/2023 Telephone [facility] [address] [place] [address] Madalyn Pandya MD [address] [place] [phone] Test Results Allergies Active Allergy Reactions Criticality [...] days. Until gone. 28 Capsule 12/16/2023 12/23/2023 Active documented as of this encounter (statuses [...] Espinoza's, hiatal hernia FAMILY HX, ISCHEMIC HEART [id number] 12/04/2010 01/20/2013 Dyslipidemia, goal LDL below 130 [...] mRNA, LNP-s, No Pre serve, 2-Dose Series ([employer]) 03/20/2021,07/22/2020,07/01/2020 PPD 10/05/1992 Pneumococcal Conjugate Vacc, 13 [...] to pharmacy Pharmacy Selected: [id number] [facility] Medication Orders Placed This Encounter Medications [...] AM EDT Laboratory Laboratory [address] [place] [phone] [place] [address] 01/13/2024 4:00 PM EDT Telemedicine Hematology/Oncology Rashawn Mcdonald [place] [address] [place] [address] Constanza Castañeda CRNP [address] [facility] [place] [address] 02/09/2024 10:20 AM EDT [facility] [address] [place] [address] Bala Knox MD [address] [place] [address] Gw, Nurse Urodynamics [address] [place] [address] 07/07/2024 2:00 PM EST Office Visit [facility] [address] [place] [phone] Madalyn Pandya MD [address] [place] [place] [address] Health Maintenance Due Date Last Done Comments Espinoza's Esophagus Surveilance 1943 Zoster Vaccines (2 of 3) 02/12/2015 12/18/2014 Adult Wellness Visit 12/21/2021 12/21/2020 COVID-19 Vaccine (4 - season) 2023 03/20/2021, 07/22/2020, 07/01/2020 Influenza Vaccine (FLU shot) (#1) 2024 04/11/2023, 03/21/2022, 04/05/2021, Additional history exists DTaP,Tdap,and Td Vaccines (2 - Td or Tdap) 01/21/2024 01/20/2014 CKD PHOS USE SMARTSET 36589 04/02/202403/06, 09/14/2021, 03/12/2021, Additional history exists Albumin/Creatinine Ratio 04/04/2024 023, 03/13/2022, 09/14/2021, Additional history exists GFR 04/06/2024 10/06/2023, 06/0 07/2023, 08/09/2023, Additional history exists CKD HGB USE SMARTSET 91626 05/20/202405/20, 05/20/2023, 03/21/2023, Additional history exists Depression [...] this encounter Medical Devices Implanted Type Area Net Web Developer Device Identifier Shelf Expiration Date Model / Serial / Lot [place] Ptfe 1x1 [id number] - [id number] Implanted:Qty: 5 on 06/03/2018 by Jaxon Vega MD at OR [facility] N/A: Abdomen CR BARD : PERIPHERAL VASCULAR 11/29/2021 [id number] / / [id number] Description:para-esophageal hernia Allomax Mesh 5 X 8 [id number] - [id number] - [id number] Implanted:Qty: 1 on 06/03/2018 by Jaxon Vega MD at OR [facility] N/A: Abdomen CR BARD : DAVOL 05/04/2020 [id number] / [id number] / [id number] Description:PARA ESOPHAGEAL HERNIA documented as of this encounter Advance Directives * Full Code (Latest Code Status on File) Date Activated Date Inactivated Comments 06/03/2018 4:58 PM 06/05/2018 7:48 PM Question Answer Comments Discussion of Advance Directives occurred with: Not Discussed Does the patient have a Living Will? No Does the patient have Health Care Power of Attor jose luis? No Care Teams Review Trainer Relationship Specialty Start Date End Date Madalyn Pandya MD [address] [place] [address] PCP - General Family Medicine 06/11/23 documented as of this encounter
--- OUTSIDE RECORDS SUMMARY | 2024-04-17 12:47 | External Medical Summary | Summary of Care ---
Author Name Unknown Organization [facility] Address [address] [place] [address] Phone [phone] Care Team Providers Care Graphic Production Artist Name Role Phone Madalyn Pandya MD Primary Care Provider [phone] Reason for Visit * Reason Onset Date Comments Medication Question 12/15/2023 LM 12/21 FYI 12/15/2023 Encounter Details Date Type Department Care Team (Late st Contact Info) Description 12/15/2023 Telephone [facility] [address] [place] [address] Madalyn Pandya MD [address] [place] [phone] Medication Question (LM 12/21/); FYI Allergies Active [...] Espinoza's, hiatal hernia FAMILY HX, ISCHEMIC HEART [id number] 12/04/2010 01/20/2013 Dyslipidemia, goal LDL below 130 [...] Miscellaneous Notes * Telephone Encounter - Madison eHrrera LPN - 12/22/2023 1:45 PM EDT Left message for Fay to return call to [phone] regarding message below. * Telephone Encounter - Madalyn Panday MD - 12/21/2023 9:11 AM EDT Unfortunately [...] Description 01/06/2024 10:30 AM EDT Laboratory Laboratory [place] [address] [place] [phone] [place] [facility] [address] [place] [place] [address] 01/13/2024 4:00 PM EDT Telemedicine Hematology/Oncology Rashawn Mcdonald [place] [address] [place] [address] Constanza Castañeda CRNP [address] [place] [address] 02/09/2024 10:20 AM EDT Office Visit Urogynecology [address] [place] [address] Bala Knox MD [address] [place] [address] [place] Nurse Urodynamics [address] [place] [address] 03/29/2024 10:20 AM EST Office Visit Urogynecology [facility] [address] [place] [place] [address] Bala Knox MD [address] [place] [address] [place] Nurse Urodynamics [address] [place] [address] 07/07/2024 2:00 PM EST Office Visit [facility] [address] [place] [address] Madalyn Pandya MD [address] [place] [address] Health Maintenance Due Date Last Done Comments Espinoza's Esophagus Surveilance 1943 Zoster Vaccines (2 of 3) 02/12/2015 12/18/2014 Adult Wellness Visit 12/21/2021 12/21/2020 COVID-19 Vaccine ( season) 2023 03/20/2021, 07/22/2020, 07/01/2020 Influenza Vaccine (FLU shot) (#1) 2024 04/11/2023, 03/21/2022, 04/05/2021, Additional history exists DTaP,Tdap,and Td Vaccines (2 - Td or Tdap) 01/21/2024 01/20/2014 CKD PHOS USE SMARTSET 27118 04/02/202403/06, 09/14/2021, 03/12/2021, Additional history exists Albumin/Creatinine Ratio 04/04/2024 023, 03/13/2022, 09/14/2021, Additional history exists GFR 04/06/2024 10/06/2023, 06/0 07/2023, 08/09/2023, Additional history exists CKD HGB USE SMARTSET 63615 05/20/202405/20, 05/20/2023, 03/21/2023, Additional history exists Depression [...] this encounter Medical Devices Implanted Type Area Spike Machine Operator Device Identifier Shelf Expiration Date Model / Serial / Lot Weiser Ptfe 1x1 [id number] - [id number] Implanted:Qty: 5 on 06/03/2018 by Jaxon Vega MD at OR [facility] N/A: Abdomen CR BARD : PERIPHERAL VASCULAR 11/29/2021 [id number] / / [id number] Description:para-esophageal hernia Allomax Mesh 5 X 8 [id number] - [id number] - [id number] Implanted:Qty: 1 on 06/03/2018 by Jaxon Vega MD at OR [facility] N/A: Abdomen CR BARD : DAVOL 05/04/2020 [id number] / [id number] / [id number] Description:PARA ESOPHAGEAL HERNIA documented as of this encounter Advance Directives * Full Code (Latest Code Status on File) Date Activated Date Inactivated Comments 06/03/2018 4:58 PM 06/05/2018 7:48 PM Question Answer Comments Discussion of Advance Directives occurred with: Not Discussed Does the patient have a Living Will? No Does the patient have Health Care Power of Attor jose luis? No Care Teams Graphic Production Artist Relationship Specialty Start Date End Date Madalyn Pandya MD [address] [place] [address] PCP - General Family Medicine 06/11/23 documented as of this encounter
--- OUTSIDE RECORDS SUMMARY | 2024-04-17 12:47 | External Medical Summary | Summary of Care ---
Author Name Unknown Organization [facility] Address [address] [place] [address] Phone [phone] Care Team Providers Care Dance Studio Manager Name Role Phone Madalyn Pandya MD Primary Care Provider [phone] Reason for Visit * Reason Onset Date Comments Test Results 12/16/2023 Encounter Details Date Type Department Care Team (Late st Contact Info) Description 12/16/2023 Telephone [facility] [address] [place] [address] Madalyn Pandya MD [address] [place] [phone] Test Results Allergies Active Allergy Reactions Criticality [...] Espinoza's, hiatal hernia FAMILY HX, ISCHEMIC HEART [id number] 12/04/2010 01/20/2013 Dyslipidemia, goal LDL below 130 [...] mRNA, LNP-s, No Pre serve, 2-Dose Series (Imaging3) 03/20/2021,07/22/2020,07/01/2020 PPD 10/05/1992 Pneumococcal Conjugate Vacc, 13 [...] Meds sent to pharmacy Pharmacy Selected: [id number] [facility] Medication Orders Placed This Encounter Medications Nitrofurantoin [...] AM EDT Laboratory Laboratory [address] [place] [address] [place] [address] [place] [address] 01/13/2024 4:00 PM EDT Telemedicine Hematology/Oncology [facility] Mcdonald [place] [address] [place] [phone] Constanza Castañeda CRNP [address] [facility] [place] [address] 02/09/2024 10:20 AM EDT Office Visit Urogynecology [facility] [address] [place] [address] Bala Knox MD [address] [place] [address] [place], Nurse Urodynamics [address] [place] [address] 07/07/2024 2:00 PM EST Office Visit [facility] [address] [place] [address] Madalyn Pandya MD [address] [place] [phone] Health Maintenance Due Date Last Done Comments Espinoza's Esophagus Surveilance 1943 Zoster Vaccines (2 of 3) 02/12/2015 12/18/2014 Adult Wellness Visit 12/21/2021 12/21/2020 COVID-19 Vaccine (4 - season) 2023 03/20/2021, 07/22/2020, 07/01/2020 Influenza Vaccine (FLU shot) (#1) 2024 04/11/2023, 03/21/2022, 04/05/2021, Additional history exists DTaP,Tdap,and Td Vaccines (2 - Td or Tdap) 01/21/2024 01/20/2014 CKD PHOS USE SMARTSET 93543 04/02/202403/06, 09/14/2021, 03/12/2021, Additional history exists Albumin/Creatinine Ratio 04/04/2024 023, 03/13/2022, 09/14/2021, Additional history exists GFR 04/06/2024 10/06/2023, 06/0 07/2023, 08/09/2023, Additional history exists CKD HGB USE SMARTSET 20585 05/20/202405/20, 05/20/2023, 03/21/2023, Additional history exists Depression [...] this encounter Medical Devices Implanted Type Area Family Services Assistant Device Identifier Shelf Expiration Date Model / Serial / Lot [place] Ptfe 1x1 [id number] - [id number] Implanted:Qty: 5 on 06/03/2018 by Jaxon eVga MD at OR [facility] N/A: Abdomen CR BARD : PERIPHERAL VASCULAR 11/29/2021 [id number] / / [id number] Description:para-esophageal hernia Allomax Mesh 5 X 8 [id number] - [id number] - [id number] Implanted:Qty: 1 on 06/03/2018 by Jaxon Vega MD at OR [facility] N/A: Abdomen CR BARD : DAVOL 05/04/2020 [id number] / [id number] / [id number] Description:PARA ESOPHAGEAL HERNIA documented as of this encounter Advance Directives * Full Code (Latest Code Status on File) Date Activated Date Inactivated Comments 06/03/2018 4:58 PM 06/05/2018 7:48 PM Question Answer Comments Discussion of Advance Directives occurred with: Not Discussed Does the patient have a Living Will? No Does the patient have Health Care Power of Attor jose luis? No Care Teams Dance Studio Manager Relationship Specialty Start Date End Date Madalyn Pandya MD [address] [place] [address] PCP - General Family Medicine 06/11/23 documented as of this encounter
--- OUTSIDE RECORDS SUMMARY | 2024-04-17 12:47 | External Medical Summary | Summary of Care ---
Author Name Unknown Organization [facility] Address [address] [place] [address] Phone [phone] Care Team Providers Care Sap Hana Architect Name Role Phone Madalyn Pandya MD Primary Care Provider [phone] Reason for Visit * Reason Onset Date Comments Medication Question 12/15/2023 FYI 12/15/2023 Encounter Details Date Type Department Care Team (Late st Contact Info) Description 12/15/2023 Telephone [facility] [address] [place] [address] Madalyn Pandya MD [address] [place] [phone] Medication Question (/); FYI Allergies Active Allergy [...] as of this encounter (statuses as of 12/15/2023) Medications Medication Sig Dispensed Refills Start Date [...] (GFR 30-59 ml/min) ([facility]),Cerebrovascula r disease, arteriosclerotic, post-stroke,Dyslipid emia, goal LDL below 70,Cerebellar infarct ([facility]) take 1 tablet by mouth at bedtime [...] as of this encounter (statuses as of 12/15/2023) Active Problems Problem Noted Date Diagnosed Date [...] as of this encounter (statuses as of 12/15/2023) Resolved Problems Problem Noted Date Diagnosed Date [...] Espinoza's, hiatal hernia FAMILY HX, ISCHEMIC HEART [id number] 12/04/2010 01/20/2013 Dyslipidemia, goal LDL below 130 08/24/2010 01/20/2013 Anxiety state 11/14/2009 01/20/2013 Irritable bowel syndrome 11/14/2009 Esophageal reflux 11/14/2009 04/16/2011 Overview: hiatal hernia, EGD 03/13 Barretts Palpitations 11/14/2009 01/20/2013 Overview: 10/05 ANEMIA NOS-neg eval 11/11 Overview: neg. follow-up 1989 Other allergic rhinitis 01/03 Overview: ICD-10 update of inactive term documented as of this encounter (statuses as of 12/15/2023) Immunizations Name Administration Dates Next Due COVID-19 [...] encounter Miscellaneous Notes * Telephone Encounter - Gayla Briceno OSA [...] Description 01/06/2024 10:30 AM EDT [facility] [address] [facility] [place] [phone] [facility] [address] [facility] [place] [address] 01/13/2024 4:00 PM EDT Telemedicine Hematology/Oncology [facility] [address] [place] [address] Constanza Castañeda CRNP [address] [facility] [phone] 02/09/2024 10:20 AM EDT Office Visit Urogynecology [facility] [address] [place] [address] Bala Knox MD [address] [place] [address] [place], Nurse Urodynamics [address] [place] [address] 07/07/2024 2:00 PM EST Office Visit [facility] [address] [place] [phone] Madalyn Pandya MD [address] [place] [address] Health Maintenance Due Date Last Done Comments Espinoza's Esophagus Surveilance 1945 Zoster Vaccines (2 of 3) 02/12/2015 12/18/2014 Adult Wellness Visit 12/21/2021 12/21/2020 COVID-19 Vaccine (4 - season) 2023 03/20/2021, 07/22/2020, 07/01/2020 Influenza Vaccine (FLU shot) (#1) 2024 04/11/2023, 03/21/2022, 04/05/2021, Additional history exists DTaP,Tdap,and Td Vaccines (2 - Td or Tdap) 01/21/2024 01/20/2014 CKD PHOS USE SMARTSET 60407 04/02/202403/06, 09/14/2021, 03/12/2021, Additional history exists Albumin/Creatinine Ratio 04/04/2024 023, 03/13/2022, 09/14/2021, Additional history exists GFR 04/06/2024 10/06/2023, 06/0 07/2023, 08/09/2023, Additional history exists CKD HGB USE SMARTSET 52784 05/20/202405/20, 05/20/2023, 03/21/2023, Additional history exists Depression [...] this encounter Medical Devices Implanted Type Area Refrigeration Operator Device Identifier Shelf Expiration Date Model / Serial / Lot [place] Ptfe 1x1 [id number] - [id number] Implanted:Qty: 5 on 06/03/2018 by Jaxon Vega MD at OR [facility] N/A: Abdomen CR BARD : PERIPHERAL VASCULAR 11/29/2021 [id number] / / [id number] Description:para-esophageal hernia Allomax Mesh 5 X 8 [id number] - [id number] - [id number] Implanted:Qty: 1 on 06/03/2018 by Jaxon Vega MD at OR [facility] N/A: Abdomen CR BARD : DAVOL 05/04/2020 [id number] / [id number] / [id number] Description:PARA ESOPHAGEAL HERNIA documented as of this encounter Advance Directives * Full Code (Latest Code Status on File) Date Activated Date Inactivated Comments 06/03/2018 4:58 PM 06/05/2018 7:48 PM Question Answer Comments Discussion of Advance Directives occurred with: Not Discussed Does the patient have a Living Will? No Does the patient have Health Care Power of Attor jose luis? No Care Teams Sap Hana Architect Relationship Specialty Start Date End Date Madalyn Pandya MD [address] [place] [phone] PCP - General Family Medicine 06/11/23 documented as of this encounter
--- OUTSIDE RECORDS SUMMARY | 2024-04-17 12:48 | External Medical Summary | Summary of Care ---
Author Name Unknown Organization [facility] Address [address] [place] [address] Phone [phone] Care Team Providers Care Psychology Professor Name Role Phone Madalyn Pandya MD Primary Care Provider Reason for Visit * Reason Comments Outpatient Testing Encounter Details Date Type Department Care Team (Late st Contact Info) Description 12/12/2023 12:20 PM EDT Laboratory Laboratory [place] [address] [place] [phone] [place] [facility] [address] [place] [address] Arrived Allergies Active Allergy Reactions Criticality Noted [...] as of this encounter (statuses as of 12/12/2023) Medications Medication Sig Dispensed Refills Start Date [...] as of this encounter (statuses as of 12/12/2023) Active Problems Problem Noted Date Diagnosed Date [...] as of this encounter (statuses as of 12/12/2023) Resolved Problems Problem Noted Date Diagnosed Date [...] Espinoza's, hiatal hernia FAMILY HX, ISCHEMIC HEART [id number] 12/04/2010 01/20/2013 Dyslipidemia, goal LDL below 130 08/24/2010 01/20/2013 Anxiety state 11/14/2009 01/20/2013 Irritable bowel syndrome 11/14/2009 Esophageal reflux 11/14/2009 04/16/2011 Overview: hiatal hernia, EGD 03/13 Barretts Palpitations 11/14/2009 01/20/2013 Overview: 10/05 ANEMIA NOS-neg eval 11/11 Overview: neg. follow-up 1989 Other allergic rhinitis 01/03 Overview: ICD-10 update of inactive term documented as of this encounter (statuses as of 12/12/2023) Immunizations Name Administration Dates Next Due COVID-19 [...] Description 01/06/2024 10:30 AM EDT Laboratory Laboratory [facility], [place] [address] [facility] [place] [phone] Ale[place]andra Lab [facility] [address] [facility] [place] [address] 01/13/2024 4:00 PM EDT Telemedicine Hematology/Oncology [facility] [address] [place] [phone] Constanza Castañeda CRNP [address] [place] [address] [place] [phone] 02/09/2024 10:20 AM EDT Office Visit Urogynecology [facility] [address] [place] [address] Bala Knox MD [address] [place] [address] [place], Nurse Urodynamics [address] [place] [address] 07/07/2024 2:00 PM EST Office Visit [facility] [address] [place] [address] Madalyn Pandya MD [address] [place] [address] Health Maintenance Due Date Last Done Comments Espinoza's Esophagus Surveilance 1943 Zoster Vaccines (2 of 3) 02/12/2015 12/18/2014 Adult Wellness Visit 12/21/2021 12/21/2020 COVID-19 Vaccine (4 - season) 2023 03/20/2021, 07/22/2020, 07/01/2020 Influenza Vaccine (FLU shot) (#1) 2024 04/11/2023, 03/21/2022, 04/05/2021, Additional history exists DTaP,Tdap,and Td Vaccines (2 - Td or Tdap) 01/21/2024 01/20/2014 CKD PHOS USE SMARTSET 24935 04/02/202403/06, 09/14/2021, 03/12/2021, Additional history exists Albumin/Creatinine Ratio 04/04/2024 023, 03/13/2022, 09/14/2021, Additional history exists GFR 04/06/2024 10/06/2023, 06/0 07/2023, 08/09/2023, Additional history exists CKD HGB USE SMARTSET 65136 05/20/202405/20, 05/20/2023, 03/21/2023, Additional history exists Depression [...] this encounter Medical Devices Implanted Type Area Synthetic Plasterer Device Identifier Shelf Expiration Date Model / Serial / Lot [place] Ptfe 1x1 [id number] - [id number] Implanted:Qty: 5 on 06/03/2018 by Jaxon Vega MD at OR [facility] N/A: Abdomen CR BARD : PERIPHERAL VASCULAR 11/29/2021 [id number] / / [id number] Description:para-esophageal hernia Allomax Mesh 5 X 8 [id number] - [id number] - [id number] Implanted:Qty: 1 on 06/03/2018 by Jaxon Vega MD at OR [facility] N/A: Abdomen CR BARD : DAVOL 05/04/2020 [id number] / [id number] / [id number] Description:PARA ESOPHAGEAL HERNIA documented as of this encounter Advance Directives * Full Code (Latest Code Status on File) Date Activated Date Inactivated Comments 06/03/2018 4:58 PM 06/05/2018 7:48 PM Question Answer Comments Discussion of Advance Directives occurred with: Not Discussed Does the patient have a Living Will? No Does the patient have Health Care Power of Attor jose luis? No Care Teams Psychology Professor Relationship Specialty Start Date End Date Madalyn Pandya MD [address] [place] [address] PCP - General Family Medicine 06/11/23 documented as of this encounter
--- OUTSIDE RECORDS SUMMARY | 2024-04-17 12:48 | External Medical Summary | Summary of Care ---
Author Name Unknown Organization [facility] Address [address] [facility] [place] [address] Phone [phone] Care Team Providers Care Agricultural Mechanic Name Role Phone Madalyn Pandya MD Primary Care Provider [phone] Reason for Visit * Reason Onset Date Comments Medication Refill 11/10/2023 Encounter Details Date Type Department Care Team (Late st Contact Info) Description 11/10/[address] [facility] [address] [place] [address] Madalyn Pandya MD [address] [place] [address] Allergies Active Allergy Reactions Criticality Noted Date [...] as of this encounter (statuses as of 11/10/2023) Medications Medication Sig Dispensed Refills Start Date [...] THE DAY. 90 Tablet 5 04/11/2023 Active Nitrofurantoin Macrocrystal 50 MG Oral Capsule (Macrodantin)Indicat ions:Dysuria Take 1 Capsule by mouth in the morning and 1 Capsule at noon and 1 Capsule in the evening and 1 Capsule before bedtime. Until gone. 28 Capsule 06/30/2023 Active Rosuvastatin Calcium 20 MG Oral Tablet (Crestor)Indications :Kidney disease, chronic, stage III (GFR 30-59 ml/min) ([facility]),Cerebrovascula r disease, arteriosclerotic, post-stroke,Dyslipid emia, goal LDL below 70,Cerebellar infarct ([facility]) take 1 tablet by mouth at bedtime 90 Tablet 1 08/18/2023 Active Iron-Vitamin C 65-125 MG Oral Tablet (Vitron C)Indications:Anemia in stage 3a chronic kidney disease ([facility]) Take 1 Tablet by mouth in the morning. 90 Tablet 1 09/04/2023 Active Estradiol 0.1 MG/GM Vaginal Cream (Estrace) Apply a pea sized amount (0.5g) vaginally twice a week as directed 42.5 g 3 09/26/2023 Active Spironolactone 25 MG Oral Tablet (Aldactone) take 1 tablet by mouth every morning 30 Tablet 1 11/10/2023 Active Apixaban 2.5 MG Oral Tablet (Eliquis)Indications :Chronic deep vein thrombosis (DVT) of proximal vein of lower extremity, unspecified laterality ([facility]) Take 1 Tablet by mouth in the morning and 1 Tablet before bedtime. 60 Tablet 1 11/07/2023 Active documented as of this encounter (statuses as of 11/10/2023) Active Problems Problem Noted Date Diagnosed Date [...] as of this encounter (statuses as of 11/10/2023) Resolved Problems Problem Noted Date Diagnosed Date [...] Espinoza's, hiatal hernia FAMILY HX, ISCHEMIC HEART [id number] 12/04/2010 01/20/2013 Dyslipidemia, goal LDL below 130 08/24/2010 01/20/2013 Anxiety state 11/14/2009 01/20/2013 Irritable bowel syndrome 11/14/2009 Esophageal reflux 11/14/2009 04/16/2011 Overview: hiatal hernia, EGD 03/13 Barretts Palpitations 11/14/2009 01/20/2013 Overview: 10/05 ANEMIA NOS-neg eval 11/11 Overview: neg. follow-up 1988 Other allergic rhinitis 01/03 Overview: ICD-10 update of inactive term documented as of this encounter (statuses as of 11/10/2023) Immunizations Name Administration Dates Next Due COVID-19 mRNA, LNP-s, No Pre serve, 2-Dose Series ([place]) 03/20/2021,07/22/2020,07/01/2020 PPD 10/05/1992 Pneumococcal Conjugate Vacc, 13 [...] encounter Miscellaneous Notes * Telephone Encounter - Steven Nunes - 11/10/2023 3:01 PM EDTRefused Prescriptions: Disp Refills Spironolactone 25 MG Oral Tablet (Aldacton*30 Tab*1 Sig: Take 1Tablet by mouth in the morning. In the morning..Refused By: Carmelina NUNES for Refusal: Duplicate Request documented in this encounter Plan of Treatment Upcoming Encounters Date Type Department Care Team (Late st Contact Info) Description 11/28/2023 10:00 AM EDT Laboratory Laboratory [address] [place] [address] [phone] 12/05/2023 2:30 PM EDT Office Visit Hematology/Oncology [facility] [address] [facility] [place] [phone] Constanza Castañeda CRNP [address] [place] [phone] 12/31/2023 4:00 PM EDT Office Visit [facility] [address] [place] [phone] Madalyn Pandya MD [address] [place] [address] 02/09/2024 10:20 AM EDT Office Visit Urogynecology [facility] [address] [place] [address] Bala Knox MD [address] [place] [address] [place] Nurse Urodynamics [address] [place] [address] Health Maintenance Due Date Last Done Comments Espinoza's Esophagus Surveilance 1945 Zoster Vaccines (2 of 3) 02/12/2015 12/18/2014 COVID-19 Vaccine ( season) 2023 03/20/2021, 07/22/2020, 07/01/2020 Influenza Vaccine (FLU shot) (#1) 2024 04/11/2023, 03/21/2022, 04/05/2021, Additional history exists DTaP,Tdap,and Td Vaccines (2 - Td or Tdap) 01/21/2024 01/20/2014 CKD PHOS USE SMARTSET 27316 04/02/202403/06, 09/14/2021, 03/12/2021, Additional history exists Albumin/Creatinine Ratio 04/04/2024 023, 03/13/2022, 09/14/2021, Additional history exists GFR 04/06/2024 10/06/2023, 06/07/2023, 08/09/2023, Additional history exists CKD HGB USE SMARTSET 23524 05/20/202405/20, 05/20/2023, 03/21/2023, Additional history exists Depression [...] this encounter Medical Devices Implanted Type Area Car And Yard Supervisor Device Identifier Shelf Expiration Date Model / Serial / Lot [place] Ptfe 1x1 [id number] - [id number] Implanted:Qty: 5 on 06/03/2018 by Jaxon Vega MD at OR [facility] N/A: Abdomen CR BARD : PERIPHERAL VASCULAR 11/29/2021 [id number] / / [id number] Description:para-esophageal hernia Allomax Mesh 5 X 8 [id number] - [id number] - [id number] Implanted:Qty: 1 on 06/03/2018 by Jaxon Vega MD at OR [facility] N/A: Abdomen CR BARD : DAVOL 05/04/2020 [id number] / [id number] / [id number] Description:PARA ESOPHAGEAL HERNIA documented as of this encounter Advance Directives * Full Code (Latest Code Status on File) Date Activated Date Inactivated Comments 06/03/2018 4:58 PM 06/05/2018 7:48 PM Question Answer Comments Discussion of Advance Directives occurred with: Not Discussed Does the patient have a Living Will? No Does the patient have Health Care Power of Attor jose luis? No Care Teams Agricultural Mechanic Relationship Specialty Start Date End Date Madalyn Pandya MD [address] [place] [address] PCP - General Family Medicine 06/11/23 documented as of this encounter
--- OUTSIDE RECORDS SUMMARY | 2024-04-17 12:48 | External Medical Summary | Summary of Care ---
Author Name Unknown Organization [facility] Address [address] [place] [place] [place] [address] Phone [phone] Care Team Providers Care Warehouse Manager Name Role Phone Madalyn Pandya MD Primary Care Provider [phone] Reason for Visit * Reason Onset Date Comments Test Results 12/10/2023 Encounter Details Date Type Department Care Team (Late st Contact Info) Description 12/10/2023 Telephone [facility] [address] [place] [address] Madalyn Pandya MD [address] [place] [phone] Test Results Allergies Active Allergy Reactions Criticality [...] as of this encounter (statuses as of 12/10/2023) Medications Medication Sig Dispensed Refills Start Date [...] as of this encounter (statuses as of 12/10/2023) Active Problems Problem Noted Date Diagnosed Date [...] as of this encounter (statuses as of 12/10/2023) Resolved Problems Problem Noted Date Diagnosed Date [...] Espinoza's, hiatal hernia FAMILY HX, ISCHEMIC HEART [id number] 12/04/2010 01/20/2013 Dyslipidemia, goal LDL below 130 08/24/2010 01/20/2013 Anxiety state 11/14/2009 01/20/2013 Irritable bowel syndrome 11/14/2009 Esophageal reflux 11/14/2009 04/16/2011 Overview: hiatal hernia, EGD 03/13 Barretts Palpitations 11/14/2009 01/20/2013 Overview: 10/05 ANEMIA NOS-neg eval 11/11 Overview: neg. follow-up 1989 Other allergic rhinitis 01/03 Overview: ICD-10 update of inactive term documented as of this encounter (statuses as of 12/10/2023) Immunizations Name Administration Dates Next Due COVID-19 [...] encounter Miscellaneous Notes * Telephone Encounter - Es Miner NRCMA - 12/10/2023 11:11 AM EDT Patient has been informed of below message and verbalized understanding. * Telephone Encounter - Madalyn Pandya MD - 12/10/2023 8:26 AM EDT Please inform patient I spoke with Dr sher dueñas to start the medication Meds sent to pharmacy Pharmacy Selected: [id number] [facility] Medication Orders Placed This Encounter Medications Methenamine Hippurate 1 GM Oral Tablet (Hiprex) Sig: Take 1 Tablet by mouth in the morning and 1 Tablet before bedtime. Dispense: 30 Tablet Refill: 1 documented in this encounter Plan of Treatment Upcoming Encounters Date Type Department Care Team (Late st Contact Info) Description 01/06/2024 10:30 AM EDT Laboratory Laboratory [address] [place] [phone] [place] [address] 01/13/2024 4:00 PM EDT Telemedicine Hematology/Oncology [facility] Mcdonald [address] [place] [address] Constanza Castañeda CRNP [address] [place] [address] 02/09/2024 10:20 AM EDT Office Visit Urogynecology [facility] [address] [place] [address] Bala Knox MD [address] [place] [address] [place], Nurse Urodynamics [address] [place] [address] 07/07/2024 2:00 PM EST Office Visit [facility] [address] [place] [phone] Madalyn Pandya MD [address] [place] [phone] Health Maintenance Due Date Last Done Comments Espinoza's Esophagus Surveilance 1943 Zoster Vaccines (2 of 3) 02/12/2015 12/18/2014 Adult Wellness Visit 12/21/2021 12/21/2020 COVID-19 Vaccine ( - season) 2023 03/20/2021, 07/22/2020, 07/01/2020 Influenza Vaccine (FLU shot) (#1) 2024 04/11/2023, 03/21/2022, 04/05/2021, Additional history exists DTaP,Tdap,and Td Vaccines (2 - Td or Tdap) 01/21/2024 01/20/2014 CKD PHOS USE SMARTSET 44119 04/02/202403/06, 09/14/2021, 03/12/2021, Additional history exists Albumin/Creatinine Ratio 04/04/2024 023, 03/13/2022, 09/14/2021, Additional history exists GFR 04/06/2024 10/06/2023, 06/0 07/2023, 08/09/2023, Additional history exists CKD HGB USE SMARTSET 69246 05/20/202405/20, 05/20/2023, 03/21/2023, Additional history exists Depression [...] this encounter Medical Devices Implanted Type Area Box Fabricator Device Identifier Shelf Expiration Date Model / Serial / Lot [place] Ptfe 1x1 [id number] - [id number] Implanted:Qty: 5 on 06/03/2018 by Jaxon Vega MD at OR [facility] N/A: Abdomen CR BARD : PERIPHERAL VASCULAR 11/29/2021 [id number] / / [id number] Description:para-esophageal hernia Allomax Mesh 5 X 8 [id number] - [id number] - [id number] Implanted:Qty: 1 on 06/03/2018 by Jaxon Vega MD at OR [facility] N/A: Abdomen CR BARD : DAVOL 05/04/2020 [id number] / [id number] / [id number] Description:PARA ESOPHAGEAL HERNIA documented as of this encounter Advance Directives * Full Code (Latest Code Status on File) Date Activated Date Inactivated Comments 06/03/2018 4:58 PM 06/05/2018 7:48 PM Question Answer Comments Discussion of Advance Directives occurred with: Not Discussed Does the patient have a Living Will? No Does the patient have Health Care Power of Attor jose luis? No Care Teams Warehouse Manager Relationship Specialty Start Date End Date Madalyn Pandya MD [address] [place] [address] PCP - General Family Medicine 2/7/24 documented as of this encounter
--- OUTSIDE RECORDS SUMMARY | 2024-04-17 12:48 | External Medical Summary | Summary of Care ---
Author Name Unknown Organization [facility] Address [address] [place] [address] Phone [phone] Care Team Providers Care Clinical Reimbursement Specialist Name Role Phone Madalyn Pandya MD Primary Care Provider [phone] Reason for Visit * Reason Onset Date Comments Pre Cert/Prior Auth 10/08/2023 Botox HM 6/5 DREW Encounter Details Date Type Department Care Team (Late st Contact Info) Description 10/08/2023 Telephone Urogynecology [place] [address] [place] [address] Bala Knox MD [address] [place] [address] Pre Cert/Prior Auth (Botox HM 6/5 DREW) Allergies Active Allergy Reactions Criticality Noted Date [...] once daily 16 g 11 3 Active Levothyroxine Sodium 50 MCG Oral Tablet (Levoxyl)Indicati ons:Stage 3a chronic kidney disease (HCC),Hypothyroid ism, unspecified type,Cerebrovascu lar disease, arteriosclerotic, post-stroke,Anemi a in stage 3a chronic kidney disease (HCC) Take 1 Tablet by mouth in the morning. 90 Tablet 3 3 Active Pantoprazole Sodium 40 MG Oral Tablet Delayed Release (Protonix)Indicat ions:Espinoza esophagus take 1 tablet by mouth 30 MINUTES PRIOR TO THE FIRST MEAL OF THE DAY. 90 Tablet 5 3 Active Nitrofurantoin Macrocrystal 50 MG Oral Capsule (Macrodantin)Arlene cations:Dysuria Take 1 Capsule by mouth in the morning and 1 Capsule at noon and 1 Capsule in the evening and 1 Capsule before bedtime. Until gone. 28 Capsule 4 Active Rosuvastatin Calcium 20 MG Oral Tablet (Crestor)Indicati ons:Kidney disease, chronic, stage III (GFR 30-59 ml/min) ([facility]),Cerebrovasc ular disease, arteriosclerotic, post-stroke,Dysli pidemia, goal LDL below 70,Cerebellar infarct ([facility]) take 1 tablet by mouth at bedtime 90 Tablet 1 4 Active Iron-Vitamin C 65-125 MG Oral Tablet (Vitron C)Indications:Ane juan in stage 3a chronic kidney disease ([facility]) Take 1 Tablet by mouth in the morning. 90 Tablet 1 4 Active Estradiol 0.1 MG/GM Vaginal Cream (Estrace) Apply a pea sized amount (0.5g) vaginally twice a week as directed 42.5 g 3 4 Active Nitrofurantoin Monohyd Macro 100 MG Oral Capsule (Macrobid) Take 1 Capsule by mouth in the morning and 1 Capsule before bedtime. 4 11/03/19 24 Discontinued(Ref ill) Eliquis 5 MG Oral TabletIndications :Acute deep vein thrombosis (DVT) of right lower extremity, unspecified vein ([facility]) Take 1 Tablet by mouth in the morning and 1 Tablet before bedtime. 180 Tablet 1 4 11/05/19 24 Discontinued Spironolactone 25 MG Oral Tablet (Aldactone) Take 1 Tablet by mouth in the morning. 30 Tablet 1 4 11/10/19 24 Discontinued Gemtesa 75 MG Oral Tablet (Vibegron) Take 1 Tablet by mouth in the morning. 90 Tablet 3 4 11/10/19 24 Discontinued(Pat ient preference/disco ntinuation) documented as [...] breast cancer 11/25/2019 11/25/2019 Cerebellar infarct 05/25/2019 10/19/202 3 Contusion of foot or heel 11/17/2018 [...] Espinoza's, hiatal hernia FAMILY HX, ISCHEMIC HEART [id number] 12/04/2010 01/20/2013 Dyslipidemia, goal LDL below 130 [...] mRNA, LNP-s, No Pre serve, 2-Dose Series (Sparrow) 03/20/2021,07/22/2020,07/01/2020 PPD 10/05/1992 Pneumococcal Conjugate Vacc, 13 [...] encounter Miscellaneous Notes * Telephone Encounter - Catherine Weaver OSA - 11/10/2023 2:55 PM EDT Pt seen 11/10/2023 * Telephone Encounter - Avinash Dubose OSA - 10/14/2023 3:02 PM EDT Pt's daughter Fay Ayala is calling on behalf of pt. She stated she was looking to schedule for the Botox injection as she was made aware the prior auth had gone through. I informed her of message listed below and that I saw the appt for 02/08 was set as of right now. She did ask if it was possibleto be on a wait list for if anything sooner is available. I informed the daughter I would pass the m essage to see if that was possible, but she was okay with the d/t/l as of right now. 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 Please be advised. Phone # if needed [phone] Thank you. * Telephone Encounter - Joana Garcia OSA - 10/09/2023 10:42 AM EDT AUTH IN PROCESS WITH HM * Telephone Encounter - Catherine Weaver OSA - 10/08/2023 4:24 PM EDT First available at [facility] autosearching for 02/09/2024 - will hold spot for pt - hoping for cancellations * Telephone Encounter - Catherine Weaver OSA - 10/08/2023 2:59 PM EDT Requesting prior auth for 100 units of Botox every 6 months in Bladder for Bala Knox MD at [facility] (within 30 days if possible) 1. New or Continuation? New 2. Pelvic Floor Therapy? YES Reviewed Quick-fix Kegels to suppress urgency and discussed behavioral modifications that include: limiting bladder irritants such as caffeine and artificial sweeteners and increasing plain water intake: time voids may also be helpful 3. Medications Tried/Failed? YES Oxybutynin Myrbetriq 4. Urinary Leakage Tracking: Daytime frequency: q 2-3 hrs (8 micturitions a day) documented in this encounter Plan of Treatment Upcoming Encounters Date Type Department Care Team (Late st Contact Info) Description 11/28/2023 10:00 AM EDT Laboratory Laboratory [place] [address] [place] [phone] [address] [place] [address] [place] [address] 12/05/2023 2:30 PM EDT Office Visit Hematology/Oncology [facility] [place] [address] [facility] [place] [address] Constanza Castañeda CRNP [address] [facility] [place] [id number] 12/31/2023 4:00 PM EDT Office Visit [facility] [address] [place] [phone] Madalyn Pandya MD [address] [place] [address] 02/09/2024 10:20 AM EDT Office Visit Urogynecology [place] [address] [place] [address] Bala Knox MD [address] [place] [address] [place], Nurse Urodynamics [address] [place] [address] Health Maintenance Due Date Last Done Comments Espinoza's Esophagus Surveilance 1945 Zoster Vaccines (2 of 3) 02/12/2015 12/18/2014 COVID-19 Vaccine ( season) 2023 03/20/2021, 07/22/2020, 07/01/2020 Influenza Vaccine (FLU shot) (#1) 2024 04/11/2023, 03/21/2022, 04/05/2021, Additional history exists DTaP,Tdap,and Td Vaccines (2 - Td or Tdap) 01/21/2024 01/20/2014 CKD PHOS USE SMARTSET 76274 04/02/202403/06, 09/14/2021, 03/12/2021, Additional history exists Albumin/Creatinine Ratio 04/04/2024 023, 03/13/2022, 09/14/2021, Additional history exists GFR 04/06/2024 10/06/2023, 06/0 07/2023, 08/09/2023, Additional history exists CKD HGB USE SMARTSET 59648 05/20/202405/20, 05/20/2023, 03/21/2023, Additional history exists Depression [...] this encounter Medical Devices Implanted Type Area Evaporator Device Identifier Shelf Expiration Date Model / Serial / Lot [place] Ptfe 1x1 [id number] - [id number] Implanted:Qty: 5 on 06/03/2018 by Jaxon Vega MD at OR [facility] N/A: Abdomen CR BARD : PERIPHERAL VASCULAR 11/29/2021 [id number] / / [id number] Description:para-esophageal hernia Allomax Mesh 5 X 8 [id number] - [id number] - [id number] Implanted:Qty: 1 on 06/03/2018 by Jaxon Vega MD at OR [facility] N/A: Abdomen CR BARD : DAVOL 05/04/2020 [id number] / [id number] / [id number] Description:PARA ESOPHAGEAL HERNIA documented as of this encounter Advance Directives * Full Code (Latest Code Status on File) Date Activated Date Inactivated Comments 06/03/2018 4:58 PM 06/05/2018 7:48 PM Question Answer Comments Discussion of Advance Directives occurred with: Not Discussed Does the patient have a Living Will? No Does the patient have Health Care Power of Attor jose luis? No Care Teams Clinical Reimbursement Specialist Relationship Specialty Start Date End Date Madalyn Pandya MD [address] [place] [address] PCP - General Family Medicine 06/11/23 documented as of this encounter
--- OUTSIDE RECORDS SUMMARY | 2024-04-17 12:48 | External Medical Summary | Summary of Care ---
Author Name Unknown Organization [facility] Address [address] [place] [address] Phone [phone] Care Team Providers Care Loom Overhauler Name Role Phone Madalyn Pandya MD Primary Care Provider [phone] Reason for Visit * Reason Onset Date Comments Medication Question 12/15/2023 Encounter Details Date Type Department Care Team (Late st Contact Info) Description 12/15/2023 Telephone [facility] [address] [place] [address] Madalyn Pandya MD [address] [place] [address] Medication Question (/) Allergies Active Allergy Reactions Criticality Noted Date [...] Espinoza's, hiatal hernia FAMILY HX, ISCHEMIC HEART [id number] 12/04/2010 01/20/2013 Dyslipidemia, goal LDL below 130 [...] encounter Miscellaneous Notes * Telephone Encounter - Elida Lyles PA-C [...] Description 01/06/2024 10:30 AM EDT Laboratory Laboratory [address] [facility] [place] [phone] [place], Lab [facility] [address] [facility] [place] [address] 01/13/2024 4:00 PM EDT Telemedicine Hematology/Oncology [facility] [place] [address] [facility] [place] [phone] Constanza Castañeda CRNP [address] [place] [address] 02/09/2024 10:20 AM EDT Office Visit Urogynecology [facility] [address] [place] [address] Bala Knox MD [address] [place] [address] [place], Nurse Urodynamics [address] [place] [address] 07/07/2024 2:00 PM EST Office Visit [facility] [address] [place] [address] Madalyn Pandya MD [address] [place] [address] Health Maintenance Due Date Last Done Comments Espinoza's Esophagus Surveilance 1945 Zoster Vaccines (2 of 3) 02/12/2015 12/18/2014 Adult Wellness Visit 12/21/2021 12/21/2020 COVID-19 Vaccine ( season) 2023 03/20/2021, 07/22/2020, 07/01/2020 Influenza Vaccine (FLU shot) (#1) 2024 04/11/2023, 03/21/2022, 04/05/2021, Additional history exists DTaP,Tdap,and Td Vaccines (2 - Td or Tdap) 01/21/2024 01/20/2014 CKD PHOS USE SMARTSET 06355 04/02/202403/06, 09/14/2021, 03/12/2021, Additional history exists Albumin/Creatinine Ratio 04/04/2024 023, 03/13/2022, 09/14/2021, Additional history exists GFR 04/06/2024 10/06/2023, 06/0 07/2023, 08/09/2023, Additional history exists CKD HGB USE SMARTSET 25547 05/20/202405/20, 05/20/2023, 03/21/2023, Additional history exists Depression [...] this encounter Medical Devices Implanted Type Area Online Services Manager Device Identifier Shelf Expiration Date Model / Serial / Lot [place] Ptfe 1x1 [id number] - [id number] Implanted:Qty: 5 on 06/03/2018 by Jaxon Vega MD at OR [facility] N/A: Abdomen CR BARD : PERIPHERAL VASCULAR 11/29/2021 [id number] / / [id number] Description:para-esophageal hernia Allomax Mesh 5 X 8 [id number] - [id number] - [id number] Implanted:Qty: 1 on 06/03/2018 by Jaxon Vega MD at OR [facility] N/A: Abdomen CR BARD : DAVOL 05/04/2020 [id number] / [id number] / [id number] Description:PARA ESOPHAGEAL HERNIA documented as of this encounter Advance Directives * Full Code (Latest Code Status on File) Date Activated Date Inactivated Comments 06/03/2018 4:58 PM 06/05/2018 7:48 PM Question Answer Comments Discussion of Advance Directives occurred with: Not Discussed Does the patient have a Living Will? No Does the patient have Health Care Power of Attor jose luis? No Care Teams Loom Overhauler Relationship Specialty Start Date End Date Madalyn Pandya MD [address] [place] [address] PCP - General Family Medicine 06/11/23 documented as of this encounter
--- OUTSIDE RECORDS SUMMARY | 2024-04-17 12:48 | External Medical Summary | Summary of Care ---
Author Name Unknown Organization [facility] Address [address] [place] [place] [address] Phone [phone] Care Team Providers Care Cream Dumper Name Role Phone Madalyn Pandya MD Primary Care Provider [phone] Reason for Visit * Reason Onset Date Comments Hospital Follow-Up [facility] [place] 11/22-11/25 transfer to [facility] 11/25-12/01 ambulatory dysfunction, possible TIA Medication Discussion Discuss El iquis dose and if asa 81 mg needs to be continued, discuss daily tx for frequent UTI ? Methenamine hippurate Hospital Follow-Up 12/09/2023 Encounter Details Date Type Department Care Team (Late st Contact Info) Description 12/09/2023 12:00 PM EDT Office Visit [facility] [address] [place] [address] Madalyn Pandya MD [address] [place] [address] Hospital discharge follow-up*; History of DVT (deep vein thrombosis); Recurrent UTI Allergies Active Allergy Reactions Criticality Noted Date [...] as of this encounter (statuses as of 12/09/2023) Medications Medication Sig Dispensed Refills Start Date End Date Status VITAMIN D 2000 UNIT PO TABS one tablet by mouth daily Active Acetaminophen 325 MG Oral Capsule Take 1 Cap by mouth at bedtime as needed for Pain. Active Fluticasone Propionate 50 MCG/ACT Nasal Suspension (Flonase)Indicatio ns:Seasonal allergic rhinitis due to pollen instill 2 sprays into each nostril once daily 16 g 11 05/30/2022 Active Levothyroxine Sodium 50 MCG Oral Tablet (Levoxyl)Indicatio ns:Stage 3a chronic kidney disease (HCC),Hypothyroidi sm, unspecified type,Cerebrovascul ar disease, arteriosclerotic, post-stroke,Anemia in stage 3a chronic kidney disease (HCC) Take 1 Tablet by mouth in the morning. 90 Tablet 3 04/11/2023 Active Pantoprazole Sodium 40 MG Oral Tablet Delayed Release (Protonix)Indicati ons:Espinoza esophagus take 1 tablet by mouth 30 MINUTES PRIOR TO THE FIRST MEAL OF THE DAY. 90 Tablet 5 04/11/2023 Active Rosuvastatin Calcium 20 MG Oral Tablet (Crestor)Indicatio ns:Kidney disease, chronic, stage III (GFR 30-59 ml/min) ([facility]),Cerebrovascu lar disease, arteriosclerotic, post-stroke,Dyslip idemia, goal LDL below 70,Cerebellar infarct ([facility]) take 1 tablet by [...] by mouth in the morning. 11/27/2023 Active Nitrofurantoin Macrocrystal 50 MG Oral Capsule (Macrodantin)Indic ations:Dysuria Take 1 Capsule by mouth in the morning and 1 Capsule at noon and 1 Capsule in the evening and 1 Capsule before bedtime. Until gone. 28 Capsule 06/30/2023 4 Discontinue d(Patient preference/ discontinua tion) Iron-Vitamin C 65-125 MG Oral Tablet (Vitron C)Indications:Anem ia in stage 3a chronic kidney disease (HCC) Take 1 Tablet by mouth in the morning. 90 Tablet 1 09/04/2023 4 Discontinue d(Patient preference/ discontinua tion) Apixaban 2.5 MG Oral Tablet (Eliquis)Indicatio ns:Chronic deep vein thrombosis (DVT) of proximal vein of lower extremity, unspecified laterality ([facility]) Take 1 Tablet by mouth in the morning and 1 Tablet before bedtime. 60 Tablet 1 11/07/2023 Discontinue d(Patient preference/ discontinua tion) documented as of this encounter (statuses as of 12/09/2023) Active Problems Problem Noted Date Diagnosed Date [...] as of this encounter (statuses as of 12/09/2023) Resolved Problems Problem Noted Date Diagnosed Date [...] Dyslipidemia 10/31/2017 05/12/2018 Post herpetic neuralgia 08/14/2017 01/12/2018 Overview: C8 nerve root on left. Herpes [...] Espinoza's, hiatal hernia FAMILY HX, ISCHEMIC HEART [id number] 12/04/2010 01/20/2013 Dyslipidemia, goal LDL below 130 08/24/2010 01/20/2013 Anxiety state 11/14/2009 01/20/2013 Irritable bowel syndrome 11/14/2009 Esophageal reflux 11/14/2009 04/16/2011 Overview: hiatal hernia, EGD 03/13 Barretts Palpitations 11/14/2009 01/20/2013 Overview: 10/05 ANEMIA NOS-neg eval 11/11 Overview: neg. follow-up 1988 Other allergic rhinitis 01/03 Overview: ICD-10 update of inactive term documented as of this encounter (statuses as of 12/09/2023) Immunizations Name Administration Dates Next Due COVID-19 mRNA, LNP-s, No Pre serve, 2-Dose Series (SomnoMed) 03/20/2021,07/22/2020,07/01/2020 PPD 10/05/1992 Pneumococcal Conjugate Vacc, 13 [...] Sign Reading Time Taken Comments Blood Pressure 120/62 12/09/2023 12:00 PM EDT Pulse 80 12/09/2023 12:00 PM EDT Temperature 36.6 C (97.9 F) 12/09/2023 12:00 PM E DT Respiratory Rate 16 12/09/2023 12:00 PM EDT Oxygen Saturation 97% 12/09/2023 12:00 PM EDT Inhaled Oxygen Concentration - - Weight 67.6 kg (149 lb) 12/09/2023 12:00 PM EDT Height - - Body Mass Index 28.15 09/23/2023 2:17 PM EDT documented in this [...] as of this encounter Progress Notes * Madalyn Pandya MD - 12/09/2023 12:00 PM EDT Images from the original note were not included. History of Present Illness Nancy Ayala is a 78 year old female that presents for Hospital Follow-Up ([facility] 11/22-11/25 transfer to [facility] 11/25-12/01 ambulatory dysfunction, possible TIA ) and Medication Discussion (Discuss Eliquis dose and if asa 81 mg needs to be continued, discuss daily txfor frequent UTI ? Methenamine hippurate) Brief Clinical History Ms. Ayala is a 78 year old female last seen in [facility] on 09/01/2023 by Avery Pandya She has a h/o the following chronic conditions indicated on the problem list: Chronic Conditions Kidney disease, chronic, stage III (GFR 30-59 ml/min) ([facility]) Patient is here for hospital discharge. Admitted on 11/23/23 and discharged on 12/02/23. Presented with worsening symptoms from a UTI including tremors, change in orientation and concerns for possible TIA. During admission her eliquis was restarted because of worsened swelling right leg where the DVTwas. On repeat US no DVT noted. We discussed decreasing the dose again and if swelling recurs can increase it back to the 5 mg until seen by hematology. Doing much better and back to baseline. Familyis concerned about the recurrent UTI as she descalates quickly and asking to start the Methenamine hippurate. I discussed All systems reviewed and pertinent positives noted above Medications added/ changed: Eliquis increased to 5 mg bid ASA 81 mg daily Medications stopped: none Current Medication list: Current Outpatient Medications Medication Sig Dispense Refill Acetaminophen 325 MG Oral Capsule Take 1 Cap by mouth at bedtime as needed for Pain. Eliquis 5 MG Oral Tablet Take 1 Tablet by mouth in the morning and 1 Tablet before bedtime. Estradiol 0.1 MG/GM Vaginal Cream (Estrace) Apply a pea sized amount (0.5g) vaginally twice a week as directed 42.5 g 3 Fluticasone Propionate 50 MCG/ACT Nasal Suspension (Flonase) instill 2 sprays into each nostril once daily 16 g 11 Levothyroxine Sodium 50 MCG Oral Tablet (Levoxyl) Take 1 Tablet by mouth in the morning. 90 Tablet 3 Pantoprazole Sodium 40 MG Oral Tablet Delayed Release (Protonix) take 1 tablet by mouth 30 MINUTES PRIOR TO THE FIRST MEAL OF THE DAY. 90 Tablet 5 RA Aspirin EC 81 MG Oral Tablet Delayed Release Take 1 Tablet by mouth in the morning. Rosuvastatin Calcium 20 MG Oral Tablet (Crestor) take 1 tablet by mouth at bedtime 90 Tablet 1 Spironolactone 25 MG Oral Tablet (Aldactone) take 1 tablet by mouth every morning 30 Tablet 1 VITAMIN D 2000 UNIT PO TABS one tablet by mouth daily No current facility-administered medications for this visit. All labs and imaging that occurred during this hospital admission were discussed during this officevisit including those noted below - Duplex of the right LE Physical Exam Vitals: 12/09/23 1200 Temp: 36.6 C (97.9 F) Pulse: 80 Resp: 16 SpO2: 97% BP: 120/62 BP Readings from Last 3 Encounters: 12/09/23 120/62 11/10/23 124/72 09/23/23 120/72 BP 120/62 | Pulse 80 | Temp 36.6 C (97.9 F) (Tympanic) | Resp 16 | Wt 67.6 kg (149 lb) | SpO2 97% | BMI 28.15 kg/m | BSA 1.71 m General: alert, healthy, and no distress Heart: regular rate & rhythm, no murmur, S-1 normal, and S-2 normal Lungs: chest symmetric with normal AP diameter, no chest deformities noted, normal respiratory rateand rhythm, lungs clear to auscultation Assessment and Plan Hospital discharge follow-up (Primary) - DISCH MED RECON CUR MED LIS History of DVT (deep vein thrombosis) Recurrent UTI Msg sent to the urogyn regarding medication in question Check-out note: Needs awv with pcnc Can cancel dec apt and herb 6 m Time: I spent a total of 40-54 minutes (exact time 44 mins) on the date of service in preparation, delivery, and documentation of the care provided to Nancy Ayala excluding any time spent in the performance of separately billed services. documented in this encounter Nursing Notes * Miracle Abdi LPN - 12/09/2023 12:02 PM EDT Chief Complaint Patient presents with Hospital Follow-Up [facility] 11/22-11/25 transfer to [facility] 11/25-12/01 ambulatory dysfunction, possible TIA Medication Discussion Discuss Eliquis dose and if asa 81 mg needs to be continued, discuss daily tx for frequent UTI ? Methenamine hippurate documented in this encounter Plan of Treatment Upcoming Encounters Date Type Department Care Team (Late st Contact Info) Description 01/06/2024 10:30 AM EDT [facility] [address] [facility] [place] [phone] [place] [facility] [address] [facility] [place] [address] 01/13/2024 4:00 PM EDT Telemedicine Hematology/Oncology [facility] [address] [phone] Constanza Castañeda CRNP [address] [place] [address] [place] [address] 02/09/2024 10:20 AM EDT Office Visit Urogynecology [facility] [address] [place] [address] Bala Knox MD [address] [place] [address] [place], Nurse Urodynamics [address] [place] [address] 07/07/2024 2:00 PM EST Office Visit [facility] [address] [place] [address] Madalyn Pandya MD [address] [place] [address] Health Maintenance Due Date Last Done Comments Espinoza's Esophagus Surveilance 1945 Zoster Vaccines (2 of 3) 02/12/2015 12/18/2014 Adult Wellness Visit 12/21/2021 12/21/2020 COVID-19 Vaccine (4 - season) 2023 03/20/2021, 07/22/2020, 07/01/2020 Influenza Vaccine (FLU shot) (#1) 2024 04/11/2023, 03/21/2022, 04/05/2021, Additional history exists DTaP,Tdap,and Td Vaccines (2 - Td or Tdap) 01/21/2024 01/20/2014 CKD PHOS USE SMARTSET 73347 04/02/202403/06, 09/14/2021, 03/12/2021, Additional history exists Albumin/Creatinine Ratio 04/04/2024 023, 03/13/2022, 09/14/2021, Additional history exists GFR 04/06/2024 10/06/2023, 06/0 07/2023, 08/09/2023, Additional history exists CKD HGB USE SMARTSET 62704 05/20/202405/20, 05/20/2023, 03/21/2023, Additional history exists Depression [...] this encounter Medical Devices Implanted Type Area Payable Processor Device Identifier Shelf Expiration Date Model / Serial / Lot Chazy Ptfe 1x1 [id number] - [id number] Implanted:Qty: 5 on 06/03/2018 by Jaxon Vega MD at OR [facility] N/A: Abdomen CR BARD : PERIPHERAL VASCULAR 11/29/2021 [id number] / / [id number] Description:para-esophageal hernia Allomax Mesh 5 X 8 [id number] - [id number] - [id number] Implanted:Qty: 1 on 06/03/2018 by Jaxon Vega MD at OR [facility] N/A: Abdomen CR BARD : DAVOL 05/04/2020 [id number] / [id number] / [id number] Description:PARA ESOPHAGEAL HERNIA documented as of this encounter Visit Diagnoses Diagnosis Hospital discharge follow-up- Primary Other follow-up examination History of DVT (deep vein thrombosis) Personal history of venous thrombosis and embolism Recurrent UTI Urinary tract infection, site not specified documented in this encounter Advance Directives * Full Code (Latest Code Status on File) Date Activated Date Inactivated Comments 06/03/2018 4:58 PM 06/05/2018 7:48 PM Question Answer Comments Discussion of Advance Directives occurred with: Not Discussed Does the patient have a Living Will? No Does the patient have Health Care Power of Attor jose luis? No Care Teams Cream Dumper Relationship Specialty Start Date End Date Madalyn Pandya MD [address] [place] [phone] PCP - General Family Medicine 06/11/23 documented as of this encounter
--- OUTSIDE RECORDS SUMMARY | 2024-04-17 12:48 | External Medical Summary | Summary of Care ---
Author Name Unknown Organization [facility] Address [address] [facility] [address] Phone [phone] Care Team Providers Care Morgue Attendant Name Role Phone Madalyn Pandya MD Primary Care Provider [phone] Reason for Visit * Reason Comments Follow Up * Evaluate & Treat - Unlimited Visits (Within 10 days (routine)) - Pending Review Specialty Diagnoses / Procedures Referred By Kaity pineda Referred To Contact DRIFT MINER - Urogynecology / Gynecology Urology Diagnoses Recurrent UTI Madalyn Pandya MD [address] [place] [address] Referral ID Status Reason Start Date Expiration Date Visits Requested Visits Authorized [id number] Pending Review Specialty Services Required 08/22/[phone] Encounter Details Date Type Department Care Team (Late st Contact Info) Description 11/10/2023 11:45 AM EDT Office Visit Urogynecology [facility] [place] [address] [place] [address] Bala Knox MD [address] [place] [address] Nurse Shawn [place] [address] [place] [address] Urge incontinence*; OAB (overactive bladder); Cystocele, midline; Atrophic vaginitis Allergies Active Allergy Reactions Criticality Noted Date [...] stage III (GFR 30-59 ml/min) ([facility]),Cerebrovascu lar disease, arteriosclerotic, post-stroke,Dyslip idemia, goal LDL below 70,Cerebellar infarct ([facility]) take 1 tablet by mouth [...] 11/10/2023 Active Apixaban 2.5 MG Oral Tablet (Eliquis)Indicatio ns:Chronic deep vein thrombosis (DVT) of proximal vein of lower extremity, unspecified laterality (HCC) Take 1 Tablet by mouth in the morning and 1 Tablet before bedtime. 60 Tablet 1 11/07/2023 Active Gemtesa 75 MG Oral Tablet (Vibegron) Take 1 Tablet by mouth in the morning. 90 Tablet 3 09/23/2023 4 Discontinue d(Patient preference/ discontinua tion) Nitrofurantoin Monohyd Macro 100 MG Oral Capsule (Macrobid) Take 1 Capsule by mouth in the morning and 1 Capsule before bedtime. 10 Capsule 11/03/2023 4 Discontinue d(End of Procedure) documented as [...] Espinoza's, hiatal hernia FAMILY HX, ISCHEMIC HEART [id number] 12/04/2010 01/20/2013 Dyslipidemia, goal LDL below 130 [...] mRNA, LNP-s, No Pre serve, 2-Dose Series (Stylyt) 03/20/2021,07/22/2020,07/01/2020 PPD 10/05/1992 Pneumococcal Conjugate Vacc, 13 [...] Sign Reading Time Taken Comments Blood Pressure 124/72 11/10/2023 11:56 AM EDT Pulse - - Temperature - - Respiratory Rate - - Oxygen Saturation - - Inhaled Oxygen Concentration - - Weight 66.7 kg (147 lb) 11/10/2023 11:56 AM EDT Height - - Body Mass Index 27.78 09/23/2023 2:17 PM EDT documented in this [...] Progress Notes * Bala Knox MD - 11/10/2023 12:07 PM EDT Nancy Ayala presents for a follow up visit at [facility]. She was previously seen for N39.41 Urge incontinence (primary encounter diagnosis) N32.81 OAB (overactive bladder) N81.11 Cystocele, midline N95.2 Atrophic vaginitis Since last seen, patient had a very low colony count urine culture of Group B strep and E coli. Because the daughter stated that her mother had mental status changes (confusion), we treated with withMacrobid. Both the patient and daughter both state her confusion has improved. She is scheduled with her Technical Proposal Writer for a follow up visit for a pessary cleaning. She admits that she is not using the Estrogen cream as often as prescribed, maybe once a week. She continues to have urge incontinence as her incontinence brief is soaked. Allergies: Review of patient's allergies indicates: Allergen [...] MEAL OF THE DAY. 90 Tablet 5 Nitrofurantoin Macrocrystal 50 MG Oral Capsule (Macrodantin) Take 1 Capsule by mouth in the morningand 1 Capsule at noon and 1 Capsule in the evening and 1 Capsule before bedtime. Until gone. 28 Capsule 0 Rosuvastatin Calcium 20 MG Oral Tablet (Crestor) take 1 tablet by mouth at bedtime 90 Tablet 1 Iron-Vitamin C 65-125 MG Oral Tablet (Vitron C) Take 1 Tablet by mouth in the morning. 90 Tablet 1 Gemtesa 75 MG Oral Tablet (Vibegron) Take 1 Tablet by mouth in the morning. 90 Tablet 3 Estradiol 0.1 MG/GM Vaginal Cream (Estrace) Apply a pea sized amount (0.5g) vaginally twice a week as directed 42.5 g 3 Spironolactone 25 MG Oral Tablet (Aldactone) take 1 tablet by mouth every morning 30 Tablet 1 Apixaban 2.5 MG Oral Tablet (Eliquis) Take 1 Tablet by mouth in the morning and 1 Tablet before bedtime. 60 Tablet 1 Nitrofurantoin Monohyd Macro 100 MG Oral Capsule (Macrobid) Take 1 Capsule by mouth in the morning and 1 Capsule before bedtime. (Patient not taking: Reported on 11/10/2023) 10 Capsule 0 No current facility-administered medications for this visit. Results for orders placed or performed in visit on 10/29/23 CULTURE, URINE, QUANTITATIVE Specimen: Urine, Catheter Result Value Ref Range Culture Growth (A) 1000 to 9999 colonies/mL Beta Streptococcus group B Culture Growth 100 to 999 colonies/mL Escherichia coli (A) Culture Growth (A) 100 to 999 colonies/mL Streptococcus viridans group Culture Growth (A) 100 to 999 colonies/mL Staphylococcus, coagulase negative, not S. saprophyticus Susceptibility Beta Streptococcus group B - MICROBROTH DILUTIONS Penicillin G Susceptible Vancomycin Susceptible Escherichia coli - MICROBROTH DILUTIONS Ampicillin Susceptible Cefazolin Susceptible Cefepime Susceptible Ceftriaxone Susceptible Ciprofloxacin* Susceptible * Due to serious side effects, the FDA has advised against using Ciprofloxacin to treat uncomplicated UTIs and respiratory tract infections unless there are no alternative treatment options. Gentamicin Susceptible Nitrofurantoin Susceptible Piperacillin Tazobactam Susceptible Trimeth/Sulfamethoxazole Susceptible Impression: This is a 78 year old with Urge incontinence (Primary) OAB (overactive bladder) Cystocele, midline Atrophic vaginitis Mental status has improved with Macrobid. Highly encouraged patient to use the estrogen vaginal cream as prescribed to help prevent UTI's, treat atrophy, and to reduce complications of pessary use. She is scheduled to have a pessary cleaningwith her central scheduler in the next several months. For the urge incontinence and OAB symptoms, she did not start the Gemtesa as she feared that she would get the same dizziness side effects as she did with the Myrbetriq. She would like to have Botox cystoscopy. I reviewed the risks of the procedure including urinary retention. All questions answered. Currently scheduled for February procedure. I spent a total of 20 minutes on the date of service in preparation, delivery, and documentation ofthe care provided to Nancy Ayala excluding any time spent in the performance of separately billedservices. Bala Knox MD 11/10/2023 12:08 PM documented in this encounter Nursing Notes * Scarlett Pacheco TECH - 11/10/2023 11:57 AM EDT Patient here for 8 week follow up Discuss Botox documented in this encounter Plan of Treatment Upcoming Encounters Date Type Department Care Team (Late st Contact Info) Description 11/28/2023 10:00 AM EDT Laboratory Laboratory [facility] [address] [place] [phone] [place] [address] [place] [address] [place] [address] 12/05/2023 2:30 PM EDT Office Visit Hematology/Oncology [facility] [place] [address] [facility] [phone] Constanza Castañeda CRNP [address] [facility] [place] [phone] 12/31/2023 4:00 PM EDT Office Visit [facility] [address] [place] [address] Madalyn Pandya MD [address] [place] [phone] 02/09/2024 10:20 AM EDT Office Visit Urogynecology [facility] [address] [place] [address] Bala Knox MD [address] [place] [address] [place], Nurse Urodynamics [address] [place] [address] Health Maintenance Due Date Last Done Comments Espinoza's Esophagus Surveilance 1943 Zoster Vaccines (2 of 3) 02/12/2015 12/18/2014 COVID-19 Vaccine ( season) 2023 03/20/2021, 07/22/2020, 07/01/2020 Influenza Vaccine (FLU shot) (#1) 2024 04/11/2023, 03/21/2022, 04/05/2021, Additional history exists DTaP,Tdap,and Td Vaccines (2 - Td or Tdap) 01/21/2024 01/20/2014 CKD PHOS USE SMARTSET 44837 04/02/202403/06, 09/14/2021, 03/12/2021, Additional history exists Albumin/Creatinine Ratio 04/04/2024 023, 03/13/2022, 09/14/2021, Additional history exists GFR 04/06/2024 10/06/2023, 06/0 07/2023, 08/09/2023, Additional history exists CKD HGB USE SMARTSET 29912 05/20/202405/20, 05/20/2023, 03/21/2023, Additional history exists Depression [...] this encounter Medical Devices Implanted Type Area Director Of Analytics Device Identifier Shelf Expiration Date Model / Serial / Lot Celina Ptfe 1x1 [id number] - [id number] Implanted:Qty: 5 on 06/03/2018 by Jaxon Vega MD at OR [facility] N/A: Abdomen CR BARD : PERIPHERAL VASCULAR 11/29/2021 [id number] / / [id number] Description:para-esophageal hernia Allomax Mesh 5 X 8 [id number] - [id number] - [id number] Implanted:Qty: 1 on 06/03/2018 by Jaxon Vega MD at OR [facility] N/A: Abdomen CR BARD : DAVOL 05/04/2020 [id number] / [id number] / [id number] Description:PARA ESOPHAGEAL HERNIA documented as of this encounter Visit Diagnoses Diagnosis Urge incontinence- Primary OAB (overactive bladder) Hypertonicity of bladder Cystocele, midline Atrophic vaginitis Postmenopausal atrophic vaginitis documented in this encounter Advance Directives * Full Code (Latest Code Status on File) Date Activated Date Inactivated Comments 06/03/2018 4:58 PM 06/05/2018 7:48 PM Question Answer Comments Discussion of Advance Directives occurred with: Not Discussed Does the patient have a Living Will? No Does the patient have Health Care Power of Attor jose luis? No Care Teams Morgue Attendant Relationship Specialty Start Date End Date Madalyn Pandya MD [address] [place] [address] PCP - General Family Medicine 06/11/23 documented as of this encounter
--- OUTSIDE RECORDS SUMMARY | 2024-04-17 12:48 | External Medical Summary ---
Author Name Unknown Address Unknown Organization K01:[facility] - [address] [facility] [address] [facility] [address] Laboratory Report Ordering Provider Test Date Status CARMELO BEAN 12/12/2023 12:24:50 Final <10,000 colonies/ml mixed no rmal joycelyn Observation Date Value Abnormality Reference (Units) Status Bacteria identified in Specimen by Culture 12/12/2023 12:24:50 [id number]^STAPHYLOCOC CUS, COAGULASE NEGATIVE, NOT S. SAPROPHYTICUS Abnormal Final 10,000 to 100,000 colonies/m L Staphylococcus, coagulase negative, not S. saprophyticus Bacteria identified in Specimen by Culture 12/12/2023 12:24:50 [id number]^GRAM POSITIVE BACILLI Abnormal Final 10,000 to 100,000 colonies/m L Gram Positive Bacilli
Unable to identify.
Test: Culture, Urine, Quantitative
Specimen Source: Urine, Clean Catch
Specimen Type: Urine
Specimen Date: 12/12/2023 1224
Result Date: 12/16/2023 1311
Result Status: Final result
Abnormal: Yes
Resulting Lab: [facility]
[address] [facility]
[place] [address]

CULTURE

10,000 to 100,000 colonies/mL Staphylococcus, coagulase negative, not S.
saprophyticus (Abnormal)

10,000 to 100,000 colonies/mL Gram Positive Bacilli (Abnormal)

Unable to identify.

<10,000 colonies/ml mixed normal joycelyn

null Performing Location [facility] - [address] [facility] [address]
--- OUTSIDE RECORDS SUMMARY | 2024-04-17 12:48 | External Medical Summary | Summary of Care ---
Author Name Unknown Organization [facility] Address [address] [place] [address] Phone [phone] Care Team Providers Care Associate Software Application Engineer Name Role Phone Madalyn Pandya MD Primary Care Provider [phone] Reason for Visit * Reason Onset Date Comments Test Results 12/10/2023 Encounter Details Date Type Department Care Team (Late st Contact Info) Description 12/10/2023 [facility]phone [facility] [address] [place] [address] Madalyn Pandya MD [address] [place] [id number] Test Results Allergies Active Allergy Reactions Criticality [...] Espinoza's, hiatal hernia FAMILY HX, ISCHEMIC HEART [id number] 12/04/2010 01/20/2013 Dyslipidemia, goal LDL below 130 [...] Meds sent to pharmacy [facility]acy [facility]: [id number] [facility] Medication Orders Placed This Encounter Medications Methenamine Hippurate 1 GM Oral Tablet (Hiprex) Sig: Take 1 Tablet by mouth in the morning and 1 Tablet before bedtime. Dispense: 30 Tablet Refill: 1 documented in this encounter Plan of Treatment Upcoming Encounters Date Type Department Care Team (Late st Contact Info) Description 01/06/2024 10:30 AM EDT Laboratory Laboratory [place] Aleksandra Trimble [address] [place] [phone] Aleksandra [facility] [address] [facility] [place] [address] 01/13/2024 4:00 PM EDT Telemedicine Hematology/Oncology [place] [address] [facility] [place] [address] Constanza Castañeda CRNP [address] [place] [address] a[place] [address] 02/09/2024 10:20 AM EDT Office Visit Urogynecology [address] [place] [address] Bala Knox MD [address] [place] [address] Howard Nurse Urodynamics [address] [place] [address] 07/07/2024 2:00 PM EST [facility] [address] [place] [address] Madalyn Pandya MD [address] [place] [address] Health Maintenance Due Date Last Done Comments Espinoza's Esophagus Surveilance 1943 Zoster Vaccines (2 of 3) 02/12/2015 12/18/2014 Adult Wellness Visit 12/21/2021 12/21/2020 COVID-19 Vaccine ( season) 2023 03/20/2021, 07/22/2020, 07/01/2020 Influenza Vaccine (FLU shot) (#1) 2024 04/11/2023, 03/21/2022, 04/05/2021, Additional history exists DTaP,Tdap,and Td Vaccines (2 - Td or Tdap) 01/21/2024 01/20/2014 CKD PHOS USE SMARTSET 13091 04/02/202403/06, 09/14/2021, 03/12/2021, Additional history exists Albumin/Creatinine Ratio 04/04/2024 023, 03/13/2022, 09/14/2021, Additional history exists GFR 04/06/2024 10/06/2023, 06/0 07/2023, 08/09/2023, Additional history exists CKD HGB USE SMARTSET 75988 05/20/202405/20, 05/20/2023, 03/21/2023, Additional history exists Depression [...] this encounter Medical Devices Implanted Type Area Swaging Machine Operator Device Identifier Shelf Expiration Date Model / Serial / Lot [place] Ptfe 1x1 [id number] - [id number] Implanted:Qty: 5 on 06/03/2018 by Jaxon Vega MD at OR [facility] N/A: Abdomen CR BARD : PERIPHERAL VASCULAR 11/29/2021 [id number] / / [id number] Description:para-esophageal hernia Allomax Mesh 5 X 8 [id number] - [id number] Implanted:Qty: 1 on 06/03/2018 by Jaxon Vega MD at OR [facility] N/A: Abdomen CR BARD : DAVOL 05/04/2020 [id number] / [id number] / [id number] Description:PARA ESOPHAGEAL HERNIA documented as of this encounter Advance Directives * Full Code (Latest Code Status on File) Date Activated Date Inactivated Comments 06/03/2018 4:58 PM 06/05/2018 7:48 PM Question Answer Comments Discussion of Advance Directives occurred with: Not Discussed Does the patient have a Living Will? No Does the patient have Health Care Power of Attor jose luis? No Care Teams Associate Software Application Engineer Relationship Specialty Start Date End Date Madalyn Pandya MD [address] [place] [address] PCP - General Family Medicine 06/11/23 documented as of this encounter
--- OUTSIDE RECORDS SUMMARY | 2024-04-17 12:49 | External Medical Summary | Summary of Care ---
Author Name Unknown Organization [facility] Address [address] [place] [address] Phone [phone] Care Team Providers Care Principal Clerk Typist Name Role Phone Madalyn Pandya MD Primary Care Provider [phone] Reason for Visit * Reason Onset Date Comments Test Results 11/04/2023 Unexpected or In determinate Result Encounter Details Date Type Department Care Team (Late st Contact Info) Description 11/04/2023 Telephone Laboratory, [place] [address] [place] [address] Madalyn Pandya MD [address] [place] [id number] Test Results (Unexpected or Indeterminate ... Allergies Active Allergy Reactions Criticality Noted Date [...] as of this encounter (statuses as of 11/05/2023) Medications Medication Sig Dispensed Refills Start Date [...] Active Nitrofurantoin Macrocrystal 50 MG Oral Capsule (Macrodantin)Indica tions:Dysuria Take 1 Capsule by mouth in the morning and 1 Capsule at noon and 1 Capsule in the evening and 1 Capsule before bedtime. Until gone. 28 Capsule 06/30/2023 Active Additional Information Patient not taking.Reported on 09/23/2023 Rosuvastatin Calcium 20 MG Oral Tablet (Crestor)Indication s:Kidney disease, chronic, stage III (GFR 30-59 ml/min) ([facility]),Cerebrovascul ar disease, arteriosclerotic, post-stroke,Dyslipi demia, goal LDL below 70,Cerebellar infarct ([facility]) take 1 tablet by mouth at bedtime 90 Tablet 1 08/18/2023 Active Eliquis 5 MG Oral TabletIndications:A cute deep vein thrombosis (DVT) of right lower extremity, unspecified vein ([facility]) Take 1 Tablet by mouth in the morning and 1 Tablet before bedtime. 180 Tablet 1 09/01/2023 Active Iron-Vitamin C 65-125 MG Oral Tablet (Vitron C)Indications:Anemi a in stage 3a chronic kidney disease ([facility]) Take 1 Tablet by mouth in the morning. 90 Tablet 1 09/04/2023 Active Spironolactone 25 MG Oral Tablet (Aldactone) Take 1 Tablet by mouth in the morning. 30 Tablet 1 09/17/2023 Active Gemtesa 75 MG Oral Tablet (Vibegron) Take 1 Tablet by mouth in the morning. 90 Tablet 3 09/23/2023 09/17/2024 Active Estradiol 0.1 MG/GM Vaginal Cream (Estrace) Apply a pea sized amount (0.5g) vaginally twice a week as directed 42.5 g 3 09/26/2023 Active Nitrofurantoin Monohyd Macro 100 MG Oral Capsule (Macrobid) Take 1 Capsule by mouth in the morning and 1 Capsule before bedtime. 10 Capsule 11/03/2023 Active documented as of this encounter (statuses as of 11/05/2023) Active Problems Problem Noted Date Diagnosed Date [...] as of this encounter (statuses as of 11/05/2023) Resolved Problems Problem Noted Date Diagnosed Date [...] Espinoza's, hiatal hernia FAMILY HX, ISCHEMIC HEART [id number] 12/04/2010 01/20/2013 Dyslipidemia, goal LDL below 130 08/24/2010 01/20/2013 Anxiety state 11/14/2009 01/20/2013 Irritable bowel syndrome 11/14/2009 Esophageal reflux 11/14/2009 04/16/2011 Overview: hiatal hernia, EGD 03/13 Barretts Palpitations 11/14/2009 01/20/2013 Overview: 10/05 ANEMIA NOS-neg eval 11/11 Overview: neg. follow-up 1989 Other allergic rhinitis 01/03 Overview: ICD-10 update of inactive term documented as of this encounter (statuses as of 11/05/2023) Immunizations Name Administration Dates Next Due COVID-19 mRNA, LNP-s, No Pre serve, 2-Dose Series (RoundPegg) 03/20/2021,07/22/2020,07/01/2020 PPD 10/05/1992 Pneumococcal Conjugate Vacc, 13 [...] Telephone Encounter - Madalyn Pandya MD - 11/05/2023 11:51 AM EDT The dvt is still there but it has shrunk in size and allows flow * Telephone Encounter - Madison Herrera LPN - 11/05/2023 11:01 AM EDT Pt's daughter Fay aware and verbalized understanding. Would like clarification on US. Has a hematology appointment on 12/04. * Telephone Encounter - Madalyn Pandya MD - 11/05/2023 10:53 AM EDT Please inform patient continue the 5 mg of eliquis bid for now, non occlusive dvt, have a message out to hematology for suggestions if she should continue the 5 mg or transition to 2.5mg * Telephone Encounter - Constanza Davila OSA - 11/04/2023 6:23 PM EDT Hello- The radiologist discovered an unexpected or indeterminate finding on Nancy Ayala ([id number]) and asks that you review the following report. IMPRESSION IMPRESSION 1. Nonocclusive deep venous thrombosis within the right popliteal vein as described above. Study Type:VASC DUPLEX VENOUS LE UNILAT Date of Study: 11/04/2023 Please respond to this encounter to acknowledge receipt of this message and take responsibility to ensure this report is reviewed. Thank you, RIGO Dukes Client Service Rep [facility] [place] documented in this encounter Plan of Treatment Upcoming Encounters Date Type Department Care Team (Late st Contact Info) Description 11/10/2023 11:45 AM EDT Office Visit Urogynecologsarbjit Santos [address] [place] [address] Bala Knox MD [address] [place] [address] Nurse Shawn Santos [address] [place] [address] 11/28/2023 10:00 AM EDT Laboratory Laboratory [place] Aleksandra Trimble [address] [place] [phone] [place] Atilio [address] [place] [address] 12/05/2023 2:30 PM EDT Office Visit Hematology/Oncology Rashawn Mcdonald [place] [address] [facility] [place] [address] Constanza Castañeda CRNP [address] [place] [address] [place] [id number] 12/31/2023 4:00 PM EDT Office Visit [facility] [address] [place] [address] Madalyn Pandya MD [address] [place] [address] 02/09/2024 10:20 AM EDT Office Visit Urogynecology [facility] [address] [place] [address] Bala Knox MD [address] [place] [address] Howard, Nurse Urodynamics [address] [place] [address] Health Maintenance Due Date Last Done Comments Espinoza's Esophagus Surveilance 1943 Zoster Vaccines (2 of 3) 02/12/2015 12/18/2014 COVID-19 Vaccine ( - season) 2023 03/20/2021, 07/22/2020, 07/01/2020 Influenza Vaccine (FLU shot) (#1) 2024 04/11/2023, 03/21/2022, 04/05/2021, Additional history exists DTaP,Tdap,and Td Vaccines (2 - Td or Tdap) 01/21/2024 01/20/2014 CKD PHOS USE SMARTSET 63650 04/02/202403/06, 09/14/2021, 03/12/2021, Additional history exists Albumin/Creatinine Ratio 04/04/2024 023, 03/13/2022, 09/14/2021, Additional history exists GFR 04/06/2024 10/06/2023, 06/0 07/2023, 08/09/2023, Additional history exists CKD HGB USE SMARTSET 46061 05/20/202405/20, 05/20/2023, 03/21/2023, Additional history exists Depression [...] this encounter Medical Devices Implanted Type Area Foreign Exchange Trader Device Identifier Shelf Expiration Date Model / Serial / Lot [place] Ptfe 1x1 [id number] - [id number] Implanted:Qty: 5 on 06/03/2018 by Jaxon Vega MD at OR [facility] N/A: Abdomen CR BARD : PERIPHERAL VASCULAR 11/29/2021 [id number] / / [id number] Description:para-esophageal hernia Allomax Mesh 5 X 8 [id number] - [id number] - [id number] Implanted:Qty: 1 on 06/03/2018 by Jaxon Vega MD at OR [facility] N/A: Abdomen CR BARD : DAVOL 05/04/2020 [id number] / [id number] / [id number] Description:PARA ESOPHAGEAL HERNIA documented as of this encounter Advance Directives * Full Code (Latest Code Status on File) Date Activated Date Inactivated Comments 06/03/2018 4:58 PM 06/05/2018 7:48 PM Question Answer Comments Discussion of Advance Directives occurred with: Not Discussed Does the patient have a Living Will? No Does the patient have Health Care Power of Attor jose luis? No Care Teams Principal Clerk Typist Relationship Specialty Start Date End Date Madalyn Pandya MD [address] [place] [address] PCP - General Family Medicine 06/11/23 documented as of this encounter
--- OUTSIDE RECORDS SUMMARY | 2024-04-17 12:49 | External Medical Summary | Summary of Care ---
Author Name Unknown Organization [facility] Address [address] [place] [address] Phone [phone] Care Team Providers Care Nuclear Scientist Name Role Phone Madalyn Pandya MD Primary Care Provider [phone] Reason for Visit * Reason Onset Date Comments Test Results 11/04/2023 Unexpected or In determinate Result Encounter Details Date Type Department Care Team (Late st Contact Info) Description 11/04/2023 Telephone Laboratory, [place] [address] [place] [address] Madalyn Pandya MD [address] [place] [phone] Test Results (Unexpected or Indeterminate ... Allergies [...] stage III (GFR 30-59 ml/min) ([facility]),Cerebrovascul ar disease, arteriosclerotic, post-stroke,Dyslipi demia, goal LDL below 70,Cerebellar infarct ([facility]) take 1 tablet by mouth at bedtime 90 Tablet 1 08/18/2023 Active Eliquis 5 MG Oral TabletIndications:A cute deep vein thrombosis (DVT) of right lower extremity, unspecified vein ([facility]) Take 1 Tablet by mouth in the morning and 1 Tablet before bedtime. 180 Tablet 1 09/01/2023 Active Iron-Vitamin C 65-125 MG Oral Tablet (Vitron C)Indications:Anemi a in stage 3a chronic kidney disease ([facility]) Take 1 Tablet by mouth [...] Espinoza's, hiatal hernia FAMILY HX, ISCHEMIC HEART [id number] 12/04/2010 01/20/2013 Dyslipidemia, goal LDL below 130 [...] mRNA, LNP-s, No Pre serve, 2-Dose Series ([employer]) 03/20/2021,07/22/2020,07/01/2020 PPD 10/05/1992 Pneumococcal Conjugate Vacc, 13 [...] Davila OSA - 11/04/2023 6:23 PM EDT Darshan- The radiologist discovered an unexpected or indeterminate finding on Nancy Ayala ([id number]) and asks that you review the following report. IMPRESSION IMPRESSION 1. Nonocclusive deep venous thrombosis within the right popliteal vein as described above. Study Type:VASC DUPLEX VENOUS LE UNILAT Date of Study: 11/04/2023 Please respond to this encounter to acknowledge receipt of this message and take responsibility to ensure this report is reviewed. Thank you, RIGO Dukes Client Service Rep [facility] documented in this encounter Plan of Treatment Upcoming Encounters Date Type Department Care Team (Late st Contact Info) Description 11/10/2023 11:45 AM EDT Office Visit Urogynecology Elsi Santos [address] [place] [place] [address] Bala Knox MD [address] [place] [address] Nurse Shawn Santos [address] [place] [address] 11/28/2023 10:00 AM EDT Laboratory Laboratory [place] Aleksandra Trimble [address] [place] [phone] [place] Atilio [address] [place] [address] 12/05/2023 2:30 PM EDT Office Visit Hematology/Oncology Rashawn Mcdonald [place] [address] Rash[address] [place] [phone] Constanza Castañeda CRNP [address] [place] [address] 12/31/2023 4:00 PM EDT Office Visit [facility] [address] [place] [address] Madalyn Pandya MD [address] [place] [address] 02/09/2024 10:20 AM EDT Office Visit Urogynecology [facility] [address] [place] [address] Bala Knox MD [address] [place] [address] [place], Nurse Urodynamics [address] [place] [address] Health Maintenance Due Date Last Done Comments Espinoza's Esophagus Surveilance 1943 Zoster Vaccines (2 of 3) 02/12/2015 12/18/2014 COVID-19 Vaccine (4 - season) 2023 03/20/2021, 07/22/2020, 07/01/2020 Influenza Vaccine (FLU shot) (#1) 2024 04/11/2023, 03/21/2022, 04/05/2021, Additional history exists DTaP,Tdap,and Td Vaccines (2 - Td or Tdap) 01/21/2024 01/20/2014 CKD PHOS USE SMARTSET 98438 04/02/202403/06, 09/14/2021, 03/12/2021, Additional history exists Albumin/Creatinine Ratio 04/04/2024 023, 03/13/2022, 09/14/2021, Additional history exists GFR 04/06/2024 10/06/2023, 0607/2023, 08/09/2023, Additional history exists CKD HGB USE SMARTSET 06259 05/20/202405/20, 05/20/2023, 03/21/2023, Additional history exists Depression [...] this encounter Medical Devices Implanted Type Area Player Services Representative Device Identifier Shelf Expiration Date Model / Serial / Lot [place] Ptfe 1x1 [id number] - [id number] Implanted:Qty: 5 on 06/03/2018 by Jaxon Vega MD at OR [facility] N/A: Abdomen CR BARD : PERIPHERAL VASCULAR 11/29/2021 [id number] / / [id number] Description:para-esophageal hernia Allomax Mesh 5 X 8 [id number] - [id number] Implanted:Qty: 1 on 06/03/2018 by Jaxon Vega MD at OR [facility] N/A: Abdomen CR BARD : DAVOL 05/04/2020 [id number] / [id number] / [id number] Description:PARA ESOPHAGEAL HERNIA documented as of this encounter Advance Directives * Full Code (Latest Code Status on File) Date Activated Date Inactivated Comments 06/03/2018 4:58 PM 06/05/2018 7:48 PM Question Answer Comments Discussion of Advance Directives occurred with: Not Discussed Does the patient have a Living Will? No Does the patient have Health Care Power of Attor jose luis? No Care Teams Nuclear Scientist Relationship Specialty Start Date End Date Madlayn Pandya MD [address] [place] [address] PCP - General Family Medicine 06/11/23 documented as of this encounter
--- OUTSIDE RECORDS SUMMARY | 2024-04-17 12:49 | External Medical Summary | Summary of Care ---
Author Name Unknown Organization [facility] Address [address] [place] [address] Phone [phone] Care Team Providers Care Carbon Paper Machine Operator Name Role Phone Madalyn Pandya MD Primary Care Provider [phone] Reason for Visit * Reason Onset Date Comments Test Results 11/04/2023 Unexpected or In determinate Result Encounter Details Date Type Department Care Team (Late st Contact Info) Description 11/04/2023 Telephone Laboratory, [place] [address] [place] [address] Madalyn Pandya MD [address] [place] [phone] Test Results (Unexpected or Indeterminate ... Allergies [...] disease, chronic, stage III (GFR 30-59 ml/min) ([facility]),Cerebrovascul ar disease, arteriosclerotic, post-stroke,Dyslipi demia, goal LDL below 70,Cerebellar infarct ([facility]) take 1 tablet by mouth at bedtime 90 Tablet 1 08/18/2023 Active Eliquis 5 MG Oral TabletIndications:A cute deep vein thrombosis (DVT) of right lower extremity, unspecified vein ([facility]) Take 1 Tablet by mouth in the morning and 1 Tablet before bedtime. 180 Tablet 1 09/01/2023 Active Iron-Vitamin C 65-125 MG Oral Tablet (Vitron C)Indications:Anemi a in stage 3a chronic kidney disease ([facility]) Take 1 Tablet by mouth [...] Espinoza's, hiatal hernia FAMILY HX, ISCHEMIC HEART [id number] 12/04/2010 01/20/2013 Dyslipidemia, goal LDL below 130 [...] mRNA, LNP-s, No Pre serve, 2-Dose Series (Plug.dj) 03/20/2021,07/22/2020,07/01/2020 PPD 10/05/1992 Pneumococcal Conjugate Vacc, 13 [...] encounter Miscellaneous Notes * Telephone Encounter - Silvia Lamar LPN - 11/05/2023 12:17 PM EDT Fay has been informed of below message and [...] unexpected or indeterminate finding on Nancy Ayala ([id number]) and asks that you review the following report. IMPRESSION IMPRESSION 1. Nonocclusive deep venous thrombosis within the right popliteal vein as described above. Study Type:VASC DUPLEX VENOUS LE UNILAT Date of Study: 11/04/2023 Please respond to this encounter to acknowledge receipt of this message and take responsibility to ensure this report is reviewed. Thank you, RIGO Dukes Client Service [facility] documented in this encounter Plan of Treatment Upcoming Encounters Date Type Department Care Team (Late st Contact Info) Description 11/10/2023 11:45 AM EDT Office Visit Urogynecology Elsi Santos [address] [place] [address] Bala Knox MD [address] [place] [address] Nurse Shawn Santos [address] [place] [address] 11/28/2023 10:00 AM EDT Laboratory Laboratory [place] [place] [address], Aleksandra [address] [place] [phone] [place] Atilio [address] [place] [address] 12/05/2023 2:30 PM EDT Office Visit Hematology/Oncology Rashawn Mcdonald [place] [address] [facility] [place] [address] Constanza [facility] [address] [facility] [place] [id number] 12/31/2023 4:00 PM EDT Office Visit [facility] [address] [place] [address] Madalyn Pandya MD [address] [place] [phone] 02/09/2024 10:20 AM EDT Office Visit Urogynecology [facility] [address] [place] [address] Bala Knox MD [address] [place] [address] Nurse Howard [facility] [address] [place] [address] Health Maintenance Due Date Last Done Comments Espinoza's Esophagus Surveilance 1945 Zoster Vaccines (2 of 3) 02/12/2015 12/18/2014 COVID-19 Vaccine ( season) 2023 03/20/2021, 07/22/2020, 07/01/2020 Influenza Vaccine (FLU shot) (#1) 2024 04/11/2023, 03/21/2022, 04/05/2021, Additional history exists DTaP,Tdap,and Td Vaccines (2 - Td or Tdap) 01/21/2024 01/20/2014 CKD PHOS USE SMARTSET 02447 04/02/202403/06, 09/14/2021, 03/12/2021, Additional history exists Albumin/Creatinine Ratio 04/04/2024 023, 03/13/2022, 09/14/2021, Additional history exists GFR 04/06/2024 10/06/2023, 06/0 07/2023, 08/09/2023, Additional history exists CKD HGB USE SMARTSET 83525 05/20/202405/20, 05/20/2023, 03/21/2023, Additional history exists Depression [...] this encounter Medical Devices Implanted Type Area Weathercaster Device Identifier Shelf Expiration Date Model / Serial / Lot [place] Ptfe 1x1 [id number] - [id number] Implanted:Qty: 5 on 06/03/2018 by Jaxon Vega MD at OR [facility] N/A: Abdomen CR BARD : PERIPHERAL VASCULAR 11/29/2021 [id number] / / [id number] Description:para-esophageal hernia Allomax Mesh 5 X 8 [id number] - [id number] - [id number] Implanted:Qty: 1 on 06/03/2018 by Jaxon Vega MD at OR [facility] N/A: Abdomen CR BARD : DAVOL 05/04/2020 [id number] / [id number] / [id number] Description:PARA ESOPHAGEAL HERNIA documented as of this encounter Advance Directives * Full Code (Latest Code Status on File) Date Activated Date Inactivated Comments 06/03/2018 4:58 PM 06/05/2018 7:48 PM Question Answer Comments Discussion of Advance Directives occurred with: Not Discussed Does the patient have a Living Will? No Does the patient have Health Care Power of Attor jose luis? No Care Teams Carbon Paper Machine Operator Relationship Specialty Start Date End Date Madalyn Pandya MD [address] [place] [phone] PCP - General Family Medicine 06/11/23 documented as of this encounter
--- OUTSIDE RECORDS SUMMARY | 2024-04-17 12:49 | External Medical Summary | Summary of Care ---
Author Name Unknown Organization [facility] Address [address] [place] [address] Phone [phone] Care Team Providers Care Machine Stone Polisher Apprentice Name Role Phone Madalyn Pandya MD Primary Care Provider [phone] Reason for Visit * Reason Onset Date Comments Test Results 11/04/2023 Unexpected or In determinate Result Encounter Details Date Type Department Care Team (Late st Contact Info) Description 11/04/2023 Telephone Laboratory, [place] [address] [place] [address] Madalyn Pandya MD [address] [place] [id number] Test Results (Unexpected or Indeterminate ... Allergies [...] stage III (GFR 30-59 ml/min) ([facility]),Cerebrovascul ar disease, arteriosclerotic, post-stroke,Dyslipi demia, goal LDL below 70,Cerebellar infarct ([facility]) take 1 tablet by mouth at bedtime 90 Tablet 1 08/18/2023 Active Eliquis 5 MG Oral TabletIndications:A cute deep vein thrombosis (DVT) of right lower extremity, unspecified vein ([facility]) Take 1 Tablet by mouth in the morning and 1 Tablet before bedtime. 180 Tablet 1 09/01/2023 Active Iron-Vitamin C 65-125 MG Oral Tablet (Vitron C)Indications:Anemi a in stage 3a chronic kidney disease ([facility]) Take 1 Tablet by [...] Espinoza's, hiatal hernia FAMILY HX, ISCHEMIC HEART [id number] 12/04/2010 01/20/2013 Dyslipidemia, goal LDL below 130 [...] mRNA, LNP-s, No Pre serve, 2-Dose Series ([employer]) 03/20/2021,07/22/2020,07/01/2020 PPD 10/05/1992 Pneumococcal Conjugate Vacc, 13 [...] unexpected or indeterminate finding on Nancy Ayala ([id number]) and asks that you review the following report. IMPRESSION IMPRESSION 1. Nonocclusive deep venous thrombosis within the right popliteal vein as described above. Study Type:VASC DUPLEX VENOUS LE UNILAT Date of Study: 11/04/2023 Please respond to this encounter to acknowledge receipt of this message and take responsibility to ensure this report is reviewed. Thank you, RIGO Dukes Client Service Rep [facility] documented in this encounter Plan of Treatment Upcoming Encounters Date Type Department Care Team (Late st Contact Info) Description 11/10/2023 11:45 AM EDT Office Visit Urogynecology El[facility] [address] [place] [address] Bala Knox MD [address] [place] [address] Nurse Shawn Santos [address] [place] [address] 11/28/2023 10:00 AM EDT Laboratory Laboratory [address], [place] [address] [place] [phone] [place], Lab [address] [place] [address] 12/05/2023 2:30 PM EDT Office Visit Hematology/Oncology [facility] [place] [address] [facility] [place] [phone] Constanza Castañeda CRNP [address] [place] [address] 12/31/2023 4:00 PM EDT Office Visit [facility] [address] [place] [address] Madalyn Pandya MD [address] [place] [phone] 02/09/2024 10:20 AM EDT Office Visit Urogynecology Elsi [place] [address] [place] [address] Bala Knox MD [address] [place] [address] Nurse [facility] [address] [place] [address] Health Maintenance Due Date Last Done Comments Espinoza's Esophagus Surveilance 1943 Zoster Vaccines (2 of 3) 02/12/2015 12/18/2014 COVID-19 Vaccine ( season) 2023 03/20/2021, 07/22/2020, 07/01/2020 Influenza Vaccine (FLU shot) (#1) 2024 04/11/2023, 03/21/2022, 04/05/2021, Additional history exists DTaP,Tdap,and Td Vaccines (2 - Td or Tdap) 01/21/2024 01/20/2014 CKD PHOS USE SMARTSET 65108 04/02/202403/06, 09/14/2021, 03/12/2021, Additional history exists Albumin/Creatinine Ratio 04/04/2024 023, 03/13/2022, 09/14/2021, Additional history exists GFR 04/06/2024 10/06/2023, 06/0 07/2023, 08/09/2023, Additional history exists CKD HGB USE SMARTSET 98365 05/20/202405/20, 05/20/2023, 03/21/2023, Additional history exists Depression [...] this encounter Medical Devices Implanted Type Area Construction Project Engineer Device Identifier Shelf Expiration Date Model / Serial / Lot [place] Ptfe 1x1 [id number] - [id number] Implanted:Qty: 5 on 06/03/2018 by Jaxon Vega MD at OR [facility] N/A: Abdomen CR BARD : PERIPHERAL VASCULAR 11/29/2021 [id number] / / [id number] Description:para-esophageal hernia Allomax Mesh 5 X 8 [id number] - [id number] - [id number] Implanted:Qty: 1 on 06/03/2018 by Jaxon Vega MD at OR [facility] N/A: Abdomen CR BARD : DAVOL 05/04/2020 [id number] / [id number] / [id number] Description:PARA ESOPHAGEAL HERNIA documented as of this encounter Advance Directives * Full Code (Latest Code Status on File) Date Activated Date Inactivated Comments 06/03/2018 4:58 PM 06/05/2018 7:48 PM Question Answer Comments Discussion of Advance Directives occurred with: Not Discussed Does the patient have a Living Will? No Does the patient have Health Care Power of Attor jose luis? No Care Teams Machine Stone Polisher Apprentice Relationship Specialty Start Date End Date Madalyn Pandya MD [address] [place] [phone] PCP - General Family Medicine 06/11/23 documented as of this encounter
--- OUTSIDE RECORDS SUMMARY | 2024-04-17 12:49 | External Medical Summary | Summary of Care ---
Author Name Unknown Organization [facility] Address [address] [place] [address] Phone [phone] Care Team Providers Care Integrity Director Name Role Phone Vikas Rhodes MD Primary Care Provider [phone] Reason for Visit * Reason Onset Date Comments Test Results 11/04/2023 Unexpected or In determinate Result Encounter Details Date Type Department Care Team (Late st Contact Info) Description 11/04/2023 Telephone Laboratory, [place] [address] [place] [address] Vikas Rhodes MD [address] [place] [id number] Test Results (Unexpected or Indeterminate ... Allergies [...] 09/23/2023 Rosuvastatin Calcium 20 MG Oral Tablet (Crestor)Indicati ons:Kidney disease, chronic, stage III (GFR 30-59 ml/min) ([facility]),Cerebrovasc ular disease, arteriosclerotic, post-stroke,Dysli pidemia, goal LDL below 70,Cerebellar infarct ([facility]) take 1 tablet by mouth at bedtime 90 Tablet 1 08/18/2023 Active Iron-Vitamin C 65-125 MG Oral Tablet (Vitron C)Indications:Ane juan in stage 3a chronic kidney disease ([facility]) Take 1 Tablet by mouth in the morning. 90 Tablet 1 09/04/2023 Active Spironolactone 25 MG Oral Tablet (Aldactone) Take 1 Tablet by mouth in the morning. 30 Tablet 1 09/17/2023 Active Gemtesa 75 MG Oral Tablet (Vibegron) Take 1 Tablet by mouth in the morning. 90 Tablet 3 09/23/2023 09/18/19 25 Active Estradiol 0.1 MG/GM Vaginal Cream (Estrace) Apply a pea sized amount (0.5g) vaginally twice a week as directed 42.5 g 3 09/26/2023 Active Nitrofurantoin Monohyd Macro 100 MG Oral Capsule (Macrobid) Take 1 Capsule by mouth in the morning and 1 Capsule before bedtime. 10 Capsule 11/03/2023 Active Apixaban 2.5 MG Oral Tablet (Eliquis)Indicati ons:Chronic deep vein thrombosis (DVT) of proximal vein of lower extremity, unspecified laterality ([facility]) Take 1 Tablet by mouth in the morning and 1 Tablet before bedtime. 60 Tablet 1 11/05/2023 Active Eliquis 5 MG Oral TabletIndications :Acute deep vein thrombosis (DVT) of right lower extremity, unspecified vein (HCC) Take 1 Tablet by mouth in the morning and 1 Tablet before bedtime. 180 Tablet 1 09/01/2023 11/05/19 24 Discontinued documented as of this encounter (statuses [...] Espinoza's, hiatal hernia FAMILY HX, ISCHEMIC HEART [id number] 12/04/2010 01/20/2013 Dyslipidemia, goal LDL below 130 [...] Addendum Note - Vikas Rhodes MD - 11/05/2023 2:36 PM EDTAddended by: VIKAS RHODES on: 11/05/2023 02:36 PM Modules accepted: Orders * Telephone Encounter - Vikas Rhodes MD - 11/05/2023 2:33 PM EDT Hanson back from hematology Change to 2.5 mg bid eliquis Meds sent to pharmacy [facility]acy [id number] [facility] Medication Orders Placed This Encounter Medications Apixaban 2.5 MG Oral Tablet (Eliquis) Sig: Take 1 Tablet by mouth in the morning and 1 Tablet before bedtime. Dispense: 60 Tablet Refill: 1 * Telephone Encounter - Silvia Lamar LPN - 11/05/2023 12:17 PM EDT Fay has been informed of below message and verbalized understanding. * Telephone Encounter - Vikas Rhodes MD - 11/05/2023 11:51 AM EDT The dvt is still there but it has shrunk in size and allows flow * Telephone Encounter - Madison Herrera LPN - 11/05/2023 11:01 AM EDT Pt's daughter Fay aware and verbalized understanding. Would like clarification on US. Has a hematology appointment on 12/04. * Telephone Encounter - Vikas Rhodes MD - 11/05/2023 10:53 AM EDT Please [...] unexpected or indeterminate finding on Nancy Ayala ([id number]) and asks that you review the following report. IMPRESSION IMPRESSION 1. Nonocclusive deep venous thrombosis within the right popliteal vein as described above. Study Type:VASC DUPLEX VENOUS LE UNILAT Date of Study: 11/04/2023 Please respond to this encounter to acknowledge receipt of this message and take responsibility to ensure this report is reviewed. Thank you, RIGO Dukes Client Service Rep [facility] [place] documented in this encounter Plan of Treatment Upcoming Encounters Date Type Department Care Team (Late st Contact Info) Description 11/10/2023 11:45 AM EDT Office Visit Urogynecology Elsi Santos [address] [place] [address] Bala Knox MD [address] [place] [address] Nurse Shawn Santos [address] [place] [address] 11/28/2023 10:00 AM EDT Laboratory Laboratory [facility], [place] [address] [place] [phone] [place] [facility] [address] [facility] [place] [address] 12/05/2023 2:30 PM EDT Office Visit Hematology/Oncology [facility] [place] [address] [facility] [place] [phone] Constanza [facility] [address] [facility] [place] [address] 12/31/2023 4:00 PM EDT Office Visit [facility] [address] [place] [address] Vikas Rhodes MD [address] [place] [address] 02/09/2024 10:20 AM EDT [facility] [address] [place] [address] Bala Knox MD [address] [place] [address] [place], Nurse [facility] [address] [place] [address] Health Maintenance Due Date Last Done Comments Espinoza's Esophagus Surveilance 1945 Zoster Vaccines (2 of 3) 02/12/2015 12/18/2014 COVID-19 Vaccine ( season) 2023 03/20/2021, 07/22/2020, 07/01/2020 Influenza Vaccine (FLU shot) (#1) 2024 04/11/2023, 03/21/2022, 04/05/2021, Additional history exists DTaP,Tdap,and Td Vaccines (2 - Td or Tdap) 01/21/2024 01/20/2014 CKD PHOS USE SMARTSET 34358 04/02/202403/06, 09/14/2021, 03/12/2021, Additional history exists Albumin/Creatinine Ratio 04/04/2024 023, 03/13/2022, 09/14/2021, Additional history exists GFR 04/06/2024 10/06/2023, 06/0 07/2023, 08/09/2023, Additional history exists CKD HGB USE SMARTSET 17296 05/20/202405/20, 05/20/2023, 03/21/2023, Additional history exists Depression [...] this encounter Medical Devices Implanted Type Area Workers' Compensation Claims Supervisor Device Identifier Shelf Expiration Date Model / Serial / Lot [place] Ptfe 1x1 [id number] - [id number] Implanted:Qty: 5 on 06/03/2018 by Jaxon Vega MD at OR [facility] N/A: Abdomen CR BARD : PERIPHERAL VASCULAR 11/29/2021 [id number] / / [id number] Description:para-esophageal hernia Allomax Mesh 5 X 8 [id number] - [id number] - [id number] Implanted:Qty: 1 on 06/03/2018 by Jaxon Vega MD at OR [facility] N/A: Abdomen CR BARD : DAVOL 05/04/2020 [id number] / [id number] / [id number] Description:PARA ESOPHAGEAL HERNIA documented as of this encounter Visit Diagnoses Diagnosis Chronic deep vein thrombosis (DVT) of proximal vein of lower extremity, unspecified laterality (HCC)- Primary documented in this encounter Advance Directives * Full Code (Latest Code Status on File) Date Activated Date Inactivated Comments 06/03/2018 4:58 PM 06/05/2018 7:48 PM Question Answer Comments Discussion of Advance Directives occurred with: Not Discussed Does the patient have a Living Will? No Does the patient have Health Care Power of Attor jose luis? No Care Teams Integrity Director Relationship Specialty Start Date End Date Vikas Rhodes MD [address] [place] [address] PCP - General Family Medicine 06/11/23 documented as of this encounter
--- OUTSIDE RECORDS SUMMARY | 2024-04-17 12:49 | External Medical Summary | Summary of Care ---
Author Name Unknown Organization [facility] Address [address] [facility] [place] [address] Phone [phone] Care Team Providers Care Supervisor Bottle House Cleaners Name Role Phone Vikas Pandya MD Primary Care Provider Reason for Visit * Reason Comments eRx-Medication Refill Encounter Details Date Type Department Care Team (Late st Contact Info) Description 11/07/2023 Refill [facility] [address] [place] [address] Vikas Pandya MD [address] [place] [phone] Allergies Active Allergy Reactions Criticality Noted Date [...] disease, chronic, stage III (GFR 30-59 ml/min) ([facility]),Cerebrovasc ular disease, arteriosclerotic, post-stroke,Dysli pidemia, goal LDL below 70,Cerebellar infarct ([facility]) take 1 tablet by mouth at bedtime 90 Tablet 1 08/18/2023 Active Iron-Vitamin C 65-125 MG Oral Tablet (Vitron C)Indications:Ane juan in stage 3a chronic kidney disease ([facility]) Take 1 Tablet by mouth in the morning. 90 Tablet 1 09/04/2023 Active Gemtesa 75 MG Oral Tablet (Vibegron) [...] Capsule before bedtime. 10 Capsule 11/03/2023 Active Spironolactone 25 MG Oral Tablet (Aldactone) take 1 tablet by mouth every morning 30 Tablet 1 11/10/2023 Active Apixaban 2.5 MG Oral Tablet (Eliquis)Indicati ons:Chronic deep vein thrombosis (DVT) of proximal vein of lower extremity, unspecified laterality ([facility]) Take 1 Tablet by mouth in the morning and 1 Tablet before bedtime. 60 Tablet 1 11/07/2023 Active Spironolactone 25 MG Oral Tablet (Aldactone) Take 1 Tablet by mouth in the morning. 30 Tablet 1 09/17/2023 11/10/19 24 Discontinued documented as of this encounter [...] Espinoza's, hiatal hernia FAMILY HX, ISCHEMIC HEART [id number] 12/04/2010 01/20/2013 Dyslipidemia, goal LDL below 130 [...] mRNA, LNP-s, No Pre serve, 2-Dose Series ([employer]) 03/20/2021,07/22/2020,07/01/2020 PPD 10/05/1992 Pneumococcal Conjugate Vacc, 13 [...] Telephone Encounter - Vikas Pandya MD - 11/10/2023 8:05 AM EDTSigned Prescriptions: Disp Refills Spironolactone 25 MG Oral Tablet ([place]*30 Tab*1 Sig: take 1 tablet by mouth every morning Authorizing Provider: VIKAS PANDYA * Telephone Encounter - Tg [facility] - 11/09/2023 11:53 AM EDT Pending Prescriptions: Disp Refills Spironolactone 25 MG Oral Tablet [Pharmacy*30 Tab*1 Sig: take 1 tablet by mouth every morning * Telephone Encounter - Tg Bhat [facility] - 11/09/2023 11:53 AM EDT Pending Prescriptions: Disp Refills Spironolactone 25 MG Oral Tablet [Pharmacy*30 Tab*1 Sig: take 1 tablet by mouth every morning Last Visit: 09/01/2023 (in office), Visit date not found (telemedicine) Next Visit: 12/31/2023 If no future appointments scheduled, and last appointment is greater than a year ago, please schedule patient for a follow-up appointment Last date the medication was ordered: 09/17/23 [facility]: [facility][id number] [facility] Is this request for a controlled substance?No [...] 12:00 AM TSH 2.56 03/21/2020 09:02 AM LDLCALC 60 09/14/2021 08:18 AM LDLCALC 73 03/21/2020 09:02 AM LDLDIRECT NOT APPLICABLE 03/21/2020 09:02 AM LDLDIRECT 80 04/08/2017 07:49 AM ALT 15 05/20/2023 01:48 PM ALT 14 03/21/2020 09:02 AM HGBA1C 5.5 01/21/2023 10:16 AM HGBA1C 5.5 05/18/2019 08:33 AM documented in this encounter Plan of Treatment Upcoming Encounters Date Type Department Care Team (Late st Contact Info) Description 11/10/2023 11:45 AM EDT Office Visit Urogynecology Elsi Santos [address] [place] [address] Bala Knox MD [address] [place] [address] Nurse Shawn Santos [address] [place] [address] 11/28/2023 10:00 AM EDT Laboratory Laboratory [address], [place] [address] [facility] [place] [phone] [facility] [address] [facility] [place] [address] 12/05/2023 2:30 PM EDT Office Visit Hematology/Oncology [facility] [place] [address] [facility] [phone] Constanza Castañeda CRNP [address] [place] [address] 12/31/2023 4:00 PM EDT Office Visit [facility] [address] [place] [address] Vikas Pandya MD [address] [place] [address] 02/09/2024 10:20 AM EDT Office Visit Urogynecology Elsi Santos [address] [place] [address] Bala Knox MD [address] [place] [address] Nurse [facility] [address] [place] [address] Health Maintenance Due Date Last Done Comments Espinoza's Esophagus Surveilance 1945 Zoster Vaccines (2 of 3) 02/12/2015 12/18/2014 COVID-19 Vaccine (4 - 2022- season) 2023 03/20/2021, 07/22/2020, 07/01/2020 Influenza Vaccine (FLU shot) (#1) 2024 04/11/2023, 03/21/2022, 04/05/2021, Additional history exists DTaP,Tdap,and Td Vaccines (2 - Td or Tdap) 01/21/2024 01/20/2014 CKD PHOS USE SMARTSET 01581 04/02/202403/06, 09/14/2021, 03/12/2021, Additional history exists Albumin/Creatinine Ratio 04/04/2024 023, 03/13/2022, 09/14/2021, Additional history exists GFR 04/06/2024 10/06/2023, 06/0 07/2023, 08/09/2023, Additional history exists CKD HGB USE SMARTSET 96626 05/20/202405/20, 05/20/2023, 03/21/2023, Additional history exists Depression [...] this encounter Medical Devices Implanted Type Area Gear Machine Operator General Device Identifier Shelf Expiration Date Model / Serial / Lot [place] Ptfe 1x1 [id number] - [id number] Implanted:Qty: 5 on 06/03/2018 by Jaxon Vega MD at OR [facility] N/A: Abdomen CR BARD : PERIPHERAL VASCULAR 11/29/2021 [id number] / / [id number] Description:para-esophageal hernia Allomax Mesh 5 X 8 [id number] - [id number] - [id number] Implanted:Qty: 1 on 06/03/2018 by Jaxon Vega MD at OR [facility] N/A: Abdomen CR BARD : DAVOL 05/04/2020 [id number] / [id number] / [id number] Description:PARA ESOPHAGEAL HERNIA documented as of this encounter Advance Directives * Full Code (Latest Code Status on File) Date Activated Date Inactivated Comments 06/03/2018 4:58 PM 06/05/2018 7:48 PM Question Answer Comments Discussion of Advance Directives occurred with: Not Discussed Does the patient have a Living Will? No Does the patient have Health Care Power of Attor jose luis? No Care Teams Supervisor Bottle House Cleaners Relationship Specialty Start Date End Date Vikas Pandya MD [address] [place] [address] PCP - General Family Medicine 06/11/23 documented as of this encounter
--- OUTSIDE RECORDS SUMMARY | 2024-04-17 12:49 | External Medical Summary | Summary of Care ---
Author Name Unknown Organization [facility] Address [address] [place] [address] Phone [phone] Care Team Providers Care Matching Machine Operator Name Role Phone Vikas Rhodes MD Primary Care Provider Reason for Visit * Reason Onset Date Comments Medication Refill 11/07/2023 Encounter Details Date Type Department Care Team (Late st Contact Info) Description 11/07/2023 Refill [facility] [address] [place] [address] Vikas Rhodes MD [address] [place] [address] Chronic deep vein thrombosis (DVT) of proximal vein of lower extremity, unspecified laterality (HCC) Allergies Active Allergy Reactions Criticality Noted [...] as of this encounter (statuses as of 11/07/2023) Medications Medication Sig Dispensed Refills Start Date [...] 09/23/2023 Rosuvastatin Calcium 20 MG Oral Tablet (Crestor)Indicatio ns:Kidney disease, chronic, stage III (GFR 30-59 ml/min) (HCC),Cerebrovascu lar disease, arteriosclerotic, post-stroke,Dyslip idemia, goal LDL below 70,Cerebellar infarct (HCC) take [...] in the morning. 90 Tablet 3 09/23/2023 Active Estradiol 0.1 MG/GM Vaginal Cream (Estrace) Apply a pea sized amount (0.5g) vaginally twice a week as directed 42.5 g 3 09/26/2023 Active Nitrofurantoin Monohyd Macro 100 MG Oral Capsule (Macrobid) Take 1 Capsule by mouth in the morning and 1 Capsule before bedtime. 10 Capsule 11/03/2023 Active Apixaban 2.5 MG Oral Tablet (Eliquis)Indicatio ns:Chronic deep vein thrombosis (DVT) of proximal vein of lower extremity, unspecified laterality (HCC) Take 1 Tablet by mouth in the morning and 1 Tablet before bedtime. 60 Tablet 1 11/07/2023 Active Apixaban 2.5 MG Oral Tablet (Eliquis)Indicatio ns:Chronic deep vein thrombosis (DVT) of proximal vein of lower extremity, unspecified laterality (HCC) Take 1 Tablet by mouth in the morning and 1 Tablet before bedtime. 60 Tablet 1 11/05/2023 Discontinue d(Refill) documented as of this encounter (statuses as of 11/07/2023) Active Problems Problem Noted Date Diagnosed Date [...] as of this encounter (statuses as of 11/07/2023) Resolved Problems Problem Noted Date Diagnosed Date [...] Espinoza's, hiatal hernia FAMILY HX, ISCHEMIC HEART [id number] 12/04/2010 01/20/2013 Dyslipidemia, goal LDL below 130 08/24/2010 01/20/2013 Anxiety state 11/14/2009 01/20/2013 Irritable bowel syndrome 11/14/2009 Esophageal reflux 11/14/2009 04/16/2011 Overview: hiatal hernia, EGD 03/13 Barretts Palpitations 11/14/2009 01/20/2013 Overview: 10/05 ANEMIA NOS-neg eval 11/11 Overview: neg. follow-up 1989 Other allergic rhinitis 01/03 Overview: ICD-10 update of inactive term documented as of this encounter (statuses as of 11/07/2023) Immunizations Name Administration Dates Next Due COVID-19 [...] encounter Miscellaneous Notes * Telephone Encounter - Azael Lemus [facility] - 11/07/2023 11:57 AM EDTSigned Prescriptions: Disp Refills Apixaban 2.5 MG Oral Tablet (Eliquis) 60 Tab*1 Sig: Take 1 Tablet by mouth in the morning and 1 Tablet before bedtime.Authorizing Provider: VIKAS RHODES User: AZAEL LEMUS * Telephone Encounter - Azael Lemus RP - 11/07/2023 11:57 AM EDT Resent to pharmacy as requested. Thank you, Azael Lemus, PharmD Clinical Pharmacist [facility] [phone] 11/07/2023, 11:57 AM * Telephone Encounter - Candie Navas CPhT - 11/07/2023 11:30 AM EDT Please [id number]. Confirmed pharmacy did not receive original prescription. Pending Prescriptions: Disp Refills Apixaban 2.5 MG Oral Tablet (Eliquis) 60 Tab*1 Sig: Take 1 Tablet by mouth in the morning and 1 Tablet before bedtime. Last Visit: 09/01/2023 (in office), Visit date not found (telemedicine) 12/31/2023 If no future appointments scheduled, and last appointment is greater than a year ago, please schedule patient for a follow-up appointment Last date the medication was ordered: 11/05/2023 Patient Phone Numbers Labs: Lab Results Component [...] Elsi Santos [address] [place] [address] Bala Knox MD [address] [place] [address] Nurse Shawn Santos [address] [place] [address] 11/28/2023 10:00 AM EDT Laboratory Laboratory [place] Trimble [address] [place] [phone] [place] [facility] [address] [place] [address] 12/05/2023 2:30 PM EDT Office Visit Hematology/Oncology Rashawn Mcdonald [place] [address] [facility] [place] [address] Constanza Castañeda CRNP [address] [place] [address] 12/31/2023 4:00 PM EDT Office Visit [facility] [address] [place] [address] Vikas Rhodes MD [address] [place] [address] 02/09/2024 10:20 AM EDT Office Visit Urogynecology [facility] [address] [place] [address] Bala Knox MD [address] [place] [address] Howard, Nurse Urodynamics [address] [place] [address] Health Maintenance Due Date Last Done Comments Espinoza's Esophagus Surveilance 1943 Zoster Vaccines (2 of 3) 02/12/2015 12/18/2014 COVID-19 Vaccine (4 - season) 2023 03/20/2021, 07/22/2020, 07/01/2020 Influenza Vaccine (FLU shot) (#1) 2024 04/11/2023, 03/21/2022, 04/05/2021, Additional history exists DTaP,Tdap,and Td Vaccines (2 - Td or Tdap) 01/21/2024 01/20/2014 CKD PHOS USE SMARTSET 75761 04/02/202403/06, 09/14/2021, 03/12/2021, Additional history exists Albumin/Creatinine Ratio 04/04/2024 023, 03/13/2022, 09/14/2021, Additional history exists GFR 04/06/2024 10/06/2023, 06/0 07/2023, 08/09/2023, Additional history exists CKD HGB USE SMARTSET 84224 05/20/202405/20, 05/20/2023, 03/21/2023, Additional history exists Depression [...] this encounter Medical Devices Implanted Type Area Resource Room Special Education Teacher Device Identifier Shelf Expiration Date Model / Serial / Lot [place] Ptfe 1x1 [id number] - [id number] Implanted:Qty: 5 on 06/03/2018 by Jaxon Vega MD at OR [facility] N/A: Abdomen CR BARD : PERIPHERAL VASCULAR 11/29/2021 [id number] / / [id number] Description:para-esophageal hernia Allomax Mesh 5 X 8 [id number] - [id number] - [id number] Implanted:Qty: 1 on 06/03/2018 by Jaxon Vega MD at OR [facility] N/A: Abdomen CR BARD : DAVOL 05/04/2020 [id number] / [id number] / [id number] Description:PARA ESOPHAGEAL HERNIA documented as of this encounter Visit Diagnoses Diagnosis Chronic deep vein thrombosis (DVT) of proximal vein of lower extremity, unspecified laterality (HCC) documented in this encounter Advance Directives * Full Code (Latest Code Status on File) Date Activated Date Inactivated Comments 06/03/2018 4:58 PM 06/05/2018 7:48 PM Question Answer Comments Discussion of Advance Directives occurred with: Not Discussed Does the patient have a Living Will? No Does the patient have Health Care Power of Attor jose luis? No Care Teams Matching Machine Operator Relationship Specialty Start Date End Date Vikas Rhodes MD [address] [place] [address] PCP - General Family Medicine 06/11/23 documented as of this encounter
--- OUTSIDE RECORDS SUMMARY | 2024-04-17 12:49 | External Medical Summary | Summary of Care ---
Author Name Unknown Organization [facility] Address [address] [place] [address] Phone [phone] Care Team Providers Care Research And Insights Executive Name Role Phone Vikas Rhodes MD Primary Care Provider [phone] Reason for Visit * Reason Onset Date Comments Test Results 11/04/2023 Unexpected or In determinate Result Encounter Details Date Type Department Care Team (Late st Contact Info) Description 11/04/2023 Telephone Laboratory, [place] [address] [place] [address] Vikas Rhodes MD [address] [place] [id number] Test Results (Unexpected or Indeterminate ... Allergies [...] disease, chronic, stage III (GFR 30-59 ml/min) ([facility]),Cerebrovasc ular disease, arteriosclerotic, post-stroke,Dysli pidemia, goal LDL below 70,Cerebellar infarct ([facility]) take 1 tablet by mouth at bedtime 90 Tablet 1 08/18/2023 Active Iron-Vitamin C 65-125 MG Oral Tablet (Vitron C)Indications:Ane juan in stage 3a chronic kidney disease ([facility]) Take 1 Tablet by mouth in [...] 180 Tablet 1 09/01/2023 11/05/19 24 Discontinued Apixaban 2.5 MG Oral Tablet (Eliquis)Indicati ons:Chronic deep vein thrombosis (DVT) of proximal vein of lower extremity, unspecified laterality (HCC) Take 1 Tablet by mouth in the morning and 1 Tablet before bedtime. 60 Tablet 1 11/05/2023 11/05/19 24 Discontinued documented as of this [...] Espinoza's, hiatal hernia FAMILY HX, ISCHEMIC HEART [id number] 12/04/2010 01/20/2013 Dyslipidemia, goal LDL below 130 [...] mRNA, LNP-s, No Pre serve, 2-Dose Series ([employer]) 03/20/2021,07/22/2020,07/01/2020 PPD 10/05/1992 Pneumococcal Conjugate Vacc, 13 [...] Note - Vikas Rhodes MD - 11/05/2023 2:37 PM EDTAddended by: VIKAS RHODES on: 11/05/2023 02:37 PM Modules accepted: Orders * Addendum Note - Vikas Rhodes MD - 11/05/2023 2:36 PM EDTAddended by: VIKAS RHODES on: 11/05/2023 02:36 PM Modules accepted: Orders * Telephone Encounter - Vikas Rhodes MD - 11/05/2023 2:33 PM EDT [place] back from hematology Change to 2.5 mg bid eliquis Meds sent to pharmacy [facility][id number] [address] [facility] Medication Orders Placed This Encounter [...] unexpected or indeterminate finding on Nancy Ayala ([id number]) and asks that you review the following report. IMPRESSION IMPRESSION 1. Nonocclusive deep venous thrombosis within the right popliteal vein as described above. Study Type:VASC DUPLEX VENOUS LE UNILAT Date of Study: 11/04/2023 Please respond to this encounter to acknowledge receipt of this message and take responsibility to ensure this report is reviewed. Thank you, RIGO Dukes Client Service Rep [facility] documented in this encounter Plan of Treatment Upcoming Encounters Date Type Department Care Team (Late st Contact Info) Description 11/10/2023 11:45 AM EDT Office Visit Urogynecology Elsi Santos [address] [place] [address] Bala Knox MD [address] [place] [address] Nurse Shawn Santos [address] [place] [address] 11/28/2023 10:00 AM EDT Laboratory Laboratory [place], [place] [address] [place] [address] [place] [phone] [place] [address] [place] [address] 12/05/2023 2:30 PM EDT Office Visit Hematology/Oncology [facility] [place] [address] [place] [address] Constanza Castañeda CRNP [address] [place] [address] 12/31/2023 4:00 PM EDT [facility] [address] [place] [phone] Vikas Rhodes MD [address] [place] [id number] 02/09/2024 10:20 AM EDT Office Visit Urogynecology [facility] [address] [facility] [place] [address] Bala Knox MD [address] [place] [address] Howard Nurse Urodynamics [address] [place] [address] Health Maintenance Due Date Last Done Comments Espinoza's Esophagus Surveilance 1943 Zoster Vaccines (2 of 3) 02/12/2015 12/18/2014 COVID-19 Vaccine ( season) 2023 03/20/2021, 07/22/2020, 07/01/2020 Influenza Vaccine (FLU shot) (#1) 2024 04/11/2023, 03/21/2022, 04/05/2021, Additional history exists DTaP,Tdap,and Td Vaccines (2 - Td or Tdap) 01/21/2024 01/20/2014 CKD PHOS USE SMARTSET 94123 04/02/202403/06, 09/14/2021, 03/12/2021, Additional history exists Albumin/Creatinine Ratio 04/04/2024 023, 03/13/2022, 09/14/2021, Additional history exists GFR 04/06/2024 10/06/2023, 06/0 07/2023, 08/09/2023, Additional history exists CKD HGB USE SMARTSET 68878 05/20/202405/20, 05/20/2023, 03/21/2023, Additional history exists Depression [...] this encounter Medical Devices Implanted Type Area Financial Manager Device Identifier Shelf Expiration Date Model / Serial / Lot [place] Ptfe 1x1 [id number] - [id number] Implanted:Qty: 5 on 06/03/2018 by Jaoxn Vega MD at OR [facility] N/A: Abdomen CR BARD : PERIPHERAL VASCULAR 11/29/2021 [id number] / / [id number] Description:para-esophageal hernia Allomax Mesh 5 X 8 [id number] - [id number] - [id number] Implanted:Qty: 1 on 06/03/2018 by Jaxon Vega MD at OR [facility] N/A: Abdomen CR BARD : DAVOL 05/04/2020 [id number] / [id number] / [id number] Description:PARA ESOPHAGEAL HERNIA documented as of this [...] of Attor jose luis? No Care Teams Research And Insights Executive Relationship Specialty Start Date End Date Vikas Rhodes MD [address] [place] [address] PCP - General Family Medicine 06/11/23 documented as of this encounter
--- OUTSIDE RECORDS SUMMARY | 2024-04-17 12:49 | External Medical Summary | Summary of Care ---
Author Name Unknown Organization [facility] Address [address] [place] [address] Phone [phone] Care Team Providers Care Neuro Urologist Name Role Phone Vikas Rhodes MD Primary Care Provider [phone] Reason for Visit * Reason Onset Date Comments Test Results 11/04/2023 Unexpected or In determinate Result Encounter Details Date Type Department Care Team (Late st Contact Info) Description 11/04/2023 Telephone Laboratory, [place] [address] [place] [address] Vikas Rhodes MD [address] [place] [id number] Test Results (Unexpected or Indeterminate ... Allergies [...] juan in stage 3a chronic kidney disease ([facility]) Take 1 Tablet [...] Espinoza's, hiatal hernia FAMILY HX, ISCHEMIC HEART [id number] 12/04/2010 01/20/2013 Dyslipidemia, goal LDL below 130 [...] mRNA, LNP-s, No Pre serve, 2-Dose Series ([employer]) 03/20/2021,07/22/2020,07/01/2020 PPD 10/05/1992 Pneumococcal Conjugate Vacc, 13 [...] Encounter - Silvia Lamar LPN - 11/05/2023 3:01 PM EDT Fay has been informed of below message and verbalized understanding. * Addendum Note - Vikas Rhodes MD - 11/05/2023 2:37 PM EDTAddended by: VIKAS RHODES on: 11/05/2023 02:37 PM Modules accepted: Orders * Addendum Note - Vikas Rhodes MD - 11/05/2023 2:36 PM EDTAddended by: VIKAS RHODES on: 11/05/2023 02:36 PM Modules accepted: Orders * Telephone Encounter - Vikas Rhodes MD - 11/05/2023 2:33 PM EDT [place] back from hematology Change to 2.5 mg bid eliquis Meds sent to pharmacy [facility] #[id number] [id number] [facility] Medication Orders Placed This Encounter [...] unexpected or indeterminate finding on Nancy Ayala ([id number]) and asks that you review the following report. IMPRESSION IMPRESSION 1. Nonocclusive deep venous thrombosis within the right popliteal vein as described above. Study Type:VASC DUPLEX VENOUS LE UNILAT Date of Study: 11/04/2023 Please respond to this encounter to acknowledge receipt of this message and take responsibility to ensure this report is reviewed. Thank you, RIGO Dukes Client Service [facility] documented in this encounter Plan of Treatment Upcoming Encounters Date Type Department Care Team (Late st Contact Info) Description 11/10/2023 11:45 AM EDT Office Visit Urogynecology Elsi Santos [address] [place] [address] Bala Knox MD [address] [place] [address] Nurse Shawn Santos [address] [place] [address] 11/28/2023 10:00 AM EDT Laboratory Laboratory [address], [place] [address] [place] [address] [place] [address] [place] [address] 12/05/2023 2:30 PM EDT Office Visit Hematology/Oncology Rashawn Mcdonald [place] [address] [facility] [place] [phone] Constanza [facility]eda CRNP [address] [facility] [place] [address] 12/31/2023 4:00 PM EDT Office Visit [facility] [address] [place] [address] Vikas Rhodes MD [address] [place] [phone] 02/09/2024 10:20 AM EDT Office Visit Urogynecology [place] [address] [place] [address] Bala Knox MD [address] [place] [address] Nurse Howard Urodynamics [address] [place] [address] Health Maintenance Due Date Last Done Comments Espinoza's Esophagus Surveilance 1943 Zoster Vaccines (2 of 3) 02/12/2015 12/18/2014 COVID-19 Vaccine (4 - 2022- season) 2023 03/20/2021, 07/22/2020, 07/01/2020 Influenza Vaccine (FLU shot) (#1) 2024 04/11/2023, 03/21/2022, 04/05/2021, Additional history exists DTaP,Tdap,and Td Vaccines (2 - Td or Tdap) 01/21/2024 01/20/2014 CKD PHOS USE SMARTSET 06345 04/02/202403/06, 09/14/2021, 03/12/2021, Additional history exists Albumin/Creatinine Ratio 04/04/2024 023, 03/13/2022, 09/14/2021, Additional history exists GFR 04/06/2024 10/06/2023, 06/0 07/2023, 08/09/2023, Additional history exists CKD HGB USE SMARTSET 68185 05/20/202405/20, 05/20/2023, 03/21/2023, Additional history exists Depression [...] this encounter Medical Devices Implanted Type Area Running Rigger Device Identifier Shelf Expiration Date Model / Serial / Lot [place] Ptfe 1x1 [id number] - [id number] Implanted:Qty: 5 on 06/03/2018 by Jaxon Vega MD at OR [facility] N/A: Abdomen CR BARD : PERIPHERAL VASCULAR 11/29/2021 [id number] / / [id number] Description:para-esophageal hernia Allomax Mesh 5 X 8 [id number] - [id number] - [id number] Implanted:Qty: 1 on 06/03/2018 by Jaxon Vega MD at OR [facility] N/A: Abdomen CR BARD : DAVOL 05/04/2020 [id number] / [id number] / [id number] Description:PARA ESOPHAGEAL HERNIA documented as of this [...] of Attor jose luis? No Care Teams Neuro Urologist Relationship Specialty Start Date End Date Vikas Rhodes MD [address] [place] [address] PCP - General Family Medicine 06/11/23 documented as of this encounter
--- OUTSIDE RECORDS SUMMARY | 2024-04-17 12:50 | External Medical Summary | Summary of Care ---
Author Name Unknown Organization [facility] Address [address] [place] [address] Phone [phone] Care Team Providers Care Overage Shortage And Damage Clerk Name Role Phone Madalyn Pandya MD Primary Care Provider [phone] Reason for Visit * Reason Onset Date Comments Test Results 11/04/2023 Unexpected or In determinate Result Encounter Details Date Type Department Care Team (Late st Contact Info) Description 11/04/2023 Telephone Laboratory, [place] [address] [place] [address] Madalyn Pandya MD [address] [place] [id number] Test Results (Unexpected or Indeterminate ... Allergies [...] (DVT) of right lower extremity, unspecified vein ([facility]) Take 1 Tablet by mouth in the morning and 1 Tablet before bedtime. 180 Tablet 1 09/01/2023 Active Iron-Vitamin C 65-125 MG Oral Tablet (Vitron C)Indications:Anemi a in stage 3a chronic kidney disease ([facility]) [...] Espinoza's, hiatal hernia FAMILY HX, ISCHEMIC HEART [id number] 12/04/2010 01/20/2013 Dyslipidemia, goal LDL below 130 [...] mRNA, LNP-s, No Pre serve, 2-Dose Series ([employer]) 03/20/2021,07/22/2020,07/01/2020 PPD 10/05/1992 Pneumococcal Conjugate Vacc, 13 [...] encounter Miscellaneous Notes * Telephone Encounter - Constanza Davila OSA - 11/04/2023 6:23 PM EDT Hello- The radiologist discovered an unexpected or indeterminate finding on Nancy Ayala ([id number]) and asks that you review the following report. IMPRESSION IMPRESSION 1. Nonocclusive deep venous thrombosis within the right popliteal vein as described above. Study Type:VASC DUPLEX VENOUS LE UNILAT Date of Study: 11/04/2023 Please respond to this encounter to acknowledge receipt of this message and take responsibility to ensure this report is reviewed. Thank you, RIGO Dukes Client Service [facility] documented in this encounter Plan of Treatment Upcoming Encounters Date Type Department Care Team (Late st Contact Info) Description 11/10/2023 11:45 AM EDT Office Visit Urogynecology Elsi Santos [address] [place] [address] Bala Knox MD [address] [place] [address] Nurse Shawn Santos Kalyn [address] [place] [address] 11/28/2023 10:00 AM EDT Laboratory Laboratory [address], [place] [address] [place] [phone] [place], Lab [facility] [address] [place] [address] 12/05/2023 2:30 PM EDT Office Visit Hematology/Oncology [facility] [place] [address] [place] [phone] Constanza Castañeda CRNP [address] [place] [address] 12/31/2023 4:00 PM EDT Office Visit [facility] [address] [place] [phone] Madalyn Pandya MD [address] [place] [address] 02/09/2024 10:20 AM EDT Office Visit Urogynecology [place] [address] [place] [address] Bala Knox MD [address] [place] [address] Howard Nurse Urodynamics [address] [place] [address] Health Maintenance Due Date Last Done Comments Espinoza's Esophagus Surveilance 1943 Zoster Vaccines (2 of 3) 02/12/2015 12/18/2014 COVID-19 Vaccine (4 - season) 2023 03/20/2021, 07/22/2020, 07/01/2020 Influenza Vaccine (FLU shot) (#1) 2024 04/11/2023, 03/21/2022, 04/05/2021, Additional history exists DTaP,Tdap,and Td Vaccines (2 - Td or Tdap) 01/21/2024 01/20/2014 CKD PHOS USE SMARTSET 79437 04/02/202403/06, 09/14/2021, 03/12/2021, Additional history exists Albumin/Creatinine Ratio 04/04/2024 023, 03/13/2022, 09/14/2021, Additional history exists GFR 04/06/2024 10/06/2023, 06/0 07/2023, 08/09/2023, Additional history exists CKD HGB USE SMARTSET 73431 05/20/202405/20, 05/20/2023, 03/21/2023, Additional history exists Depression [...] this encounter Medical Devices Implanted Type Area Exterminator Device Identifier Shelf Expiration Date Model / Serial / Lot [place] Ptfe 1x1 [id number] - [id number] Implanted:Qty: 5 on 06/03/2018 by Jaxon Vega MD at OR [facility] N/A: Abdomen CR BARD : PERIPHERAL VASCULAR 11/29/2021 [id number] / / [id number] Description:para-esophageal hernia Allomax Mesh 5 X 8 [id number] - [id number] - [id number] Implanted:Qty: 1 on 06/03/2018 by Jaxon Vega MD at OR [facility] N/A: Abdomen CR BARD : DAVOL 05/04/2020 [id number] / [id number] / [id number] Description:PARA ESOPHAGEAL HERNIA documented as of this encounter Advance Directives * Full Code (Latest Code Status on File) Date Activated Date Inactivated Comments 06/03/2018 4:58 PM 06/05/2018 7:48 PM Question Answer Comments Discussion of Advance Directives occurred with: Not Discussed Does the patient have a Living Will? No Does the patient have Health Care Power of Attor jose luis? No Care Teams Overage Shortage And Damage Clerk Relationship Specialty Start Date End Date Madalyn Pandya MD [address] [place] [address] PCP - General Family Medicine 06/11/23 documented as of this encounter
--- OUTSIDE RECORDS SUMMARY | 2024-04-17 12:50 | External Medical Summary | Summary of Care ---
Author Name Unknown Organization [facility] Address [address] [place] [address] Phone [phone] Care Team Providers Care Boxing Inspector Name Role Phone Madalyn Pandya MD Primary Care Provider Reason for Visit * Reason Comments Outpatient Testing Encounter Details Date Type Department Care Team (Late st Contact Info) Description 10/29/2023 2:20 PM EDT Laboratory Laboratory [address], [place] [address] [place] [phone] Rd, Specimen Drop Off [facility] [address] [place] [address] Atrophic vaginitis; Cystocele, midline; Urge incontinence Allergies Active Allergy Reactions Criticality [...] as of this encounter (statuses as of 11/03/2023) Medications Medication Sig Dispensed Refills Start Date [...] 1 08/18/2023 Active Eliquis 5 MG Oral TabletIndications: Acute deep vein thrombosis (DVT) of right lower [...] in the morning. 90 Tablet 3 09/23/2023 5 Active Estradiol 0.1 MG/GM Vaginal Cream (Estrace) Apply a pea sized amount (0.5g) vaginally twice a week as directed 42.5 g 3 09/26/2023 Active Nitrofurantoin Monohyd Macro 100 MG Oral Capsule (Macrobid) Take 1 Capsule by mouth in the morning and 1 Capsule before bedtime. 10 Capsule 11/03/2023 Active Nitrofurantoin Monohyd Macro 100 MG Oral Capsule (Macrobid) Take 1 Capsule by mouth in the morning and 1 Capsule before bedtime. 08/23/2023 Discontinue d(Refill) documented as of this encounter (statuses as of 11/03/2023) Active Problems Problem Noted Date Diagnosed Date [...] as of this encounter (statuses as of 11/03/2023) Resolved Problems Problem Noted Date Diagnosed Date [...] Dyslipidemia 10/31/2017 05/12/2018 Post herpetic neuralgia 08/14/2017 0112/2018 Overview: C8 nerve root on left. Herpes [...] Espinoza's, hiatal hernia FAMILY HX, ISCHEMIC HEART [id number] 12/04/2010 01/20/2013 Dyslipidemia, goal LDL below 130 08/24/2010 01/20/2013 Anxiety state 11/14/2009 01/20/2013 Irritable bowel syndrome 11/14/2009 Esophageal reflux 11/14/2009 04/16/2011 Overview: hiatal hernia, EGD 03/13 Barretts Palpitations 11/14/2009 01/20/2013 Overview: 10/05 ANEMIA NOS-neg eval 11/11 Overview: neg. follow-up 1989 Other allergic rhinitis 01/03 Overview: ICD-10 update of inactive term documented as of this encounter (statuses as of 11/03/2023) Immunizations Name Administration Dates Next Due COVID-19 mRNA, LNP-s, No Pre serve, 2-Dose Series (Airborne Mobile) 03/20/2021,07/22/2020,07/01/2020 PPD 10/05/1992 Pneumococcal Conjugate Vacc, 13 [...] encounter Miscellaneous Notes * Addendum Note - Bala Knox MD - 11/03/2023 8:30 AM EDTAddended by: BALA KNOX on: 11/03/2023 08:30 AM Modules accepted: Orders documented in this encounter Plan of Treatment Upcoming Encounters Date Type Department Care Team (Late st Contact Info) Description 11/04/2023 3:30 PM EDT Imaging Radiology, [place] [address] [place] [address] 11/10/2023 11:45 AM EDT Office Visit Urogynecology Elsi Santos [address] [place] [address] Bala Knox MD [address] [place] [address] Nurse Shawn Santos Kalyn [address] [place] [address] 11/28/2023 10:00 AM EDT Laboratory Laboratory [facility], [place] [address] [facility] [place] [phone] [place], [facility] [address] [facility] [place] [address] 12/05/2023 2:30 PM EDT Office Visit Hematology/Oncology [facility] [address] [place] [address] Constanza Castañeda, [facility] [address] [place] [address] 12/31/2023 4:00 PM EDT Office Visit [facility] [address] [place] [address] Madalyn Pandya MD [address] [place] [address] 02/09/2024 10:20 AM EDT Office Visit Urogynecology Elsi Souzas [address] [place] [address] Bala Knox MD [address] [place] [address] Nurse [facility] [address] [place] [address] Health Maintenance Due Date Last Done Comments Espinoza's Esophagus Surveilance 1943 Zoster Vaccines (2 of 3) 02/12/2015 12/18/2014 COVID-19 Vaccine (4 - season) 2023 03/20/2021, 07/22/2020, 07/01/2020 Influenza Vaccine (FLU shot) (#1) 2024 04/11/2023, 03/21/2022, 04/05/2021, Additional history exists DTaP,Tdap,and Td Vaccines (2 - Td or Tdap) 01/21/2024 01/20/2014 CKD PHOS USE SMARTSET 72651 04/02/202403/06, 09/14/2021, 03/12/2021, Additional history exists Albumin/Creatinine Ratio 04/04/2024 023, 03/13/2022, 09/14/2021, Additional history exists GFR 04/06/2024 10/06/2023, 06/0 07/2023, 08/09/2023, Additional history exists CKD HGB USE SMARTSET 18363 05/20/202405/20, 05/20/2023, 03/21/2023, Additional history exists Depression Screening 05/20/2024 05/20/2023 TSH 05/20/2024 05/20/2023, 05/05, 04/02/2023, Additional history exists DXA Scan 01/21/2030 01/21/2023, 09/03, 11/27/2015, Additional history exists Pneumococcal Vaccine: 65+ Years Completed 01/17/2015, 04/07/2013 GARDASIL-HPV IMMUNIZATION SERIES Aged Out No longer eligible based on patient's age to complete this topic Hepatitis B Aged Out No longer eligi ble based on patient's age to complete this topic MENINGOCOCCAL (MENACTRA/MENVEO) Aged Out No longer eligible based on patient's age to complete this topic documented as of this encounter Medical Devices Implanted Type Area Luggage Maker Device Identifier Shelf Expiration Date Model / Serial / Lot [place] Ptfe 1x1 [id number] - [id number] Implanted:Qty: 5 on 06/03/2018 by Jaxon Vega MD at OR [facility] N/A: Abdomen CR BARD : PERIPHERAL VASCULAR 11/29/2021 [id number] / / [id number] Description:para-esophageal hernia Allomax Mesh 5 X 8 [id number] - [id number] - [id number] Implanted:Qty: 1 on 06/03/2018 by Jaxon Vega MD at OR [facility] N/A: Abdomen CR BARD : DAVOL 05/04/2020 [id number] / [id number] / [id number] Description:PARA ESOPHAGEAL HERNIA documented as of this encounter Procedures Procedure Name Priority Date/Time Associated Diagnosis Comments CULTURE, URINE, QUANTITATIVE Routine 10/29/2023 2:18 PM EDT Atrophic vaginitis Cystocele, midline Urge incontinence documented in this encounter Results * (ABNORMAL) CULTURE, URINE, QUANTITATIVE (10/29/2023 2:18 PM EDT) Culture Growth 1000 to 9999 colonies/mL Beta Streptococcus group B(A) MICROBROTH DILUTIONS 11/02/2023 2:30 PM EDT [facility] Culture Growth 100 to 999 colonies/mL Escherichia coli(A) MICROBROTH DILUTIONS 11/02/2023 2:30 PM EDT [facility] Culture Growth 100 to 999 colonies/mL Streptococcus viridans group(A) MICROBROTH DILUTIONS 11/02/2023 2:30 PM EDT [facility] Culture Growth 100 to 999 colonies/mL Staphylococcus, coagulase negative, not S. saprophyticus(A) MICROBROTH DILUTIONS 11/02/2023 2:30 PM EDT [facility] Urine Urine specimen / Unknown Non-blood Collection / Unknown 10/29/2023 2:18 PM EDT 10/29/2023 2:18 PM EDT Narrative Organism Antibiotic Method Susceptibility Beta Streptococcus group B Penicillin G MICROBROTH DILUTIONS <=0.06: Susceptible Beta Streptococcus group B Vancomycin MICROBROTH DILUTIONS 0.5: Susceptible Escherichia coli Ampicillin MICROBROTH DILUTIONS 8: Susceptible Escherichia coli Cefazolin MICROBROTH DILUTIONS <=4: Susceptible Escherichia coli Cefepime MICROBROTH DILUTIONS <=1: Susceptible Escherichia coli Ceftriaxone MICROBROTH DILUTIONS <=1: Susceptible Escherichia coli Ciprofloxacin MICROBROTH DILUTIONS <=0.25: Susceptible Comment:Due to ivanna us side effects, the FDA has advised against using Ciprofloxacin to treat uncomplicated UTIs and respiratory tract infections unless there are no alternative treatment options. Escherichia coli Gentamicin MICROBROTH DILUTIONS <=1: Susceptible Escherichia coli Nitrofurantoin MICROBROTH DILUTIONS <=16: Susceptible Escherichia coli Piperacillin Tazobactam MICROBR OTH DILUTIONS <=4: Susceptible Escherichia coli Trimeth/Sulfamethoxa zol e MICROBROTH DILUTIONS <=20: Susceptible Bala Knox MD LAB MICRO - GENERAL ORDERABLES LABORATORY [facility] [address] [place] [address] documented in this encounter Visit Diagnoses Diagnosis Atrophic vaginitis Postmenopausal atrophic vaginitis Cystocele, midline Urge incontinence documented in this encounter Advance Directives * Full Code (Latest Code Status on File) Date Activated Date Inactivated Comments 06/03/2018 4:58 PM 06/05/2018 7:48 PM Question Answer Comments Discussion of Advance Directives occurred with: Not Discussed Does the patient have a Living Will? No Does the patient have Health Care Power of Attor jose luis? No Care Teams Boxing Inspector Relationship Specialty Start Date End Date Madalyn Pandya MD [address] [place] [phone] PCP - General Family Medicine 06/11/23 documented as of this encounter
--- OUTSIDE RECORDS SUMMARY | 2024-04-17 12:50 | External Medical Summary ---
Author Name Unknown Address Unknown Organization K01:[facility] - [address] [place] [address] Laboratory Report Ordering Provider Test Date Status INDIO HEALY 10/29/2023 14:18:45 Final Observation Date Value Abnormality Reference (Units) Status Bacteria identified in Specimen by Culture 10/29/2023 14:18:45 [id number]^BETA STREPTOCOCCUS GROUP B Abnormal Final 1000 to 9999 colonies/mL Bet a Streptococcus group B Bacteria identified in Specimen by Culture 10/29/2023 14:18:45 [id number]^ESCHERICHIA COLI Abnormal Final 100 to 999 colonies/mL Esche richia coli Bacteria identified in Specimen by Culture 10/29/2023 14:18:45 [id number]^STREPTOCOCCUS VIRIDANS GROUP Abnormal Final 100 to 999 colonies/mL Strep tococcus viridans group Bacteria identified in Specimen by Culture 10/29/2023 14:18:45 [id number]^STAPHYLOCOCCUS, COAGULASE NEGATIVE, NOT S. SAPROPHYTICUS Abnormal Final 100 to 999 colonies/mL Staph ylococcus, coagulase negative, not S. saprophyticus Performing Location LABORATORY [facility] - [address] [place] [id number] Ordering Provider Test Date Status INDIO HEALY 10/29/2023 14:18:45 Final Observation Date Value Abnormality Reference (Units ) Status Penicillin susceptibility 10/29/2023 14:18:45 <=0.06 Susceptible Final Vancomycinsusceptibility 10/29/2023 14:18:45 0.5 Susceptible Final Performing Location LABORATORY [facility] - [address] [facility] [address] Ordering Provider Test Date Status INDIO HEALY 10/29/2023 14:18:45 Final Observation Date Value Abnormality Reference (Units ) Status Ampicillin 10/29/2023 14:18:45 8 Susceptible Final Cefazolin 10/29/2023 14:18:45 <=4 Susceptible Final Cefepime susceptibility 10/29/2023 14:18:45 <=1 Susceptible Final Ceftriaxone suceptibility 10/29/2023 14:18:45 <=1 Susceptible Final Ciprofloxacin 10/29/2023 14:18:45 <=0.25 Susceptible Final Due to serious side effects, the FDA has advised against using Ciprofloxacin to treat uncomplicated UTIs and respiratory tract infections unless there are no alternative treatment options. Gentamicin susceptibility 10/29/2023 14:18:45 <=1 Susc eptible Final Nitrofurantoin susceptibility 10/29/2023 14:18:45 <=16 Susceptible Final Piperacillin + Tazobactamsusceptibility 10/29/2023 14:18:45 <=4 Susceptible Final TMP-SMZ susceptibility 10/29/2023 14:18:45 <=20 Suscept ible Final Test: Culture, Urine, Quanti tative
Specimen Source: Urine, Catheter
Specimen Type: Urine
Specimen Date: 10/29/2023 1418
Result Date: 11/02/2023 1430
Result Status: Final result
Abnormal: Yes
Resulting Lab: LABORATORY [facility]
[address] [facility] [address]

CULTURE

1000 to 9999 colonies/mL Beta Streptococcus group B (Abnormal)

100 to 999 colonies/mL Escherichia coli (Abnormal)

100 to 999 colonies/mL Streptococcus viridans group (Abnormal)

100 to 999 colonies/mL Staphylococcus, coagulase negative, not S. saprophyticus
(Abnormal)

SUSCEPTIBILITY

Beta Streptococcus Escherichia coli
group B
METHOD MICROBROTH MICROBROTH
DILUTIONS DILUTIONS

AMPICILLIN 8 Susceptible
CEFAZOLIN <=4 Susceptible
CEFEPIME <=1 Susceptible
CEFTRIAXONE <=1 Susceptible
CIPROFLOXACIN <=0.25 Susceptible
[1]
GENTAMICIN <=1 Susceptible
NITROFURANTOIN <=16 Susceptible
PENICILLIN G <=0.06 Susceptible
PIPERACILLIN TAZOBACTAM <=4 Susceptible
TRIMETH/SULFAMETHOXAZOLE <=20 Susceptible
VANCOMYCIN 0.5 Susceptible

[1] Due to serious side effects, the FDA has advised against using
Ciprofloxacin to treat uncomplicated UTIs and respiratory tract infections
unless there are no alternative treatment options.

null Performing Location LABORATORY [facility] - [address] [facility] [address]
--- OUTSIDE RECORDS SUMMARY | 2024-04-17 12:50 | External Medical Summary | Summary of Care ---
Author Name Unknown Organization [facility] Address [address] [place] [address] Phone [phone] Care Team Providers Care Senior Sales Consultant Name Role Phone Madalyn Pandya MD Primary Care Provider [phone] Reason for Visit * Reason Onset Date Comments Test Results 11/04/2023 Unexpected or In determinate Result Encounter Details Date Type Department Care Team (Late st Contact Info) Description 11/04/2023 Telephone Laboratory, [place] [address] [place] [address] Madalyn Pandya MD [address] [place] [id number] Test Results (Unexpected or Indeterminate ... Allergies [...] as of this encounter (statuses as of 11/04/2023) Medications Medication Sig Dispensed Refills Start Date [...] stage III (GFR 30-59 ml/min) ([facility]),Cerebrovascul ar disease, arteriosclerotic, post-stroke,Dyslipi demia, goal LDL below 70,Cerebellar infarct ([facility]) take 1 tablet by mouth at bedtime 90 Tablet 1 08/18/2023 Active Eliquis 5 MG Oral TabletIndications:A cute deep vein thrombosis (DVT) of right lower extremity, unspecified vein ([facility]) Take 1 Tablet by mouth in the morning and 1 Tablet before bedtime. 180 Tablet 1 09/01/2023 Active Iron-Vitamin C 65-125 MG Oral Tablet (Vitron C)Indications:Anemi a in stage 3a chronic kidney disease ([facility]) Take 1 Tablet by mouth in [...] as of this encounter (statuses as of 11/04/2023) Active Problems Problem Noted Date Diagnosed Date [...] as of this encounter (statuses as of 11/04/2023) Resolved Problems Problem Noted Date Diagnosed Date [...] Espinoza's, hiatal hernia FAMILY HX, ISCHEMIC HEART [id number] 12/04/2010 01/20/2013 Dyslipidemia, goal LDL below 130 08/24/2010 01/20/2013 Anxiety state 11/14/2009 01/20/2013 Irritable bowel syndrome 11/14/2009 Esophageal reflux 11/14/2009 04/16/2011 Overview: hiatal hernia, EGD 03/13 Barretts Palpitations 11/14/2009 01/20/2013 Overview: 10/05 ANEMIA NOS-neg eval 11/11 Overview: neg. follow-up 1989 Other allergic rhinitis 01/03 Overview: ICD-10 update of inactive term documented as of this encounter (statuses as of 11/04/2023) Immunizations Name Administration Dates Next Due COVID-19 mRNA, LNP-s, No Pre serve, 2-Dose Series (Huaat) 03/20/2021,07/22/2020,07/01/2020 PPD 10/05/1992 Pneumococcal Conjugate Vacc, 13 [...] unexpected or indeterminate finding on Nancy Ayala ([id number]) and asks that you review the following report. IMPRESSION IMPRESSION 1. Nonocclusive deep venous thrombosis within the right popliteal vein as described above. Study Type:VASC DUPLEX VENOUS LE UNILAT Date of Study: 11/04/2023 Please respond to this encounter to acknowledge receipt of this message and take responsibility to ensure this report is reviewed. Thank you, RIGO Dukes Client Service [facility] documented in this encounter Plan of Treatment Upcoming Encounters Date Type Department Care Team (Late st Contact Info) Description 11/10/2023 11:45 AM EDT Office Visit Urogynecology Elsi Santos [address] [place] [address] Bala Knox MD [address] [place] [address] Nurse Shawn Santos Kalyn [address] [place] [address] 11/28/2023 10:00 AM EDT Laboratory Laboratory [address], [place] [address] [place] [phone] [place], Lab [facility] [address] [place] [address] 12/05/2023 2:30 PM EDT Office Visit Hematology/Oncology [facility] [place] [address] [facility] [place] [phone] Constanza Castañeda CRNP [address] [place] [address] 12/31/2023 4:00 PM EDT Office Visit [facility] [address] [place] [phone] Madalyn Pandya MD [address] [place] [address] 02/09/2024 10:20 AM EDT Office Visit Urogynecology [facility] [address] [place] [address] Bala Knox MD [address] [place] [address] Howard [facility] [address] [place] [address] Health Maintenance Due Date Last Done Comments Espinoza's Esophagus Surveilance 1943 Zoster Vaccines (2 of 3) 02/12/2015 12/18/2014 COVID-19 Vaccine (4 - season) 2023 03/20/2021, 07/22/2020, 07/01/2020 Influenza Vaccine (FLU shot) (#1) 2024 04/11/2023, 03/21/2022, 04/05/2021, Additional history exists DTaP,Tdap,and Td Vaccines (2 - Td or Tdap) 01/21/2024 01/20/2014 CKD PHOS USE SMARTSET 49072 04/02/202403/06, 09/14/2021, 03/12/2021, Additional history exists Albumin/Creatinine Ratio 04/04/2024 023, 03/13/2022, 09/14/2021, Additional history exists GFR 04/06/2024 10/06/2023, 06/0 07/2023, 08/09/2023, Additional history exists CKD HGB USE SMARTSET 83357 05/20/202405/20, 05/20/2023, 03/21/2023, Additional history exists Depression [...] this encounter Medical Devices Implanted Type Area Inspector Tester Sorter Device Identifier Shelf Expiration Date Model / Serial / Lot [place] Ptfe 1x1 [id number] - [id number] Implanted:Qty: 5 on 06/03/2018 by Jaxon Vega MD at OR [facility] N/A: Abdomen CR BARD : PERIPHERAL VASCULAR 11/29/2021 [id number] / / [id number] Description:para-esophageal hernia Allomax Mesh 5 X 8 [id number] - [id number] - [id number] Implanted:Qty: 1 on 06/03/2018 by Jaxon Vega MD at OR [facility] N/A: Abdomen CR BARD : DAVOL 05/04/2020 [id number] / [id number] / [id number] Description:PARA ESOPHAGEAL HERNIA documented as of this encounter Advance Directives * Full Code (Latest Code Status on File) Date Activated Date Inactivated Comments 06/03/2018 4:58 PM 06/05/2018 7:48 PM Question Answer Comments Discussion of Advance Directives occurred with: Not Discussed Does the patient have a Living Will? No Does the patient have Health Care Power of Attor jose luis? No Care Teams Senior Sales Consultant Relationship Specialty Start Date End Date Madalyn Pandya MD [address] [place] [address] PCP - General Family Medicine 06/11/23 documented as of this encounter
--- OUTSIDE RECORDS SUMMARY | 2024-04-17 12:50 | External Medical Summary | Summary of Care ---
Author Name Unknown Organization [facility] Address [address] [place] [address] Phone [phone] Care Team Providers Care Art Display Maker Name Role Phone Madalyn Pandya MD Primary Care Provider Reason for Visit * Reason Comments Outpatient Testing Encounter Details Date Type Department Care Team (Late st Contact Info) Description 10/29/2023 2:20 PM EDT Laboratory Laboratory [address], [place] [address] [place] [phone], Specimen Drop Off [facility] [place] [address] [place] [address] Atrophic vaginitis; Cystocele, midline; Urge incontinence Allergies [...] as of this encounter (statuses as of 10/29/2023) Medications Medication Sig Dispensed Refills Start Date [...] ml/min) ([facility]),Cerebrovascul ar disease, arteriosclerotic, post-stroke,Dyslipi demia, goal LDL below 70,Cerebellar infarct ([facility]) take 1 tablet by mouth at bedtime 90 Tablet 1 08/18/2023 Active Nitrofurantoin Monohyd Macro 100 MG Oral Capsule (Macrobid) Take 1 Capsule by mouth in the morning and 1 Capsule before bedtime. 08/23/2023 Active Eliquis 5 MG Oral TabletIndications:A cute deep vein thrombosis (DVT) of right lower extremity, unspecified vein ([facility]) Take 1 Tablet by mouth in the morning and 1 Tablet before bedtime. 180 Tablet 1 09/01/2023 Active Iron-Vitamin C 65-125 MG Oral Tablet (Vitron C)Indications:Anemi a in stage 3a chronic kidney disease ([facility]) [...] as directed 42.5 g 3 09/26/2023 Active documented as of this encounter (statuses as of 10/29/2023) Active Problems Problem Noted Date Diagnosed Date [...] as of this encounter (statuses as of 10/29/2023) Resolved Problems Problem Noted Date Diagnosed Date [...] Espinoza's, hiatal hernia FAMILY HX, ISCHEMIC HEART [id number] 12/04/2010 01/20/2013 Dyslipidemia, goal LDL below 130 08/24/2010 01/20/2013 Anxiety state 11/14/2009 01/20/2013 Irritable bowel syndrome 11/14/2009 Esophageal reflux 11/14/2009 04/16/2011 Overview: hiatal hernia, EGD 03/13 Barretts Palpitations 11/14/2009 01/20/2013 Overview: 10/05 ANEMIA NOS-neg eval 11/11 Overview: neg. follow-up 1989 Other allergic rhinitis 01/03 Overview: ICD-10 update of inactive term documented as of this encounter (statuses as of 10/29/2023) Immunizations Name Administration Dates Next Due COVID-19 mRNA, LNP-s, No Pre serve, 2-Dose Series ([employer]) 03/20/2021,07/22/2020,07/01/2020 PPD 10/05/1992 Pneumococcal Conjugate Vacc, 13 [...] Description 11/04/2023 3:30 PM EDT Imaging Radiology, [place] [address] [place] [address] 11/10/2023 11:45 AM EDT Office Visit Urogynecology Elsi Santos [address] [place] [address] Bala Knox MD [address] [place] [address] Nurse Shawn Santos [address] [place] [id number] 11/28/2023 10:00 AM EDT Laboratory Laboratory [address], [place] [address] [place] [phone] [place] [address] [place] [address] 12/05/2023 2:30 PM EDT Office Visit Hematology/Oncology Rashawn Mcdonald [place] [address] [facility] [place] [phone] Constanza Castañeda CRNP [address] [facility] [place] [address] 12/31/2023 4:00 PM EDT Office Visit [facility] [address] [place] [address] Madalyn Pandya MD [address] [place] [id number] 02/09/2024 10:20 AM EDT Office Visit Urogynecology [facility] [address] [place] [place] [address] Bala Knox MD [address] [place] [id number] [place], Nurse Urodynamics [address] [place] [address] Pending Results Name Type Priority Associated Diagnoses Date /Time CULTURE, URINE, QUANTITATIVE Lab Routine Atrophic vaginitis Cystocele, midline Urge incontinence 10/29/2023 2:18 PM EDT Health Maintenance Due Date Last Done Comments Espinoza's Esophagus Surveilance 1945 Zoster Vaccines (2 of 3) 02/12/2015 12/18/2014 COVID-19 Vaccine (4 - season) 2023 03/20/2021, 07/22/2020, 07/01/2020 DTaP,Tdap,and Td Vaccines (2 - Td or Tdap) 01/21/2024 01/20/2014 CKD PHOS USE SMARTSET 34677 04/02/202403/06, 09/14/2021, 03/12/2021, Additional history exists Albumin/Creatinine Ratio 04/04/2024 023, 03/13/2022, 09/14/2021, Additional history exists GFR 04/06/2024 10/06/2023, 06/0 07/2023, 08/09/2023, Additional history exists CKD HGB USE SMARTSET 29095 05/20/202405/20, 05/20/2023, 03/21/2023, Additional history exists Depression Screening 05/20/2024 05/20/2023 TSH 05/20/2024 05/20/2023, 05/05, 04/02/2023, Additional history exists DXA Scan 01/21/2030 01/21/2023, 09/03, 11/27/2015, Additional history exists Pneumococcal Vaccine: 65+ Years Completed 01/17/2015, 04/07/2013 Influenza Vaccine (FLU shot) Completed 12/2022, 03/21/2022, 04/05/2021, Additional history exists GARDASIL-HPV IMMUNIZATION SERIES Aged Out No longer eligible based on patient's age to complete this topic Hepatitis B Aged Out No longer eligi ble based on patient's age to complete this topic MENINGOCOCCAL (MENACTRA/MENVEO) Aged Out No longer eligible based on patient's age to complete this topic documented as of this encounter Medical Devices Implanted Type Area Padder Device Identifier Shelf Expiration Date Model / Serial / Lot Horner Ptfe 1x1 [id number] - [id number] Implanted:Qty: 5 on 06/03/2018 by Jaxon Vega MD at OR [facility] N/A: Abdomen CR BARD : PERIPHERAL VASCULAR 11/29/2021 [id number] / / [id number] Description:para-esophageal hernia Allomax Mesh 5 X 8 [id number] - [id number] - [id number] Implanted:Qty: 1 on 06/03/2018 by Jaxon Vega MD at OR [facility] N/A: Abdomen CR BARD : DAVOL 05/04/2020 [id number] / [id number] / [id number] Description:PARA ESOPHAGEAL HERNIA documented as of this encounter Visit Diagnoses Diagnosis Atrophic vaginitis [...] of Attor jose luis? No Care Teams Art Display Maker Relationship Specialty Start Date End Date Madalyn Pandya MD [address] [place] [address] PCP - General Family Medicine 06/11/23 documented as of this encounter
--- NOTE | 2024-04-20 11:42 | Pharmacy Report ---
Pharmacist Stroke Counseling - Date of Service April 20, 2024 - Scope: Pharmacy has been consulted to provide medication discharge counseling for this patient admitted with previous ischemic attack as per the Pharmacist Discharge Counseling for Stroke Patients Protocol. - Medications on Discharge: Home Medications Medication Instructions Recorded Confirmed acetaminophen 325 mg tablet 325 mg PO HS PRN Pain 04/15/24 04/15/24 apixaban 2.5 mg tablet (Eliquis) 2.5 mg PO AMHS 04/15/24 04/15/24 cholecalciferol (vitamin D3) 50 50 mcg PO DAILY 04/15/24 04/15/24 mcg (2,000 unit) capsule (Vitamin D3) conjugated estrogens 0.625 mg/gram 1 applic vaginal 2XWK 04/15/24 04/15/24 vaginal cream (Premarin) fluticasone propionate 50 2 spray intranasal DAILY 04/15/24 04/15/24 mcg/actuation nasal spray,suspension levothyroxine 50 mcg tablet 50 mcg PO QAM 04/15/24 04/15/24 pantoprazole 40 mg tablet,delayed 40 mg PO DAILYBB 04/15/24 04/15/24 release rosuvastatin 20 mg tablet 20 mg PO HS 04/15/24 04/15/24 spironolactone 25 mg tablet 25 mg PO QAM 04/15/24 04/15/24 New Rx's Medication Instructions Recorded amlodipine 5 mg tablet (Norvasc) 5 mg PO DAILY #30 tabs 04/16/24 clopidogrel 75 mg tablet (Plavix) 75 mg PO DAILY #30 tabs 04/16/24 - Action: The above medications, specifically ones for stroke treatment/prophylaxis, have been reviewed in detail with the patient and/or patient event sales representative(s) prior to discharge. This includes indication, common adverse reactions, drug interactions, and medication administration. Medication counseling has been employed using the teach-back method to ensure understanding. - Outcome: The patient and/or patient event sales representative(s) have demonstrated understanding of the medications. Additional comments: - counseled patient on Plavix. Follow up with PCP scheduled. Thank you for allowing pharmacy to be involved in the care of this patient. Please call [phone] with any additional questions
== END 2024-04-16 13:32 | disposition home or self-care (01) | DRG 69 ==
LOC: ED 13:39 → SUATTDRO 15:02 → 2S 15:02